=== PATIENT | female | born 1945 | race Caucasian/White ===

== ENCOUNTER 2023-11-16 21:14 | Observation (INO) | payer MEDICARE, SELFPAY ==
[2023-11-16] VITALS (16 sets, daily range): BP systolic 128–170; BP diastolic 60–87; PULSE 75; RESP 28; TEMP 37.1; O2SAT 90–96; BMI 26.5
--- NOTE | 2023-11-16 21:33 | CT_ITS ---
The [address] [address] Patient Name: DIEGO DEY MRN: [id number] date: 1945 Sex: F Assigned Patient Location: ER Current Patient Location: ER Accession/Order Number: [id number] Exam Date: 11/16/2023 22:20 Report Date: 11/16/2023 23:54 At the request of: KELY CORDON Procedure: CT abdomen pelvis w con CT ABDOMEN AND PELVIS WITH CONTRAST: INDICATION: trauma. COMPARISON: 01/08/2022. TECHNIQUE:Multiple thin section transaxial slices were acquired through the abdomen and pelvis with intravenous contrast. Coronal and sagittal reconstructed images were reviewed. Oral contrastWas not administered. FINDINGS: LOWER CHEST: There are severe emphysematous changes in the lung bases with chronic interstitial scarring. There is a small to moderate hiatal hernia. LIVER: The liver is unremarkable. GALLBLADDER AND BILIARY SYSTEM: There is mild intra and extrahepatic ductal dilation. This is most likely due to the postsurgical status of the patient. The gallbladder is not visualized and is likely absent. SPLEEN: The spleen is unremarkable. PANCREAS: The pancreas is unremarkable. ADRENAL GLANDS: The adrenal glands are unremarkable. KIDNEYS AND URETERS: There is no hydronephrosis of the kidneys.There is a heterogeneous nodule arising from the posterior inferior right kidney measuring 2.1 cm slightly increased in size. This may represent neoplasm. Additional simple cysts are present elsewhere in both kidneys. Ureters are within normal limits without obstructing urologic calcifications. VASCULATURE: Heavy atherosclerotic plaque is present in the abdominal aorta without aneurysm. PERITONEUM/RETROPERITONEUM: Peritoneum/retroperitoneum is unremarkable. LYMPH NODES: No suspicious lymphadenopathy. GASTROINTESTINAL TRACT: The bowel is normal in caliber.No acute inflammatory process is present in the bowel.The appendix is not visualized and may be absent or diminutive. BLADDER: The urinary bladder is unremarkable. REPRODUCTIVE SYSTEM: The uterus is absent. BODY WALL: Small bilateral fat-containing inguinal hernias are present. BONES: The patient is status post posterior spinal fusion and discectomy of L4-L5. The hardware is stable in alignment and remains intact. There is an incompletely imaged acute fracture of the right lateral seventh rib. No definitive acute osseous injuries are present elsewhere in the abdomen or pelvis. CT/CT abdomen pelvis w con IMPRESSION: 1. There is an incompletely imaged fracture of the right lateral seventh rib on this exam. No additional acute osseous injuries elsewhere in the abdomen or pelvis. 2. Heterogeneous nodule arising from the inferior right kidney slightly increased in size from the prior exam. This may represent a neoplastic lesion. This can be closely followed up with renal ultrasound in 6 months. 3. No acute traumatic visceral injuries in the abdomen or pelvis. No acute inflammatory process or obstructive uropathy. Electronically authenticated by: RONNIE MCKINNEY Date: 11/16/2023 23:54
--- NOTE | 2023-11-16 21:35 | CT_ITS ---
The [address] [address] Patient Name: DIEGO DEY MRN: [id number] date: 1945 Sex: F Assigned Patient Location: ER Current Patient Location: ER Accession/Order Number: [id number] Exam Date: 11/16/2023 22:20 Report Date: 11/16/2023 23:18 At the request of: KELY CORDON Procedure: CT head/brain wo con EXAM: CT head/brain wo con, CT cervical spine wo con HISTORY: injury COMPARISON: CT brain 02/07/2019. TECHNIQUE: Axial CT scans through the head and cervical spine were obtained without IV contrast administration. Dose reduction techniques were achieved by using: automated exposure control and/or adjustment of mA and /or kV according to patient size and/or use of iterative reconstruction technique. CT BRAIN FINDINGS: There is no evidence of acute intracranial hemorrhage or abnormal extra-axial fluid collection. No mass effect or midline shift is seen. There is no evidence of large acute territorial infarction. There is no hydrocephalus. There are chronic lacunar infarcts in bilateral thalami. Mild enlarged cortical sulci, consistent with age appropriate cerebral atrophy. Mild low-attenuation patchy areas are present in supratentorial white matter, likely represents chronic microvascular ischemia. There are atherosclerotic calcifications of anterior and posterior circulations. To the limit of CT, the posterior fossa appears unremarkable. Empty sella is noted. No definite acute fracture is identified. Soft tissues are unremarkable. The visualized orbits show no abnormality. The visualized paranasal sinuses show no air-fluid level. Chronic right-sided mild mastoid effusion. CT/CT head/brain wo con IMPRESSION: No CT evidence of acute intracranial abnormality. Nonacute findings, as described. CT CERVICAL SPINE FINDINGS: No acute fracture or posttraumatic malalignment is seen. The dens and lateral masses of C1 are symmetric. There is mild retrolisthesis of C5 on C6 and mild anterolisthesis of C7 on T1. There is reversal of normal cervical lordosis. There are multilevel marginal spurring and moderate to severe decreased disc height at C3-4, C4-5 and C5-6 and C6-7 levels. Multilevel mild to moderate facet arthrosis are identified. Mild central spinal stenosis is seen at C6-7 level. There are multilevel neural foraminal narrowing , moderate at bilateral C5-6 and mild at bilateral C3-4, right C4-5 and bilateral C6-7 levels. The prevertebral soft tissue space appears normal. There are a couple of small low-attenuation nodules in the right inferior thyroid lobe. There are moderate to severe atherosclerotic calcifications at the bilateral carotid bifurcations. IMPRESSION: No visualized acute cervical spine abnormality. Multilevel cervical spondylosis, as described. Low-attenuation nodules in the right thyroid lobe. Recommend nonemergent thyroid ultrasound for further evaluation. Electronically authenticated by: PAVEL QUIÑONES Date: 11/16/2023 23:18
--- NOTE | 2023-11-16 21:35 | ED_ITS ---
HPI - Fall General Chief Complaint: Fall Stated Complaint: fell Time Seen by Provider: 11/16/23 21:26 Source: patient Mode of arrival: ambulance Limitations: no limitations History of Present Illness HPI Narrative: patient states she fell yesterday at home. States she tripped . Fell to the floor. Believes she may have struck her head on the door. Not sure if she loss consciousness. Denies headache. Lives alone and was able to get up. comes in today because of right rib cage pain. no dyspnea or nausea/vomiting MD complaint: Reports fall Onset (ago): day(s) Related Data Home Medications Medication Instructions Recorded Confirmed albuterol sulfate 90 mcg/actuation 2 puff inhalation Q4H PRN 11/16/23 11/16/23 aerosol inhaler shortness of breath or wheezing alendronate 10 mg tablet PO .weekly 11/16/23 aspirin 81 mg capsule 81 mg PO DAILY 11/16/23 11/16/23 citalopram 20 mg tablet 20 mg PO DAILY 11/16/23 11/16/23 methotrexate sodium 2.5 mg tablet 5 mg PO .weekly 11/16/23 11/16/23 metoprolol tartrate 25 mg tablet 12.5 mg PO DAILY 11/16/23 11/16/23 omega 5-knn-aug-fish oil 1,000 mg 1 cap PO DAILY 11/16/23 11/16/23 (120 mg-180 mg) capsule (Fish Oil) oxycodone-acetaminophen 5 mg-325 1 tab PO .daily PRN pain 11/16/23 11/16/23 mg tablet rosuvastatin 5 mg tablet 5 mg PO BEDTIME 11/16/23 11/16/23 Allergies Allergy/AdvReac Type Severity Reaction Status Date / Time No Known Drug Allergies Allergy Verified 11/16/23 21:24 Review of Systems ROS Status of ROS 10 or more systems reviewed and unremark able except as noted in history and below [facility] Medical History (Updated 11/17/23 @ 01:13 by Champ Plaza MD) Cataracts, both eyes ?H26.9 - Unspecified cataract (ICD-10) Chronic obstructive pulmonary disease ?J44.9 - Chronic obstructive pulmonary disease, unspecified (ICD-10) Urinary tract infection ?N39.0 - Urinary tract infection, site not specified (ICD-10) Surgical History (Updated 11/16/23 @ 22:11 by Elie Rojas) History of hysterectomy ?Z90.710 - Acquired absence of both cervix and uterus (ICD-10) History of cholecystectomy ?Z90.49 - Acquired absence of other specified parts of digestive tract (ICD- 10) History of hernia surgery ?Z98.890 - Other specified postprocedural states (ICD-10) ?Z87.19 - Personal history of other diseases of the digestive system (ICD-10) Previous back surgery ?Z98.890 - Other specified postprocedural states (ICD-10) History of endarterectomy ?Z98.890 - Other specified postprocedural states (ICD-10) Social History Smoking status: Current every day smoker Exam Constitutional Vital Signs, click to edit/add: Last Vital Signs Temp 98.8 F 11/16/23 21:16 Pulse 75 11/16/23 21:16 Resp 28 H 11/16/23 21:16 BP 114/55 11/17/23 00:31 Pulse Ox 96 11/17/23 00:40 O2 Del Method Room Air 11/16/23 21:16 Common normals: no apparent distress, average body habitus, oriented x3, no limitations, healthy appearing, alert and well nourished [facility] Common normals: normocephalic and head/scalp atraumatic Eye Common normals: EOMs intact bilaterally and conjunctivae normal Chest Other: right anterior inferior chest wall tenderness Respiratory Common normals: normal respiratory effort, no retractions, no use of accessory muscles and clear to auscultation bilaterally GI Common normals: Normal to inspection, nondistended, normoactive bowel sounds present, soft to palpation and non-tender Extremity Common normals: normal to inspection and full ROM Neuro Common normals: oriented x3, CN's II-XII intact bilaterally, moves all extremities, no focal motor deficits and no sensory deficits noted Psych Appearance: grossly normal Course Vital Signs Vital signs: Vital Signs Temperature 98.8 F 11/16/23 21:16 Pulse Rate 75 11/16/23 21:16 Respiratory Rate 28 H 11/16/23 21:16 Blood Pressure 170/85 H 11/16/23 21:16 Pulse Oximetry 93 L 11/16/23 21:16 Oxygen Delivery Method Room Air 11/16/23 21:16 Temperature 98.8 F 11/16/23 21:16 Pulse Rate 75 11/16/23 21:16 Respiratory Rate 28 H 11/16/23 21:16 Blood Pressure 114/55 11/17/23 00:31 Pulse Oximetry 96 11/17/23 00:40 Oxygen Delivery Method Room Air 11/16/23 21:16 MDM - Fall MDM Narrative Medical decision making narrative: patient fell at home yesterday. believes she struck her head but not sure. fell onto the floor striking her right ribs. Presents now via Squad with right rib cage pain. no dyspnea. pain with change in position. Not short of breath. CT with ? fracture of 7th Rib fracture. incidental finding of thyroid nodule and right kidney lesion both which will require follow up patient given Percocet, toradol and norflex for pain. pain improved some. She has chronic back pain for which she takes Percocet. patient discharged home to follow up with her family doctor for recheck. She and her sisters were informed of the need for follow up regarding thyroid and kidney Lab Data Labs: Lab Results 11/16/23 Range/Units 21:30 WBC 13.5 H (4.0-11.0) 10^3/uL RBC 5.37 (4.20-5.40) 10^6/uL Hgb 16.6 H (12.0-16.0) g/dL Hct 51.4 H (36.0-48.0) % MCV 95.7 (81.0-99.0) fL MCH 30.9 (26.7-34.0) pg MCHC 32.3 (29.9-35.2) g/dL RDW 14.4 (11.0-15.0) % Plt Count 197 (150-450) 10^3/uL MPV 10.5 (9.5-13.5) fL Neut % (Auto) 84.8 H (43.0-75.0) % Lymph % (Auto) 9.5 L (20.5-60.0) % Phillips % (Auto) 4.5 (1.7-12.0) % Eos % (Auto) 0.4 L (0.9-7.0) % Baso % (Auto) 0.4 (0.2-2.0) % Neut # (Auto) 11.4 H (1.4-6.5) 10^3/uL Lymph # (Auto) 1.3 (1.2-3.8) 10^3/uL Phillips # (Auto) 0.6 (0.3-0.8) 10^3/uL Eos # (Auto) 0.1 (0.0-0.7) 10^3/uL Baso # (Auto) 0.1 (0.0-0.1) 10^3/uL Abs Immat Gran (auto) 0.05 H (0.00-0.03) 10^3/uL Imm/Tot Granulo (auto) 0.4 (0.0-0.5) % Sodium 139 (136-145) mmol/L Potassium 4.5 (3.5-5.1) mmol/L Chloride 105 (98-107) mmol/L Carbon Dioxide 27.1 (21.0-32.0) mmol/L Anion Gap 11.4 BUN 24.0 H (7.0-18.0) mg/dL Creatinine 0.90 (0.55-1.02) mg/dL Est GFR ( Amer) >60 (>=60) Est GFR (Non-Af Amer) >60 (>=60) BUN/Creatinine Ratio 26.7 Glucose 167 H (74-106) mg/dL Lactate 1.6 (0.4-2.0) mmol/L Calcium 9.4 (8.5-10.1) mg/dL Total Bilirubin 0.6 (0.2-1.0) mg/dL AST 24 (15-37) U/L ALT 25 (14-59) U/L Alkaline Phosphatase 89 (46-116) U/L Troponin I High Sens 13.3 (4.0-51.3) pg/mL Total Protein 7.1 (6.4-8.2) g/dL Albumin 3.4 (3.4-5.0) g/dL Globulin 3.7 g/dL Albumin/Globulin Ratio 0.9 Imaging Data Abdominal x-ray: Radiologist's impression: The [address] [address] Patient Name: DIEGO DEY MRN: [facility]:[id number] date: 1945 Sex: F Assigned Patient Location: ER Current Patient Location: ER Accession/Order Number: [id number] Exam Date: 11/16/2023 22:20 Report Date: 11/17/2023 00:49 At the request of: CHAMP PLAZA Procedure: CT chest w con EXAM: CT CHEST WITH IV CONTRAST DATE OF EXAM: 11/16/2023 10:20 PM EST HISTORY: Shortness of breath. Elevated D-dimer. Trauma in a 78-year-old female COMPARISON: None. TECHNIQUE: Multiple axial images are taken from the level of the thyroid down through the upper abdomen with the use of IV contrast. Images are then reconstructed in the sagittal and coronal planes. This exam was performed according to our departmental dose-optimization program which includes use of Automated Exposure Control, adjustment of the mA and/or kV according to patient size and/or use of iterative reconstruction technique. Postprocessing was performed as per hospital protocol: Maximum intensity projection (MIPs) Contrast Used: 100 ml of Isovue FINDINGS: Novelty Printing Machine Operator: Novelty Printing Machine Operator demonstrates postoperative changes of the lumbosacral spine with hyperexpanded lungs. Lines and Tubes: None. Lungs: Lungs are hyperexpanded Pleura: Normal Thyroid: Normal Aorta: Normal. Pulmonary artery: Pulmonary artery measures within normal. No pulmonary embolus allowing for bolus timing and mixing artifact Heart: Mildly enlarged with coronary artery calcification Trachea/Bronchi: Well aerated. No intraluminal masses. Esophagus: The esophagus is fluid-filled measuring within normal Lymph Nodes: Normal. Mediastinal: Normal. Hilar: Normal Axilla: Normal Chest wall: Normal. Osseous Structures: Normal for patient's age. Subdiaphragm: Subdiaphragmatic abdominal organs included in the [id number] demonstrate an enlarged fatty infiltrated liver.. CT/CT chest w con IMPRESSION: 1. Emphysema. 2. Mild cardiomegaly with coronary artery disease. 3. Fluid-filled esophagus with small hiatal hernia 4. No CT evidence for acute pulmonary embolus. CT scan - chest: Radiologist's impression: The [address] [address] [address] Scan Report Signed Patient: DIEGO DEY MR#: [id number] : 1945 Acct:[id number] Age/Sex: 78 / F ADM Date: 11/16/23 Loc: ER Attending Dr: Ordering Physician: Champ Plaza Date of Service: 11/16/23 Procedure(s): CT chest w con Accession Number(s): [id number] cc: WILFREDO MELGAR ~ The [address] [address] Patient Name: DIEGO DEY MRN: [id number] date: 1945 Sex: F Assigned Patient Location: ER Current Patient Location: ER Accession/Order Number: [id number] Exam Date: 11/16/2023 22:20 Report Date: 11/17/2023 00:49 At the request of: CHAMP PLAZA Procedure: CT chest w con EXAM: CT CHEST WITH IV CONTRAST DATE OF EXAM: 11/16/2023 10:20 PM EST HISTORY: Shortness of breath. Elevated D-dimer. Trauma in a 78-year-old female COMPARISON: None. TECHNIQUE: Multiple axial images are taken from the level of the thyroid down through the upper abdomen with the use of IV contrast. Images are then reconstructed in the sagittal and coronal planes. This exam was performed according to our departmental dose-optimization program which includes use of Automated Exposure Control, adjustment of the mA and/or kV according to patient size and/or use of iterative reconstruction technique. Postprocessing was performed as per hospital protocol: Maximum intensity projection (MIPs) Contrast Used: 100 ml of Isovue FINDINGS: Novelty Printing Machine Operator: Novelty Printing Machine Operator demonstrates postoperative changes of the lumbosacral spine with hyperexpanded lungs. Lines and Tubes: None. Lungs: Lungs are hyperexpanded Pleura: Normal Thyroid: Normal Aorta: Normal. Pulmonary artery: Pulmonary artery measures within normal. No pulmonary embolus allowing for bolus timing and mixing artifact Heart: Mildly enlarged with coronary artery calcification Trachea/Bronchi: Well aerated. No intraluminal masses. Esophagus: The esophagus is fluid-filled measuring within normal Lymph Nodes: Normal. Mediastinal: Normal. Hilar: Normal Axilla: Normal Chest wall: Normal. Osseous Structures: Normal for patient's age. Subdiaphragm: Subdiaphragmatic abdominal organs included in the [id number] demonstrate an enlarged fatty infiltrated liver.. CT/CT chest w con IMPRESSION: 1. Emphysema. 2. Mild cardiomegaly with coronary artery disease. 3. Fluid-filled esophagus with small hiatal hernia 4. No CT evidence for acute pulmonary embolus. Discharge Plan Discharge Chief Complaint: Fall Clinical Impression: Thyroid nodule, Bruised ribs Patient Disposition: Home, Self-Care Prescriptions / Home Meds: No Action albuterol sulfate 90 mcg/actuation HFA aerosol inhaler 2 puff INHALATION Q4H PRN (Reason: shortness of breath or wheezing) methotrexate sodium 2.5 mg tablet 5 mg PO .weekly metoprolol tartrate 25 mg tablet 12.5 mg PO DAILY rosuvastatin 5 mg tablet 5 mg PO BEDTIME citalopram 20 mg tablet 20 mg PO DAILY aspirin 81 mg capsule 81 mg PO DAILY alendronate 10 mg tablet PO .weekly omega 6-vfp-qec-fish oil [Fish Oil] 1,000 mg (120 mg-180 mg) capsule 1 cap PO DAILY Patient Comments: confirm dosage oxycodone-acetaminophen 5-325 mg tablet 1 tab PO .daily PRN (Reason: pain) Instructions: Contusion in Adults (ED), Rib Contusion (ED) Additional Instructions: follow up with your family doctor in a couple of days for recheck Stand Alone Forms: Portal Instructions Referrals: Physician,Non-Staff, MD [Physician] - 1 week
--- NOTE | 2023-11-16 21:35 | CT_ITS ---
The [address] [address] Patient Name: DIEGO DEY MRN: [id number] date: 1945 Sex: F Assigned Patient Location: ER Current Patient Location: ER Accession/Order Number: [id number] Exam Date: 11/16/2023 22:20 Report Date: 11/16/2023 23:18 At the request of: KELY CORDON Procedure: CT cervical spine wo con EXAM: CT head/brain wo con, CT cervical spine wo con HISTORY: injury COMPARISON: CT brain 02/07/2019. TECHNIQUE: Axial CT scans through the head and cervical spine were obtained without IV contrast administration. Dose reduction techniques were achieved by using: automated exposure control and/or adjustment of mA and /or kV according to patient size and/or use of iterative reconstruction technique. CT BRAIN FINDINGS: There is no evidence of acute intracranial hemorrhage or abnormal extra-axial fluid collection. No mass effect or midline shift is seen. There is no evidence of large acute territorial infarction. There is no hydrocephalus. There are chronic lacunar infarcts in bilateral thalami. Mild enlarged cortical sulci, consistent with age appropriate cerebral atrophy. Mild low-attenuation patchy areas are present in supratentorial white matter, likely represents chronic microvascular ischemia. There are atherosclerotic calcifications of anterior and posterior circulations. To the limit of CT, the posterior fossa appears unremarkable. Empty sella is noted. No definite acute fracture is identified. Soft tissues are unremarkable. The visualized orbits show no abnormality. The visualized paranasal sinuses show no air-fluid level. Chronic right-sided mild mastoid effusion. CT/CT cervical spine wo con IMPRESSION: No CT evidence of acute intracranial abnormality. Nonacute findings, as described. CT CERVICAL SPINE FINDINGS: No acute fracture or posttraumatic malalignment is seen. The dens and lateral masses of C1 are symmetric. There is mild retrolisthesis of C5 on C6 and mild anterolisthesis of C7 on T1. There is reversal of normal cervical lordosis. There are multilevel marginal spurring and moderate to severe decreased disc height at C3-4, C4-5 and C5-6 and C6-7 levels. Multilevel mild to moderate facet arthrosis are identified. Mild central spinal stenosis is seen at C6-7 level. There are multilevel neural foraminal narrowing , moderate at bilateral C5-6 and mild at bilateral C3-4, right C4-5 and bilateral C6-7 levels. The prevertebral soft tissue space appears normal. There are a couple of small low-attenuation nodules in the right inferior thyroid lobe. There are moderate to severe atherosclerotic calcifications at the bilateral carotid bifurcations. IMPRESSION: No visualized acute cervical spine abnormality. Multilevel cervical spondylosis, as described. Low-attenuation nodules in the right thyroid lobe. Recommend nonemergent thyroid ultrasound for further evaluation. Electronically authenticated by: PAVEL QUIÑONES Date: 11/16/2023 23:18
[2023-11-16 21:40] LABS: Basophils Absolute Auto 0.1 10^3/uL (0.0-0.1); Basophils Percent Auto 0.4 % (0.2-2.0); Eosinophils Absolute Auto 0.1 10^3/uL (0.0-0.7); Eosinophils Percent Auto 0.4 % (0.9-7.0); Hematocrit 51.4 % (36.0-48.0); Hemoglobin 16.6 g/dL (12.0-16.0); Immature Granulocytes Abs Auto 0.05 10^3/uL (0.00-0.03); Immature Granulocytes Pct Auto 0.4 % (0.0-0.5); Lymphocytes Absolute Auto 1.3 10^3/uL (1.2-3.8); Lymphocytes Percent Auto 9.5 % (20.5-60.0); Mean Corpuscular HGB Conc 32.3 g/dL (29.9-35.2); Mean Corpuscular Hemoglobin 30.9 pg (26.7-34.0); Mean Corpuscular Volume 95.7 fL (81.0-99.0); Mean Platelet Volume 10.5 fL (9.5-13.5); Monocytes Absolute Auto 0.6 10^3/uL (0.3-0.8); Monocytes Percent Auto 4.5 % (1.7-12.0); Neutrophils Absolute Auto 11.4 10^3/uL (1.4-6.5); Neutrophils Percent Auto 84.8 % (43.0-75.0); Platelet Count 197 10^3/uL (150-450); Red Blood Count 5.37 10^6/uL (4.20-5.40); Red Cell Distribution Width 14.4 % (11.0-15.0); White Blood Count 13.5 10^3/uL (4.0-11.0)
[2023-11-16] MEDS: 0.9 % SODIUM CHLORIDE 1,000 ML 999 ML IV (21:53)
[2023-11-16] MEDS: MORPHINE SULFATE 4 MG/ML VIAL IV (21:54)
[2023-11-16 21:59] LABS: Alanine Aminotransferase 25 U/L (14-59); Albumin Globulin Ratio 0.9; Albumin Level 3.4 g/dL (3.4-5.0); Alkaline Phosphatase 89 U/L (46-116); Anion Gap 11.4; Aspartate Amino Transferase 24 U/L (15-37); BUN Creatinine Ratio 26.7; Bilirubin Total 0.6 mg/dL (0.2-1.0); Calcium 9.4 mg/dL (8.5-10.1); Carbon Dioxide 27.1 mmol/L (21.0-32.0); Chloride 105 mmol/L (98-107); Estimated GFR (African America >60 (>=60); Estimated GFR (Non-African Ame >60 (>=60); Globulin 3.7 g/dL; Glucose 167 mg/dL (74-106); Potassium 4.5 mmol/L (3.5-5.1); Sodium 139 mmol/L (136-145); Total Protein 7.1 g/dL (6.4-8.2); Troponin I High Sensitivity 13.3 pg/mL (4.0-51.3)
[2023-11-16 22:01] LABS: Lactate/Lactic Acid 1.6 mmol/L (0.4-2.0)
[2023-11-16] MEDS: ONDANSETRON PF 4 MG/2 ML VIAL IV (23:05)
[2023-11-17] VITALS (28 sets, daily range): BP systolic 105–148; BP diastolic 49–78; PULSE 61–93; RESP 18–20; TEMP 36.6–36.7; O2SAT 67–98; BMI 25.9
[2023-11-17] MEDS: OXYCODONE HCL/ACETAMINOPHEN 5MG/325MG 2 TAB PO (00:35)
[2023-11-17] MEDS: KETOROLAC TROMETHAMINE 30 MG/ML VIAL IVP (01:24)
[2023-11-17] MEDS: ORPHENADRINE 60 MG/ 2 ML VIAL IV (01:24)
--- NOTE | 2023-11-17 05:26 | W.PM.TELEPN ---
Progress Note: Subjective Subjective Interval history: The patient is a very pleasant 78-year-old female who was in her usual state of health until yesterday when she tripped and fell. She hit the right side of her chest wall and started complaining of pain in that area. She has had intermittent episodes of nausea. She denies any chest pain, new medications or any recent sick contacts. She presented to the ED and was noted to have a right seventh rib fracture. She was requiring some oxygen and therefore she is being admitted for further evaluation. Exam Narrative Exam Narrative: General : Alert and oriented x3 HEENT : Extraocular movements intact, pupils equal round and reactive to light and accommodation Neck: Supple, no JVD Chest: Clear to auscultation bilaterally, no wheezes Heart: Regular rate and rhythm, S1 and S2 heard Abdomen: Soft nontender nondistended. Extremities: No clubbing cyanosis or edema Neurologically: Moving all 4 extremities Skin: No rashes Constitutional Vital Signs, click to edit/add: Last Vital Signs Temp 98.0 F 11/17/23 02:57 Pulse 73 11/17/23 02:57 Resp 18 11/17/23 02:57 BP 105/67 11/17/23 02:57 Pulse Ox 97 11/17/23 02:57 O2 Del Method Nasal Cannula 11/17/23 02:57 O2 Flow Rate 3 11/17/23 02:57 Progress Note: Objective Labs Labs: Short CBC 11/16/23 Range/Units 21:30 WBC 13.5 H (4.0-11.0) 10^3/uL Hgb 16.6 H (12.0-16.0) g/dL Hct 51.4 H (36.0-48.0) % Plt Count 197 (150-450) 10^3/uL BMP 11/16/23 21:30 Sodium 139 Potassium 4.5 Chloride 105 Carbon Dioxide 27.1 BUN 24.0 H Creatinine 0.90 Glucose 167 H Calcium 9.4 Liver Function 11/16/23 Range/Units 21:30 Total Bilirubin 0.6 (0.2-1.0) mg/dL AST 24 (15-37) U/L ALT 25 (14-59) U/L Alkaline Phosphatase 89 (46-116) U/L Albumin 3.4 (3.4-5.0) g/dL Progress Note: A&P Assessment and Plan (1) Bruised ribs: Plan The patient is a 78-year-old female with above medical problems, presenting with fall, sustaining a right seventh rib fracture. Right seventh rib fracture -Provide supportive care -Lidocaine patch, Toradol -Incentive spirometry -Continue home Percocet Nicotine dependence -Provide nicotine patch DVT Prophylaxis -Lovenox, SCDs Medication review -Medication reconciliation form completed Goals of care -Full code Communications -Discussed with the emergency room physician -Discussed with the bedside nurse -Patient updated of plan of care, all questions answered to their satisfaction Disposition -Home when medically stable Telemedicine clause -As the provider of this telehealth evaluation, requested by the patient's evaluating physician, I attest that I introduced myself to the patient, provided my credentials and determined that telemedicine via a real-time, two-way interactive audio and video platform is an appropriate and effective means of providing this service. -I reviewed the patient's chart and had a discussion with the member of the patient's treatment team. -The patient and I mutually agreed with continuation of this evaluation via telemedicine. The patient consented for the telemedicine evaluation. -This virtual encounter was taken place from [place], [place]. The encounter was approximately 35 minutes. The nurse was present during the entire time of the encounter and was able to remove the stethoscope and appropriate directions. The patient was evaluated at [facility] Telemedicine Attestation Telemedicine Attestation I conducted this encounter from [] via secure live, [id number] video conference with the patient, located at [facility] with []. Prior to the interview, the risks and benefits of telemedicine were discussed with the patient and verbal consent was obtained.
[2023-11-17] MEDS: NICOTINE 14 MG PATCH.TD24 TD (06:29)
[2023-11-17] MEDS: ENOXAPARIN SODIUM 40 MG/0.4 ML SYRINGE SUBQ ×2 (06:29→09:03)
[2023-11-17] MEDS: LIDOCAINE 5% PATCH 1 PATCH TOPICAL (06:30)
[2023-11-17] MEDS: CITALOPRAM HYDROBROMIDE 20 MG TABLET PO (09:02)
[2023-11-17] MEDS: ASPIRIN 81 MG TABLET.DR PO (09:02)
[2023-11-17] MEDS: METOPROLOL TARTRATE 25 MG TABLET 12.5 MG PO ×2 (09:03→20:14)
[2023-11-17] MEDS: FISH OIL 1,000 MG CAPSULE 1000 MG PO (09:03)
[2023-11-17] MEDS: OXYCODONE HCL/ACETAMINOPHEN 5MG/325MG 1 TAB PO ×2 (09:12→23:26)
--- NOTE | 2023-11-17 10:04 | CM.NOTE ---
Important Message From Medicare discussed with pt, pt verbalizes understanding and signs paper. Original given to pt and copy placed on pt's chart.
[2023-11-17] MEDS: IPRATROPIUM/ALBUTEROL SULFATE 3 ML AMPUL.NEB IH ×3 (10:53→22:56)
--- NOTE | 2023-11-17 11:01 | PM.HP ---
H&P: HPI History of Present Illness Chief complaint: fell HYPOXEMIA COPD [facility] Medical History (Updated 11/17/23 @ 11:08 by Shaikh Kashif MD) Osteoporosis ?M81.0 - Age-related osteoporosis without current pathological fracture (ICD-10) HLD (hyperlipidemia) ?E78.5 - Hyperlipidemia, unspecified (ICD-10) Renal lesion ?N28.9 - Disorder of kidney and ureter, unspecified (ICD-10) Thyroid nodule ?E04.1 - Nontoxic single thyroid nodule (ICD-10) Cataracts, both eyes ?H26.9 - Unspecified cataract (ICD-10) Chronic obstructive pulmonary disease ?J44.9 - Chronic obstructive pulmonary disease, unspecified (ICD-10) Urinary tract infection ?N39.0 - Urinary tract infection, site not specified (ICD-10) Surgical History History of hysterectomy ?Z90.710 - Acquired absence of both cervix and uterus (ICD-10) History of cholecystectomy ?Z90.49 - Acquired absence of other specified parts of digestive tract (ICD-10) History of hernia surgery ?Z98.890 - Other specified postprocedural states (ICD-10) ?Z87.19 - Personal history of other diseases of the digestive system (ICD-10) Previous back surgery ?Z98.890 - Other specified postprocedural states (ICD-10) History of endarterectomy ?Z98.890 - Other specified postprocedural states (ICD-10) Family History Father Family history of CHF (congestive heart failure) Family history of diabetes mellitus Family history of myocardial infarction Social History Within the past year, how often did you have a drink containing alcohol: monthly or less Within the past year, how many standard drinks containing alcohol did you have on a typical day: 1 or 2 Within the past year, how often did you have six or more drinks on one occasion: never Total score: 0 Score interpretation: A score less than 3 is consistent with normal alcohol consumption. Smoking status: Current every day smoker Non-prescribed substance use: denies use Previous occupational history: [employer] Known occupational exposures/hazards details: inhalants Highest level of school completed/degree received: high school graduate Are you now , , , , never or living with a partner: In a typical week, how many times do you talk on the telephone with family, friends, or neighbors: 3 or more times per week How often do you get together with friends or relatives: once per week How often do you attend nondenominational or moravian services: 4 or more times per year Do you belong to any clubs or organizations such as nondenominational groups unions, [employer] or [employer] groups, or school groups: yes Total score: 3 Score interpretation: A score of greater than or equal to 2 indicates the lowest level of social isolation. Little interest or pleasure in doing things: several days Feeling down, depressed, or hopeless: not at all Feel stressed/tense/nervous/anxious/difficulty sleeping: not at all Gender Identity: female Meds Home Medications and Allergies Home Medications Medication Instructions Recorded Confirmed Type albuterol sulfate 90 mcg/actuation 2 puff inhalation Q4H PRN 11/16/23 11/16/23 History aerosol inhaler shortness of breath or wheezing alendronate 10 mg tablet PO .weekly 11/16/23 History aspirin 81 mg capsule 81 mg PO DAILY 11/16/23 11/16/23 History citalopram 20 mg tablet 20 mg PO DAILY 11/16/23 11/16/23 History methotrexate sodium 2.5 mg tablet 5 mg PO .weekly 11/16/23 11/16/23 History metoprolol tartrate 25 mg tablet 12.5 mg PO DAILY 11/16/23 11/16/23 History omega 2-zub-vqs-fish oil 1,000 mg 1 cap PO DAILY 11/16/23 11/16/23 History (120 mg-180 mg) capsule (Fish Oil) oxycodone-acetaminophen 5 mg-325 1 tab PO .daily PRN pain 11/16/23 11/16/23 History mg tablet rosuvastatin 5 mg tablet 5 mg PO BEDTIME 11/16/23 11/16/23 History Allergies Allergy/AdvReac Type Severity Reaction Status Date / Time No Known Drug Allergies Allergy Verified 11/16/23 21:24 Exam Constitutional Vital Signs, click to edit/add: Last Vital Signs Temp 98.0 F 11/17/23 02:57 Pulse 73 11/17/23 02:57 Resp 18 11/17/23 02:57 BP 105/67 11/17/23 02:57 Pulse Ox 95 11/17/23 09:39 O2 Del Method Nasal Cannula 11/17/23 09:39 O2 Flow Rate 1 11/17/23 09:39 Documenting provider has reviewed patient's vital signs: yes Common normals: no apparent distress and oriented x3 General appearance: cooperative and frail appearing [facility] Common normals: normocephalic and head/scalp atraumatic Head and scalp: normocephalic and atraumatic Eye Common normals: conjunctivae normal and no scleral icterus Conjunctiva: conjunctiva(e) normal Chest Other: tenderness along right chest wall Respiratory Common normals: normal respiratory effort Auscultation: wheezes and diminished lung sounds Other: coarse breath sounds Cardio Common normals: regular rate, S1 normal heart sound and S2 normal heart sound Rate: regular rate Heart sounds: S1 normal and S2 normal GI Common normals: Normal to inspection, nondistended, normoactive bowel sounds present, soft to palpation, non-tender and no hepatosplenomegaly Palpation: soft and no hepatosplenomegaly Extremity Common normals: no clubbing, cyanosis or edema Neuro Common normals: oriented x3, moves all extremities and no focal motor deficits Psych Common normals: mental status grossly normal, denies hallucinations, denies homicidal ideation and denies suicidal ideation Results Labs Labs: Short CBC 11/16/23 Range/Units 21:30 WBC 13.5 H (4.0-11.0) 10^3/uL Hgb 16.6 H (12.0-16.0) g/dL Hct 51.4 H (36.0-48.0) % Plt Count 197 (150-450) 10^3/uL BMP 11/16/23 21:30 Sodium 139 Potassium 4.5 Chloride 105 Carbon Dioxide 27.1 BUN 24.0 H Creatinine 0.90 Glucose 167 H Calcium 9.4 Liver Function 11/16/23 Range/Units 21:30 Total Bilirubin 0.6 (0.2-1.0) mg/dL AST 24 (15-37) U/L ALT 25 (14-59) U/L Alkaline Phosphatase 89 (46-116) U/L Albumin 3.4 (3.4-5.0) g/dL Assessment and Plan Assessment and Plan (1) COPD exacerbation: Assessment and Plan: COPD exacerbation, cough, wheezing and hypoxia. Solumedrol 125 mg IV x once. Start on PO prednisone. C/w duonebs. (2) Acute respiratory failure with hypoxia: Assessment and Plan: Dropped down to 67% on RA on ambulation likely due to COPD exacerbation, inability to take deep breaths due to pain/rib fracture Wean off O2 as tolerated c/W opep. (3) Fall: Assessment and Plan: Mechanical fall. Lives by herself. PT/OT eval. Rib fractured as a result of fall. (4) Renal lesion: Assessment and Plan: suspicious lesion on CT abd. Outpatient f/u (5) Right rib fracture: Assessment and Plan: due to fall. Pain control, supportive care. PT/OT eval. OPEP (6) Thyroid nodule: Assessment and Plan: needs an US as outpatient. (7) HLD (hyperlipidemia): Assessment and Plan: cw/ jose. (8) Osteoporosis: Assessment and Plan: c/w alendronate Plan C/w pain control, OPEP, duonebs and steroids. Wean off O2 as tolerated.
--- NOTE | 2023-11-17 11:11 | CM.NOTE ---
Rounds made with Dr. Rowland. PT ordered and awaiting their recommendations. O2 sat dropped with ambulation. Hx of COPD but not currently on home O2. Lives alone. Dr. Rowland educated pt on need to take deep breaths & use PEP. Dr. Rowland explained depending on how does with PT, patient may need SNF. Pt is not opposed to that if recommended. No plan for discharge today.
[2023-11-17 11:23] LABS: Adenovirus NOT DETECTED (NOT DETECTE); Bordetella parapertussis NOT DETECTED (NOT DETECTE); Coronavirus 229E NOT DETECTED (NOT DETECTE); Coronavirus HKU1 NOT DETECTED (NOT DETECTE); Coronavirus NL63 NOT DETECTED (NOT DETECTE); Coronavirus OC43 NOT DETECTED (NOT DETECTE); Human Metapneumovirus NOT DETECTED (NOT DETECTE); Human Rhinovirus/Enterovirus NOT DETECTED (NOT DETECTE); Influenza A NOT DETECTED (NOT DETECTE); Influenza B NOT DETECTED (NOT DETECTE); Mycoplasma pneumoniae NOT DETECTED (NOT DETECTE); Parainfluenza Virus 1 NOT DETECTED (NOT DETECTE); Parainfluenza Virus 2 NOT DETECTED (NOT DETECTE); Parainfluenza Virus 3 NOT DETECTED (NOT DETECTE); Parainfluenza Virus 4 NOT DETECTED (NOT DETECTE); Respiratory Syncytial Virus NOT DETECTED (NOT DETECTE); SARS-CoV-2 NOT DETECTED (NOT DETECTE)
[2023-11-17] MEDS: METHYLPREDNISOLONE SOD SUCC PF 125 MG/2 ML VIAL IVP (12:03)
--- NOTE | 2023-11-17 15:53 | CM.NOTE ---
Medicare Outpatient Observation Notice discussed with pt, pt verbalizes understanding and signs paper. Original given to pt and copy placed in pt's chart.
[2023-11-17] MEDS: KETOROLAC TROMETHAMINE 30 MG/ML VIAL 15 MG IVP (17:20)
[2023-11-17] MEDS: ATORVASTATIN CALCIUM 20 MG TABLET PO (20:14)
[2023-11-18] MEDS: KETOROLAC TROMETHAMINE 30 MG/ML VIAL 15 MG IVP ×3 (00:22→14:56)
[2023-11-18 04:29] VITALS: PULSE 90; RESP 18; O2SAT 92
[2023-11-18] MEDS: IPRATROPIUM/ALBUTEROL SULFATE 3 ML AMPUL.NEB IH ×2 (04:29→11:47)
[2023-11-18 04:44] VITALS: PULSE 99; RESP 20; O2SAT 91
[2023-11-18] MEDS: NICOTINE 14 MG PATCH.TD24 TD (05:11)
[2023-11-18] MEDS: LIDOCAINE 5% PATCH 1 PATCH TOPICAL (05:11)
[2023-11-18 05:20] VITALS: BP 124/66; PULSE 107; RESP 18; TEMP 36.7; O2SAT 94
[2023-11-18 05:29] LABS: Bilirubin Urine NEGATIVE (NEGATIVE); Blood Urine NEGATIVE (NEGATIVE); Clarity Urine CLEAR (CLEAR); Color Urine YELLOW (YELLOW); Glucose Urine UA NEGATIVE (NEGATIVE); Ketones Urine NEGATIVE (NEGATIVE); Leukocyte Esterase Urine NEGATIVE (NEGATIVE); Nitrite Urine POSITIVE (NEGATIVE); Protein Urine NEGATIVE (NEG/TRACE); Specific Gravity Urine 1.025 (1.005-1.025); Urobilinogen Urine 0.2 EU/dL (0.2-1.0); pH Urine 5.5 (5.0-9.0)
[2023-11-18 05:31] LABS: Hematocrit 44.2 % (36.0-48.0); Hemoglobin 13.8 g/dL (12.0-16.0); Immature Granulocytes Abs Auto 0.03 10^3/uL (0.00-0.03); Immature Granulocytes Pct Auto 0.3 % (0.0-0.5); Lymphocytes Absolute Auto 0.6 10^3/uL (1.2-3.8); Lymphocytes Percent Auto 6.9 % (20.5-60.0); Mean Corpuscular HGB Conc 31.2 g/dL (29.9-35.2); Mean Corpuscular Hemoglobin 30.8 pg (26.7-34.0); Mean Corpuscular Volume 98.7 fL (81.0-99.0); Mean Platelet Volume 11.1 fL (9.5-13.5); Monocytes Absolute Auto 0.2 10^3/uL (0.3-0.8); Monocytes Percent Auto 1.9 % (1.7-12.0); Neutrophils Absolute Auto 8.1 10^3/uL (1.4-6.5); Neutrophils Percent Auto 90.9 % (43.0-75.0); Platelet Count 176 10^3/uL (150-450); Red Blood Count 4.48 10^6/uL (4.20-5.40); Red Cell Distribution Width 14.7 % (11.0-15.0); White Blood Count 8.9 10^3/uL (4.0-11.0)
[2023-11-18 05:37] LABS: Anion Gap 13.7; BUN Creatinine Ratio 37.3; Calcium 9.3 mg/dL (8.5-10.1); Carbon Dioxide 26.4 mmol/L (21.0-32.0); Chloride 104 mmol/L (98-107); Estimated GFR (African America 58 (>=60); Estimated GFR (Non-African Ame 48 (>=60); Glucose 180 mg/dL (74-106); Potassium 4.1 mmol/L (3.5-5.1); Sodium 140 mmol/L (136-145)
[2023-11-18 05:39] LABS: Bacteria Urine TRACE #/HPF (NONE SEEN); Cast Seen? NONE SEEN #/LPF (NONE SEEN); Crystals Seen? None Seen #/HPF (None Seen); Mucus Urine NONE SEEN (NONE SEEN); RBC Urine 0-2 #/HPF (0-2); Squamous Epithelial Cell Urine NONE SEEN #/LPF (NONE/RARE); WBC Urine 0-2 #/HPF (NONE SEEN)
[2023-11-18] MEDS: METOPROLOL TARTRATE 25 MG TABLET 12.5 MG PO (08:19)
[2023-11-18] MEDS: ENOXAPARIN SODIUM 40 MG/0.4 ML SYRINGE SUBQ (08:19)
[2023-11-18] MEDS: CITALOPRAM HYDROBROMIDE 20 MG TABLET PO (08:19)
[2023-11-18] MEDS: PREDNISONE 20 MG TABLET 40 MG PO (08:19)
[2023-11-18] MEDS: FISH OIL 1,000 MG CAPSULE 1000 MG PO (08:19)
[2023-11-18] MEDS: ASPIRIN 81 MG TABLET.DR PO (08:19)
[2023-11-18 09:24] VITALS: O2SAT 71; O2SAT 94
--- NOTE | 2023-11-18 10:26 | CM.NOTE ---
Rounds made with Dr. Rowland, okay to discharge pt to home today with home oxygen. Pt states I won't wear it. Dr. Rowland discussed risks from not wearing oxygen and benefits, after discussion pt make choice to set up for home oxygen.
--- NOTE | 2023-11-18 10:58 | CM.NOTE ---
Discussed with pt about home oxygen, pt would like [facility] for oxygen service. Discussed also HH services, pt refuses HH services at this time.
[2023-11-18 11:49] VITALS: O2SAT 90
[2023-11-18 11:53] VITALS: O2SAT 71; O2SAT 88; O2SAT 91
--- NOTE | 2023-11-18 11:56 | P.DS_ITS ---
<Statement entered by Shaikh Kashif MD - 11/18/23 14:15> This documentation has been reviewed and approved. Seen and examined. Case discussed with RADAR SIGNAL PROCESSING ENGINEER. Patient doing much better today. Pain is reasonably controlled. Exam Laying in bed, frail appearing Exp wheezing, coarse breath sounds, normal RR Tenderness to palpation of right chest wall AAOX 3, non focal. Assessment/plan Acute on chronic resp failure with hypoxia COPD exacerbation Rib fracture Fall -Patient is doing well. She is requiring 2 L O2 via NC on ambulation and it seems that she was told in the past that she needs it at home but she never used/was prescribed O2 -Pain is reasonably controlled. -PT/OT eval - did well. No skilled needs Stable for discharge. DS: Providers Provider Date of admission: 11/17/23 02:39 Primary care physician: WILFREDO MCLEOD Consults: 11/17/23 05:19 Physical Therapy Eval and Treat Routine Reason for consultation: weakness Discharging clinician: Luci Paige DS: Diagnosis Discharge Diagnosis (1) COPD exacerbation: (2) Acute and chronic respiratory failure with hypoxia: (3) Right rib fracture: (4) Fall: (5) Renal lesion: (6) Thyroid nodule: (7) HLD (hyperlipidemia): (8) Osteoporosis: (9) Tobacco abuse: DS: Summary Hospital Course Hospital Course: The pt was admitted to observation with a mild COPD exacerbation and acute respiratory failure complicated by right rib fractures after a fall at home. Her COPD was treated with a steroid burst and breathing treatments and has significantly improved. Her wheezing has resolved and she is able to be weaned off of O2 supplementation while at rest during the day. Unfortunately she continues to desaturate with activity. After further conversation with the pt by staff it is clear that she has been encouraged to use O2 supplementation at home in the past but has refused to date. Thus, there is a significant component of chronic respiratory failure at baseline. She is now agreeable to use home O2 at least for a short time while she recovers from her rib fractures/COPD exacerbation and O2 at 2L has been prescribed at discharge. She is also prescribed a short prednisone burst, [place] and lidoderm patches PRN for rib pain, colace PRN to prevent narcotic associated consitipation, and a nicoderm patch for smoking cessation. The pt is aware that she cannot smoke with Oxygen use. She is encouraged to use her OPEP frequently at home for pulmonary toileting and to employ manual splinting of her rib cage during coughing and deep breathing. She is being discharged home in stable condition and should follow up with her PCP in 5-7 days. Of Note: CT imaging of the abdomen and cervical spine reveal multiple R sided thyroid nodules and R renal nodule slightly increased from previous imaging. We defer follow up imaging to the pt's PCP as both of these findings may represent neoplastic lesions and should be monitored closely. Time Spent with Patient Time attestation: Total time spent providing and/or coordinating discharge services: Time spent: greater than 30 minutes Specific discharge activities: Physical exam, discussion of discharge plan, questions answered. Exam Constitutional Vital Signs, click to edit/add: Last Vital Signs Temp 98.0 F 11/18/23 05:20 Pulse 107 H 11/18/23 05:20 Resp 18 11/18/23 05:20 BP 124/66 11/18/23 05:20 Pulse Ox 90 L 11/18/23 11:49 O2 Del Method Nasal Cannula 11/18/23 11:49 O2 Flow Rate 1 11/18/23 11:49 Common normals: no apparent distress, oriented x3 and alert General appearance: cooperative Orientation/consciousness: Yes awake HENMT Common normals: normocephalic and head/scalp atraumatic Eye Common normals: PERRL, EOMs intact bilaterally, conjunctivae normal and no scleral icterus Neck & C-Spine Common normals: no JVD Respiratory Common normals: normal respiratory effort, no use of accessory muscles and clear to auscultation bilaterally Effort & inspection: able to speak in complete sentences and symmetric chest movement Auscultation: diminished lung sounds (BLL and RUL) Cardio Common normals: no JVD, regular rate, regular rhythm, S1 normal heart sound, S2 normal heart sound, no murmurs and peripheral pulses 2+ throughout GI Common normals: Normal to inspection, nondistended, normoactive bowel sounds present, soft to palpation and non-tender Bladder/kidney exam: bladder normal to palpation Extremity Common normals: normal to inspection, full ROM and normal capillary refill General: no clubbing and no cyanosis Neuro Common normals: moves all extremities, no focal motor deficits and no sensory deficits noted Psych Common normals: mental status grossly normal and activity/motor behavior normal DS: Data Data Completed and Pending Labs on day of discharge: Labs from last 24 hours 11/18/23 11/18/23 11/17/23 05:10 04:50 11:18 WBC 8.9 RBC 4.48 Hgb 13.8 Hct 44.2 MCV 98.7 MCH 30.8 MCHC 31.2 RDW 14.7 Plt Count 176 MPV 11.1 Neut % (Auto) 90.9 H Lymph % (Auto) 6.9 L [place] % (Auto) 1.9 Eos % (Auto) 0.0 L Baso % (Auto) 0.0 L Neut # (Auto) 8.1 H Lymph # (Auto) 0.6 L [place] # (Auto) 0.2 L Eos # (Auto) 0.0 Baso # (Auto) 0.0 Abs Immat Gran (auto) 0.03 Imm/Tot Granulo (auto) 0.3 Sodium 140 Potassium 4.1 Chloride 104 Carbon Dioxide 26.4 Anion Gap 13.7 BUN 41.0 H Creatinine 1.10 H Est GFR ( Amer) 58 L Est GFR (Non-Af Amer) 48 L BUN/Creatinine Ratio 37.3 Glucose 180 H Calcium 9.3 Urine Color Yellow Urine Clarity Clear Urine pH 5.5 Ur Specific [place] 1.025 Urine Protein Negative Urine Glucose (UA) Negative Urine Ketones Negative Urine Occult Blood Negative Urine Nitrite Positive A Urine Bilirubin Negative Urine Urobilinogen 0.2 Ur Leukocyte Esterase Negative Urine RBC 0-2 Urine WBC 0-2 A Ur Squamous Epith Cells None seen Urine Crystals None seen Urine Bacteria Trace A Urine Casts None seen Urine Mucus None seen Adenovirus (PCR) Not detected C. pneumoniae DNA (PCR) Not detected Coronavirus Type OC43 Not detected Coronavirus Type HKU1 Not detected Coronavirus Type 229E Not detected Coronavirus Type NL63 Not detected Human Metapneumovir PCR Not detected M. pneumoniae (PCR) Not detected Parainfluenza PCR Not detected Parainfluenza 2 (PCR) Not detected Parainfluenza 3 (PCR) Not detected Parainfluenza 4 (PCR) Not detected RSV (RT-PCR) Not detected Entero/Rhino (PCR) Not detected SARS-CoV-2 (PCR) Not detected Bordetella pertussis (PCR) Not detected B parapertussis DNA PCR Not detected Influenza Type A (PCR) Not detected Influenza Type B (PCR) Not detected Discharge Plan Discharge Disposition: Home, Self-Care Condition: Fair Discharge Medications: New prednisone 20 mg tablet 40 mg PO DAILY 3 Days Qty: 6 0RF nicotine [Nicoderm CQ] 14 mg/24 hr patch 24 hour 1 patch transdermal DAILY Qty: 28 0RF oxycodone-acetaminophen 5-325 mg tablet 1 tab PO Q12H PRN (Reason: pain) Qty: 10 0RF lidocaine [Lidoderm] 5 % adhesive patch,medicated 1 patch topical Q24H Qty: 15 0RF Rx Instructions: Leave on most painful area for up to 12 hrs. docusate sodium 100 mg capsule 100 mg PO BID PRN (Reason: constipation) Qty: 30 0RF Continued albuterol sulfate 90 mcg/actuation HFA aerosol inhaler 2 puff INHALATION Q4H PRN (Reason: shortness of breath or wheezing) methotrexate sodium 2.5 mg tablet 15 mg PO .weekly Rx Instructions: takes 6 tabs every thursday metoprolol tartrate 25 mg tablet 12.5 mg PO BID rosuvastatin 5 mg tablet 5 mg PO BEDTIME citalopram 20 mg tablet 20 mg PO DAILY aspirin 81 mg capsule 81 mg PO DAILY omega 3-snk-dtc-fish oil [Fish Oil] 1,000 mg (120 mg-180 mg) capsule 1 cap PO DAILY Patient Comments: confirm dosage oxycodone-acetaminophen 5-325 mg tablet 1 tab PO QDAY PRN (Reason: pain) alendronate 35 mg tablet 35 mg PO .weekly Rx Instructions: takes on mondays Activity Restrictions/Additional Instructions: - Use OPEP 10 times/day - Use 2L oxygen with activity and for SOB while at rest Forms: Portal Instructions Referrals: WILFREDO MCLEOD [Primary Care Provider] - Follow Up Appointments: Dr Mcleod ThursdayNovember 25 at 1:00pm
[2023-11-18] MEDS: OXYCODONE HCL/ACETAMINOPHEN 5MG/325MG 1 TAB PO (12:16)
--- NOTE | 2023-11-18 13:44 | CM.NOTE ---
[facility] will accept pt, tank taken to room for pt to discharge. RN and pt updated with [facility] services information, phone contact for Johnson placed on discharge.
== END 2023-11-18 15:15 | disposition home or self-care (01) ==
LOC: ER 11-17 02:13 → MS 11-17 02:42
PROVIDERS: Internal Medicine; Admitting Provider Internal Medicine; Emergency Provider Internal Medicine; PCP Family Medicine; Visit Provider Internal Medicine
DX: J43.9 Emphysema, unspecified (principal); J96.21 Acute and chronic respiratory failure with hypoxia; S22.31XA Fracture of one rib, right side, initial encounter for closed fracture; N28.9 Disorder of kidney and ureter, unspecified; E04.1 Nontoxic single thyroid nodule; E78.5 Hyperlipidemia, unspecified; M81.0 Age-related osteoporosis without current pathological fracture; F17.210 Nicotine dependence, cigarettes, uncomplicated; W01.10XA Fall on same level from slipping, tripping and stumbling with subsequent striking against unspecified object, initial encounter; Z20.822 Contact with and (suspected) exposure to COVID-19; Z99.81 Dependence on supplemental oxygen; Z79.82 Long term (current) use of aspirin; Z79.899 Other long term (current) drug therapy; Z87.440 Personal history of urinary (tract) infections; Z90.710 Acquired absence of both cervix and uterus; Z90.49 Acquired absence of other specified parts of digestive tract; Z98.890 Other specified postprocedural states
CPT/HCPCS: 0202U; 36415; 70450; 71260; 72125; 74177; 80048; 80053; 81001; 83605; 84484; 85025; 94640; 94667; 94668; 94761; 96372; 96374; 96375; 96376; 99285; 99406; G0378; J2930; Q3014; Q9967

== ENCOUNTER 2024-01-18 11:27 | Outpatient (OUT) | payer MEDICARE, SELFPAY ==
--- NOTE | 2024-01-18 11:29 | US_ITS ---
The [address] [address] Patient Name: DIEGO DEY MRN: [id number] date: 1945 Sex: F Assigned Patient Location: US Current Patient Location: US Accession/Order Number: [id number] Exam Date: 01/18/2024 11:30 Report Date: 01/18/2024 12:00 At the request of: WILFREDO MELGAR Procedure: US thyroid EXAMINATION: US thyroid HISTORY: nodule right thyroid lobe COMPARISON: No relevant comparison available. TECHNIQUE: Sonographic images of the thyroid gland were obtained. FINDINGS: The right thyroid lobe measures 4.6 x 1.6 x 1.5 cm. 2 focal nodules. The thyroid isthmus measures 2 mm. No focal nodule Left thyroid lobe measures 4.1 x 1.4 x 0.3 cm 3 focal nodules. Bilateral carotid atherosclerosis The most suspicious nodule: Right thyroid lobe. 1.4 x 0.7 x 0.6 cm. Mixed solid and cystic, hypoechoic, wide, smooth margins, no pleural effusions. TR 3 US/US thyroid IMPRESSION: 2 right thyroid nodules the largest is a 1.4 cm TR 3 nodule. No follow-up required TI-RADS: The [employer] TI-RADS committee's white paper recommendations for thyroid lesions classified as TR3 (mildly suspicious) are listed below: > 1.5 cm. Follow-up ultrasound in 1, 3, and 5 years. > 2.5 cm. FNA. J. Am Gabriel Radiol 2017;[id number]. Electronically authenticated by: ANTONIA NEVES Date: 01/18/2024 12:00
== END 2024-01-18 11:28 | disposition home or self-care (01) ==
LOC: US 11:28
PROVIDERS: PCP Family Medicine; Visit Provider Family Medicine
DX: E04.2 Nontoxic multinodular goiter (principal)
CPT/HCPCS: 76536

== ENCOUNTER 2024-08-09 13:29 | Outpatient (OUT) | payer MEDICARE, SELFPAY ==
--- NOTE | 2024-08-09 | US_ITS ---
The [address] [address] Patient Name: DIEGO DEY MRN: [id number] date: 1945 Sex: F Assigned Patient Location: US Current Patient Location: Accession/Order Number: [id number] Exam Date: 08/09/2024 13:35 Report Date: 08/10/2024 14:29 At the request of: SERGIO BELL Procedure: US thyroid EXAMINATION: US thyroid HISTORY: RIGHT THYROID NODULE COMPARISON: 01/18/2024 TECHNIQUE: Sonographic images of the thyroid gland were obtained. FINDINGS: The right thyroid lobe is normal in size, contour and echotexture measuring 4.9 x 1.6 x 1.3 cm. 2 focal nodules. The thyroid isthmus measures 2 mm, no focal nodules. The left thyroid lobe measures 3.6 x 1.3 x 1.5 cm. No focal nodules. The most suspicious nodule: Right thyroid lobe. 1.5x 0.7 x 0.5 cm. Solid, hypoechoic, wide, smooth margins, macrocalcifications. TR 4 US/US thyroid IMPRESSION: 1.5 cm right thyroid TR 4 nodule, stable from the prior exam TI-RADS: The [employer] TI-RADS committee's white paper recommendations for thyroid lesions classified as TR4 (moderately suspicious) are listed below: > 1.0 cm. Follow-up ultrasound in 1, 2, 3, and 5 years. > 1.5 cm. FNA. J. Am Gabriel Radiol 2017;[id number]. Electronically authenticated by: ANTONIA NEVES Date: 08/10/2024 14:29
== END 2024-08-09 13:30 | disposition home or self-care (01) ==
LOC: US 13:29
PROVIDERS: PCP Family Medicine; Visit Provider Otolaryngology
DX: E04.1 Nontoxic single thyroid nodule (principal)
CPT/HCPCS: 76536

== ENCOUNTER 2024-09-28 08:51 | Day surgery (SDC) | payer MEDICARE, SELFPAY ==
--- NOTE | 2024-09-28 09:00 | XR_ITS ---
The [address] [address] Patient Name: DIEGO DEY MRN: [id number] date: 1945 Sex: F Assigned Patient Location: Current Patient Location: Accession/Order Number: [id number] Exam Date: 09/28/2024 09:07 Report Date: 10/03/2024 07:35 At the request of: SERGIO BELL Procedure: XR sinus min 3V EXAMINATION: XR sinus min 3V HISTORY: Chronic Pansinusitis COMPARISON: No relevant comparison available. FINDINGS: MAXILLARY: No mucosal thickening or fluid level. ETHMOID: No mucosal thickening or fluid level. FRONTAL: No mucosal thickening or fluid level. SPHENOID: No mucosal thickening or fluid level. OTHER: Negative. XR/XR sinus min 3V IMPRESSION: Clear paranasal sinuses Electronically authenticated by: ANTONIA NEVES Date: 10/03/2024 07:35
--- NOTE | 2024-09-28 09:01 | US_ITS ---
[address] [address] Patient Name: DIEGO DEY MRN: [id number] date: 1945 Sex: F Assigned Patient Location: US Current Patient Location: US Accession/Order Number: [id number] Exam Date: 09/28/2024 09:40 Report Date: 09/28/2024 10:21 At the request of: SERGIO BELL Procedure: US biopsy thyroid EXAMINATION: US biopsy thyroid HISTORY: Thyroid Nodule COMPARISON: No relevant comparison available. TECHNIQUE: After obtaining informed consent, an ultrasound-guided biopsy was performed in the usual sterile manner. FINDINGS: IMAGING: Ultrasound BIOPSY NEEDLE: 25-gauge 2 inch SPECIMEN TYPE, #, LOCATION: 4 fine-needle aspirates, right thyroid 1.3 cm hypoechoic nodule MEDICATION: 4 cc 1% buffered lidocaine COMPLICATIONS: None. LABORATORY: Molecular studies and pathology OTHER: Negative. US/US biopsy thyroid IMPRESSION: Uneventful ultrasound guided biopsy. The patient was instructed to obtain follow up care and biopsy results from the referring physician. Electronically authenticated by: ANTONIA NEVES Date: 09/28/2024 10:21
[2024-09-28 09:10] VITALS: BP 127/83; PULSE 69; O2SAT 93
[2024-09-28] MEDS: LIDOCAINE HCL 10 ML, SODIUM BICARBONATE 1 MEQ INJ (09:40)
--- NOTE | 2024-09-28 10:26 | SUR.PREOP ---
09/22/24 Pt instructed on procedure, date, time, and prep. Pt instructed to hol dASA x 5 days prior to biopsy.
[2024-10-05 05:08] LABS: D001-IgE D pteronyssinus <0.10 kU/L (Class 0); D002-IgE D farinae <0.10 kU/L (Class 0); E001-IgE Cat Dander <0.10 kU/L (Class 0); E005-IgE Dog Dander <0.10 kU/L (Class 0); E072-IgE Mouse Urine <0.10 kU/L (Class 0); G002-IgE Bermuda Grass <0.10 kU/L (Class 0); G006-IgE Timothy Grass <0.10 kU/L (Class 0); I006-IgE Cockroach, German 0.12 kU/L (Class 0/I); Immunoglobulin E, Total 166 IU/mL (6-495); M001-IgE Penicillium chrysogen <0.10 kU/L (Class 0); M002-IgE Cladosporium herbarum <0.10 kU/L (Class 0); M003-IgE Aspergillus fumigatus <0.10 kU/L (Class 0); M006-IgE Alternaria alternata <0.10 kU/L (Class 0); T001-IgE Maple/Box Elder <0.10 kU/L (Class 0); T003-IgE Common Silver Birch <0.10 kU/L (Class 0); T006-IgE Cedar, Mountain 0.11 kU/L (Class 0/I); T007-IgE Oak, White <0.10 kU/L (Class 0); T008-IgE Elm, American <0.10 kU/L (Class 0); T010-IgE Walnut <0.10 kU/L (Class 0); T011-IgE Maple Leaf Sycamore <0.10 kU/L (Class 0); T014-IgE Cottonwood <0.10 kU/L (Class 0); T015-IgE Ash, White <0.10 kU/L (Class 0); T022-IgE Pecan, Hickory <0.10 kU/L (Class 0); T070-IgE White Mulberry <0.10 kU/L (Class 0); W001-IgE Ragweed, Short <0.10 kU/L (Class 0); W011-IgE Thistle, Russian <0.10 kU/L (Class 0); W014-IgE Pigweed, Common <0.10 kU/L (Class 0); W018-IgE Sheep Sorrel <0.10 kU/L (Class 0)
== END 2024-09-28 10:10 | disposition home or self-care (01) ==
LOC: US 08:53
PROVIDERS: Radiology Diagnostic Radiology; PCP Family Medicine; Visit Provider Otolaryngology
DX: E04.1 Nontoxic single thyroid nodule (principal); J32.4 Chronic pansinusitis
CPT/HCPCS: 10005; 36415; 70220; 82785; 86003; 88173

== ENCOUNTER 2024-11-11 10:06 | Outpatient (OUT) | payer MEDICARE, SELFPAY ==
--- OUTSIDE RECORDS SUMMARY | 2024-11-11 10:23 | XMS_ITS | CCD ---
Author Organization [facility] Care Team Providers Care Pipe Maker Name Role Phone VARELA, JIANLIN Unavailable Unavailable VARELA, JIANLIN Unavailable Unavailable HOLLIDAY, HI Unavailable Unavailable HOLLIDAY, HI Unavailable Unavailable [place] Unavailable Unavailable VARELA, JIANLIN Unavailable Unavailable VARELA, JIANLIN Unavailable Unavailable VARELA, JIANLIN Unavailable Unavailable HOLLIDAY, HI Unavailable Unavailable HOLLIDAY, HI Unavailable Unavailable Holliday, MD Hi Peralta Primary Care Provider MD William Antony Jr Attending Provider [phone] HOLLIDAY ., DR HI Peralta Admitting Unavailable HOLLIDAY ., DR HI Peralta Attending Unavailable HOLLIDAY ., DR HI Peralta Primary Care Unavailable HOLLIDAY ., DR HI Peralta Consulting Unavailable WEST, DR ANTONIA Olguin Consulting Unavailable HOLLIDAY ., DR HI Peralta Admitting Unavailable HOLLIDAY ., DR HI Peralta Attending Unavailable HOLLIDAY ., DR HI Peralta Primary Care Unavailable HOLLIDAY ., DR HI Peralta Consulting Unavailable HOLLIDAY ., DR HI Peralta Admitting Unavailable HOLLIDAY ., DR HI Peralta Attending Unavailable HOLLIDAY ., DR HI Peralta Primary Care Unavailable HOLLIDAY ., DR HI Peralta Consulting Unavailable Wilfredo Melgar. Primary Care Physician Wilfredo Melgar. Attending Unavailable Wilfredo Melgar. Attending Unavailable Wilfredo Melgar. Attending Unavailable Wilfredo Melgar. Attending Unavailable Wilfredo Melgar. Attending Unavailable Wilfredo Melgar. Admitting Unavailable Aurea, MINE EXPERT Betsey L Attending Unavailable Aurea, MINE EXPERT Betsey L Admitting Unavailable Wilfredo Melgar E. Attending Unavailable Wilfredo Melgar E. Admitting Unavailable Wilfredo Melgar E. Admitting Unavailable Wilfredo Melgar. Attending Unavailable Wilfredo Melgar E. Attending Unavailable Wilfredo Melgar E. Attending Unavailable Wilfredo Melgar E. Attending Unavailable Wilfredo Melgar E. Attending Unavailable Wilfredo Melgar E. Attending Unavailable Aurea, MINE EXPERT Betsey L Attending Unavailable Wilfredo Melgar Attending Unavailable Wilfredo Melgar. Attending Unavailable Wilfredo Melgar MD Primary Care Provider SERGIO BELL Attending Unavailable WILFREDO MELGAR Referring Unavailable SERGIO BELL Attending Unavailable MD Hi Holliday Primary Care Provider MD Sergio Bell Jr Attending Provider Sergio Thompson Jr Attending Unavailable Sergio Bell Jr Admitting Unavailable Hi Holliday Primary Care Unavailable Wilfredo Melgar MD Primary Care Provider Wilfredo Melgar. Attending Unavailable Wilfredo Melgar. Admitting Unavailable Wilfredo Melgar Attending Unavailable Wilfredo Melgar Attending Unavailable Wilfredo Melgar Attending Unavailable Wilfredo Melgar Admitting Unavailable Wilfredo Melgar. Attending Unavailable Allergies Allergy Classification Reported Allergen(s) Allergy Type Date of Onset Reaction(s) Facility (2 sources) No Known Medication Allergies; Translations: [No Known Medication Allergies] Propensity to adverse reactions (disorder) [facility] Medications Current Medications Medication Drug Class(es) Dates Sig (Normalized) Sig (Original) acetaminophen 325 mg / HYDROcodone bitartrate 5 mg oral tablet (11 sources) Opioid Agonist Start: 11-24-2023 take 1 tablet by mouth every twenty-four hours as needed HYDROcodone-aceta minophen ([place]) 5-325 MG tablet Take 1 tablet by mouth Daily as needed 11/24/2023 Active Start: 09-22-2023 take 1 tablet by marisol once daily as needed for pain [place] 325 mg-5 mg oral tablet 1 tab(s), Oral, Daily as needed for pain, 30 tab(s), Refill(s) 0, Do not fill until , [facility], 154.9, cm, 09/22/23 13:40:00 EDT, Height/Length Dosing, 60, kg, 09/22/23 13:40:00 EDT, Weight Dosing Start Date: 09/22/23 Status: Ordered acetaminophen 325 mg / oxyCODONE hydrochloride 5 mg oral tablet (5 sources) Opioid Agonist Start: 08-25-2024 take 1 tablet by mouth once daily as needed for pain acetaminophen-oxycodone 325 mg-5 mg Tab 1 tab(s), Oral, Daily as needed for pain, 30 tab(s), Refill(s) 0, 30 DAYS, M06.9, [facility], 154.9, cm, 08/25/24 10:39:00 EDT, Height/Length Dosing, 60.4, kg, 08/25/24 10:39:00 EDT, Weight Dosing Start Date: 10/25/24 Status: Ordered Start: 04-12-2024 take 1 tablet by marisol th once daily as needed for pain acetaminophen-oxycodone 325 mg-5 mg Tab 1 tab(s), Oral, Daily as needed for pain, 30 tab(s), Refill(s) 0, 30 DAYS, M06.9, [facility], 154.9, cm, 04/12/24 9:56:00 EDT, Height/Length Dosing, 59, kg, 04/12/24 9:56:00 EDT, Weight Dosing Start Date: 04/12/24 Status: Ordered Start: 12-29-2023 take 1 tablet by marisol th once daily as needed for pain acetaminophen-oxycodone 325 mg-5 mg Tab 1 tab(s), Oral, Daily as needed for pain, 30 tab(s), Refill(s) 0, 30 DAYS, M06.9, [facility], 154.9, cm, 12/29/23 13:30:00 EST, Height/Length Dosing, 60.7, kg, 12/29/23 13:30:00 EST, Weight Dosing Start Date: 12/29/23 Status: Ordered Start: 09-22-2023 take 1 tablet by marisol th once daily as needed for pain acetaminophen-oxycodone 325 mg-5 mg Tab 1 tab(s), Oral, Daily as needed for pain, 30 tab(s), Refill(s) 0, 30 DAYS, M06.9, [facility], 154.9, cm, 09/22/23 13:40:00 EDT, Height/Length Dosing, 60, kg, 09/22/23 13:40:00 EDT, Weight Dosing Start Date: 09/22/23 Status: Ordered [id number] 200 actuat albuterol 0.09 mg/actuat metered dose inhaler (10 sources) beta2-Adrenergic Agonist Start: 10-08-2023 take 2 puff(s) by inhalation every six hours albuterol HFA 90 mcg/act inhaler Inhale 2 puffs every 6 (six) hours if needed 10/08/2023 Active Albuterol (Eqv-Proventil HFA) 90 mcg/inh inhalation aerosol (4 sources) Start: 08-25-2024 take 2 puff(s) by inhalation every six hours Albuterol (Eqv-Proventil HFA) 90 mcg/inh inhalation aerosol = 2 puff(s), Inhalation, q6hr, Please give cheapest generic, # 3 EA, Refills(s) 4, Pharmacy: [facility], 154.9, cm, 08/25/24 10:39:00 EDT, Height/Length Dosing, 60.4, kg, 08/25/24 10:39:00 EDT, Weight Dosing Start Date: 08/25/24 Status: Ordered Start: 04-12-2024 take 2 puff(s) by in halation every six hours Albuterol (Eqv-Proventil HFA) 90 mcg/inh inhalation aerosol = 2 puff(s), Inhalation, q6hr, Please give cheapest generic, # 18 gm, Refills(s) 1, Pharmacy: [facility], 154.9, cm, 04/12/24 9:56:00 EDT, Height/Length Dosing, 59, kg, 04/12/24 9:56:00 EDT, Weight Dosing Start Date: 04/12/24 Status: Ordered Start: 10-08-2023 take 2 puff(s) by in halation every six hours Albuterol (Eqv-Proventil HFA) 90 mcg/inh inhalation aerosol = 2 puff(s), Inhalation, q6hr, Please give cheapest generic, # 18 gm, Refills(s) 1, Pharmacy: [facility], 154.9, cm, 09/22/23 13:40:00 EDT, Height/Length Dosing, 60, kg, 09/22/23 13:40:00 EDT, Weight Dosing Start Date: 10/08/23 Status: Ordered Start: 04-09-2023 take 2 puff(s) by in halation every six hours Albuterol (Eqv-Proventil HFA) 90 mcg/inh inhalation aerosol = 2 puff(s), Inhalation, q6hr, Please give cheapest generic, # 18 gm, Refills(s) 0, Pharmacy: [facility], 154.9, cm, 04/09/23 13:33:00 EDT, Height/Length Dosing, 59.7, kg, 04/09/23 13:33:00 EDT, Weight Dosing Start Date: 04/09/23 Status: Ordered alendronic acid 35 mg oral tablet (16 sources) Bisphosphonate Start: 11-30-2023 alendronate 35 mg Tab 35 mg = 1 tab(s), Oral, q7day, # 12 tab(s), Refills(s) 4, Pharmacy: [facility], 154.9, cm, 11/24/23 15:39:00 EST, Height/Length Dosing, 60, kg, 11/24/23 15:39:00 EST, Weight Dosing Start Date: 11/30/23 Status: Ordered Start: 02-14-2022 Alendronate Ac tive MG PO February 14, 2022 8:15am Start: 09-08-2019 take 1 tablet by marisol th once daily alendronate 35 mg oral tablet 35 mg = 1 tab(s), Oral, Daily, Refills(s) 0 Start Date: 09/08/19 Status: Ordered Aspirin (16 sources) Platelet Aggregation Inhibitor, Nonsteroidal Anti-inflammatory Drug Start: 02-14-2022 Aspirin Active MG February 14, 2022 8:15am Start: 02-14-2022 Aspirin Active MG February 13, 2022 11:00pm Start: 09-08-2019 take 1 tablet by mouth once da joel aspirin 81 mg oral tablet 81 mg = 1 tab(s), Oral, Daily, Refills(s) 0 Start Date: 09/08/19 Status: Ordered take 1 tablet by mouth once wendy y aspirin 81 MG EC tablet Take 1 tablet by mouth Daily Active cetirizine hydrochloride 10 mg oral tablet (3 sources) Histamine-1 Receptor Antagonist Start: 08-25-2024 take 1 tablet by mouth once daily cetirizine 10 mg Tab 10 mg = 1 tab(s), Oral, Daily, # 90 tab(s), Refills(s) 0, Pharmacy: [facility], 154.9, cm, 08/25/24 10:39:00 EDT, Height/Length Dosing, 60.4, kg, 08/25/24 10:39:00 EDT, Weight Dosing Start Date: 08/25/24 Status: Ordered Start: 01-04-2024 Zyrtec Dissolv e 10 mg oral tablet, dispersible 10 mg = 1 tab(s), Oral, Daily, PRN for allergy symptoms, # 90 tab(s), Refills(s) 0, Pharmacy: [facility], 154.9, cm, 12/29/23 13:30:00 EST, Height/Length Dosing, 60.7, kg, 12/29/23 13:30:00 EST, Weight Dosing Start Date: 01/04/24 Status: Ordered cholecalciferol 0.125 mg oral capsule (10 sources) Vitamin D take 1 capsule by mouth once daily cholecalciferol 125 MCG (5000 UT) capsule Take 1 capsule by mouth Daily Active citalopram 20 mg oral tablet (16 sources) Serotonin Reuptake Inhibitor Start: 07-13-20 citalopram 20 mg Tab See Instructions, TAKE 1 TABLET EVERY DAY, # 90 tab(s), Refills(s) 3, Pharmacy: [facility], 154.9, cm, 04/12/24 9:56:00 EDT, Height/Length Dosing, 59, kg, 04/12/24 9:56:00 EDT, Weight Dosing Start Date: 07/01/24 Status: Ordered Start: 02-14-2022 Citalopram Act keo MG TABLET February 14, 2022 8:15am docosahexaenoic acid 120 mg / eicosapentaenoic acid 180 mg oral capsule (10 sources) omega-3 (fish oi l) 1000 MG capsule Take 1 g by mouth Active Fish Oils (4 sources) Start: 09-08-2019 take 1000 mg by mouth once daily Fish Oil 1,000 mg, Oral, Daily, Refill(s) 0 Start Date: 09/08/19 Status: Ordered folic acid 1 mg oral tablet (5 sources) Start: 02-06-2023 take 1 tablet by mouth once daily folic acid 1 mg Tab 1 mg = 1 tab(s), Oral, Daily, # 90 tab(s), Refills(s) 3 Start Date: 02/06/23 Status: Ordered Start: 02-14-2022 Folic Acid Act keo TABLET February 14, 2022 8:15am Handicap Placard, 5 years. (3 sources) Start: 11-24-2023 Handicap Placard, 5 years. Handicap Placard, 5 years., See Instructions, 1 EA, 0, Handicap Placard, 5 years., Supply Start Date: 11/24/23 Status: Ordered ipratropium bromide 0.042 mg/actuat metered dose nasal spray (10 sources) Anticholinergic Start: 02-09-2024 End: 02-08-2025 take 2 spray(s) nasal route in the morning, then take 2 spray(s) nasal route in the evening, then take 2 spray(s) nasal route at bedtime ipratropium (Atrovent) 0.06 % nasal spray Indications: Vasomotor rhinitis Administer 2 sprays into each nostril in the morning and 2 sprays in the evening and 2 sprays before bedtime. 15 mL 02/09/2024 02/08/2025 Active methotrexate 2.5 mg oral tablet (16 sources) Folate Analog Metabolic Inhibitor Start: 12-28-2023 take 1 tablet by mouth every week methotrexate 2.5 MG tablet Take 2.5 mg by mouth 1 (one) time per week. 12/28/2023 Active Start: 12-02-2023 methotrexate 2 .5 mg Tab See Instructions, TAKE 6 TABLETS ONE TIME WEEKLY ON MONDAYS, # 72 tab(s), Refills(s) 3, Pharmacy: [facility], 154.9, cm, 11/24/23 15:39:00 EST, Height/Length Dosing, 60, kg, 11/24/23 15:39:00 EST, Weight Dosing Start Date: 12/02/23 Status: Ordered Start: 06-08-2023 take 6 tablets by mo uth every week methotrexate 2.5 mg Tab 15 mg = 6 tab(s), Oral, q, Take 6 tabs weekly on Mondays, # 72 tab(s), Refills(s) 1, Pharmacy: [facility], 154.9, cm, 05/11/23 15:58:00 EDT, Height/Length Dosing, 60.3, kg, 05/11/23 15:58:00 EDT, Weight Dosing Start Date: 06/08/23 Status: Ordered Start: 02-14-2022 Methotrexate A ctive MG SOLUTION February 14, 2022 8:15am methylPREDNISolone (1 source) Corticosteroid Start: 09-04-2023 methylPREDNISolone 4 mg Tab See Instructions, TAKE DIRECTED ON PACKAGE LABELING, # 21 tab(s), Refills(s) 10, Pharmacy: [facility], 154.9, cm, 08/24/23 16:06:00 EDT, Height/Length Dosing, 61, kg, 08/24/23 16:06:00 EDT, Weight Dosing Start Date: 09/04/23 Status: Ordered 24 hr metoprolol succinate 25 mg extended release oral tablet (16 sources) beta-Adrenergic Gretchen Start: 05-23-2024 take 1 tablet by mouth once daily metoprolol succinate 25 mg ER Tab 25 mg = 1 tab(s), Oral, Daily, # 90 tab(s), Refills(s) 1, Pharmacy: [facility], 154.9, cm, 04/12/24 9:56:00 EDT, Height/Length Dosing, 59, kg, 04/12/24 9:56:00 EDT, Weight Dosing Start Date: 05/23/24 Status: Ordered Start: 12-02-2023 metoprolol 25 mg ER Tab 12.5 mg = 0.5 tab(s), Oral, BID, # 90 tab(s), Refills(s) 1, Pharmacy: [facility], 154.9, cm, 11/24/23 15:39:00 EST, Height/Length Dosing, 60, kg, 11/24/23 15:39:00 EST, Weight Dosing Start Date: 12/02/23 Status: Ordered Start: 02-14-2022 take 25 mg by mouth once daily Metoprolol Tartrate Active 25 MG PO Daily February 14, 2022 8:15am Start: 09-01-2019 metoprolol 25 mg ER Tab 12.5 mg = 0.5 tab(s), Oral, BID, Refills(s) 0 Start Date: 09/01/19 Status: Ordered take 0.5 tablet by m outh in the morning metoprolol tartrate (Lopressor) 25 MG tablet Take 0.5 tablets by mouth in the morning and 0.5 tablets before bedtime. Active nitrofurantoin, macrocrystals 25 mg / nitrofurantoin, monohydrate 75 mg oral capsule (1 source) Nitrofuran Antibacterial Start: 01-27-2024 End: 02-06-2024 take 1 capsule by mouth twice daily Macrobid 100 mg Cap 100 mg = 1 cap(s), Oral, BID, X 10 day(s), # 20 cap(s), Refills(s) 0, Pharmacy: [facility], 154.9, cm, 01/27/24 13:56:00 EST, Height/Length Dosing, 60, kg, 01/27/24 13:56:00 EST, Weight Dosing Start Date: 01/27/24 Stop Date: 02/06/24 Status: Ordered [place]-3 Fatty Acids (Fish Oil) Capsule (2 sources) Start: 02-14-2022 [place]-3 Fatty Acids (Fish Oil) Capsule Active PO February 14, 2022 8:15am Start: 02-14-2022 [place]-3 Fatty Acids (Fish Oil) Capsule Active PO February 13, 2022 11:00pm pantoprazole 40 mg delayed release oral tablet (12 sources) Proton Pump Inhibitor Start: 02-06-2023 Pantoprazole 40 mg D R Tab Refills(s) 0 Start Date: 02/06/23 Status: Ordered polyethylene glycol 3350 74497 mg powder for oral solution (2 sources) Osmotic Laxative Start: 02-06-2023 polyethylene glycol 3350 Oral Pwdr for Recon Refills(s) 0 Start Date: 02/06/23 Status: Ordered Portable Oxygen Concentrator. Wear at 2L via N/C. (3 sources) Start: 12-29-2023 Portable Oxyge n Concentrator. Wear at 2L via N/C. Portable Oxygen Concentrator. Wear at 2L via N/C., See Instructions, 1 EA, 0, Ok to D/C, Supply Start Date: 12/29/23 Status: Ordered rosuvastatin calcium 5 mg oral tablet (16 sources) HMG-CoA Reductase Inhibitor Start: 02-14-2022 Rosuvastatin Active MG TABLET February 14, 2022 8:15am Start: 09-01-2019 rosuvastatin 5 mg Tab See Instructions, TAKE 1 TABLET EVERY DAY, # 90 tab(s), Refills(s) 4, Pharmacy: [facility], 154.9, cm, 08/25/24 10:39:00 EDT, Height/Length Dosing, 60.4, kg, 08/25/24 10:39:00 EDT, Weight Dosing Start Date: 09/26/24 Status: Ordered tretinoin 0.5 mg/ml topical cream (2 sources) Retinoid Start: 02-06-2023 apply 1 dose topically once daily Retin-A 0.05% topical cream See Instructions, 1 EA, Refill(s) 11, Apply topically daily. wash and dry affected area and wait 20 to 30 minutes before application Start Date: 02/06/23 Status: Ordered Vitamin D3 5000 intl units (125 mcg) oral tab (5 sources) Start: 02-06-2023 Vitamin D3 500 0 intl units (125 mcg) oral tab Refills(s) 0 Start Date: 02/06/23 Status: Ordered Start: 02-06-2023 take 1 tablet by marisol th once daily Vitamin D3 5000 intl units (125 mcg) oral tab 125 mcg = 1 tab(s), Oral, Daily, # 90 EA, Refills(s) 0 Start Date: 02/06/23 Status: Ordered Completed/Discontinued Medications Medication Drug Class(es) Dates Sig (Normalized) Sig (Original) ##### (1 source) Start: 08-24-2023 ##### 6 mL, 0 Refill(s), Instill 1 drop into affected eye twice a day Immediately following surgery for 1 week. Then instill one drop into affected eye ONCE daily for 3 weeks. 0726 Start Date: 08/24/23 Status: Ordered Problems Active Problems Problem Classification Problem Date Documented Date Episodic/Chronic Abdominal hernia (8 sources) Diaphragmatic hernia without obstruction or gangrene; Translations: [Hiatal hernia] Onset: 11-06-2017 02-06-2023 Episodic Abdominal pain (4 sources) Left upper quadrant pain 02-10-2023 Episodic Anxiety disorders (4 sources) Anxiety 09-08-2019 Chronic Biliary tract disease (3 sources) Calculus of gallbladder without cholecystitis without obstruction; Translations: [Cholelithiasis without obstruction] Onset: 11-09-2017 02-06-2023 Episodic Chronic obstructive pulmonary disease and bronchiectasis (14 sources) Chronic obstructive lung disease; Translations: [Chronic obstructive pulmonary disease, unspecified] Onset: 01-26-2024 02-25-2023 Chronic Coronary atherosclerosis and other heart disease (12 sources) Atherosclerotic heart disease of tribal coronary artery without angina pectoris; Translations: [Coronary atherosclerosis] Onset: 11-06-2017 01-26-2024 Chronic Diabetes mellitus without complication (12 sources) Type 2 diabetes mellitus without complications; Translations: [Type 2 diabetes mellitus without complication] Onset: 08-21-2014 01-26-2024 Chronic Diabetes mellitus without complication (4 sources) Hyperglycemia 09-22-2023 Episodic Disorders of lipid metabolism (16 sources) Hyperlipidemia, unspecified; Translations: [Pure hypercholesterolemia, unspecified] Onset: 08-21-2014 02-06-2023 Chronic Comment on above: unspecified, chronic Esophageal disorders (14 sources) Gastroesophageal reflux disease; Translations: [Gastro-esophageal reflux disease without esophagitis] Onset: 08-21-2014 09-08-2019 Chronic Essential hypertension (20 sources) Essential (primary) hypertension; Translations: [Hypertensive disorder] Onset: 08-21-2014 09-08-2019 Chronic Gastritis and duodenitis (1 source) Unspecified chronic gastritis without bleeding; Translations: [UNSPECIFIED CHRONIC GASTRITIS WITHOUT BLEEDING] Onset: 11-06-2017 Chronic Genitourinary symptoms and ill-defined conditions (4 sources) Genuine stress incontinence 01-15-2021 Chronic Genitourinary symptoms and ill-defined conditions (4 sources) Nocturia 02-10-2023 Episodic Headache; including migraine (2 sources) Headache; Translations: [Chronic intractable headache, unspecified headache type] 10-26-2024 Episodic Immunity disorders (13 sources) Drug-induced immunodeficiency ; Translations: [Immunodeficiency due to drugs] Onset: 01-26-2024 11-20-2023 Chronic Comment on above: Added per Dr. Harsha briones response, per outpatient [facility] policy. 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 Episodic Nutritional deficiencies (9 sources) Vitamin D deficiency, unspecified; Translations: [Vitamin D deficiency] Onset: 05-08-2022 Chronic Comment on above: chronic Occlusion or stenosis of precerebral arteries (16 sources) Occlusion and stenosis of unspecified carotid artery; Translations: [Occlusion and stenosis of other precerebral arteries] Onset: 04-27-2014 02-06-2023 Chronic Comment on above: and occlusion of uns pecified Osteoarthritis (4 sources) Arthritis 09-08-2019 Chronic Other aftercare (1 source) Post-discharge follow-up 11-24-2023 Episodic Other and ill-defined heart disease (4 sources) Heart disease 02-06-2023 Chronic Comment on above: Atherosclerotic, of tribal coronary artery without angina pectoris, chronic Other circulatory disease (10 sources) Stricture of artery; Translations: [Stricture of artery] Onset: 08-21-2014 01-26-2024 Chronic Other connective tissue disease (4 sources) Bursitis of hip 02-06-2023 Episodic Comment on above: chronic Other connective tissue disease (14 sources) Fibromyalgia; Translations: [Fibromyalgia] Onset: 01-26-2024 09-08-2019 Episodic Other connective tissue disease (4 sources) Impingement syndrome of shoulder region 02-10-2023 Episodic Comment on above: chronic Other connective tissue disease (3 sources) Recurrent falls 11-24-2023 Episodic Other diseases of kidney and ureters (4 sources) Cyst of kidney 01-15-2021 Episodic Other fractures (1 source) Fracture of rib 11-24-2023 Episodic Other hematologic conditions (14 sources) Erythrocytosis; Translations: [Secondary polycythemia] Onset: 01-26-2024 04-13-2023 Episodic Other nervous system disorders (4 sources) Post-surgery back pain 05-11-2023 Episodic Other upper respiratory disease (1 source) Rhinitis 12-29-2023 Chronic Other upper respiratory disease (10 sources) Vasomotor rhinitis; Translations: [Vasomotor rhinitis] Onset: 02-09-2024 02-09-2024 Chronic Other upper respiratory infections (2 sources) Chronic pansinusitis; Translations: [Chronic pansinusitis] 09-13-2024 Chronic Peripheral and visceral atherosclerosis (10 sources) Peripheral vascular disease; Translations: [Peripheral vascular disease, unspecified] Onset: 08-23-2014 01-26-2024 Chronic Respiratory failure; insufficiency; arrest (adult) (13 sources) Chronic hypoxemic respiratory failure; Translations: [Chronic respiratory failure with hypoxia] Onset: 01-26-2024 11-24-2023 Chronic Comment on above: Noted in 11/17/2023 H&P, added per outpatient [facility]I policy. Rheumatoid arthritis and related disease (20 sources) Rheumatoid arthritis with rheumatoid factor of multiple sites without organ or systems involvement; Translations: [Rheumatoid arthritis, unspecified] Onset: 05-12-2022 Chronic Comment on above: chronic Substance-related disorders (15 sources) Nicotine dependence, unspecified, uncomplicated; Translations: [Smoker] Onset: 11-09-2017 Resolved: 01-26-2024 04-09-2023 Chronic Thyroid disorders (20 sources) Thyroid nodule; Translations: [Nontoxic single thyroid nodule] Onset: 01-26-2024 11-24-2023 Chronic Unclassified (4 sources) Asymptomatic microscopic hematuria 10-03-2021 Unclassified (4 sources) Body mass index 20-24 - normal 04-09-2023 Unclassified (4 sources) Drug therapy finding 06-19-2020 Unclassified (4 sources) Patient encounter status 09-22-2023 Unclassified (3 sources) Long-term current use of drug therapy 11-24-2023 Urinary tract infections (13 sources) Acute urinary tract infection; Translations: [Postinfective urethral stricture of female] 02-10-2023 Episodic Viral infection (2 sources) Herpes zoster 08-24-2023 Episodic Past or Other Problems Problem Classification Problem Date Documented Date Episodic/Chronic Conditions associated with dizziness or vertigo (10 sources) Dizziness and giddiness; Translations: [Dizziness and giddiness] Onset: 08-21-2014 01-26-2024 Episodic Gastritis and duodenitis (1 source) Gastritis, unspecified, without bleeding; Translations: [GASTRITIS, UNSPECIFIED, WITHOUT BLEEDING] Onset: 11-06-2017 Episodic Other aftercare (2 sources) buttermaker continuous churn (current) use of opiate analgesic; Translations: [buttermaker continuous churn (current) use of aspirin] Onset: 11-09-2017 Episodic Other ear and sense organ disorders (10 sources) Impacted cerumen in left ear; Translations: [Impacted cerumen, left ear] Onset: 02-09-2024 02-09-2024 Episodic Other screening for suspected conditions (not mental disorders or infectious disease) (14 sources) Encounter for screening mammogram for malignant neoplasm of breast; Translations: [Abnormal results of cardiovascular function studies] Onset: 08-23-2014 Episodic Residual codes; unclassified (10 sources) Acute confusion; Translations: [Disorientation, unspecified] Onset: 02-07-2019 01-26-2024 Episodic Unclassified (2 sources) Unknown / UNK(Unknown) Onset: 11-09-2017 Results Test Name Value Interpretation Reference Range Facil ity Paulino 09-28-2024 L - -------- Specimen: [id number] Received: 09/29/24 Status: ROMEL Mirza Num: [id number] Spec Type: Cytology Subm Dr: SERGIO BELL MD Tissues: A FNA SLIDES NOPATH (RT THY) Procedures: Cyto Int and Re, PAPSTN/5 -------- Age/ Patient Sex Location Account Attending Physician -------- Chantelle Dey 79/F [facility] [id number] SERGIO BELL MD -------- SPEC NUM: [id number] RECD: 09/29/24 STATUS: ROMEL MIRZA NUM: [id number] DAYNA: 09/28/24 DR: SERGIO BELL MD ENTERED: 09/29/[address] [facility] [address]: [facility] Antonia Neves MD SPEC TYPE: Cytology DEPT: JYOTI [place] ENTERED BY: [id number] RECV BY: [id number] ORDERED: Cyto Int and Re, PAPSTN/5 ORDERED: Cyto Int and Re, PAPSTN/5 Pathological Diagnosis Right thyroid nodule, FNA: Atypical follicular cells noted. Background of Colloid with occasional macrophages. [place] Category III Clinical Information Right thyroid nodule Gross Description Received fixed in Cytolyt is <1 ml pink pale clear fixed fluid for cytology said to have been obtained as Right thyroid nodule mid lobe. ThinPrep preparations are prepared for microscopic examination. Also received are 4 spray fixed smeared slides for pap and a Veracyte vial stored at -20 for microscopic examination. (NV/ks) CPT Codes 10412 -------- -------- Specimen: [id number] Received: 09/29/24 Status: ROMEL Mirza Num: [id number] Spec Type: Cytology Subm Dr: SERGIO BELL MD Tissues: A FNA SLIDES NOPATH (RT THY) Procedures: Cyto Int and Re, PAPSTN/5 -------- Patient: Chantelle Dey [id number] (Continued) -------- Signed (signature on file) Tiara Solano MD 09/29/241815 [place] [facility] Ambulatory Visit Summaryon 1 Ambulatory Visit Summary Ambulatory Visit Summary CHANTELLE DEY :1945 Visit Date:08/25/2024 Ambulatory Visit Instructions Your Diagnosis Back pain with history of spinal surgery COPD without exacerbation Primary hypertension Other specified postprocedural states Your Care Team Attending Physician - Wilfredo Melgar MD Primary Care Physician - Wilfredo Melgar MD This Is Your Medications List acetaminophen-oxycodo ne (acetaminophen-oxycod one 325 mg-5 mg Tab) albuterol (Albuterol (Eqv-Proventil HFA) 90 mcg/inh inhalation aerosol) cetirizine (cetirizine 10 mg Tab) Contact prescribing physician if questions or concerns Misc Prescription ([place], 5 years.) Misc Prescription (Portable Oxygen Concentrator. Wear at 2L via N/C.) alendronate (alendronate 35 mg Tab) aspirin (aspirin 81 mg oral tablet) cholecalciferol (Vitamin D3 5000 intl units (125 mcg) oral tab) citalopram (citalopram 20 mg Tab) methotrexate (methotrexate 2.5 mg Tab) metoprolol (metoprolol succinate 25 mg ER Tab) omega-3 polyunsaturated fatty acids (Fish Oil) rosuvastatin (rosuvastatin 5 mg Tab) Procedures Performed Cystourethroscopy with dilation of urethral stricture (02/04/2021), Cystourethroscopy with dilation of urethral stricture (05/07/2020), Cataracts, Cholecystectomy, Hysterectomy, Laparoscopy, Placement of stent in cardiac conduit, Post-surgery back pain. Discharge Vitals Temperature (Temporal Artery) 37.1 ?C Heart Rate (Peripheral) 72 Respiratory Rate 16 Blood Pressure 120/74 Height 154.9 cm Height 61 in Weight 60.4 kg Weight 132.88 lb BMI 25.17 Medications What How Much When Why Instructions Changed cetirizine (cetirizine 10 mg Tab) 1 Tablets By Mouth Every day Pickup at [facility] Unchanged acetaminophen-oxycodo ne (acetaminophen-oxycod one 325 mg-5 mg Tab) 1 Tablets By Mouth Every day as needed for as needed for pain 30 DAYS, M06.9 Pickup at [facility] Unchanged albuterol (Albuterol (Eqv-Proventil HFA) 90 mcg/ inh inhalation aerosol) 2 Puffs Inhalation Every 6 hours Please give cheapest generic Pickup at [facility] Unchanged alendronate (alendronate 35 mg Tab) 1 Tablets By Mouth Every 7 days Contact prescribing physician if questions or concerns Unchanged aspirin (aspirin 81 mg oral tablet) 1 Tablets By Mouth Every day Contact prescribing physician if questions or concerns Unchanged cholecalciferol (Vitamin D3 5000 intl units (125 mcg) oral tab) Contact prescribing physician if questions or concerns Unchanged citalopram (citalopram 20 mg Tab) See instructions TAKE 1 TABLET EVERY DAY Contact prescribing physician if questions or concerns Unchanged methotrexate (methotrexate 2.5 mg Tab) See instructions TAKE 6 TABLETS ONE TIME WEEKLY ON MONDAYS Contact prescribing physician if questions or concerns Unchanged metoprolol (metoprolol succinate 25 mg ER Tab) 1 Tablets By Mouth Every day Contact prescribing physician if questions or concerns Unchanged Misc Prescription (Handicap Placard, 5 years.) See instructions 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 Contact prescribing physician if questions or concerns Unchanged Misc Prescription (Portable Oxygen Concentrator. 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 exacerbation Immunodeficiency due to drugs Chronic respiratory failure with hypoxia Major depressive disorder with single episode, in full remission Back pain with history of spinal surgery Multiple falls BMI 25.0-25.9,adult Over weight Smoker Ok to D/ C Contact prescribing physician if questions or concerns Unchanged omega-3 polyunsaturated fatty acids (Fish Oil) 1,000 Milligram By Mouth Every day Contact prescribing physician if questions or concerns Unchanged rosuvastatin (rosuvastatin 5 mg Tab) See instructions TAKE 1 TABLET EVERY DAY Contact prescribing physician if questions or concerns Pharmacy Information [facility]: [address] [place], [place] [id number] [phone] Allergies No Known Medication Allergies Problems Ongoing - Any problem that you are currently receiving treatment for. Anticoagulated Anxiety Arthritis Asymptomatic microscopic hematuria Back pain with history of spinal surgery BMI 24.0-24.9, adult Carotid artery stenosis Chronic respiratory failure with hypoxia COPD without exacerbation Elevated blood sugar level Fibromyalgia GERD (gastroesophageal reflux disease) Heart disease Hiatal hernia Hypercholesterolemia Hypertension Immunodeficiency due to drugs Immunotherapy Major depressive disorder with single episode, in full remission Multiple falls Neoplasm of uncertain behavior of right kidney Other chcf (curr (more content not included)... Normal [facility]/Clini c Noteon 08-25-2024 Family Medicine Office/Clinic Note Family Medicine Office/Clinic Note Chief Complaint The patient is here for a prescription refill for her back pain medication. HPI Staff Chantelle is a 79 year old female presenting for med review/eval Needs her percocet refilled Pain characteristics: Pain location: back, generalized arthritis Intensity:04/01 Onset: several years Medication used: percocet but uses very sparingly Opioids prescribed: acetaminophen/oxycodo ne 325mg-5mg Medication agreement UTD: yes 04/12/24 Urine drug screen performed: yes 04/13/24_ flu: will take today questions/concerns: needs the zyrtec and inhaler refilled History of Present Illness The patient is a 79-year-old female presenting with a request for a prescription refill for back pain management. She has a history of spinal surgery and continues to experience back pain, which varies in severity. She reports that the pain sometimes necessitates the use of prescribed pain medication, specifically Percocet. The patient mentions that the medication is not taken daily; instead, she uses it as needed based on pain intensity. Sometimes, she consumes only half a pill, and at other times she does not take any in a day if the pain is manageable. She is aware of the regulations surrounding pain medication prescriptions and has been advised that she must be seen every three months for renewal. Her average use pattern includes the prescription, which generally consists of 30 pills, lasting approximately two months, depending on her pain levels. She understands the constraints and is agreeable to compliance with visits for medication management every three months. The patient further clarifies she does not consume the pills consecutively, allowing the dosage to extend beyond the prescribed duration. The patient's medical history includes Chronic Obstructive Pulmonary Disease (COPD) without exacerbation, noted from prior diagnoses, as well as essential hypertension, both of which are being monitored and managed alongside her back pain concerns. Additionally, she has a condition classified under other specified postprocedural states, likely related to her past spinal surgery. Review of Systems PHQ Score Initial Depression Screen Score: 1 SCORE Physical Exam Vitals & Measurements T: 37.1 ?C(Temporal Artery) HR: 72(Peripheral) RR: 16 BP: 120/74 SpO2: 96% HT: 61 in HT: 154.9 cm WT: 60.4 kg WT: 132.88 lb BMI: 25.17 General: alert, no acute distress ENMT: oral mucosa moist Cardiovascular: Regular rate and rhythm, normal peripheral perfusion Respiratory: Lungs clear to auscultation, respirations non labored Extremities: no deformity, no trauma Neurological: oriented x 4, level of consciousness appropriate for age, CN II-XII intact, motor strength equal & normal bilaterally, speech normal Abdomen: Soft, Non-tender, Non-distended, + Bowel sounds Assessment/Plan 1. Back pain with history of spinal surgery (M54.9: Dorsalgia, unspecified) The patient's back pain requires monitoring and careful management due to her history of spinal surgery. She is to continue on Percocet with specific usage guidelines. The prescription is structured in compliance with government regulations, limiting the amount dispensed to 30 pills at a time, with necessary follow-up every three months to evaluate pain management and renewal needs. 2. COPD without exacerbation (J44.9: Chronic obstructive pulmonary disease, unspecified) The COPD remains stable without current exacerbation. The patient should continue with current management strategies, and any queries or changes in respiratory status should prompt immediate consultation. As this was not the primary focus of the current visit, detailed management remains secondary. 3. Primary hypertension (I10: Essential (primary) hypertension) The patient's hypertension is acknowledged and remains under regular assessment, though not a primary concern of the current appointment. Continued adherence to antihypertensive medications as previously prescribed is implied. Further evaluation and monitoring are presumed ongoing in subsequent routine check-ups. Other specified postprocedural states (Z98.890: Other specified postprocedural states) Orders: acetaminophen-oxycodo ne, 1 tab(s), Oral, Daily as needed for pain, 30 tab(s), Refill(s) 0, 30 DAYS, M06.9, [facility], 154.9, cm, 08/25/24 10:39:00 EDT, Height/Length Dosing, 60.4, kg, 08/25/24 10:39:00 EDT, Weight Dosing albuterol, = 2 puff(s), Inhalation, q6hr, Please give cheapest generic, # 3 EA, Refills(s) 4, Pharmacy: [facility], 154.9, cm, 08/25/24 10:39:00 EDT, Height/Length Dosing, 60.4, kg, 08/25/24 10:39:00 EDT, Weight Dosing cetirizine, 10 mg = 1 tab(s), Oral, Daily, # 90 tab(s), Refills(s) 0, Pharmacy: [facility], 154.9, cm, 08/25/24 10:39:00 EDT, Height/Length Dosing, 60.4, kg, 08/25/24 10:39:00 EDT, Weight Dosing Follow-up No qualifying data available Problem List/Past Medical History Ongoing Anticoagulated (more content not included)... Normal [facility] Comment on above: Result Comment: Elec tronically Signed By: Harsha PULIDO, Wilfredo Turner.br\Date and Time Signed: 08/25/24 11:00 EDT Auth for Release of Medical Recordson 04-14-2024 Auth for Release of Medical Records [id number] .[id number] Normal [facility] CBC w/ Auto Diffon 4 Basophils/100 WBC (Bld) 0.6 % Normal 0.0-2.0 [facility] Comment on above: Performed By: #### 2 [id number] #### [facility] [address] [place] [address] Basophils/Leukocyte s Auto (Bld) [Pure # fraction] 0.1 E9/L Normal 0.0-0.2 [facility] Comment on above: Performed By: #### 2 [id number] #### [facility] [address] [place] [address] Eosinophils (Bld) [#/Vol] 0.1 E9/L Normal 0.0-0.5 [facility] Comment on above: Performed By: #### 2 [id number] #### [facility] [address] [place] [address] Eosinophils/100 WBC (Bld) 1.1 % Normal 0.0-8.0 [facility] Comment on above: Performed By: #### 2 [id number] #### [facility] [address] [place] [address] Erythrocyte distribution width (RBC) [Ratio] 15.3 % High 10.9-14.2 [facility] Comment on above: Performed By: #### 2 [id number] #### [facility] [address] [place] [address] Hematocrit (Bld) [Volume fraction] 49.3 % High 34.0-46.0 [facility] Comment on above: Performed By: #### 2 [id number] #### [facility] [address] [place] [address] Hemoglobin (Bld) [Mass/Vol] 16.5 g/dL High 12.0-16.0 [facility] Comment on above: Performed By: #### 2 [id number] #### [facility] [address] [place] [address] Lymphocytes (Bld) [#/Vol] 1.3 E9/L Normal 1.0-4.0 [facility] Comment on above: Performed By: #### 2 [id number] #### [facility] [address] [place] [address] Lymphocytes/100 WBC (Bld) 16.1 % Normal 14.0-50.0 [facility] Comment on above: Performed By: #### 2 [id number] #### [facility] [address] [place] [address] MCH (RBC) [Entitic mass] 31.3 pg Normal 27.0-34.0 [facility] Comment on above: Performed By: #### 2 162106 #### [facility] [address] [place] [address] MCHC (RBC) [Mass/Vol] 33.4 g/dL Normal 31.4-36.0 [facility] Comment on above: Performed By: #### 2 [id number] #### [facility] [address] [place] [address] MCV (RBC) [Entitic vol] 93.5 fL Normal 80.0-100.0 [facility] Comment on above: Performed By: #### 2 [id number] #### [facility] [address] [place] [address] Monocytes (Bld) [#/Vol] 0.6 E9/L Normal 0.2-1.0 [facility] Comment on above: Performed By: #### 2 580305 #### [facility] [address] [place] [address] Neutrophils (Bld) [#/Vol] 6.2 E9/L Normal 2.0-7.5 [facility] Comment on above: Performed By: #### 2 235745 #### [facility] [address] [place] [address] Neutrophils/100 WBC (Bld) 74.8 % Normal 36.0-75.0 [facility] Comment on above: Performed By: #### 2 [id number] #### [facility] [address] [place] [address] Platelet 194.0 E9/L Normal 150.0-500.0 [facility] Comment on above: Performed By: #### 2 486702 #### [facility] [address] [place] [address] Platelet mean volume (Bld) [Entitic vol] 9.8 fL Normal 6.4-10.8 [facility] Comment on above: Performed By: #### 2 [id number] #### [facility] [address] [place] [address] RBC (Bld) [#/Vol] 5.3 E12/L Normal 4.3-5.9 [facility] Comment on above: Performed By: #### 2 [id number] #### [facility] [address] [place] [address] WBC corrected for nucl RBC Auto (Bld) [#/Vol] 8.3 E9/L Normal 4.0-11.0 [facility] Comment on above: Result Comment: Slid e review performed Performed By: #### 2 [id number] #### [facility] [address] [place] [address] CHEMISTRYOrdered By: SYSTEM SYSTEM on 04-12-2024 Albumin [Mass/Vol] 4.1 g/dL Normal 3.3 - 5.0 gm/dL R emisol Chem Albumin/Globulin [Mass ratio] 1.7 {ratio} Normal 1.1 - 2.2 [facility] ALP [Catalytic activity/Vol] 67 [iU]/d Normal 21 - 98 Int._Unit/L [facility] ALT No additional P-5'-P [Catalytic activity/Vol] 12 [iU]/d Normal 6 - 46 Int._Unit/L [facility] Anion gap [Moles/Vol] 14 mmol/L Normal 6 - 16 mEq/L [facility] AST [Catalytic activity/Vol] 23 [iU]/d Normal 5 - 43 Int._Unit/L [facility] Bilirubin [Mass/Vol] 0.7 mg/dL Normal 0.0 - 1.1 mg/dL [facility] Calcium [Mass/Vol] 9.0 mg/dL Normal 8.9 - 11.1 mg/dL [facility] Chloride [Moles/Vol] 108 mmol/L Normal 101 - 111 mmol/L [facility] Cholesterol [Mass/Vol] 120 mg/dL Normal 120 - 200 mg/dL [facility] Cholesterol in HDL [Mass/Vol] 48 mg/dL Invalid Interpretation Code [facility] Comment on above: Result Comment: '>= 60 LOW RISK' '<= 40 HIGH RISK' Cholesterol in LDL [Mass/Vol] 60 mg/dL Normal <=129mg/dL [facility] Cholesterol in VLDL [Mass/Vol] 21 mg/dL Normal 7 - 40 mg/dL [facility] CO2 [Moles/Vol] 22 mmol/L Normal 21 - 31 mmol/L Remis [facility] Creatinine [Mass/Vol] 0.6 mg/dL Normal 0.5 - 1.3 mg/dL [facility] eGFR 92 mL/min/1.73 m2 Normal >=59mL/min/1.73 m2 [facility] Globulin (S) [Mass/Vol] 2.4 g/dL Normal 1.4 - 4.0 gm/dL [facility] Glucose [Mass/Vol] 108 mg/dL Normal 55 - 199 mg/dL Re misol Chem Potassium [Moles/Vol] 4.7 mmol/L Normal 3.5 - 5.3 mmol/L [facility] Protein [Mass/Vol] 6.5 g/dL Normal 6.0 - 7.8 gm/dL R emisol Chem Sodium [Moles/Vol] 139 mmol/L Normal 135 - 145 mmol/L [facility] Triglyceride [Mass/Vol] 104 mg/dL Normal <=149mg/dL [facility] TSH Qn 0.81 m[IU]/L Normal 0.34 - 5.60 mcIU/mL Rem isol Chem Urea nitrogen [Mass/Vol] 21 mg/dL Normal 5 - 21 mg/dL [facility] Urea nitrogen/Creatinine [Mass ratio] 35 mg/mg High 10 - 20 [facility] CHEMISTRYOrdered By: Sita Crystal on 04-12-2024 HbA1c (Bld) [Mass fraction] 5.9 % Normal <=5.9% [facility] ChemAutoSS CMPon 04-12-2024 Albumin [Mass/Vol] 4.1 g/dL Normal 3.3-5.0 [facility] Comment on above: Performed By: #### 2 [id number] #### [facility] [address] [place] [address] Albumin/Globulin (S) [Mass conc ratio] 1.7 Normal 1.1-2.2 [facility] Comment on above: Performed By: #### 2 [id number] #### [facility] [address] [place] [address] ALP [Catalytic activity/Vol] 67 Int._Unit/L Normal 21-98 [facility] Comment on above: Performed By: #### 2 [id number] #### [facility] [address] [place] [address] ALT No additional P-5'-P [Catalytic activity/Vol] 12 Int._Unit/L Normal 6-46 [facility] Comment on above: Performed By: #### 2 [id number] #### [facility] [address] [place] [address] Anion gap [Moles/Vol] 14 mmol/L Normal 6-16 [facility] Comment on above: Performed By: #### 2 [id number] #### [facility] [address] [place] [address] AST [Catalytic activity/Vol] 23 Int._Unit/L Normal 5-43 [facility] Comment on above: Performed By: #### 2 037143 #### [facility] [address] [place] [address] Bilirubin [Mass/Vol] 0.7 mg/dL Normal 0.0-1.1 [facility] Comment on above: Performed By: #### 2 [id number] #### [facility] [address] [place] [address] Calcium [Mass/Vol] 9.0 mg/dL Normal 8.9-11.1 [facility] Comment on above: Performed By: #### 2 [id number] #### [facility] [address] [place] [address] Chloride [Moles/Vol] 108 mmol/L Normal 101-111 [facility] Comment on above: Performed By: #### 2 659349 #### [facility] [address] [place] [address] CO2 [Moles/Vol] 22 mmol/L Normal 21-31 [facility] Comment on above: Performed By: #### 2 118514 #### [facility] [address] [place] [address] Creatinine [Mass/Vol] 0.6 mg/dL Normal 0.5-1.3 [facility] Comment on above: Performed By: #### 2 [id number] #### [facility] [address] [place] [address] Globulin (S) [Mass/Vol] 2.4 g/dL Normal 1.4-4.0 [facility] Comment on above: Performed By: #### 2 930208 #### [facility] [address] [place] [address] Glucose [Mass/Vol] 108 mg/dL Normal 55-199 [facility] Comment on above: Performed By: #### 2 510527 #### [facility] [address] [place] [address] Potassium [Moles/Vol] 4.7 mmol/L Normal 3.5-5.3 [facility] Comment on above: Performed By: #### 2 900677 #### [facility] [address] [place] [address] Protein [Mass/Vol] 6.5 g/dL Normal 6.0-7.8 [facility] Comment on above: Performed By: #### 2 [id number] #### [facility] [address] [place] [address] Sodium [Moles/Vol] 139 mmol/L Normal 135-145 [facility] Comment on above: Performed By: #### 2 076813 #### [facility] [address] [place] [address] Urea nitrogen [Mass/Vol] 21 mg/dL Normal 5- [facility] Comment on above: Performed By: #### 2 206369 #### [facility] [address] [place] [address] Urea nitrogen/Creatinine [Mass ratio] 35 No Units High 10-20 [facility] Comment on above: Performed By: #### 2 [id number] #### [facility] [address] [place] [address] Family Medicine Office/Clini c Noteon 04-12-2024 Family Medicine Office/Clinic Note HPI Staff Chantelle is a 79 year old female presenting for medication check up Pain characteristics: Pain location: generalized Intensity:6/10 Onset: several years Medication used: acetaminophen 325/oxycodone 5mg Opioids prescribed: acetaminophen 325/oxycodone 5mg Medication agreement UTD: _due Urine drug screen performed:yes 12/28/23 questions/concerns: needs her inhaler refilled and says she needs scheduled for her lab work for the arthritis medication she takes and yearly labs History of Present Illness - See staff HPI Review of Systems PHQ Score Initial Depression Screen Score: 0 SCORE Physical Exam Vitals & Measurements T: 36.8 ?C(Oral) HR: 72(Peripheral) RR: 16 BP: 102/60 SpO2: 96% HT: 61 in HT: 154.9 cm WT: 59.0 kg WT: 129.8 lb BMI: 24.59 General: alert, no acute distress ENMT: oral mucosa moist, Cardiovascular: regular rate and rhythm, normal peripheral perfusion Respiratory: Lungs CTA, respirations non labored, Very diminished breath sounds Extremities: no deformity, no trauma Neurological: oriented x 4, LOC appropriate for age, CN II-XII intact, motor strength equal & normal bilaterally, speech normal Abdomen: Soft, Nontender, Non-distended, + BS Assessment/Plan 1. Hypertension (I10: Essential (primary) hypertension) - At goal. - Will refill meds - Follow up in 3 months Ordered: CBC w/ Auto Diff Comprehensive Metabolic Panel Drug Screen POC 25005 HgbA1c Lipid Panel TSH With T4fr Reflex 2. Hypercholesterolemia (E78.00: Pure hypercholesterolemia, unspecified) - Will check labs today. - No concerns at this time. Ordered: CBC w/ Auto Diff Comprehensive Metabolic Panel Drug Screen POC 33459 HgbA1c Lipid Panel TSH With T4fr Reflex 3. Fibromyalgia (M79.7: Fibromyalgia) - Will do a UDS again today as it was positive last time. - Unsure if it was a fals positive or real. - Will do CSC today Ordered: CBC w/ Auto Diff Comprehensive Metabolic Panel Drug Screen POC 54766 HgbA1c Lipid Panel TSH With T4fr Reflex 4. Chronic respiratory failure with hypoxia (J96.11: Chronic respiratory failure with hypoxia) - NO concerns. - Not on O2 at this time. - Has not seen Pulm - States she wont until she stops smoking Ordered: CBC w/ Auto Diff Comprehensive Metabolic Panel Drug Screen POC 25747 HgbA1c Lipid Panel TSH With T4fr Reflex 5. Arthritis (M19.90: Unspecified osteoarthritis, unspecified site) - Will do labs as the patient is on methotrexate. - Follow up PRN Ordered: CBC w/ Auto Diff Comprehensive Metabolic Panel Drug Screen POC 11493 HgbA1c Lipid Panel TSH With T4fr Reflex 6. Smoking (F17.200: Nicotine dependence, unspecified, uncomplicated) - Please stop smokine Ordered: CBC w/ Auto Diff Comprehensive Metabolic Panel HgbA1c Lipid Panel TSH With T4fr Reflex 7. Elevated blood sugar level (R73.9: Hyperglycemia, unspecified) - Will check and A1c today. Ordered: CBC w/ Auto Diff Comprehensive Metabolic Panel HgbA1c Lipid Panel TSH With T4fr Reflex 8. Immunotherapy (Z29.89: Encounter for other specified prophylactic measures) Ordered: CBC w/ Auto Diff Comprehensive Metabolic Panel HgbA1c Lipid Panel TSH With T4fr Reflex 9. Polycythemia (D75.1: Secondary polycythemia) Ordered: CBC w/ Auto Diff Comprehensive Metabolic Panel HgbA1c Lipid Panel TSH With T4fr Reflex Orders: acetaminophen-oxycodo ne, 1 tab(s), Oral, Daily as needed for pain, 30 tab(s), Refill(s) 0, 30 DAYS, M06.9, [facility], 154.9, cm, 04/12/24 9:56:00 EDT, Height/Length Dosing, 59, kg, 04/12/24 9:56:00 EDT, Weight Dosing albuterol, = 2 puff(s), Inhalation, q6hr, Please give cheapest generic, # 18 gm, Refills(s) 1, Pharmacy: [facility], 154.9, cm, 04/12/24 9:56:00 EDT, Height/Length Dosing, 59, kg, 04/12/24 9:56:00 EDT, Weight Dosing Follow-up No qualifying data available Problem List/Past Medical History Ongoing Anticoagulated Anxiety Arthritis Asymptomatic microscopic hematuria Back pain with history of spinal surgery BMI 24.0-24.9, adult Carotid artery stenosis Chronic respiratory failure with hypoxia COPD without exacerbation Elevated blood sugar level Fibromyalgia GERD (gastroesophageal reflux disease) Heart disease Hiatal hernia Hypercholesterolemia Hypertension Immunodeficiency due to drugs Immunotherapy Major depressive disorder with single episode, in full remission Multiple falls Neoplasm of uncertain behavior of right kidney Other chcf (current) drug therapy Polycythemia Postinfective urethral stricture in female Recurrent UTI Renal cyst Smoking Stress incontinence Thyroid nodule Trochanteric bursitis Vitamin D deficiency Historical Acute UTI Impingement syndrome of shoulder region LUQ pain Nocturia Rheumatoid arteritis Procedure/Surgical History Cystourethroscopy with dilation of urethral stricture (0 (more content not included)... Normal [facility] Comment on above: Result Comment: Elec tronically Signed By: Harsha PULIDO, Wilfredo Montgomery\.br\Date and Time Signed: 04/12/24 10:19 EDT HEMATOLOGYOrdered By: SYSTEM SYSTEM on 04-12-2024 Basophils/100 WBC (Bld) 0.6 % Normal 0.0 - 2.0 % Remisol Heme Basophils/Leukocyte s Auto (Bld) [Pure # fraction] 0.1 E9/L Normal 0.0 - 0.2 E9/L Remisol Heme Eosinophils (Bld) [#/Vol] 0.1 E9/L Normal 0.0 - 0.5 E9/L Remisol Heme Eosinophils/100 WBC (Bld) 1.1 % Normal 0.0 - 8.0 % Remisol Heme Erythrocyte distribution width (RBC) [Ratio] 15.3 % High 10.9 - 14.2 % Remisol Heme Hematocrit (Bld) [Volume fraction] 49.3 % High 34.0 - 46.0 % Remisol Heme Hemoglobin (Bld) [Mass/Vol] 16.5 g/dL High 12.0 - 16.0 gm/dL Remisol Heme Lymphocytes (Bld) [#/Vol] 1.3 E9/L Normal 1.0 - 4.0 E9/L Remisol Heme Lymphocytes/100 WBC (Bld) 16.1 % Normal 14.0 - 50.0 % Remisol Heme MCH (RBC) [Entitic mass] 31.3 pg Normal 27.0 - 34.0 pg Remisol Heme MCHC (RBC) [Mass/Vol] 33.4 g/dL Normal 31.4 - 36.0 gm/dL Remisol Heme MCV (RBC) [Entitic vol] 93.5 fL Normal 80.0 - 100.0 fL Remisol Heme Monocytes (Bld) [#/Vol] 0.6 E9/L Normal 0.2 - 1.0 E9/L Remisol Heme Monocytes/100 WBC (Bld) 7.4 % Normal 4.0 - 14.0 % Remisol Heme Neutrophils (Bld) [#/Vol] 6.2 E9/L Normal 2.0 - 7.5 E9/L Remisol Heme Neutrophils/100 WBC (Bld) 74.8 % Normal 36.0 - 75.0 % Remisol Heme Platelet 194.0 E9/L Normal 150.0 - 500.0 E9/L Remiso l Heme Platelet mean volume (Bld) [Entitic vol] 9.8 fL Normal 6.4 - 10.8 fL Remisol Heme RBC (Bld) [#/Vol] 5.3 E12/L Normal 4.3 - 5.9 E12/L Re misol Heme WBC corrected for nucl RBC Auto (Bld) [#/Vol] 8.3 E9/L Normal 4.0 - 11.0 E9/L Rem[facility] Comment on above: Result Comment: Slid e review performed [id number] 04-12-2024 HbA1c (Bld) [Mass fraction] 5.9 % Normal <=5.9 [facility] Comment on above: Performed By: #### [id number] #### [facility] [address] [place] [address] Lipid Panelon 04-12-2024 Cholesterol [Mass/Vol] 120 mg/dL Normal 120-200 [facility] Comment on above: Performed By: #### 2 [id number] #### [facility] [address] [place] [address] Cholesterol in HDL [Mass/Vol] 48 mg/dL Invalid Interpretation Code [facility] Comment on above: Result Comment: '>= 60 LOW RISK' '<= 40 HIGH RISK' Performed By: #### 2 [id number] #### [facility] [address] [place] [address] Cholesterol in LDL [Mass/Vol] 60 mg/dL Normal <=129 [facility] Comment on above: Performed By: #### 2 [id number] #### [facility] [address] [place] [address] Cholesterol in VLDL [Mass/Vol] 21 mg/dL Normal 7-40 [facility] Comment on above: Performed By: #### 2 [id number] #### [facility] [address] [place] [address] Triglyceride [Mass/Vol] 104 mg/dL Normal <=149 [facility] Comment on above: Performed By: #### 2 [id number] #### [facility] [address] [place] [address] Medication Consenton 024 Medication Consent [id number]# 1.00TIFF Normal [facility] TSH With T4fr Reflexon 04-12 TSH Qn 0.81 m[IU]/L Normal 0.34-5.60 [facility] Comment on above: Performed By: #### 1 [id number] #### [facility] [address] [place] [address] eGFRon 04-12-2024 eGFR 92 mL/min/1.73 m2 Normal >=59 [facility] Comment on above: Order Comment: Order added by Discern Expert. Performed By: #### 1 [id number] #### [facility] [address] [place] [address] Consultation Noteon 02-11-20 24 Consultation Note [id number] .00TIFF Normal [facility] Reminderson 02-01-2024 Reminders - From: Betsey Toledo To: [facility] - Clinical; Sent: 01/29/2024 12:10:05 EST Show up: 01/29/2024 12:10:00 EST Subject: Ambulatory Reminder Due Date/Time: 01/30/2024 12:09:00 EST Urine culture shows that she is on correct antibiotic for her UTI. How is she feeling? Hallucinations gone? Results: Date Result Type Ind Result Name 01/27/2024 14:05 EST MBO POS Urine Culture From: Mary Lowry ([facility] - Clinical) To: Betsey Toledo; Sent: 02/01/2024 11:41:20 EDT Show up: 02/01/2024 11:40:00 EDT Subject: RE: Ambulatory Reminder Patient informed of results and voices understanding. Patient reports feeling better and hallucinations are gone. Normal [facility] C Urineon 01-29-2024 Bacteria identified Cx Nom (U) Microbiology PROCEDURE: Urine Culture [R1] SOURCE: U CleanCatch BODY SITE: COLLECTED DATE/TIME: 01/27/2024 14:05 EST RECEIVED DATE/TIME: 01/27/2024 19:30 EST START DATE/TIME: 01/27/2024 19:30 EST FREE TEXT SOURCE: Betsey Toledo Jodi L FINAL REPORTS Final Report [] Verified Date/Time: 01/29/2024 11:43 EST >100,000 cfu/ml Escherichia coli SUSCEPTIBILITY RESULTS LEGEND: S=Susceptible, N/R=Not Reported, Blank=Data not available, or drug not advisable or tested, I=Intermediate, ESBL=Extended spectrum beta-lactamase, R=Resistant, TFG=Thymidine-depende nt strain, TWILA=Beta-lactamase positive, BRIGITTE=mcg/m;(mg/L), S*=Predicted susceptible interp, R*=Predicted resistant interp EC Antibiotic BRIGITTE Dilutn BRIGITTE Interp Amikacin <=16 S Ampicillin <=8 S Ampicillin/ <=8/4 S Sulbactam Aztreonam <=4 S Cefazolin <=2 S Cefepime <=2 S Cefoxitin <=8 S Ceftazidime <=1 S Ceftazidime/ <=8 S Avibactam Ceftriaxone <=1 S Ciprofloxacin <=1 S Ertapenem <=0.5 S Gentamicin <=4 S Levofloxacin <=2 S Meropenem <=1 S Nitrofurantoin <=32 S Piperacillin/ <=16 S Tazobactam Tetracycline <=4 S Tigecycline <=2 S Tobramycin <=4 S Trimethoprim/ <=2/38 S Sulfa Performing Locations R1: This test was performed at: [facility], [address] [place] [address], [address] , , [facility] Comment on above: Performed By: #### 2 [id number] ####[facility] [id number] [place] [address] Ambulatory Visit Summaryon 0 01-27-2024 Ambulatory Visit Summary CHANTELLE DEY :1945 Visit Date:01/27/2024 Ambulatory Visit Instructions Your Diagnosis Urinary tract infection BMI 24.0-24.9, adult Your Care Team Attending Physician - Betsey Toledo Primary Care Physician - Wilfredo Melgar MD This Is Your Medications List Misc Prescription ([place], 5 years.) Misc Prescription (Portable Oxygen Concentrator. Wear at 2L via N/C.) acetaminophen-oxycodo ne (acetaminophen-oxycod one 325 mg-5 mg Tab) albuterol (Albuterol (Eqv-Proventil HFA) 90 mcg/inh inhalation aerosol) alendronate (alendronate 35 mg Tab) aspirin (aspirin 81 mg oral tablet) cetirizine (Zyrtec Dissolve 10 mg oral tablet, dispersible) cholecalciferol (Vitamin D3 5000 intl units (125 mcg) oral tab) citalopram (citalopram 20 mg Tab) folic acid (folic acid 1 mg Tab) methotrexate (methotrexate 2.5 mg Tab) metoprolol (metoprolol 25 mg ER Tab) nitrofurantoin (Macrobid 100 mg Cap) omega-3 polyunsaturated fatty acids (Fish Oil) pantoprazole (Pantoprazole [address] Tab) polyethylene glycol 3350 (polyethylene glycol 3350 Oral Pwdr for Recon) rosuvastatin (rosuvastatin 5 mg Tab) tretinoin topical (Retin-A 0.05% topical cream) Procedures Performed Cystourethroscopy with dilation of urethral stricture (02/04/2021), Cystourethroscopy with dilation of urethral stricture (05/07/2020), Cataracts, Cholecystectomy, Hysterectomy, Laparoscopy, Placement of stent in cardiac conduit, Post-surgery back pain. Discharge Vitals Temperature (Tympanic) 36.7 ?C Heart Rate (Peripheral) 88 Respiratory Rate 18 Blood Pressure 122/78 Height 154.9 cm Height 61 in Weight 59.96 kg Weight 131.912 lb BMI 24.99 Medications What How Much When Why Instructions New nitrofurantoin (Macrobid 100 mg Cap) 1 Capsules By Mouth 2 times a day Urinary tract infection BMI 24.0-24.9, adult Duration: 10 Days Pickup at [facility] Unchanged acetaminophen-oxycodo ne (acetaminophen-oxycod one 325 mg-5 mg Tab) 1 Tablets By Mouth Every day as needed for as needed for pain 30 DAYS, M06.9 Unchanged albuterol (Albuterol (Eqv-Proventil HFA) 90 mcg/ inh inhalation aerosol) 2 Puffs Inhalation Every 6 hours Please give cheapest generic Unchanged alendronate (alendronate 35 mg Tab) 1 Tablets By Mouth Every 7 days Unchanged aspirin (aspirin 81 mg oral tablet) 1 Tablets By Mouth Every day Unchanged cetirizine (Zyrtec Dissolve 10 mg oral tablet, dispersible) 1 Tablets By Mouth Every day as needed for for allergy symptoms Unchanged cholecalciferol (Vitamin D3 5000 intl units (125 mcg) oral tab) Unchanged citalopram (citalopram 20 mg Tab) 1 Tablets By Mouth Every day Unchanged folic acid (folic acid 1 mg Tab) 1 Tablets By Mouth Every day Unchanged methotrexate (methotrexate 2.5 mg Tab) See instructions TAKE 6 TABLETS ONE TIME WEEKLY ON MONDAYS Unchanged metoprolol (metoprolol 25 mg ER Tab) 0.5 Tablets By Mouth 2 times a day Unchanged Misc Prescription (Handicap Alethea, 5 years.) See instructions COPD without exacerbation Immunodeficiency due to drugs Chronic respiratory failure with hypoxia Major depressive disorder with single episode, in full remission Back pain with history of spinal surgery Multiple falls BMI 25.0-25.9,adult Over weight Smoker Handicap Alethea, 5 years. Unchanged Misc Prescription (Portable Oxygen Concentrator. 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 exacerbation Immunodeficiency due to drugs Chronic respiratory failure with hypoxia Major depressive disorder with single episode, in full remission Back pain with history of spinal surgery Multiple falls BMI 25.0-25.9,adult Over weight Smoker Ok to D/ C Unchanged omega-3 polyunsaturated fatty acids (Fish Oil) 1,000 Milligram By Mouth Every day Unchanged pantoprazole (Pantoprazole [address] Tab) Unchanged polyethylene glycol 3350 (polyethylene glycol 3350 Oral Pwdr for Recon) Unchanged rosuvastatin (rosuvastatin 5 mg Tab) 1 Tablets By Mouth Every day Unchanged tretinoin topical (Retin-A 0.05% topical cream) See instructions Apply topically daily. wash and dry affected area and wait 20 to 30 minutes before application Pharmacy Information [facility]: [address] [place], [place] [id number] [phone] Allergies No Known Medication Allergies Problems Ongoing - Any problem that you are currently receiving treatment for. Anticoagulated Anxiety Arthritis Asymptomatic microscopic hematuria Back pain with history of spinal surgery BMI 24.0-24.9, adult Carotid artery stenosis Cholelithiasis without obstruction Chronic respiratory failure with hypoxia COPD without exacerbation Elevated blood sugar level Fibromyalgia GERD (gastroesophageal reflux disease) Heart disease Herpes zoster Hiatal hernia Hospital discharge follow-up Hypercholesterolemia Hypertension Immunodeficiency due to drugs Immunotherapy Major depressive disorder with single epi (more content not included)... Normal [facility] Medicine Office/Clini c Noteon 01-27-2024 Family Medicine Office/Clinic Note HPI Staff Chantelle is a 78 year old female presenting for acute visit Dysuria: Onset: 3 days ago Symptoms: confusion, hallucinations OTC used: none Last UTI: 1 year ago Hx of kidney stones: no UA in office documented in chart pt has been having hallucinations things moving on her [place], carpet was a different color. History of Present Illness pt presents today for uti symptoms Review of Systems PHQ Score Initial Depression Screen Score: 0 SCORE ROS - Provider Constitutional: no fever, no chills, no sweats, no fatigue Respiratory: no shortness of breath, no cough, no orthopnea, no wheezing. Cardiovascular: no chest pain, no palpitations, no edema. Neurologic: no headache, no dizziness, no numbness, no weakness. hallucinating Physical Exam Vitals & Measurements T: 36.7 ?C(Tympanic) HR: 88(Peripheral) RR: 18 BP: 122/78 SpO2: 96% HT: 61 in HT: 154.9 cm WT: 59.96 kg WT: 131.912 lb BMI: 24.99 General: alert, no acute distress ENMT: oral mucosa moist, no pharyngeal erythema or exudate Cardiovascular: regular rate and rhythm, normal peripheral perfusion Respiratory: Lungs CTA, respirations non labored Extremities: no deformity, no trauma Neurological: oriented x 4, LOC appropriate for age, CN II-XII intact, motor strength equal & normal bilaterally, speech normal Assessment/Plan 1. Urinary tract infection (N39.0: Urinary tract infection, site not specified) pt having hallucinations. this is her first sign of UTI. U/A positive in office today will send for culture. pt encouraged to call office if she completes antibiotic and still has symptoms. RTC as needed Ordered: nitrofurantoin, 100 mg = 1 cap(s), Oral, BID, X 10 day(s), # 20 cap(s), Refills(s) 0, Pharmacy: [facility], 154.9, cm, 01/27/24 13:56:00 EST, Height/Length Dosing, 60, kg, 01/27/24 13:56:00 EST, Weight Dosing Urine Culture Urnls Dip Stick Auto w/o Microscopy POC 83112 2. BMI 24.0-24.9, adult (Z68.24: Body mass index [BMI] 24.0-24.9, adult) BMI education complete Ordered: nitrofurantoin, 100 mg = 1 cap(s), Oral, BID, X 10 day(s), # 20 cap(s), Refills(s) 0, Pharmacy: [facility], 154.9, cm, 01/27/24 13:56:00 EST, Height/Length Dosing, 60, kg, 01/27/24 13:56:00 EST, Weight Dosing Urine Culture Urnls Dip Stick Auto w/o Microscopy POC 55125 Follow-up No qualifying data available Problem List/Past Medical History Ongoing Anticoagulated Anxiety Arthritis Asymptomatic microscopic hematuria Back pain with history of spinal surgery BMI 24.0-24.9, adult Carotid artery stenosis Cholelithiasis without obstruction Chronic respiratory failure with hypoxia COPD without exacerbation Elevated blood sugar level Fibromyalgia GERD (gastroesophageal reflux disease) Heart disease Herpes zoster Hiatal hernia Hospital discharge follow-up Hypercholesterolemia Hypertension Immunodeficiency due to drugs Immunotherapy Major depressive disorder with single episode, in full remission Multiple falls Neoplasm of uncertain behavior of right kidney Other termite technician (current) drug therapy Polycythemia Postinfective urethral stricture in female Recurrent UTI Renal cyst Rhinitis Rib fracture Smoker Stress incontinence Thyroid nodule Trochanteric bursitis Urinary tract infection Vitamin D deficiency Historical Acute UTI Impingement syndrome of shoulder region LUQ pain Nocturia Rheumatoid arteritis Procedure/Surgical History Cystourethroscopy with dilation of urethral stricture (02/04/2021), Cystourethroscopy with dilation of urethral stricture (05/07/2020), Cataracts, Cholecystectomy, Hysterectomy, Laparoscopy, Placement of stent in cardiac conduit, Post-surgery back pain. Medications acetaminophen-oxycodo ne 325 mg-5 mg Tab, 1 tab(s), Oral, Daily, PRN Albuterol (Eqv-Proventil HFA) 90 mcg/inh inhalation aerosol, 2 puff(s), Inhalation, q6hr, 1 refills alendronate 35 mg Tab, 35 mg= 1 tab(s), Oral, q7day, 4 refills aspirin 81 mg oral tablet, 81 mg= 1 tab(s), Oral, Daily citalopram 20 mg Tab, 20 mg= 1 tab(s), Oral, Daily, 3 refills Fish Oil, 1000 mg, Oral, Daily folic acid 1 mg Tab, 1 mg= 1 tab(s), Oral, Daily Handicap Placard, 5 years., See Instructions Macrobid 100 mg Cap, 100 mg= 1 cap(s), Oral, BID methotrexate 2.5 mg Tab, See Instructions, 3 refills metoprolol 25 mg ER Tab, 12.5 mg= 0.5 tab(s), Oral, BID, 1 refills Pantoprazole [address] Tab polyethylene glycol 3350 Oral Pwdr for Recon Portable Oxygen Concentrator. Wear at 2L via N/C., See Instructions Retin-A 0.05% topical cream, See Instructions rosuvastatin 5 mg Tab, 5 mg= 1 tab(s), Oral, Daily, 1 refills Vitamin D3 5000 intl units (125 mcg) oral tab Zyrtec Dissolve 10 mg oral tablet, dispersible, 10 mg= 1 tab(s), Oral, Daily, PRN Allergies No Known Medication Allergies Social History Alcohol - Denies Alcohol Use, 05/07/2020 Current, 1-2 times per month, 09/01/2019 Substance Abuse - Denies (more content not included)... [facility] Comment on above: Result Comment: Elec tronically Signed By: Betsey Toledo\.eris\Date and Time Signed: 01/27/24 14:07 EST Retail - Clinical Noteon Retail - Clinical Note [id number] .00TIFF [facility] - Clinical Noteon Retail - Clinical Note [id number]#1 .00TIFF [facility] Family Medicine Office/Clini c Noteon 01-04-2024 Family Medicine Office/Clinic Note HPI Staff Patient presents for 1 month follow up. Follow up for Mental Status: Medication adherence- Yes, takes medication as prescribed Medication refill needed: no Suicidal thoughts-Not at this time Most recent PHQ:2 Pain characteristics: Pain location: back pain at 11/26/2023 visit. Rib fracture from fall. Rib pain is better and not using any oxygen. Needs Dr Melgar to sign off on the O2 before they will take it away. she feels the inhaler is enough to help her when issues. Intensity:5/10 Onset: generalized for years, the rib pain more recent Medication used: [place] Opioids prescribed: percocet Medication agreement UTD: _ due Urine drug screen performed:12/29/23 due Flu Shot: UTD questions/concerns: runny nose drips all the time, she ? allergies or sinus Needs you to sign off on the oxygen so they can take it away History of Present Illness Chantelle Dey is a 78-year-old female who presents today for a follow-up evaluation. The patient reports doing good overall. She reports that she does not need oxygen therapy. She monitors her oxygen saturation for 2.5 weeks and it was in the mid-90s range. She expresses concern about the cost of the oxygen device. She is unaware of her insurance coverage. She mentions that she might go to the hospital if she catches a cold and experiences breathing difficulties. She has a scheduled appointment with Dr. Mahoney next week and wishes to consult with it beforehand. She mentions using her inhaler only once. She is aware that she damaged her lungs by smoking. She recalls that she had one episode of mild dyspnea, but her oxygen level was normal. She used her inhaler and felt better afterwards. She reports experiencing persistent rhinorrhea, which she attributes to either sinus issues or allergies. She has not been taking any medication for this condition. She notes that these symptoms have been present for months and began prior to her receiving oxygen therapy She likes to sleep and does not have any trouble sleeping. She is taking her pain medication as needed for back pain. Review of Systems PHQ Score Initial Depression Screen Score: 2 SCORE Physical Exam Vitals & Measurements T: 36.5 ?C(Oral) HR: 76(Peripheral) RR: 16 BP: 120/76 SpO2: 96% HT: 61 in HT: 154.9 cm WT: 60.7 kg WT: 133.54 lb BMI: 25.3 General: alert, no acute distress ENMT: oral mucosa moist, no pharyngeal erythema or exudate Cardiovascular: regular rate and rhythm, normal peripheral perfusion Respiratory: very diminished breath sounds, respirations are non-labored Extremities: no deformity, no trauma Neurological: oriented x 4, LOC appropriate for age, CN II-XII intact, motor strength equal & normal bilaterally, speech normal Assessment/Plan 1. Major depressive disorder with single episode, in full remission (F32.5: Major depressive disorder, single episode, in full remission) We will continue the patient on medication as before. We will follow up as needed. 2. Arthritis (M19.90: Unspecified osteoarthritis, unspecified site) Patient uses [place] as needed. The patient gets 30 pills per month. We do 2 months, and this should last her 3 months. If it does not, then the patient has to come in and discuss why she is using more than this. 3. BMI 25.0-25.9,adult (Z68.25: Body mass index [BMI] 25.0-25.9, adult) BMI education given. 4. Over weight (E66.3: Overweight) Diet and exercise advised. 5. Smoker (F17.200: Nicotine dependence, unspecified, uncomplicated) The patient claims that she has quit smoking now for over 30 days. Encouraged the patient to continue with this. We will monitor and we will remove out of her problem list. 6. Rhinitis (J31.0: Chronic rhinitis) We will have the patient try Zyrtec and see if this helps. 7. Chronic respiratory failure with hypoxia (J96.11: Chronic respiratory failure with hypoxia) Patient is no longer hypoxic. We will go ahead and remove the oxygen per the patient's request. Patient will be following up with pulmonary next week. Back pain with history of spinal surgery (M54.9: Dorsalgia, unspecified) COPD without exacerbation (J44.9: Chronic obstructive pulmonary disease, unspecified) Immunodeficiency due to drugs (D84.821: Immunodeficiency due to drugs) Multiple falls (R29.6: Repeated falls) Portions of this record may have been created with voice recognition artificial intelligence software, specifically [employer]Works, Receptor and or [email or web address]. Substitutions may have occurred due to the inherent limitations of voice recognition and artificial intelligence software. Documentation services were performed after patient or guardian consented to allow [employer] to record this visit. KEVIN cnc specialist and provider reviewed before signing. KEVIN: Teresita Leblanc/Kiya Singh Follow-up No qualifying data available Patient Education BMI for Adults Problem List/Past Medical History Ongoing Anticoagulated Anxi (more content not included)... [facility] Comment on above: Result Comment: Elec tronically Signed By: Wilfredo Melgar MD\.br\Date and Time Signed: 01/04/24 12:53 EST\.br\Electronically Co-Signed By: Kiya Singh\.br\Date and Time Co-Signed: 12/29/23 16:36 EST Physician Referralon 024 Physician Referral [id number]# 1.00TIFF [facility] Physician Referralon 024 Physician Referral [id number]# 1.00TIFF [facility] Medication Consenton 024 Medication Consent [id number] .00TIFF [facility] Ambulatory Visit Summaryon 0 12-29-2023 Ambulatory Visit Summary CHANTELLE DEY :1945 Visit Date:12/29/2023 Ambulatory Visit Instructions Your Diagnosis Major depressive disorder with single episode, in full remission Arthritis BMI 25.0-25.9,adult Over weight Smoker Your Care Team Attending Physician - Wilfredo Melgar MD Primary Care Physician - Wilfredo Melgar MD This Is Your Medications List Misc Prescription (#####) Misc Prescription (Handicap Alethea, 5 years.) Misc Prescription (Portable Oxygen Concentrator. Wear at 2L via N/C.) acetaminophen-hydroco done ([place] 325 mg-5 mg oral tablet) acetaminophen-oxycodo ne (acetaminophen-oxycod one 325 mg-5 mg Tab) albuterol (Albuterol (Eqv-Proventil HFA) 90 mcg/inh inhalation aerosol) alendronate (alendronate 35 mg Tab) aspirin (aspirin 81 mg oral tablet) cholecalciferol (Vitamin D3 5000 intl units (125 mcg) oral tab) cholecalciferol (Vitamin D3 5000 intl units (125 mcg) oral tab) citalopram (citalopram 20 mg Tab) folic acid (folic acid 1 mg Tab) methotrexate (methotrexate 2.5 mg Tab) methylPREDNISolone (methylPREDNISolone 4 mg Tab) metoprolol (metoprolol 25 mg ER Tab) omega-3 polyunsaturated fatty acids (Fish Oil) pantoprazole (Pantoprazole [address] Tab) polyethylene glycol 3350 (polyethylene glycol 3350 Oral Pwdr for Recon) rosuvastatin (rosuvastatin 5 mg Tab) tretinoin topical (Retin-A 0.05% topical cream) Procedures Performed Cystourethroscopy with dilation of urethral stricture (02/04/2021), Cystourethroscopy with dilation of urethral stricture (05/07/2020), Cataracts, Cholecystectomy, Hysterectomy, Laparoscopy, Placement of stent in cardiac conduit, Post-surgery back pain. Discharge Vitals Temperature (Oral) 36.5 ?C Heart Rate (Peripheral) 76 Respiratory Rate 16 Blood Pressure 120/76 Height 154.9 cm Height 61 in Weight 60.7 kg Weight 133.54 lb BMI 25.3 Medications What How Much When Why Instructions Unchanged acetaminophen-hydroco done ([place] 325 mg-5 mg oral tablet) 1 Tablets By Mouth Every day as needed for as needed for pain Unchanged acetaminophen-oxycodo ne (acetaminophen-oxycod one 325 mg-5 mg Tab) 1 Tablets By Mouth Every day as needed for as needed for pain 30 DAYS, M06.9 Unchanged albuterol (Albuterol (Eqv-Proventil HFA) 90 mcg/ inh inhalation aerosol) 2 Puffs Inhalation Every 6 hours Please give cheapest generic Unchanged alendronate (alendronate 35 mg Tab) 1 Tablets By Mouth Every 7 days Unchanged aspirin (aspirin 81 mg oral tablet) 1 Tablets By Mouth Every day Unchanged cholecalciferol (Vitamin D3 5000 intl units (125 mcg) oral tab) 1 Tablets By Mouth Every day Unchanged cholecalciferol (Vitamin D3 5000 intl units (125 mcg) oral tab) Unchanged citalopram (citalopram 20 mg Tab) 1 Tablets By Mouth Every day Unchanged folic acid (folic acid 1 mg Tab) 1 Tablets By Mouth Every day Unchanged methotrexate (methotrexate 2.5 mg Tab) See instructions TAKE 6 TABLETS ONE TIME WEEKLY ON MONDAYS Unchanged methylPREDNISolone (methylPREDNISolone 4 mg Tab) See instructions TAKE DIRECTED ON PACKAGE LABELING Unchanged metoprolol (metoprolol 25 mg ER Tab) 0.5 Tablets By Mouth 2 times a day Unchanged Misc Prescription (#####) 0 6 mL, 0 Refill(s), Instill 1 drop into affected eye twice a day Immediately following surgery for 1 week. Then instill one drop into affected eye ONCE daily for 3 weeks. 07 Unchanged Misc Prescription (Handicap Placard, 5 years.) See instructions 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 Unchanged Misc Prescription (Portable Oxygen Concentrator. 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 exacerbation Immunodeficiency due to drugs Chronic respiratory failure with hypoxia Major depressive disorder with single episode, in full remission Back pain with history of spinal surgery Multiple falls BMI 25.0-25.9,adult Over weight Smoker Portable Oxygen Concentrator. Wear at 2L via N/ C. Conservation POC Unchanged omega-3 polyunsaturated fatty acids (Fish Oil) 1,000 Milligram By Mouth Every day Unchanged pantoprazole (Pantoprazole [address] Tab) Unchanged polyethylene glycol 3350 (polyethylene glycol 3350 Oral Pwdr for Recon) Unchanged rosuvastatin (rosuvastatin 5 mg Tab) 1 Tablets By Mouth Every day Unchanged tretinoin topical (Retin-A 0.05% topical cream) See instructions Apply topically daily. wash and dry affected area and wait 20 to 30 minutes before application Allergies No Known Medication Allergies Problems Ongoing - Any problem that you are currently receiving treatment for. Anticoagulated Anxiety Arthritis Asymptomatic microscopic hematuria Back pain with history of spinal surgery BMI 24.0-24.9, adult Carotid artery stenosis Cholelithiasis wi (more content not included)... Normal [facility] Patient Educationon 12-29-19 Patient Education Nutrition BMI for Adults What is BMI? Body mass index (BMI) is a number that is calculated from a person's weight and height. BMI can help estimate how much of a person's weight is composed of fat. BMI does not measure body fat directly. Rather, it is an alternative to procedures that directly measure body fat, which can be difficult and expensive. BMI can help identify people who may be at higher risk for certain medical problems. What are BMI measurements used for? BMI is used as a screening tool to identify possible weight problems. It helps determine whether a person is obese, overweight, a healthy weight, or underweight. BMI is useful for: ? Identifying a weight problem that may be related to a medical condition or may increase the risk for medical problems. ? Promoting changes, such as changes in diet and exercise, to help reach a healthy weight. BMI screening can be repeated to see if these changes are working. How is BMI calculated? BMI involves measuring your weight in relation to your height. Both height and weight are measured, and the BMI is calculated from those numbers. This can be done either in [place] or metric measurements. Note that charts and online BMI calculators are available to help you find your BMI quickly and easily without having to do these calculations yourself. To calculate your BMI in [place] measurements: 1. Measure your weight in pounds (lb). 2. Multiply the number of pounds by 703. ? For example, for a person who weighs 180 lb, multiply that number by 703, which equals 126,540. 3. Measure your height in inches. Then multiply that number by itself to get a measurement called inches squared. ? For example, for a person who is 70 inches tall, the inches squared measurement is 70 inches x 70 inches, which equals 4,900 inches squared. 4. Divide the total from step 2 (number of lb x 703) by the total from step 3 (inches squared): 126,540 ? 4,900 = 25.8. This is your BMI. To calculate your BMI in metric measurements: 1. Measure your weight in kilograms (kg). 2. Measure your height in meters (m). Then multiply that number by itself to get a measurement called meters squared. ? For example, for a person who is 1.75 m tall, the meters squared measurement is 1.75 m x 1.75 m, which is equal to 3.1 meters squared. 3. Divide the number of kilograms (your weight) by the meters squared number. In this example: 70 ? 3.1 = 22.6. This is your BMI. What do the results mean? BMI charts are used to identify whether you are underweight, normal weight, overweight, or obese. The following guidelines will be used: ? Underweight: BMI less than 18.5. ? Normal weight: BMI between 18.5 and 24.9. ? Overweight: BMI between 25 and 29.9. ? Obese: BMI of 30 or above. Keep these notes in mind: ? Weight includes both fat and muscle, so someone with a muscular build, such as an athlete, may have a BMI that is higher than 24.9. In cases like these, BMI is not an accurate measure of body fat. ? To determine if excess body fat is the cause of a BMI of 25 or higher, further assessments may need to be done by a health care provider. ? BMI is usually interpreted in the same way for men and women. Where to find more information For more information about BMI, including tools to quickly calculate your BMI, go to these websites: ? Centers for Disease Control and Prevention: www.cdc.gov ? [place] Heart Association: www.heart.org ? National Heart, Lung, and Blood [place]: www.nhlbi.nih.gov Summary ? Body mass index (BMI) is a number that is calculated from a person's weight and height. ? BMI may help estimate how much of a person's weight is composed of fat. BMI can help identify those who may be at higher risk for certain medical problems. ? BMI can be measured using [place] measurements or metric measurements. ? BMI charts are used to identify whether you are underweight, normal weight, overweight, or obese. This information is not intended to replace advice given to you by your health care provider. Make sure you discuss any questions you have with your health care provider. Document Revised: 08/01/2020 Document Reviewed: 06/08/2020 [employer] Patient Education ? 2022 [employer]. [facility] Population Health 12-08-19 Population Health Case Information Case Priority: None Programs: -- Referral Source: Hygiene Coordinator Referral Reason: Care coordination Case Type: Transition Care Management Risk Score: -- Case Status: Enrolled (November 19, 2023) Date Assigned: November 19, 2023 Assigned By: Massiel Delaney RN Date Enrolled: November 19, 2023 Assigned Primary Personnel: Atilio Emerson Assigned Secondary Personnel: -- Case Physician: Wilfredo Melgar MD Problems Ongoing Anticoagulated Anxiety Arthritis Asymptomatic microscopic hematuria Back pain with history of spinal surgery BMI 24.0-24.9, adult Carotid artery stenosis Cholelithiasis without obstruction Chronic respiratory failure with hypoxia COPD without exacerbation Elevated blood sugar level Fibromyalgia GERD (gastroesophageal reflux disease) Heart disease Herpes zoster Hiatal hernia Hospital discharge follow-up Hypercholesterolemia Hypertension Immunodeficiency due to drugs Immunotherapy Major depressive disorder with single episode, in full remission Multiple falls Neoplasm of uncertain behavior of right kidney Other termite technician (current) drug therapy Polycythemia Postinfective urethral stricture in female Recurrent UTI Renal cyst Rib fracture Smoker Stress incontinence Thyroid nodule Trochanteric bursitis Vitamin D deficiency Historical Acute UTI Impingement syndrome of shoulder region LUQ pain Nocturia Rheumatoid arteritis Procedure/Surgical History Cystourethroscopy with dilation of urethral stricture (02/04/2021), Cystourethroscopy with dilation of urethral stricture (05/07/2020), Cataracts, Cholecystectomy, Hysterectomy, Laparoscopy, Placement of stent in cardiac conduit, Post-surgery back pain. Home Medications #####, 0 acetaminophen-oxycodo ne 325 mg-5 mg Tab, 1 tab(s), Oral, Daily, PRN Albuterol (Eqv-Proventil HFA) 90 mcg/inh inhalation aerosol, 2 puff(s), Inhalation, q6hr, 1 refills alendronate 35 mg Tab, 35 mg= 1 tab(s), Oral, q7day, 4 refills aspirin 81 mg oral tablet, 81 mg= 1 tab(s), Oral, Daily citalopram 20 mg Tab, 20 mg= 1 tab(s), Oral, Daily, 3 refills Fish Oil, 1000 mg, Oral, Daily folic acid 1 mg Tab, 1 mg= 1 tab(s), Oral, Daily Handicap Placard, 5 years., See Instructions methotrexate 2.5 mg Tab, See Instructions, 3 refills methylPREDNISolone 4 mg Tab, See Instructions metoprolol 25 mg ER Tab, 12.5 mg= 0.5 tab(s), Oral, BID, 1 refills metoprolol 25 mg ER Tab, 12.5 mg= 0.5 tab(s), Oral, BID [place] 325 mg-5 mg oral tablet, 1 tab(s), Oral, Daily, PRN Pantoprazole [address] Tab polyethylene glycol 3350 Oral Pwdr for Recon Portable Oxygen Concentrator. Wear at 2L via N/C., See Instructions Retin-A 0.05% topical cream, See Instructions rosuvastatin 5 mg Tab, 5 mg= 1 tab(s), Oral, Daily, 1 refills Vitamin D3 5000 intl units (125 mcg) oral tab, 125 mcg= 1 tab(s), Oral, Daily Vitamin D3 5000 intl units (125 mcg) oral tab Allergies No Known Medication Allergies Social History Alcohol - Denies Alcohol Use, 05/07/2020 Current, 1-2 times per month, 09/01/2019 Substance Abuse - Denies Substance Abuse, 01/17/2020 Tobacco - Medium Risk, 01/17/2020 5-9 cigarettes (between 1/4 to 1/2 pack)/day in last 30 days, no cigarettes for the last week. Tobacco Use:. Cigarettes, Ready to change: No. Household tobacco concerns: Yes. Yes, 11/24/2023 Family History Diabetes: Father. Heart disease: Father. Screenings and Assessments 11/19/23 10:14:00 Result Name Value Comment Phone Call Monitoring Consent Agreed to continue call Phone Verification Patient Information Full name, street address and date of verified CM Program Enrollment Provides verbal consent for enrollment Goals and Interventions Care Plan Progress Note TCM#3- Spoke with patient, states she is doing 'real real good.' Patient remains off of the O2, notes SPO2 remains 94-96%. Patient has f/u with pulmonary in December. Patient admits she hasn't been doing deep breathing exercises as often as she should, she will try to increase this. Patient does report some discomfort to her right side, unchanged. Notes she does not use the pain medicine unless it is very painful which is very seldom. Patient states bowels have been unchanged, she usually has a bm every few days, notes her baseline. Denies any urinary system issues. Patient denies any change in sleep pattern. Patient denies any further questions or concerns. Communication Events Date: December 08, 2023 Method: Phone call Type: Outbound Duration (min): 9 Outcome: Case discussion Contact Type: genetic coordinator Contact Name: Atilio Emerson Notes: FILIBERTO#3- Spoke with patient for tcm program call, see ft summary note. Created By: Atilio Emerson Date: November 30, 2023 Method: Phone call Type: Outbound Duration (min): 15 Outcome: Case discussion Contact Type: genetic coordinator Contact Name: Atilio Emerson Not (more content not included)... Normal [facility] 11-30-19 [facility] Case Information Case Priority: None Programs: -- Referral Source: Hygiene Coordinator Referral Reason: Care coordination Case Type: Transition Care Management Risk Score: -- Case Status: Enrolled (November 19, 2023) Date Assigned: November 19, 2023 Assigned By: Massiel Delaney RN Date Enrolled: November 19, 2023 Assigned Primary Personnel: Atilio Emerson Assigned Secondary Personnel: -- Case Physician: Wilfredo Melgar MD Problems Ongoing Anticoagulated Anxiety Arthritis Asymptomatic microscopic hematuria Back pain with history of spinal surgery BMI 24.0-24.9, adult Carotid artery stenosis Cholelithiasis without obstruction Chronic respiratory failure with hypoxia COPD without exacerbation Elevated blood sugar level Fibromyalgia GERD (gastroesophageal reflux disease) Heart disease Herpes zoster Hiatal hernia Hospital discharge follow-up Hypercholesterolemia Hypertension Immunodeficiency due to drugs Immunotherapy Major depressive disorder with single episode, in full remission Multiple falls Neoplasm of uncertain behavior of right kidney Other termite technician (current) drug therapy Polycythemia Postinfective urethral stricture in female Recurrent UTI Renal cyst Rib fracture Smoker Stress incontinence Thyroid nodule Trochanteric bursitis Vitamin D deficiency Historical Acute UTI Impingement syndrome of shoulder region LUQ pain Nocturia Rheumatoid arteritis Procedure/Surgical History Cystourethroscopy with dilation of urethral stricture (02/04/2021), Cystourethroscopy with dilation of urethral stricture (05/07/2020), Cataracts, Cholecystectomy, Hysterectomy, Laparoscopy, Placement of stent in cardiac conduit, Post-surgery back pain. Home Medications #####, 0 acetaminophen-oxycodo ne 325 mg-5 mg Tab, 1 tab(s), Oral, Daily, PRN Albuterol (Eqv-Proventil HFA) 90 mcg/inh inhalation aerosol, 2 puff(s), Inhalation, q6hr, 1 refills alendronate 35 mg oral tablet, 35 mg= 1 tab(s), Oral, Daily aspirin 81 mg oral tablet, 81 mg= 1 tab(s), Oral, Daily citalopram 20 mg Tab, 20 mg= 1 tab(s), Oral, Daily, 3 refills Fish Oil, 1000 mg, Oral, Daily folic acid 1 mg Tab, 1 mg= 1 tab(s), Oral, Daily Handicap Placard, 5 years., See Instructions methotrexate 2.5 mg Tab, See Instructions methylPREDNISolone 4 mg Tab, See Instructions [place] 325 mg-5 mg oral tablet, 1 tab(s), Oral, Daily, PRN Pantoprazole [address] Tab polyethylene glycol 3350 Oral Pwdr for Recon Portable Oxygen Concentrator. Wear at 2L via N/C., See Instructions Retin-A 0.05% topical cream, See Instructions rosuvastatin 5 mg Tab, 5 mg= 1 tab(s), Oral, Daily, 1 refills Vitamin D3 5000 intl units (125 mcg) oral tab, 125 mcg= 1 tab(s), Oral, Daily Vitamin D3 5000 intl units (125 mcg) oral tab Allergies No Known Medication Allergies Social History Alcohol - Denies Alcohol Use, 05/07/2020 Current, 1-2 times per month, 09/01/2019 Substance Abuse - Denies Substance Abuse, 01/17/2020 Tobacco - Medium Risk, 01/17/2020 5-9 cigarettes (between 1/4 to 1/2 pack)/day in last 30 days, no cigarettes for the last week. Tobacco Use:. Cigarettes, Ready to change: No. Household tobacco concerns: Yes. Yes, 11/24/2023 Family History Diabetes: Father. Heart disease: Father. Screenings and Assessments 11/19/23 10:14:00 Result Name Value Comment Phone Call Monitoring Consent Agreed to continue call Phone Verification Patient Information Full name, street address and date of verified CM Program Enrollment Provides verbal consent for enrollment Goals and Interventions Care Plan Progress Note TCM#2- Patient states she is doing 'well.' States she has not worn her O2 for 3 or 4 days and she is 'breathing really good' and states ' I really don't feel like I need it.' Notes SPO2 remains at 93-95%. Patient denies any SOB or chest tightness. Patient notes cough has resolved. She is still waiting to hear from pulmonary, Dr. Mahoney, for an appointment. Patient denies any rib pain, notes she has not taken any pain medication. Patient notes she has not been going to the bathroom regularly but notes this is not a change. Patient educated on increasing fiber in her diet and hydration, she verbalized understanding. Patient is eating and drinking well. No change in sleep pattern. Patient denies any further questions or concerns. Communication Events Date: November 30, 2023 Method: Phone call Type: Outbound Duration (min): 15 Outcome: Case discussion Contact Type: genetic coordinator Contact Name: Atilio Emerson Notes: TCM#2- Spoke with patient for tcm follow up call, see ft summary note. Created By: Atilio Emerson Date: November 19, 2023 Method: Phone call Type: Outbound Duration (min): 16 Outcome: Case discussion Contact Type: genetic coordinator Contact Name: Massiel Delaney RN Notes: TCM #1, see FT summary note Created By: Massiel Delaney RN (more content not included)... Normal [facility] Family Medicine Office/Clini c Noteon 11-26-2023 Family Medicine Office/Clinic Note HPI Staff Chantelle is a 78 year old female presenting for hospital follow up Hospital: [facility] Admission date: 11/17 Discharge date: 11/18 Symptoms the patient presented with: fell w/ hypoxia and copd, found a cracked rib Current concerns: needs her pain pills renewed and her BP meds need refiled Can she get a rx for a window disablity placard rx. O2 is at 2l/m per N.C. No cigarettes in a week stopped when went to hospital and none since phq-4 phq9-14 flu: UTD History of Present Illness Chantelle Dey is a 78-year-old female who presents today for a hospital discharge follow-up. She is accompanied by her sister. She experienced a fall due to tripping over exercise equipment, resulting in hitting her head against a door, but denies sustaining any fracture in her head. The patient had significant rib pain and a rib fracture. She has been taking [place] for her back pain and it is the same medication given to her when she was at the hospital. She does not currently have a label designer. The patient was scheduled for a 6-minute walk test at [facility] in [place], with the aim of qualifying for a pulse dose oxygen conserving device. A thyroid nodule was discovered on the patient during a hospital scan. Her sister tried to carry the tank and reports that it being heavy. Her sister reports that the patient might also have difficulty due to the patient being smaller. They are unable to recall the actual weight of her oxygen. She requested a handicap placard. Review of Systems PHQ Score Initial Depression Screen Score: 4 SCORE Detailed Depression Screen Score: 10 Total Depression Screen Score: 14 Physical Exam Vitals & Measurements T: 37.2 ?C(Temporal Artery) HR: 66(Peripheral) RR: 16 BP: 126/80 SpO2: 99% HT: 61 in HT: 154.9 cm WT: 60 kg WT: 132 lb BMI: 25.01 General: alert, no acute distress. Patient is on 2 L nasal cannula. Cardiovascular: regular rate and rhythm, normal peripheral perfusion Respiratory: very diminished breath sounds. Extremities: no deformity, no trauma Neurological: oriented x 4, LOC appropriate for age, CN II-XII intact, motor strength equal & normal bilaterally, speech normal Abdomen: soft, nontender, nondistended. Assessment/Plan 1. Hospital discharge follow-up (Z09: Encounter for follow-up examination after completed treatment for conditions other than malignant neoplasm) Discharge summary reviewed. All radiology reviewed. 2. COPD without exacerbation (J44.9: Chronic obstructive pulmonary disease, unspecified) Unsure if COPD is the cause of this chronic hypoxic respiratory failure or if having the fractured rib is the cause. We will continue with the oxygen and the patient will see pulmonology. 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 4. Chronic respiratory failure with hypoxia (J96.11: Chronic respiratory failure with hypoxia) The patient is on 2 L nasal cannula. We will send in a prescription for a portable oxygen concentrator. The patient is struggling because of the size of the concentrator that she has and it weighs too much. 5. Major depressive disorder with single episode, in full remission (F32.5: Major depressive disorder, single episode, in full remission) No issues. Continue with medications before. 6. Back pain with history of spinal surgery (M54.9: Dorsalgia, unspecified) We will give the patient [place] because of the rib fracture, but concerns that this may be causing the pain and the falls. Discussed this in detail with the patient. If the patient has another fall, we will remove the [place]. This was discussed with the patient in detail. 7. Multiple falls (R29.6: Repeated falls) We will do PT and OT for this. 8. BMI 25.0-25.9,adult (Z68.25: Body mass index [BMI] 25.0-25.9, adult) BMI education given. 9. Over weight (E66.3: Overweight) Diet and exercise advised. 10. Smoker (F17.200: Nicotine dependence, unspecified, uncomplicated) Patient has not had a cigarette for some time. Patient is cutting down on her own. 11. Thyroid nodule (E04.1: Nontoxic single thyroid nodule) We will have the patient follow with ENT. 12. Rib fracture (S22.39XA: Fracture of one rib, unspecified side, initial encounter for closed fracture) We will give pain medication at this time. We will follow up in 1 month. More than 40 minutes spent with the patient reviewing documentation, prescribing medication, going over history, and educating the patient. Portions of this record may have been created with voice recognition artificial intelligence software, specifically [employer], Receptor and or [email or web address]. Substitutions may have occurred voice recognition and artificial intelligence software. Documentation services were performed after patient or guardian consented to allow [employer] to record this visit. KEVIN cnc specialist and provider reviewed before signing. KEVIN: Faiza (more content not included)... Normal [facility] Comment on above: Result Comment: Elec tronically Signed By: Wilfredo eMlgar MD\.br\Date and Time Signed: 11/26/23 09:24 EST\.br\Electronically Co-Signed By: Obinna Hogan\.br\Date and Time Co-Signed: 11/25/23 14:33 EST\.br\Electronically Co-Signed By: Obinna Hogan\.br\Date and Time Co-Signed: 11/25/23 15:23 EST Interdisciplinary Note - Soc ial Workeron 11-26-2023 Interdisciplinary Note - Fire Control Technician B This SW made a tc to patient today to discuss her positive depression screen. Patient states that she does have depression, that is mostly due to things that have happened previously. She is not interested in resources at this time but is aware she can reach out to should needs arise. Patient did request a refill of Metoprolol be sent to [facility] - sent a message to Dr. Melgar with this request. She also inquired about the need to continue utilizing O2. She states she has been going without the O2 and keeping a log of her O2 levels, which have mostly been in the 90s. ISAIAS instructed her to contact the office and speak with Dr. Melgar' MA to let them know of what the readings have been and obtain Dr. Melgar' recommendations on the continued need of this. She voiced understanding. ISAIAS will remain available. Normal [facility] Family Medicine Office/Clini c Noteon 11-25-2023 Family Medicine Office/Clinic Note HPI Staff Chantelle is a 78 year old female presenting for hospital follow up Hospital: [facility] Admission date: 11/17 Discharge date: 11/18 Symptoms the patient presented with: fell w/ hypoxia and copd, found a cracked rib Current concerns: needs her pain pills renewed and her BP meds need refiled Can she get a rx for a window disablity placard rx. O2 is at 2l/m per [place] No cigarettes in a week stopped when went to hospital and none since phq-4 phq9-14 flu: UTD History of Present Illness Chantelle Dey is a 78-year-old female who presents today for a hospital discharge follow-up. She is accompanied by her sister. The patient's sister reports that the patient experienced a fall due to tripping over exercise equipment, resulting in a head impact against a door. The patient is also reported to be suffering from significant rib pain. She denies having a rib fracture. She has been taking [place] for her back pain. The patient's sister has indicated that the patient does not currently have a label designer. The patient was scheduled for a 6-minute walk test at [facility] in [place], with the aim of qualifying for a portable oxygen concentrator. A thyroid nodule was discovered on the patient during a hospital scan. The patient has not attempted to carry her oxygen concentrator due to health concerns related to her smaller stature. The patient's sister was informed that a 3-pound concentrator would be delivered today, but the delivery was confirmed only after a call was made in the morning. It is unclear whether the patient will be required to pay for the concentrator. The patient's sister plans to visit the [facility] on 11/30/2023, for a medical appointment. Review of Systems PHQ Score Initial Depression Screen Score: 4 SCORE Detailed Depression Screen Score: 10 Total Depression Screen Score: 14 Physical Exam Vitals & Measurements T: 37.2 ?C(Temporal Artery) HR: 66(Peripheral) RR: 16 BP: 126/80 SpO2: 99% HT: 61 in HT: 154.9 cm WT: 60 kg WT: 132 lb BMI: 25.01 General: alert, no acute distress Cardiovascular: regular rate and rhythm, normal peripheral perfusion Respiratory: very diminished breath sounds Extremities: no deformity, no trauma Neurological: oriented x 4, LOC appropriate for age, CN II-XII intact, motor strength equal & normal bilaterally, speech normal Abdomen: soft, nontender, nondistended. Patient is on 2 L nasal cannula. Assessment/Plan 1. Hospital discharge follow-up (Z09: Encounter for follow-up examination after completed treatment for conditions other than malignant neoplasm) Discharge summary reviewed. All radiology reviewed. 2. COPD without exacerbation (J44.9: Chronic obstructive pulmonary disease, unspecified) Unsure if COPD is the cause of this chronic hypoxic respiratory failure or if having the fractured rib is the cause. We will continue with the Oxygen and the patient will see pulmonology. 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 4. Chronic respiratory failure with hypoxia (J96.11: Chronic respiratory failure with hypoxia) The patient is on 2 L nasal cannula. We will send in a prescription for a portable oxygen concentrator. The patient is struggling because of the size of the concentrator that she has and too much. 5. Major depressive disorder with single episode, in full remission (F32.5: Major depressive disorder, single episode, in full remission) No issues. Continue medications before. 6. Back pain with history of spinal surgery (M54.9: Dorsalgia, unspecified) We will give the patient's [place] because of the rib fracture, but concerns that this may be causing the pain and the falls. Discussed this in detail with the patient and if the patient has another fall, we will remove the [place]. This was discussed with the patient in detail. 7. Multiple falls (R29.6: Repeated falls) We will do PT and OT for this. 8. BMI 25.0-25.9,adult (Z68.25: Body mass index [BMI] 25.0-25.9, adult) BMI education given. 9. Over weight (E66.3: Overweight) Diet and exercise advised. 10. Smoker (F17.200: Nicotine dependence, unspecified, uncomplicated) Patient has not had a cigarette for some time. Patient is cutting down on her own. 11. Thyroid nodule (E04.1: Nontoxic single thyroid nodule) We will have the patient follow with ENT. 12. Rib fracture (S22.39XA: Fracture of one rib, unspecified side, initial encounter for closed fracture) We will give pain medication at this time. We will follow up in 1 month. More than 40 minutes spent with the patient reviewing documentation, prescribing medication, going over history, and educating the patient. ATTESTATION: Portions of this record may have been created with voice recognition artificial intelligence software, specifically SecureWorks, Receptor and or [email or web address]. Substitutions may have occurred voice recognition and artificial intelligence software. Docum (more content not included)... Normal [facility] Comment on above: Result Comment: Elec tronically Signed By: Lacie Hopper B\.br\Date and Time Signed: 11/24/23 18:59 EST\.br\Electronically Co-Signed By: Wilfredo Melgar MD Physician Referralon 024 Physician Referral [id number]#1 .00TIFF [facility] Physician Referral [id number]#1 .00TIFF [facility] Ambulatory Visit Summaryon 0 11-24-2023 Ambulatory Visit Summary CHANTELLE DEY Tushar :1945 Visit Date:11/24/2023 Ambulatory Visit Instructions Your Diagnosis COPD without exacerbation Immunodeficiency due to drugs Chronic respiratory failure with hypoxia Major depressive disorder with single episode, in full remission Back pain with history of spinal surgery Multiple falls BMI 25.0-25.9,adult Over weight Smoker Other specified postprocedural states Your Care Team Attending Physician - Wilfredo Melgar MD. Primary Care Physician - Wilfredo Melgar MD This Is Your Medications List Misc Prescription (#####) Misc Prescription (Handicap Placard, 5 years.) acetaminophen-hydroco done (Salemburg 325 mg-5 mg oral tablet) acetaminophen-oxycodo ne (acetaminophen-oxycod one 325 mg-5 mg Tab) albuterol (Albuterol (Eqv-Proventil HFA) 90 mcg/inh inhalation aerosol) alendronate (alendronate 35 mg oral tablet) aspirin (aspirin 81 mg oral tablet) cholecalciferol (Vitamin D3 5000 intl units (125 mcg) oral tab) cholecalciferol (Vitamin D3 5000 intl units (125 mcg) oral tab) citalopram (citalopram 20 mg Tab) folic acid (folic acid 1 mg Tab) methotrexate (methotrexate 2.5 mg Tab) methylPREDNISolone (methylPREDNISolone 4 mg Tab) metoprolol (metoprolol 25 mg ER Tab) omega-3 polyunsaturated fatty acids (Fish Oil) pantoprazole (Pantoprazole [address] Tab) polyethylene glycol 3350 (polyethylene glycol 3350 Oral Pwdr for Recon) rosuvastatin (rosuvastatin 5 mg Tab) tretinoin topical (Retin-A 0.05% topical cream) Procedures Performed Cystourethroscopy with dilation of urethral stricture (02/04/2021), Cystourethroscopy with dilation of urethral stricture (05/07/2020), Cataracts, Cholecystectomy, Hysterectomy, Laparoscopy, Placement of stent in cardiac conduit, Post-surgery back pain. Discharge Vitals Temperature (Temporal Artery) 37.2 ?C Heart Rate (Peripheral) 66 Respiratory Rate 16 Blood Pressure 126/80 Height 154.9 cm Height 61 in Weight 60 kg Weight 132 lb BMI 25.01 What to do next Scheduled Follow-Up Appointments Thursday 1:15 PM EST With: Harsha PULIDO, Wilfredo Montgomery Where: [facility] [place] Normal [facility] ED Note-Physicianon 11-24-19 ED Note-Physician [id number]#1 .00TIFF [facility] Outside Hospital Correspo ndenceon 11-24-2023 Outside [facility] Correspondence [id number]#1 .00TIFF [facility] RAD - CT Reporton 11-24-2023 RAD - CT Report [id number]#1 .00TIFF Normal [facility] RAD - CT Report [id number]#1 .00TIFF Normal [facility] RAD - CT Report [id number]#1 .00TIFF Normal [facility] RAD - CT Report [id number]#1 .00TIFF Normal [facility] 11-19-20 [facility] Case Information Case Priority: None Programs: -- Referral Source: Hygiene Coordinator Referral Reason: Care coordination Case Type: Transition Care Management Risk Score: -- Case Status: Enrolled (November 19, 2023) Date Assigned: November 19, 2023 Assigned By: Massiel Delaney RN Date Enrolled: November 19, 2023 Assigned Primary Personnel: Massiel Delaney RN Assigned Secondary Personnel: -- Case Physician: Wilfredo Melgar MD Ongoing Anticoagulated Anxiety Arthritis Asymptomatic microscopic hematuria Back pain with history of spinal surgery BMI 24.0-24.9, adult Carotid artery stenosis Cholelithiasis without obstruction COPD without exacerbation Elevated blood sugar level Fibromyalgia GERD (gastroesophageal reflux disease) Heart disease Herpes zoster Hiatal hernia Hypercholesterolemia Hypertension Immunotherapy Major depressive disorder with single episode, 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 Home Medications #####, 0 acetaminophen-oxycodo ne 325 mg-5 mg Tab, 1 tab(s), Oral, Daily, PRN Albuterol (Eqv-Proventil HFA) 90 mcg/inh inhalation aerosol, 2 puff(s), Inhalation, q6hr, 1 refills alendronate 35 mg oral tablet, 35 mg= 1 tab(s), Oral, Daily aspirin 81 mg oral tablet, 81 mg= 1 tab(s), Oral, Daily citalopram 20 mg Tab, 20 mg= 1 tab(s), Oral, Daily, 3 refills Fish Oil, 1000 mg, Oral, Daily folic acid 1 mg Tab, 1 mg= 1 tab(s), Oral, Daily methotrexate 2.5 mg Tab, See Instructions methylPREDNISolone 4 mg Tab, See Instructions metoprolol 25 mg ER Tab, 12.5 mg= 0.5 tab(s), Oral, BID [place] 325 mg-5 mg oral tablet, 1 tab(s), Oral, Daily, PRN Pantoprazole [address] Tab polyethylene glycol 3350 Oral Pwdr for Recon Retin-A 0.05% topical cream, See Instructions rosuvastatin 5 mg Tab, 5 mg= 1 tab(s), Oral, Daily Vitamin D3 5000 intl units (125 mcg) oral tab, 125 mcg= 1 tab(s), Oral, Daily Vitamin D3 5000 intl units (125 mcg) oral tab Allergies No Known Medication Allergies Social History Alcohol - Denies Alcohol Use, 05/07/2020 Current, 1-2 times per month, 09/01/2019 Substance Abuse - Denies Substance Abuse, 01/17/2020 Tobacco - Medium Risk, 01/17/2020 5-9 cigarettes (between 1/4 to 1/2 pack)/day in last 30 days Tobacco Use:. Cigarettes, Ready to change: No. Household tobacco concerns: Yes. Yes, 09/22/2023 Family History Diabetes: Father. Heart disease: Father. Screenings and Assessments 11/19/23 10:14:00 Result Name Value Comment Phone Call Monitoring Consent Agreed to continue call Phone Verification Patient Information Full name, street address and date of verified CM Program Enrollment Provides verbal consent for enrollment Goals and Interventions Care Plan Progress Note Admit Date: 11/17/23 [facility] Date of Discharge: 11/18/23 Follow-up appointment scheduled? 11/26/[id number] Melgar with extra time Did you understand your discharge instructions? yes Are you able to follow them? yes Did you receive new medications? Prednisone 40 mg daily x 3 days, Colace 100 mg BID prn, [place] 1 [id number] prn, Lidoderm patch, Nicotine patch Have you filled the Rx's? yes Are you taking them as prescribed? picking up today Are you having difficulty eating or swallowing your pills? no Are you having any stomach upset, diarrhea or constipation? no How are you sleeping? okay Are you having any pain? yes, Right rib area Do you have everything you need at home to care for yourself? yes Do you have Home Health? no Called patient for Transitional Care Management following hospitalization at [facility] for AECOPD, acute on chronic respiratory failure. Right rib fracture and fall. Reviewed discharge instructions and attempted to reconcile medications when patient had long coughing spell and was unable to continue call, patient gave permission for [facility] to talk with sister and handed phone off. Sister states cough is non-productive however cough sounds moist on phone. Patient is wearing O2 at 2L per [place] and pulse is 96% with HR 69. Patient complains of right rib pain worse when coughing, explained how to splint side with pillow while coughing, sister verbalizes understanding. Patient insurance did not cover Lidoderm patches, advised can get Lidocaine 4% patches OTC that will work as well. Patient did n (more content not included)... Normal [facility] Nurse Consultation Noteon Nurse Consultation Note Reason for Visit Here for covid and influenza testing, symptoms of sinus drainage and wants to be sure not covid Both tests negative, patient plans to do a sinus rinse and try some mucinex if no better will make appt to be seen Assessment/Plan Sinus drainage (J34.89: Other specified disorders of nose and nasal sinuses) Medications #####, 0 acetaminophen-oxycodo ne 325 mg-5 mg Tab, 1 tab(s), Oral, Daily, PRN Albuterol (Eqv-Proventil HFA) 90 mcg/inh inhalation aerosol, 2 puff(s), Inhalation, q6hr alendronate 35 mg oral tablet, 35 mg= 1 tab(s), Oral, Daily aspirin 81 mg oral tablet, 81 mg= 1 tab(s), Oral, Daily citalopram 20 mg Tab, 20 mg= 1 tab(s), Oral, Daily, 3 refills Fish Oil, 1000 mg, Oral, Daily folic acid 1 mg Tab, 1 mg= 1 tab(s), Oral, Daily methotrexate 2.5 mg Tab, 15 mg= 6 tab(s), Oral, q7day, 1 refills methylPREDNISolone 4 mg Tab, See Instructions metoprolol 25 mg ER Tab, 12.5 mg= 0.5 tab(s), Oral, BID [place] 325 mg-5 mg oral tablet, 1 tab(s), Oral, Daily, PRN Pantoprazole [address] Tab polyethylene glycol 3350 Oral Pwdr for Recon Retin-A 0.05% topical cream, See Instructions rosuvastatin 5 mg Tab, 5 mg= 1 tab(s), Oral, Daily Vitamin D3 5000 intl units (125 mcg) oral tab, 125 mcg= 1 tab(s), Oral, Daily Vitamin D3 5000 intl units (125 mcg) oral tab Allergies No Known Medication Allergies Immunizations Vaccine Date Status Comments influenza virus vaccine, inactivated 09/22/2023 Given influenza virus vaccine, inactivated - Not Given Postpone due to refusal influenza virus vaccine, inactivated - Not Given Postpone due to refusal influenza virus vaccine, inactivated - Not Given Postpone due to refusal SARS-CoV-2 (COVID-19) mRNA BNT-162b2 vax 02/19/2021 Recorded SARS-CoV-2 (COVID-19) mRNA BNT-162b2 vax 01/28/2021 Recorded influenza virus vaccine, inactivated - Not Given Postpone due to refusal SARS-CoV-2 (COVID-19) mRNA-1273 vaccine 12/2020 Recorded SARS-CoV-2 (COVID-19) mRNA-1273 vaccine 12/2020 Recorded Lab Results Ambulatory Point of Care Results Influenza A POC: Negative (10/05/23 16:09:00) Influenza B POC: Negative (10/05/23 16:09:00) Rapid Covid POC: Negative (10/05/23 16:09:00) Normal [facility] Auto Diffon 09-22-2023 Basophils/100 WBC (Bld) 0.5 % Normal 0.0-2.0 [facility] Comment on above: Order Comment: Order Added by Discern Expert. Performed By: #### 1 [id number], 2089994, 2523619, [id number], 9936898 ####[facility] [address] [place] [address] Basophils/Leukocyte s Auto (Bld) [Pure # fraction] 0.0 E9/L Normal 0.0-0.2 [facility] Comment on above: Order Comment: Order Added by Discern Expert. Performed By: #### 1 [id number], 0686888, 5192964, [id number], 1394929 ####[address] [address] Eosinophils/100 WBC (Bld) 1.1 % Normal 0.0-8.0 [facility] Comment on above: Order Comment: Order Added by Discern Expert. Performed By: #### 1 5538337, 2107678, 4326520, [id number], 7440691 ####[address] [address] Eosinophils/Leukocy matt Auto (Bld) [Pure # fraction] 0.1 E9/L Normal 0.0-0.5 [facility] Comment on above: Order Comment: Order Added by Genevieve Expert. Performed By: #### 1 5748287, 2081986, 4245590, [id number], 0400740 ####[address] [address] Lymphocytes/100 WBC (Bld) 29.5 % Normal 14.0-50.0 [facility] Comment on above: Order Comment: Order Added by Genevieve Expert. Performed By: #### 1 7230811, 2865521, 4938608, [id number], 9980429 ####[address] [address] Lymphocytes/Leukocy matt Auto (Bld) [Pure # fraction] 2.2 E9/L Normal 1.0-4.0 [facility] Comment on above: Order Comment: Order Added by Discern Expert. Performed By: #### 1 3879436, 7022709, 0322281, [id number], 3187384 ####[address] [address] Monocytes/100 WBC (Bld) 8.3 % Normal 4.0-14.0 [facility] Comment on above: Order Comment: Order Added by Discern Expert. Performed By: #### 1 9436480, 5746551, 4786430, [id number], 0435013 ####[address] [place] [address] Monocytes/Leukocyte s Auto (Bld) [Pure # fraction] 0.6 E9/L Normal 0.2-1.0 [facility] Comment on above: Order Comment: Order Added by Discern Expert. Performed By: #### 1 8213545, 0790775, 7063836, [id number], 0462984 ####[address] [address] Neutrophils/100 WBC (Bld) 60.6 % Normal 36.0-75.0 [facility] Comment on above: Order Comment: Order Added by Discern Expert. Performed By: #### 1 3755138, 5112496, 1886252, [id number], 3798807 ####[address] [address] Neutrophils/Leukocy matt Auto (Bld) [Pure # fraction] 4.6 E9/L Normal 2.0-7.5 [facility] Comment on above: Order Comment: Order Added by Discern Expert. Performed By: #### 1 2870424, 3810333, 0108555, [id number], 6555580 ####[address] [address] CBC w/ Auto Diffon 3 Erythrocyte distribution width (RBC) [Ratio] 17.0 % High 10.9-14.2 [facility] Comment on above: Performed By: #### 1 0754888, 4045410, 7709620, 560907361, 7833085 ####[address] [address] Hematocrit (Bld) [Volume fraction] 49.5 % High 34.0-46.0 [facility] Comment on above: Performed By: #### 1 7900676, 8721359, 3606739, 355882632, 7207593 ####[address] [address] Hemoglobin (Bld) [Mass/Vol] 16.5 g/dL High 12.0-16.0 [facility] Comment on above: Performed By: #### 1 3386278, 0698670, 2862700, 223865069, 2729307 ####[address] [address] MCH (RBC) [Entitic mass] 31.1 pg Normal 27.0-34.0 [facility] Comment on above: Performed By: #### 1 6843328, 5667565, 2546615, 099875973, 1794687 ####[address] [address] MCHC (RBC) [Mass/Vol] 33.2 g/dL Normal 31.4-36.0 [facility] Comment on above: Performed By: #### 1 5705419, 3067126, 8282782, 727282958, 8124958 ####[address] MCV (RBC) [Entitic vol] 93.6 fL Normal 80.0-100.0 [facility] Comment on above: Performed By: #### 1 2018083, 9822195, 9167646, 616870344, 7080042 ####[address] [address] Platelet mean volume (Bld) [Entitic vol] 10.0 fL Normal 6.4-10.8 [facility] Comment on above: Performed By: #### 1 3297883, 5850722, 4787897, 193946189, 7364510 ####[address] [address] Platelets (Bld) [#/Vol] 217.0 E9/L Normal 150.0-500.0 [facility] Comment on above: Performed By: #### 1 6468958, 7294808, 1066285, 910727242, 1752933 ####[address] [address] RBC (Bld) [#/Vol] 5.3 E12/L Normal 4.3-5.9 [facility] Comment on above: Performed By: #### 1 0943588, 2424286, 3661161, 083057210, 7802109 ####[facility] [address] [place] [address] WBC corrected for nucl RBC Auto (Bld) [#/Vol] 7.6 E9/L Normal 4.0-11.0 [facility] Comment on above: Performed By: #### 1 4732132, 5536962, 5626004, 314120855, 0054429 ####[facility] [address] [place] [address] CHEMISTRYOrdered By: SYSTEM SYSTEM on 09-22-2023 Albumin [Mass/Vol] 3.9 g/dL Normal 3.3 - 5.0 gm/dL [facility] Remisol Albumin/Globulin [Mass ratio] 1.3 {ratio} Normal 1.1 - 2.2 [facility] Remisol ALP [Catalytic activity/Vol] 73 [iU]/d Normal 21 - 98 Int._Unit/L [facility] Remisol ALT No additional P-5'-P [Catalytic activity/Vol] 27 [iU]/d Normal 6 - 46 Int._Unit/L [facility] Remisol Anion gap [Moles/Vol] 9 mmol/L Normal 6 - 16 mEq/L [facility] Remisol AST [Catalytic activity/Vol] 30 [iU]/d Normal 5 - 43 Int._Unit/L [facility] Remisol Bilirubin [Mass/Vol] 0.5 mg/dL Normal 0.0 - 1.1 mg/dL [facility] Remisol Calcium [Mass/Vol] 9.1 mg/dL Normal 8.9 - 11.1 mg/dL [facility] Remisol Chloride [Moles/Vol] 106 mmol/L Normal 101 - 111 mmol/L [facility] Remisol CO2 [Moles/Vol] 28 mmol/L Normal 21 - 31 mmol/L [facility] Remisol Creatinine [Mass/Vol] 0.8 mg/dL Normal 0.5 - 1.3 mg/dL [facility] Remisol GFR/1.73 sq M.predicted among non-blacks MDRD (S/P/Bld) [Vol rate/Area] 76 mL/min/1.73 m2 Normal >=59mL/min/1.73 m2 [facility] Chem S Comment on above: Interpretive Data: C hronic kidney disease could be indicated at eGFR's of less than 60 mL/min/1.73m2. Kidney failure is indicated at less than 15 mL/min/1.73m2. Globulin (S) [Mass/Vol] 3.0 g/dL Normal 1.4 - 4.0 gm/dL [facility] Remisol Glucose [Mass/Vol] 98 mg/dL Normal 55 - 199 mg/dL [facility] Remisol Comment on above: Interpretive Data: I f this glucose result represents a fasting glucose, interpretation should refer to the following reference range: 55-99 mg/dL Potassium [Moles/Vol] 4.5 mmol/L Normal 3.5 - 5.3 mmol/L [facility] Remisol Protein [Mass/Vol] 6.9 g/dL Normal 6.0 - 7.8 gm/dL [facility] Remisol Sodium [Moles/Vol] 138 mmol/L Normal 135 - 145 mmol/L [facility] Remisol Urea nitrogen [Mass/Vol] 25 mg/dL High 5 - 21 mg/dL [facility] Urea nitrogen/Creatinine [Mass ratio] 31 mg/mg High 10 - 20 [facility] CHEMISTRYOrdered By: Daniela Morales on 09-22-2023 HbA1c (Bld) [Mass fraction] 6.4 % High <=5.9% [facility] ChemAutoSS CMPon 09-22-2023 Albumin [Mass/Vol] 3.9 g/dL Normal 3.3-5.0 [facility] Comment on above: Performed By: #### 1 9514149, 3332688, 6906313, 897288232, 7072561 ####[facility] [address] [place] [address] Albumin/Globulin (S) [Mass conc ratio] 1.3 Normal 1.1-2.2 [facility] Comment on above: Performed By: #### 1 9798043, 4767514, 4024084, 418885531, 0817171 ####[facility] [address] [place] [address] ALP [Catalytic activity/Vol] 73 Int._Unit/L Normal 21-98 [facility] Comment on above: Performed By: #### 1 8045008, 1868436, 6171288, [id number], 7165626 ####[facility] [address] [place] [address] ALT No additional P-5'-P [Catalytic activity/Vol] 27 Int._Unit/L Normal 6-46 [facility] Comment on above: Performed By: #### 1 1070113, 3809512, 4169903, 490890726, 9672858 ####[facility] [address] [place] [address] Anion gap [Moles/Vol] 9 mmol/L Normal 6-16 [facility] Comment on above: Performed By: #### 1 0614705, 7265635, 7912618, 568011754, 8129449 ####[facility] [address] [place] [address] AST [Catalytic activity/Vol] 30 Int._Unit/L Normal 5-43 [facility] Comment on above: Performed By: #### 1 6037090, 3606315, 7367189, 409442281, 5904553 ####[facility] [address] [place] [address] Bilirubin [Mass/Vol] 0.5 mg/dL Normal 0.0-1.1 [facility] Comment on above: Performed By: #### 1 6464256, 5143784, 7985389, 884271879, 2471699 ####[facility] [address] [place] [address] Calcium [Mass/Vol] 9.1 mg/dL Normal 8.9-11.1 [facility] Comment on above: Performed By: #### 1 4737017, 4630602, 6936418, 384601704, 9087721 ####[facility] [address] [place] [address] Chloride [Moles/Vol] 106 mmol/L Normal 101-111 [facility] Comment on above: Performed By: #### 1 4990903, 0725088, 8022181, 150098886, 2820212 ####[facility] [address] [place] [address] CO2 [Moles/Vol] 28 mmol/L Normal 21-31 [facility] Comment on above: Performed By: #### 1 1607183, 3573591, 1870478, 904262757, 6732569 ####[facility] [address] [place] [address] Creatinine [Mass/Vol] 0.8 mg/dL Normal 0.5-1.3 [facility] Comment on above: Performed By: #### 1 5802605, 5323653, 3253620, 117204650, 8885713 ####[facility] [address] [place] [address] Globulin (S) [Mass/Vol] 3.0 g/dL Normal 1.4-4.0 [facility] Comment on above: Performed By: #### 1 [id number], [id number], [id number] ####[facility] [address] [place] [address] Glucose [Mass/Vol] 98 mg/dL Normal 55-199 [facility] Comment on above: Result Comment: If t his glucose result represents a fasting glucose, interpretation should refer to the following reference range: 55-99 mg/dL Performed By: #### 1 [id number], [id number], [id number], [id number], [id number] ####[facility] [address] [place] [address] Potassium [Moles/Vol] 4.5 mmol/L Normal 3.5-5.3 [facility] Comment on above: Performed By: #### 1 [id number], [id number], [id number], [id number], [id number] ####[facility] [address] [place] [address] Protein [Mass/Vol] 6.9 g/dL Normal 6.0-7.8 [facility] Comment on above: Performed By: #### 1 [id number], [id number], [id number], [id number] ####[facility] [address] [place] [address] Sodium [Moles/Vol] 138 mmol/L Normal 135-145 [facility] Comment on above: Performed By: #### 1 [id number], [id number], [id number], [id number], [id number] ####[facility] [address] [place] [address] Urea nitrogen [Mass/Vol] 25 mg/dL High 5-21 [facility] Comment on above: Performed By: #### 1 [id number], [id number], [id number], [id number], [id number] ####[facility] [address] [place] [address] Urea nitrogen/Creatinine [Mass ratio] 31 No Units High 10-20 [facility] Comment on above: Performed By: #### 1 [id number], [id number], [id number], [id number], [id number] ####[facility] [address] [place] [address] Consent for Flu Vaccineon Consent for Flu Vaccine [id number] Normal [facility] Family Medicine Office/Clini c Noteon 09-22-2023 Family Medicine Office/Clinic Note HPI Staff Chantelle is a 78 year old female presenting for med check for her Percocet Pain characteristics: Pain location: generalized Intensity:_ Onset: many years ago Medication used: oxycodone/acetaminoph en 5-325mg Opioids prescribed: percocet Medication agreement UTD: yes 05/11/23 Urine drug screen performed:due today Pt would like labs done checking A1c and liver function and would like her flu shot pt has been without medication for about 4 days last dose she took she believes was 5 days ago, would also like to talk about her arthritis. History of Present Illness - Pt here for pain meds follow up - oarrs reviewed - Pt is not in pain today. 01/02 - Pt can be at a 09/01. Review of Systems PHQ Score Initial Depression Screen Score: 2 Physical Exam Vitals & Measurements HR: 78(Peripheral) RR: 18 BP: 110/66 SpO2: 97% HT: 61 in HT: 154.9 cm WT: 60.0 kg WT: 132 lb BMI: 25.01 General: alert, no acute distress ENMT: oral mucosa moist, Cardiovascular: normal peripheral perfusion Respiratory: respirations non labored Extremities: no deformity, no trauma Neurological: oriented x 4, LOC appropriate for age, CN II-XII intact, motor strength equal & normal bilaterally, speech normal Abdomen: Soft, Nontender, Non-distended, + BS Assessment/Plan 1. GERD (gastroesophageal reflux disease) (K21.9: Gastro-esophageal reflux disease without esophagitis) - NO issues at this time - Continue as before Ordered: CBC w/ Auto Diff Comprehensive Metabolic Panel HgbA1c 2. Back pain with history of spinal surgery (M54.9: Dorsalgia, unspecified) - Pain is well controlled - No issues. Ordered: CBC w/ Auto Diff Comprehensive Metabolic Panel HgbA1c 3. Fibromyalgia (M79.7: Fibromyalgia) - Will refill meds today. Ordered: CBC w/ Auto Diff Comprehensive Metabolic Panel HgbA1c 4. Arthritis (M19.90: Unspecified osteoarthritis, unspecified site) - Will refill [place] today Ordered: CBC w/ Auto Diff Comprehensive Metabolic Panel HgbA1c 5. Immunotherapy (Z29.89: Encounter for other specified prophylactic measures) - Will do labs 2/2 Methotrexate Ordered: CBC w/ Auto Diff Comprehensive Metabolic Panel HgbA1c 6. Elevated blood sugar level (R73.9: Hyperglycemia, unspecified) - Will check A1c Ordered: CBC w/ Auto Diff Comprehensive Metabolic Panel HgbA1c 7. BMI 25.0-25.9,adult (Z68.25: Body mass index [BMI] 25.0-25.9, adult) - BMI education given Ordered: CBC w/ Auto Diff Comprehensive Metabolic Panel HgbA1c 8. Smoker (F17.200: Nicotine dependence, unspecified, uncomplicated) - Please stop smoking. Ordered: CBC w/ Auto Diff Comprehensive Metabolic Panel HgbA1c Orders: acetaminophen-hydroco done, 1 tab(s), Oral, Daily as needed for pain, 30 tab(s), Refill(s) 0, Do not fill until , [facility], 154.9, cm, 09/22/23 13:40:00 EDT, Height/Length Dosing, 60, kg, 09/22/23 13:40:00 EDT, Weight Dosing acetaminophen-oxycodo ne, 1 tab(s), Oral, Daily as needed for pain, 30 tab(s), Refill(s) 0, 30 DAYS, M06.9, [facility], 154.9, cm, 09/22/23 13:40:00 EDT, Height/Length Dosing, 60, kg, 09/22/23 13:40:00 EDT, Weight Dosing Follow-up No qualifying data available Problem List/Past Medical History Ongoing Anticoagulated Anxiety Arthritis Asymptomatic microscopic hematuria Back pain with history of spinal surgery BMI 24.0-24.9, adult Carotid artery stenosis Cholelithiasis without obstruction COPD without exacerbation Elevated blood sugar level Fibromyalgia GERD (gastroesophageal reflux disease) Heart disease Herpes zoster Hiatal hernia Hypercholesterolemia Hypertension Immunotherapy Major depressive disorder with single episode, 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 Medications #####, 0 acetaminophen-oxycodo ne 325 mg-5 mg Tab, 1 tab(s), Oral, Daily, PRN Albuterol (Eqv-Proventil HFA) 90 mcg/inh inhalation aerosol, 2 puff(s), Inhalation, q6hr alendronate 35 mg oral tablet, 35 mg= 1 tab(s), Oral, Daily aspirin 81 mg oral tablet, 81 mg= 1 tab(s), Oral, Daily citalopram 20 mg Tab, 20 mg= 1 tab(s), Oral, Daily, 3 refills Fish Oil, 1000 mg, Oral, Daily folic acid 1 mg Tab, 1 mg= 1 tab(s), Oral, Daily methotrexate 2.5 mg Tab, 15 mg= 6 tab(s), Oral, q7day, 1 refills methylPREDNISolone 4 mg Tab, See Instructions metoprolol 25 mg E (more content not included)... Normal [facility] Comment on above: Result Comment: Elec tronically Signed By: Harsha PULIDO, Wilfredo Montgomery\.br\Date and Time Signed: 09/22/23 14:07 EDT HEMATOLOGYOrdered By: SYSTEM SYSTEM on 09-22-2023 Basophils/100 WBC (Bld) 0.5 % Normal 0.0 - 2.0 % [facility] Basophils/Leukocyte s Auto (Bld) [Pure # fraction] 0.0 E9/L Normal 0.0 - 0.2 E9/L [facility] Eosinophils/100 WBC (Bld) 1.1 % Normal 0.0 - 8.0 % [facility] Eosinophils/Leukocy matt Auto (Bld) [Pure # fraction] 0.1 E9/L Normal 0.0 - 0.5 E9/L [facility] Lymphocytes/100 WBC (Bld) 29.5 % Normal 14.0 - 50.0 % [facility] Lymphocytes/Leukocy matt Auto (Bld) [Pure # fraction] 2.2 E9/L Normal 1.0 - 4.0 E9/L [facility] Monocytes/100 WBC (Bld) 8.3 % Normal 4.0 - 14.0 % [facility] Monocytes/Leukocyte s Auto (Bld) [Pure # fraction] 0.6 E9/L Normal 0.2 - 1.0 E9/L [facility] Neutrophils/100 WBC (Bld) 60.6 % Normal 36.0 - 75.0 % [facility] Neutrophils/Leukocy matt Auto (Bld) [Pure # fraction] 4.6 E9/L Normal 2.0 - 7.5 E9/L [facility] HEMATOLOGYOrdered By: Louise Mix on 09-22-2023 Erythrocyte distribution width (RBC) [Ratio] 17.0 % High 10.9 - 14.2 % [facility] Hematocrit (Bld) [Volume fraction] 49.5 % High 34.0 - 46.0 % [facility] Hemoglobin (Bld) [Mass/Vol] 16.5 g/dL High 12.0 - 16.0 gm/dL [facility] MCH (RBC) [Entitic mass] 31.1 pg Normal 27.0 - 34.0 pg [facility] MCHC (RBC) [Mass/Vol] 33.2 g/dL Normal 31.4 - 36.0 gm/dL [facility] MCV (RBC) [Entitic vol] 93.6 fL Normal 80.0 - 100.0 fL [facility] Platelet mean volume (Bld) [Entitic vol] 10.0 fL Normal 6.4 - 10.8 fL [facility] Platelets (Bld) [#/Vol] 217.0 E9/L Normal 150.0 - 500.0 E9/L [facility] RBC (Bld) [#/Vol] 5.3 E12/L Normal 4.3 - 5.9 E12/L [facility] WBC corrected for nucl RBC Auto (Bld) [#/Vol] 7.6 E9/L Normal 4.0 - 11.0 E9/L [facility] [id number] 09-22-2023 HbA1c (Bld) [Mass fraction] 6.4 % High <=5.9 [facility] Comment on above: Performed By: #### 1 [id number], [id number], [id number], [id number], [id number] ####[facility] [address] [place] [address] eGFRon 09-22-2023 GFR/1.73 sq M.predicted among non-blacks MDRD (S/P/Bld) [Vol rate/Area] 76 mL/min/1.73 m2 Normal >=59 [facility] Comment on above: Order Comment: Order added by Discern Expert. Result Comment: Metal Inspector jerman kidney disease could be indicated at eGFR's of less than 60 mL/min/1.73m2. Kidney failure is indicated at less than 15 mL/min/1.73m2. Performed By: #### 1 [id number], [id number], [id number], [id number], [id number] ####[facility] [address] [place] [address] Pre-Visit Planningon 023 Pre-Visit Planning - From: Edwige Key RN To: Wilfredo Melgar MD; Sent: 08/28/2023 14:11:35 EDT Subject: Pre-Visit Planning Due Date/Time: 08/28/2023 14:11:00 EDT Caller Name: CHANTELLE DEY; Caller Number: H , M Vt Dr. Melgar, *Based on your response below, can you please update the chronic problem list and address during this visit if appropriate?* During a pre-visit planning chart review, I noted the following documentation in the medical record: Previous problem list: Rheumatoid arthritis with rheumatoid factor of multiple sites without organ or systems involvement 01/28/2023 outside records- Rheumatoid arthritis Home medications- Methotrexate Based on your medical judgment, can you further clarify if they patient currently has these diagnoses and update the problem list. - Immunodeficiency due to drugs - Other I can update the problem list with your specified response if you would like. In responding to this request, please exercise your independent professional judgment. The fact that a question is asked does not imply that any particular answer is desired or expected. If you have any questions, please feel free to contact me at extension [phone]. Thank you! 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 Normal [address] [facility] Ambulatory Visit Summaryon 1 Ambulatory Visit Summary CHANTELLE DEY :1945 Visit Date:08/24/2023 Ambulatory Visit Instructions Your Diagnosis Herpes zoster BMI 25.0-25.9,adult Overweight Your Care Team Attending Physician - Wilfredo Melgar MD Primary Care Physician - Wilfredo Melgar MD This Is Your Medications List methylPREDNISolone (Medrol Dosepack 4 mg Tab) Contact prescribing physician if questions or concerns Misc Prescription (#####) acetaminophen-oxycodo ne (acetaminophen-oxycod one 325 mg-5 mg Tab) albuterol (Albuterol (Eqv-Proventil HFA) 90 mcg/inh inhalation aerosol) alendronate (alendronate 35 mg oral tablet) aspirin (aspirin 81 mg oral tablet) cholecalciferol (Vitamin D3 5000 intl units (125 mcg) oral tab) cholecalciferol (Vitamin D3 5000 intl units (125 mcg) oral tab) citalopram (citalopram 20 mg Tab) folic acid (folic acid 1 mg Tab) methotrexate (methotrexate 2.5 mg Tab) metoprolol (metoprolol 25 mg ER Tab) omega-3 polyunsaturated fatty acids (Fish Oil) pantoprazole (Pantoprazole [address] Tab) polyethylene glycol 3350 (polyethylene glycol 3350 Oral Pwdr for Recon) rosuvastatin (rosuvastatin 5 mg Tab) tretinoin topical (Retin-A 0.05% topical cream) Procedures Performed Cystourethroscopy with dilation of urethral stricture (02/04/2021), Cystourethroscopy with dilation of urethral stricture (05/07/2020), Cataracts, Cholecystectomy, Hysterectomy, Laparoscopy, Placement of stent in cardiac conduit, Post-surgery back pain. Discharge Vitals Temperature (Temporal Artery) 37.4 ?C Heart Rate (Peripheral) 70 Respiratory Rate 18 Blood Pressure 116/72 Height 154.9 cm Height 61 in Weight 61.0 kg Weight 134.2 lb BMI 25.42 What to do next Scheduled Follow-Up Appointments Thursday 1:00 PM EDT With: Wilfredo Melgar MD Where: [facility] Normal [address] [place], [place] [address]- \.br\ Medications\.br\ What How Much When Why Instructions\.br\ New methylPREDNISolone (Medrol Dosepack 4 mg Tab) 1 Packets By Mouth As Directed Herpes zoster BMI 25.0-25.9,adult Overweight Duration: 6 Days as directed on package labeling Pickup at [facility]\.br\ Unchanged acetaminophen-oxyco done (acetaminophen-oxyc odone 325 mg-5 mg Tab) 1 Tablets By Mouth Every day as needed for as needed for pain 30 DAYS, M06.9 Contact prescribing physician if questions or concerns \.br\ Unchanged albuterol (Albuterol (Eqv-Proventil HFA) 90 mcg/ inh inhalation aerosol) 2 Puffs Inhalation Every 6 hours Please give cheapest generic Contact prescribing physician if questions or concerns \.br\ Unchanged alendronate (alendronate 35 mg oral tablet) 1 Tablets By Mouth Every day Contact prescribing physician if questions or concerns \.br\ Unchanged aspirin (aspirin 81 mg oral tablet) 1 Tablets By Mouth Every day Contact prescribing physician if questions or concerns \.br\ Unchanged cholecalciferol (Vitamin D3 5000 intl units (125 mcg) oral tab) 1 Tablets By Mouth Every day Contact prescribing physician if questions or concerns \.br\ Unchanged cholecalciferol (Vitamin D3 5000 intl units (125 mcg) oral tab) Contact prescribing physician if questions or concerns \.br\ Unchanged citalopram (citalopram 20 mg Tab) 1 Tablets By Mouth Every day Contact prescribing physician if questions or concerns \.br\ Unchanged folic acid (folic acid 1 mg Tab) 1 Tablets By Mouth Every day Contact prescribing physician if questions or concerns \.br\ Unchanged methotrexate (methotrexate 2.5 mg Tab) 6 Tablets By Mouth Every 7 days Take 6 tabs weekly on Mondays Contact prescribing physician if questions or concerns \.br\ Unchanged metoprolol (metoprolol 25 mg ER Tab) 0.5 Tablets By Mouth 2 times a day Contact prescribing physician if questions or concerns \.br\ Unchanged Misc Prescription (#####) 0 6 mL, 0 Refill(s), Instill 1 drop into affected eye twice a day Immediately following surgery for 1 week. Then instill one drop into affected eye ONCE daily for 3 weeks. 0726 Contact prescribing physician if questions or concerns \.br\ Unchanged omega-3 polyunsaturated fatty acids (Fish Oil) 1,000 Milligram By Mouth Every day Contact prescribing physician if questions or concerns \.br\ Unchanged pantoprazole (Pantoprazole [address] Tab) Contact prescribing physician if questions or concerns \.br\ Unchanged polyethylene glycol 3350 (polyethylene glycol 3350 Oral Pwdr for Recon) Contact prescribing physician if questions or concerns \.br\ Unchanged rosuvastatin (rosuvastatin 5 mg Tab) 1 Tablets By Mouth Every day Contact prescribing physician if questions or concerns \.br\ Unchanged tretinoin topical (Retin-A 0.05% topical cream) See instructions Apply topically daily. wash and dry affected area and wait 20 to 30 minutes before application Contact prescribing physician if questions or concerns \.br\ Pharmacy Information\.br\ [facility]: [address] [place], [place] [id number] [phone]\.br\ Medications and Immunizations Administered\.br\ Not Given\.br\ influenza virus vaccine, inactivated, Postpone due to refusal\.br\ Allergies\.br\ No Known Medication Allergies\.br\ Problems\.br\ Ongoing - Any problem that you are currently receiving treatment for.\.br\ Anticoagulated\.br\ Anxiety\.br\ Arthritis\.br\ Asymptomatic microscopic hematuria\.br\ Back pain with history of spinal surgery\.br\ BMI 24.0-24.9, adult\.br\ Carotid artery stenosis\.br\ Cholelithiasis without obstruction\.br\ Cigarette smoker\.br\ COPD without exacerbation\.br\ Fall\.br\ Fatigue\.br\ Fibromyalgia\.br\ GERD (gastroesophageal reflux disease)\.br\ Heart disease\.br\ Herpes zoster\.br\ Hiatal hernia\.br\ Hypercholesterolemi a\.br\ Hypertension\.br\ Major depressive disorder with single episode, in full remission\.br\ Neoplasm of uncertain behavior of right kidney\.br\ Polycythemia\.br\ Postinfective urethral stricture in female\.br\ Recurrent UTI\.br\ Renal cyst\.br\ Renal mass, right\.br\ Sinusitis, acute maxillary\.br\ Smoker\.br\ Stress incontinence\.br\ Trochanteric bursitis\.br\ Vitamin D deficiency\.br\ Historical - Any problem that you are no longer receiving treatment for.\.br\ Acute UTI\.br\ Impingement syndrome of shoulder region\.br\ LUQ pain\.br\ Nocturia\.br\ Rheumatoid arteritis\.br\ \.br\ [facility] Family Medicine Office/Clini c Noteon 08-24-2023 Family Medicine Office/Clinic Note HPI Staff Lockhart is a 78 year old female presenting for acute visit Acute: swollen around eye, red and itchy Onset last thursday, was all puffy and goop if pushed on it. saw eye dr, thought maybe she was bit by something or allergic, gave her a suave to put on it, but now she's got red bumps/blotches on her face so not sure what's going on but it does look better than it did flu: delay to next week History of Present Illness Pt had one week hx of itching around the eye. Saw the eye doctor who gave her steroid cream. Minimal improvement. In today as still very itchy. No contact with anything. Never had shingles. Less puffy today. No change in vision. Review of Systems PHQ Score Initial Depression Screen Score: 2 Physical Exam Vitals & Measurements T: 37.4 ?C(Temporal Artery) HR: 70(Peripheral) RR: 18 BP: 116/72 SpO2: 95% HT: 61 in HT: 154.9 cm WT: 61.0 kg WT: 134.2 lb BMI: 25.42 General: alert, no acute distress ENMT: oral mucosa moist, Erythema around the eye. Cardiovascular: normal peripheral perfusion Respiratory: respirations non labored Extremities: no deformity, no trauma Neurological: oriented x 4, LOC appropriate for age, CN II-XII intact, motor strength equal & normal bilaterally, speech normal Abdomen: Soft, Nontender, Non-distended, + BS Assessment/Plan 1. Herpes zoster (B02.9: Zoster without complications) On my differential for this rash is herpes zoster versus contact dermatitis. But given the patient has no history of contact concern for herpes zoster. Patient will be following up with her eye doctor on a regular basis to make sure it does not get into the eye. We will start a Medrol Dosepak today. I will see the patient back in a week. Precautions discussed in detail. Ordered: methylPREDNISolone, = 1 packet(s), Oral, As Directed, as directed on package labeling, X 6 day(s), # 21 tab(s), Refills(s) 0, Pharmacy: [facility], 154.9, cm, 08/24/23 16:06:00 EDT, Height/Length Dosing, 61, kg, 08/24/23 16:06:00 EDT, Weight Dosing Body Mass Index (BMI) documented 3008F Current tobacco smoker 1034F Depression Screening Negative 3352F Influenza immunization status assessed 1030F Most recent diastolic blood pressure <80 mm Hg 3078F Patient screen for fall risk: no falls in last year or 1 fall with no injury in last year 1101F Systolic BP <130 mm Hg (Most Recent) 3074F 2. BMI 25.0-25.9,adult (Z68.25: Body mass index [BMI] 25.0-25.9, adult) BMI education given Ordered: methylPREDNISolone, = 1 packet(s), Oral, As Directed, as directed on package labeling, X 6 day(s), # 21 tab(s), Refills(s) 0, Pharmacy: [facility], 154.9, cm, 08/24/23 16:06:00 EDT, Height/Length Dosing, 61, kg, 08/24/23 16:06:00 EDT, Weight Dosing Body Mass Index (BMI) documented 3008F Current tobacco smoker 1034F Depression Screening Negative 3352F Influenza immunization status assessed 1030F Most recent diastolic blood pressure <80 mm Hg 3078F Patient screen for fall risk: no falls in last year or 1 fall with no injury in last year 1101F Systolic BP <130 mm Hg (Most Recent) 3074F 3. Overweight (E66.3: Overweight) Diet and exercise advised Ordered: methylPREDNISolone, = 1 packet(s), Oral, As Directed, as directed on package labeling, X 6 day(s), # 21 tab(s), Refills(s) 0, Pharmacy: [facility], 154.9, cm, 08/24/23 16:06:00 EDT, Height/Length Dosing, 61, kg, 08/24/23 16:06:00 EDT, Weight Dosing Body Mass Index (BMI) documented 3008F Current tobacco smoker 1034F Depression Screening Negative 3352F Influenza immunization status assessed 1030F Most recent diastolic blood pressure <80 mm Hg 3078F Patient screen for fall risk: no falls in last year or 1 fall with no injury in last year 1101F Systolic BP <130 mm Hg (Most Recent) 3074F Follow-up No qualifying data available Problem List/Past Medical History Ongoing Anticoagulated Anxiety Arthritis Asymptomatic microscopic hematuria Back pain with history of spinal surgery BMI 24.0-24.9, adult Carotid artery stenosis Cholelithiasis without obstruction Cigarette smoker COPD without exacerbation Fall Fatigue Fibromyalgia GERD (gastroesophageal reflux disease) Heart disease Herpes zoster Hiatal hernia Hypercholesterolemia Hypertension Major depressive disorder with single episode, 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 Normal [facility] Comment on above: Result Comment: Elec tronically Signed By: Harsha PULIDO, Wilfredo Montgomery\.br\Date and Time Signed: 08/24/23 16:36 EDT Family Medicine Office/Clini c Noteon 05-12-2023 Family Medicine Office/Clinic Note Chief Complaint meds check for percocet and needs a refill HPI Staff here to discuss her pain medication. Needs her percocet refilled and needs it under a new dr since Dr Holliday retired Pain characteristics: Pain location: back Intensity:8/10 Onset: many many years Medication used: oxycodone/acet 5-325mg Opioids prescribed: percocet Medication agreement UTD: to sign today _ Urine drug screen performed:cannot obtain sample at this time questions/concerns: needs her percocet refilled History of Present Illness Chantelle Dey is a 78-year-old female who presents today for a follow-up evaluation of back pain. She states she takes the Percocet as needed when her back pain flares-up. She denies taking it daily. She notes she gets 30 pills of Percocet refilled per month. She was seen by her chiropractor today. She rates her pain an 8 out of 10 today and the mildest her pain gets is a 4 or 5 out of 10. She had spinal surgery done 8 to 9 years ago in [place]. Review of Systems PHQ Score Initial Depression Screen Score: 2 General: alert, no acute distress Cardiovascular: regular rate and rhythm, normal peripheral perfusion Respiratory: Lungs CTA, respirations non labored Extremities: no deformity, no trauma Neurological: oriented x 4, LOC appropriate for age, CN II-XII intact, motor strength equal & normal bilaterally, speech normal Physical Exam Vitals & Measurements HR: 68(Peripheral) RR: 16 BP: 100/62 SpO2: 93% HT: 61 in HT: 154.9 cm WT: 60.3 kg WT: 132.66 lb BMI: 25.13 Assessment/Plan 1. Back pain with history of spinal surgery (M54.9: Dorsalgia, unspecified) We will continue on the Percocet p.r.n. We will give 30 pills at a time. Patient will call and get refills as needed. Patient will only get a refill if it has been within 3 months of her visit today. If she does not have it within 3 months of this visit, patient will have to come in for a follow-up. Patient was made aware of this and the controlled substance agreement. Orders were reviewed. Urine drug screen was not able to be obtained today, but will be obtained by the next time patient comes in. Patient understands this and is agreeable. 2. BMI 25.0-25.9,adult (Z68.25: Body mass index [BMI] 25.0-25.9, adult) BMI education given. 3. Over weight (E66.3: Overweight) As above. 4. Smoker (F17.200: Nicotine dependence, unspecified, uncomplicated) Encouraged the patient to stop smoking. Other specified postprocedural states (Z98.890: Other specified postprocedural states) Portions of this record may have been created with voice recognition artificial intelligence software, specifically [employer], Receptor and or [email or web address]. Substitutions may have occurred due to the inherent limitations of voice recognition and artificial intelligence software. ATTESTATION: Documentation services were performed after patient or guardian consented to allow [employer] to record this visit. KEVIN cnc specialist and provider reviewed before signing. 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 Medications acetaminophen-oxycodo ne 325 mg-5 mg Tab, 1 tab(s), Oral, Daily, PRN Albuterol (Eqv-Proventil HFA) 90 mcg/inh inhalation aerosol, 2 puff(s), Inhalation, q6hr alendronate 35 mg oral tablet, 35 mg= 1 tab(s), Oral, Daily aspirin 81 mg oral tablet, 81 mg= 1 tab(s), Oral, Daily citalopram 20 mg Tab, 20 mg= 1 tab(s), Oral, Daily Fish Oil, 1000 mg, Oral, Daily folic acid 1 mg Tab, 1 mg= 1 tab(s), Oral, Daily metoprolol 25 mg ER Tab, 12.5 mg= 0.5 tab(s), Oral, BID Pantoprazole [address] Tab polyethylene glycol 3350 Oral Pwdr for Recon Retin-A 0.05% topical cream, See Instructions rosuvastatin 5 mg Tab, 5 mg= 1 tab(s), Oral, Daily Trexall 2.5 mg Tab Vitamin D3 5000 intl units (more content not included)... Normal [facility] Comment on above: Result Comment: Elec tronically Signed By: Wilfredo Melgar MD\.br\Date and Time Signed: 05/12/23 11:50 EDT\.br\Electronically Co-Signed By: Jessenia Torres\.br\Date and Time Co-Signed: 05/11/23 17:29 EDT Medication Consenton 023 Medication Consent [id number]. [id number]:[id number] Normal [facility] LIPID PROFILEon 02-20-2023 CHOL-HDL RATIO NORM SEE BELOW Normal [facility] Comment on above: Result Comment: 3.3 - 4.4 LOW RISK 4.4 - 7.1 AVERAGE RISK 7.1 - 11.0 MODERATE RISK >11.0 HIGH RISK Performed By: #### L IPID #### [facility] [address] [address] [address] Mercy Viera Cholesterol [Mass/Vol] 110 mg/dL Normal <=200 [facility] Comment on above: Performed By: #### L IPID #### [facility] [address] [address] [address] Mercy Viera Cholesterol in HDL [Mass/Vol] 48 mg/dL Normal 40-60 [facility] Comment on above: Performed By: #### L IPID #### [facility] [address] [place] [address] Dr. Mercy Viera Cholesterol in LDL [Mass/Vol] 47.0 mg/dL Normal [facility] Comment on above: Performed By: #### L IPID #### [facility] [address] [address] [address] Mercy Viera Cholesterol.total/C holesterol in HDL [Mass ratio] 2.3 {ratio} Normal [facility] Comment on above: Performed By: #### L IPID #### [facility] [address] [place] [address] Dr. Mercy Viera HDL NORMAL > or = 60 mg/dl - LO W CARDIOVASCULAR RISK <40 mg/dl - HIGH CARDIOVASCULAR RISK Normal [facility] Comment on above: Performed By: #### L IPID #### [facility] [address] [place] [address] Dr. Mercy Viera LDL CALC NORMAL SEE BELOW Normal [facility] Comment on above: Result Comment: <100 mg/dl OPTIMAL 100 - 129 mg/dl NEAR OR ABOVE OPTIMAL 130 - 159 mg/dl BORDERLINE HIGH 160 - 189 mg/dl HIGH >190 mg/dl VERY HIGH Performed By: #### L IPID #### [facility] [address] [place] [address] Dr. Mercy Viera Triglyceride [Mass/Vol] 75 mg/dL Normal <=150 [facility] Comment on above: Performed By: #### L IPID #### [facility] [address] [place], [place] [address] Dr. Mercy Viera VLDL CALC 15.0 mg/dL Normal [facility] Comment on above: Performed By: #### L IPID #### [facility] [address] [place], [place] [address] Dr. Mercy Viera MG MAMM SCREEN 3D DULCE CADon 02-20-2023 MG MAMM SCREEN 3D DULCE CAD Patient: CHANTELLE DEY Exam Date: 02/20/2023 : 1945 Gender:F Ordering : DR HI HOLLIDAY . Admission #: [id number] Family : Order #: [id number] CLICK HERE TO VIEW EXAM RADIOLOGY REPORT PROCEDURE: MAMMOGRAM SCREENING 3D BILATERAL CAD COMPARISON: MG MAMM SCREEN DULCE W CAD, 11/05/2020. MG MAMM SCREEN 3D DULCE CAD, 11/08/2021. INDICATIONS: Screening mammography Calculator Name NCI Breast Cancer Risk Assessment Tool 5 Year Breast Cancer Risk 1.60% Lifetime Breast Cancer Risk 3.20% Personal Breast Cancer No Personal Ovarian Cancer No Treatments None Family Cancers None LOCATION: [facility] BREAST COMPOSITION: Scattered areas fibroglandular density. FINDINGS: DIAGNOSTIC CATEGORY 2--BENIGN FINDING. NO CHANGE FROM COMPARISON. Scattered benign-appearing calcifications are present. Scattered benign-appearing lymph nodes are present. RIGHT BREAST: No significant suspicious finding. LEFT BREAST: No significant suspicious finding. RECOMMENDATIONS: ROUTINE MAMMOGRAM AND CLINICAL EVALUATION IN 12 MONTHS. PLEASE NOTE: A NORMAL MAMMOGRAM DOES NOT EXCLUDE THE POSSIBILITY OF BREAST CANCER. A CLINICALLY SUSPICIOUS PALPABLE LUMP SHOULD BE BIOPSIED. Dictated by: Antonia Neves MD on 02/20/2023 at 09:51 Approved by: Antonia Neves MD on 02/20/2023 at 09:53 Normal [facility] US CAROTID ART BILon 023 US CAROTID ART DULCE EXAMINATION: US CAROTID ART DULCE HISTORY: Carotid artery stenosis COMPARISON: No relevant comparison available. TECHNIQUE: Duplex Doppler ultrasound analysis of carotid and vertebral arteries. . Bilateral carotid arterial duplex examination was performed using B-mode, color flow and spectral analysis. Carotid stenosis is reported according to validated velocity parameters, similar to NASCET criteria. FINDINGS: RIGHT CAROTID ARTERY Moderate atherosclerosis, maximum area of reduction 62% in the bulb Subclavian: PSV: 73.7 cm/s cm/s EDV: 4.2 cm/s cm/s CCA: Prox: PSV: 68.8 cm/s cm/s EDV: 13.9 cm/s cm/s Mid: PSV: 71.0 cm/s cm/s EDV: 8.9 cm/s cm/s Distal: PSV: 67.2 cm/s cm/s EDV: 10.2 cm/s cm/s BULB: PSV: 63.3 cm/s cm/s EDV: 11.5 cm/s cm/s ICA: Prox: PSV: 47.0 cm/s cm/s EDV: 10.4 cm/s cm/s Mid: PSV: 120.1 cm/s cm/s EDV: 39.2 cm/s cm/s Distal: PSV: 114.1 cm/s cm/s EDV: 19.5 cm/s cm/s ECA: PSV: 63.3 cm/s cm/s EDV: 20.6 cm/s cm/s VERTEBRAL: PSV: 64.6 cm/s cm/s EDV: 12.8 cm/s cm/s ICA/CCA ratio: PSV: 1.8 EDV: 3.8 LEFT CAROTID ARTERY Mild atherosclerotic plaque Subclavian: PSV: 93.8 cm/s cm/s EDV: 0.0 cm/s CCA: Prox: PSV: 70.7 cm/s cm/s EDV: 13.7 cm/s Mid: PSV: 92.7 cm/s cm/s EDV: 24.1 cm/s Distal: PSV: 75.8 cm/s cm/s EDV: 16.3 cm/s BULB: PSV: 55.1 cm/s cm/s EDV: 9.8 cm/s ICA: Prox: PSV: 114.0 cm/s cm/s EDV: 25.2 cm/s Mid: PSV: 89.8 cm/s cm/s EDV: 28.4 cm/s Distal: PSV: 70.4 cm/s cm/s EDV: 20.3 cm/s ECA: PSV: 65.1 cm/s cm/s EDV: 8.4 cm/s VERTEBRAL: PSV: 60.0 cm/s cm/s EDV: 12.8 cm/s ICA/CCA ratio: PSV: 1.5 EDV: 1.5 1.6 cm mixed solid and cystic right thyroid nodule IMPRESSION: 0-49% flow stenosis bilateral internal carotid arteries Moderate atherosclerotic plaque right carotid bulb 62% area narrowing 1.6 cm right thyroid nodule Spectral Doppler US Thresholds (Reference: Jeromy EG, et al. Radiology 2000; 214:247-252) Stenosis (%) PSV (cm/sec) VICA/VCCA 0-49 <150 <2.5 50-69 150-225 2.5-4.0 >70 >225 >4.0 Electronically authenticated by: ANTONIA NEVES Date: 2023-02-20 15:19 Normal [facility] VITAMIN D 25 OHon 02-20-2023 VIT D 25-OH 36.1 ng/mL Normal [facility] Comment on above: Performed By: #### V ITAD ####[facility] [id number] [address]Dr. Mercy Viera VIT D RANGES SEE BELOW Normal [facility] Comment on above: Result Comment: <20 ng/mL Vit D deficient 20 - <30 ng/mL Vit D insufficient 30 - 100 ng/mL Vit D sufficient >100 ng/mL Potential Toxicity Performed By: #### V ITAD ####[facility] [id number] [place], [place] [address]Dr. Mercy Viera CBC AUTO DIFFon 12-25-2022 BASO # 0.1 103/ul Normal 0.0-0.1 [facility] Comment on above: Performed By: #### C BC #### [facility] [address] [place] [address] Dr. Mercy Viera Basophils/100 WBC (Bld) 0.7 % Normal 0.2-2.0 [facility] Comment on above: Performed By: #### C BC #### [facility] [address] [place] [address] Dr. Mercy Viera EO # 0.2 103/ul Normal 0.0-0.7 [facility] Comment on above: Performed By: #### C BC #### [facility] [address] [place] [address] Dr. Mercy Viera Eosinophils/100 WBC (Bld) 2.2 % Normal 0.9-7.0 [facility] Comment on above: Performed By: #### C BC #### [facility] [address] [place] [address] Dr. Mercy Viera Erythrocyte distribution width (RBC) [Ratio] 13.6 % Normal 11.0-15.0 [facility] Comment on above: Performed By: #### C BC #### [facility] [address] [place] [address] Dr. Mercy Viera Hematocrit (Bld) [Volume fraction] 43.9 % Normal 36.0-48.0 [facility] Comment on above: Performed By: #### C BC #### [facility] [address] [place] [address] Dr. Mercy Viera Hemoglobin (Bld) [Mass/Vol] 16.4 g/dL Critically high 12.0-16.0 [facility] Comment on above: Performed By: #### C BC #### [facility] [address] [place] [address] Dr. Mercy Viera IG # 0.02 10e3/ul Normal 0.00-0.03 [facility] Comment on above: Performed By: #### C BC #### [facility] [address] [place] [address] Dr. Mercy Viera IG % 0.3 % Normal 0.0-0.5 [facility] Comment on above: Performed By: #### C BC #### [facility] [address] [place] [address] Dr. Mercy Viera LYMPH # 2.4 103/ul Normal 1.2-3.8 [facility] Comment on above: Performed By: #### C BC #### [facility] [address] [place] [address] Dr. Mercy Viera Lymphocytes/100 WBC (Bld) 33.6 % Normal 20.5-60.0 [facility] Comment on above: Performed By: #### C BC #### [facility] [address] [place] [address] Dr. Mercy Viera MANUAL DIFF REQ NO Normal [facility] Comment on above: Performed By: #### C BC #### [facility] [address] [place] [address] Dr. Mercy Viera MCH (RBC) [Entitic mass] 30.9 pg Normal 26.7-34.0 [facility] Comment on above: Performed By: #### C BC #### [facility] [address] [place] [address] Dr. Mercy Viera MCHC (RBC) [Mass/Vol] 37.4 g/dL Critically high 29.9-35.2 [facility] Comment on above: Performed By: #### C BC #### [facility] [address] [place] [address] Dr. Mercy Viera MCV (RBC) [Entitic vol] 82.7 fL Normal 81.0-99.0 [facility] Comment on above: Performed By: #### C BC #### [facility] [address] [place] [address] Dr. Mercy Viera MONO # 0.7 103/ul Normal 0.3-0.8 [facility] Comment on above: Performed By: #### C BC #### [facility] [address] [place] [address] Dr. Mercy Viera Monocytes/100 WBC (Bld) 9.3 % Normal 1.7-12.0 [facility] Comment on above: Performed By: #### C BC #### [facility] [address] [place] [address] Dr. Mercy Viera NEUT # 3.9 103/ul Normal 1.4-6.5 [facility] Comment on above: Performed By: #### C BC #### [facility] [address] [place] [address] Dr. Mercy Viera Neutrophils/100 WBC (Bld) 53.9 % Normal 43.0-75.0 [facility] Comment on above: Performed By: #### C BC #### [facility] [address] [place] [address] Dr. Mercy Viera Platelet mean volume (Bld) [Entitic vol] 9.7 fL Normal 9.5-13.5 [facility] Comment on above: Performed By: #### C BC #### [facility] [address] [place] [address] Dr. Mercy Viera PLT 203 103/ul Normal 150-450 [facility] Comment on above: Performed By: #### C BC #### [facility] [address] [place] [address] Dr. Mercy Viera RBC 5.31 106/ul Normal 4.20-5.40 [facility] Comment on above: Performed By: #### C BC #### [facility] [address] [place] [address] Dr. Mercy Viera WBC 7.2 103/ul Normal 4.0-11.0 [facility] Comment on above: Performed By: #### C BC #### [facility] [address] [place] [address] Dr. Mercy Viera LIVER PROFILEon 12-25-2022 Albumin [Mass/Vol] 3.4 g/dL Normal 3.4-5.0 [facility] Comment on above: Performed By: #### L IVER #### [facility] [address] [place] [address] Dr. Mercy Viera Albumin/Globulin [Mass ratio] 1.1 {ratio} Normal [facility] Comment on above: Performed By: #### L IVER #### [facility] [address] [place] [address] Dr. Mercy Viera ALP [Catalytic activity/Vol] 91 U/L Normal 46-116 [facility] Comment on above: Performed By: #### L IVER #### [facility] [address] [place] [address] Dr. Mercy Viera ALT [Catalytic activity/Vol] 28 U/L Normal 14-59 [facility] Comment on above: Performed By: #### L IVER #### [facility] [address] [place] [address] Dr. Mercy Viera AST [Catalytic activity/Vol] 27 U/L Normal 15-37 [facility] Comment on above: Performed By: #### L IVER #### [facility] [address] [place] [address] Dr. Mercy Viera BILI, CONJUGATED 0.1 mg/dL Normal 0.0-0.2 [facility] Comment on above: Performed By: #### L IVER #### [facility] [address] [place] [address] Dr. Mercy Viera Bilirubin [Mass/Vol] 0.3 mg/dL Normal 0.2-1.0 [facility] Comment on above: Performed By: #### L IVER #### [facility] [address] [place] [address] Dr. Mercy Viera Globulin (S) [Mass/Vol] 3.1 g/dL Normal [facility] Comment on above: Performed By: #### L IVER #### [facility] [address] [place] [address] Dr. Mercy Viera Protein [Mass/Vol] 6.5 g/dL Normal 6.4-8.2 [facility] Comment on above: Performed By: #### L IVER #### [facility] [address] [place] [address] Dr. Mercy Viera CBC AUTO DIFFon 05-08-2022 BASO # 0.1 103/ul Normal 0.0-0.1 [facility] Comment on above: Performed By: #### C BC #### [facility] [address] [place] [address] Dr. Mercy Viera Basophils/100 WBC (Bld) 0.5 % Normal 0.2-2.0 [facility] Comment on above: Performed By: #### C BC #### [facility] [address] [place] [address] Dr. Mercy Viera EO # 0.2 103/ul Normal 0.0-0.7 [facility] Comment on above: Performed By: #### C BC #### [facility] [address] [place] [address] Dr. Mercy Viera Eosinophils/100 WBC (Bld) 1.6 % Normal 0.9-7.0 [facility] Comment on above: Performed By: #### C BC #### [facility] [address] [place] [address] Dr. Mercy Viera Erythrocyte distribution width (RBC) [Ratio] 14.2 % Normal 11.0-15.0 [facility] Comment on above: Performed By: #### C BC #### [facility] [address] [place] [address] Dr. Mercy Viera Hematocrit (Bld) [Volume fraction] 52.7 % Critically high 36.0-48.0 [facility] Comment on above: Performed By: #### C BC #### [facility] [address] [place] [address] Dr. Mercy Viera Hemoglobin (Bld) [Mass/Vol] 16.9 g/dL Critically high 12.0-16.0 [facility] Comment on above: Performed By: #### C BC #### [facility] [address] [place] [address] Dr. Mercy Viera IG # 0.03 10e3/ul Normal 0.00-0.03 [facility] Comment on above: Performed By: #### C BC #### [facility] [address] [place] [address] Dr. Mercy Viera IG % 0.3 % Normal 0.0-0.5 [facility] Comment on above: Performed By: #### C BC #### [facility] [address] [place] [address] Dr. Mercy Viera LYMPH # 3.8 103/ul Normal 1.2-3.8 [facility] Comment on above: Performed By: #### C BC #### [facility] [address] [place] [address] Dr. Mercy Viera Lymphocytes/100 WBC (Bld) 34.3 % Normal 20.5-60.0 [facility] Comment on above: Performed By: #### C BC #### [facility] [address] [place] [address] Dr. Mercy Viera MANUAL DIFF REQ NO Normal [facility] Comment on above: Performed By: #### C BC #### [facility] [address] [address] [address] Mercy Viera MCH (RBC) [Entitic mass] 30.0 pg Normal 26.7-34.0 [facility] Comment on above: Performed By: #### C BC #### [facility] [address] [place] [address] Dr. Mercy Viera MCHC (RBC) [Mass/Vol] 32.1 g/dL Normal 29.9-35.2 [facility] Comment on above: Performed By: #### C BC #### [facility] [address] [place] [address] Dr. Mercy Viera MCV (RBC) [Entitic vol] 93.4 fL Normal 81.0-99.0 [facility] Comment on above: Performed By: #### C BC #### [facility] [address] [place] [address] Dr. Mercy Viera MONO # 0.9 103/ul Critically high 0.3-0.8 [facility] Comment on above: Performed By: #### C BC #### [facility] [address] [place] [address] Dr. Mercy Viera Monocytes/100 WBC (Bld) 8.5 % Normal 1.7-12.0 [facility] Comment on above: Performed By: #### C BC #### [facility] [address] [place] [address] Dr. Mercy Viera NEUT # 6.0 103/ul Normal 1.4-6.5 [facility] Comment on above: Performed By: #### C BC #### [facility] [address] [place] [address] Dr. Mercy Viera Neutrophils/100 WBC (Bld) 54.8 % Normal 43.0-75.0 [facility] Comment on above: Performed By: #### C BC #### [facility] [address] [place] [address] Dr. Mercy Viera Platelet mean volume (Bld) [Entitic vol] 10.7 fL Normal 9.5-13.5 [facility] Comment on above: Performed By: #### C BC #### [facility] [address] [place] [address] Dr. Mercy Viera PLT 193 103/ul Normal 150-450 [facility] Comment on above: Performed By: #### C BC #### [facility] [address] [place] [address] Dr. Mercy Viera RBC 5.64 106/ul Critically high 4.20-5.40 [facility] Comment on above: Performed By: #### C BC #### [facility] [address] [place] [address] Dr. Mercy Viera WBC 11.0 103/ul Normal 4.0-11.0 [facility] Comment on above: Performed By: #### C BC #### [facility] [address] [place] [address] Dr. Mercy Viera GLYCOHEMOGLOBIN A1Con 2021 ADA RECOMMENDATION SEE BELOW Normal [facility] Comment on above: Result Comment: ADA RECOMMENDED LIMIT 4.0 - 6.0 ADA THERAPEUTIC TARGET < 7.0 ACTION SUGGESTED > 7.0 Performed By: #### A 1C #### [facility] [address] [place] [address] Dr. Mercy Viera Glucose [Mass/Vol] 120 mg/dL Normal [facility] Comment on above: Performed By: #### A 1C #### [facility] [address] [place] [address] Dr. Mercy Viera HbA1c (Bld) [Mass fraction] 5.8 % Normal 4.5-6.2 [facility] Comment on above: Performed By: #### A 1C #### [facility] [address] [place] [address] Dr. Mercy Viera LIPID PROFILEon 05-08-2022 CHOL-HDL RATIO NORM SEE BELOW Normal [facility] Comment on above: Result Comment: 3.3 - 4.4 LOW RISK 4.4 - 7.1 AVERAGE RISK 7.1 - 11.0 MODERATE RISK >11.0 HIGH RISK Performed By: #### L IPID, CMP #### [facility] [address] [address] [address] Mercy Viera Cholesterol [Mass/Vol] 125 mg/dL Normal <=200 [facility] Comment on above: Performed By: #### L IPID, CMP #### [facility] [address] [address] [address] Mercy Viera Cholesterol in HDL [Mass/Vol] 49 mg/dL Normal 40-60 [facility] Comment on above: Performed By: #### L IPID, CMP #### [facility] [address] [address] [address] Mercy Viera Cholesterol in LDL [Mass/Vol] 53.0 mg/dL Normal [facility] Comment on above: Performed By: #### L IPID, CMP #### [facility] Laboratory [address] [address] [address] Mercy Viera Cholesterol.total/C holesterol in HDL [Mass ratio] 2.6 {ratio} Normal [facility] Comment on above: Performed By: #### L IPID, CMP #### [facility] Laboratory [address] [address] [address] Mercy Viera HDL NORMAL > or = 60 mg/dl - LO W CARDIOVASCULAR RISK <40 mg/dl - HIGH CARDIOVASCULAR RISK Normal [facility] Comment on above: Performed By: #### L IPID, CMP #### [facility] Laboratory [address] [address] [address] Mercy Viera LDL CALC NORMAL SEE BELOW Normal [facility] Comment on above: Result Comment: <100 mg/dl OPTIMAL 100 - 129 mg/dl NEAR OR ABOVE OPTIMAL 130 - 159 mg/dl BORDERLINE HIGH 160 - 189 mg/dl HIGH >190 mg/dl VERY HIGH Performed By: #### L IPID, CMP #### [facility] Laboratory [address] [address] [address] Mercy Viera Triglyceride [Mass/Vol] 115 mg/dL Normal <=150 [facility] Comment on above: Performed By: #### L IPID, CMP #### [facility] Laboratory [address] [address] [address] Mercy Viera VLDL CALC 23.0 mg/dL Normal [facility] Comment on above: Performed By: #### L IPID, CMP #### [facility] Laboratory [address] [address] [address] Mercy Viera PROF 14(COMP METB)on 022 Albumin [Mass/Vol] 3.8 g/dL Normal 3.4-5.0 [facility] Comment on above: Performed By: #### L IPID, CMP #### [facility] Laboratory [address] [place] [address] Dr. Mercy Viera Albumin/Globulin [Mass ratio] 1.1 {ratio} Normal [facility] Comment on above: Performed By: #### L IPID, CMP #### [facility] Laboratory [address] [place] [address] Dr. Mercy Viera ALP [Catalytic activity/Vol] 76 U/L Normal 46-116 [facility] Comment on above: Performed By: #### L IPID, CMP #### [facility] Laboratory [address] [place] [address] Dr. Mercy Viera ALT [Catalytic activity/Vol] 27 U/L Normal 14-59 [facility] Comment on above: Performed By: #### L IPID, CMP #### [facility] Laboratory [address] [place] [address] Dr. Mercy Viera Anion gap [Moles/Vol] 11.5 mmol/L Normal [facility] Comment on above: Performed By: #### L IPID, CMP #### [facility] Laboratory [address] [place] [address] Dr. Mercy Viera AST [Catalytic activity/Vol] 18 U/L Normal 15-37 [facility] Comment on above: Performed By: #### L IPID, CMP #### [facility] Laboratory [address] [place] [address] Dr. Mercy Viera Bilirubin [Mass/Vol] 0.8 mg/dL Normal 0.2-1.0 [facility] Comment on above: Performed By: #### L IPID, CMP #### [facility] Laboratory [address] [place] [address] Dr. Mercy Viera Calcium [Mass/Vol] 9.0 mg/dL Normal 8.5-10.1 [facility] Comment on above: Performed By: #### L IPID, CMP #### [facility] Laboratory [address] [place] [address] Dr. Mercy Viera Chloride [Moles/Vol] 105 mmol/L Normal 98-107 [facility] Comment on above: Performed By: #### L IPID, CMP #### [facility] Laboratory [address] [place] [address] Dr. Mercy Viera CO2 [Moles/Vol] 29.2 mmol/L Normal 21.0-32.0 [facility] Comment on above: Performed By: #### L IPID, CMP #### [facility] [address] [place] [address] Dr. Mercy Viera Creatinine [Mass/Vol] 0.79 mg/dL Normal 0.55-1.02 [facility] Comment on above: Performed By: #### L IPID, CMP #### [facility] [address] [place] [address] Dr. Mercy Viera EGFR-AF HUNGARIAN >60 Normal >=60 [facility] Comment on above: Performed By: #### L IPID, CMP #### [facility] Laboratory [address] [place] [address] Dr. Mercy Viera EGFR-NON AF HUNGARIAN >60 Normal >=60 [facility] Comment on above: Performed By: #### L IPID, CMP #### [facility] [address] [place] [address] Dr. Mercy Viera Globulin (S) [Mass/Vol] 3.4 g/dL Normal [facility] Comment on above: Performed By: #### L IPID, CMP #### [facility] [address] [place] [address] Dr. Mercy Viera Glucose [Mass/Vol] 110 mg/dL Critically high 74-106 [facility] Comment on above: Performed By: #### L IPID, CMP #### [facility] [address] [place] [address] Dr. Mercy Viera Potassium [Moles/Vol] 4.7 mmol/L Normal 3.5-5.1 [facility] Comment on above: Performed By: #### L IPID, CMP #### [facility] [address] [place] [address] Dr. Mercy Viera Protein [Mass/Vol] 7.2 g/dL Normal 6.4-8.2 [facility] Comment on above: Performed By: #### L IPID, CMP #### [facility] [address] [place] [address] Dr. Mercy Viera Sodium [Moles/Vol] 141 mmol/L Normal 136-145 [facility] Comment on above: Performed By: #### L IPID, CMP #### [facility] [address] [place] [address] Dr. Mercy Viera Urea nitrogen [Mass/Vol] 19.0 mg/dL Critically high 7.0-18.0 [facility] Comment on above: Performed By: #### L IPID, CMP #### [facility] [address] [place] [address] Dr. Mercy Viera Urea nitrogen/Creatinine [Mass ratio] 24.1 mg/mg Normal [facility] Comment on above: Performed By: #### L IPID, CMP #### [facility] Laboratory [address] [place] [address] Dr. Mercy Viera VITAMIN D 25 OHon 05-08-2022 VIT D 25-OH 51.1 ng/mL Normal [facility] Comment on above: Performed By: #### V ITAD #### [facility] Laboratory [address] [place] [address] Dr. Mercy Viera VIT D RANGES SEE BELOW Normal [facility] Comment on above: Result Comment: <20 ng/mL Vit D deficient 20 - <30 ng/mL Vit D insufficient 30 - 100 ng/mL Vit D sufficient >100 ng/mL Potential Toxicity Performed By: #### V ITAD #### [facility] Laboratory [address] [place] [address] Dr. Mercy Viera Activated partial thrombopla stin time (aPTT) in platelet poor plasma by coagulation aOrdered By: William Antony on 02-14-2022 aPTT Coag (PPP) [Time] 32.3 s 25.1-36.5 [facility] Laboratory - CoagulationOrde red By: William Antony on 02-14-2022 PT Coag (PPP) [Time] 11.1 s 9.0-12.9 [facility] Platelet poor plasma interna tional normalized ratio (INR) by coagulation assay (relatOrdered By: William Antony on 02-14-2022 INR Coag (PPP) [Relative time] 1.0 {INR} [facility] Comment on above: INR Therapeutic Rang e A) Pre- and Peroperative OAT started two weeks before surgery. NOT HIP SURGERY: 1.5 - 2.5 HIP SURGERY: 2 - 3B) Primary and secondary prevention of venous THROMBOSIS: 2 - 3C) Active venous thrombosis, pulmonary embolismand prevention of recurrent venous thrombosis: 2 - 3D) Prevention of arterial thromboembolismincluding patients with mechanical heart valves: 3 - 4.5 Discharge Summaryon 11-16-20 Discharge Summary MR[id number] Dey Admitted: 11/09/2017 Discharged: 11/12/2017 Date of : 1945 Physician: Crystal Varela M.D. DISCHARGE SUMMARYDISCHARGE ATTENDING: Crystal Varela M.D.PRIMARY DIAGNOSIS: Symptomatic cholelithiasis and paraesophageal hernia.SECONDARY DIAGNOSES:1. Hypertension.2. Hyperlipidemia.3. Paraesophageal hernia.4. Carotid stenosis.5. Left subclavian artery stenosis.HOSPITAL COURSE: This is a 72-year-old female patient with symptomaticgallbladde r stones and she has symptomatic paraesophageal hernia. On thesame day of admission, patient was taken back to the operation room, whereshe underwent laparoscopy with paraesophageal hernia repair with Dorfundoplication and laparoscopy cholecystectomy. The patient tolerated thesurgery well without any complication. After that, we started the patienton clear liquid diet and she was tolerating that well, so the next day, westarted her on full liquid diet. Eventually, the patient was toleratingfull liquid diet without nausea or vomiting. The pain was well controlledwith oral pain medication. The patient was having normal bowel movementand passing gas. The patient was able to ambulate without any difficulty.DISCHARGE DISPOSITION AND CONDITION: Patient was discharged to home ingood and stable condition.DISCHARGE INSTRUCTION:1. Continue on full liquid diet for 2 weeks.2. Follow up with Dr. Varela in his clinic in 1 to 2 weeks.3. Percocet as needed for pain.DISCHARGE MEDICATIONS: Alendronate, aspirin, atorvastatin, lisinopril,methotrexa te, metoprolol.Electronic ally Signed by:Crystal Varela M.D. 11/17/2017 05:57 P Zaynab Varela M.D. I personally saw this patient on the day of the encounter, performed thekey portion(s) of the service and participated in the management andconfirm the resident's documentation. Please note there may be anadditional personal documentation from me. Date Dict: 11/15/2017/09:46 P/WILNER Guamanate Trans: 11/16/2017 05:21 [id number]: Hi Holliday M.D. [address] [place] [id number] Normal [facility] BASIC METABOLIC PANELon 12-2 Calcium 9.0 mg/dL Normal 8.6-10.3 [facility] Comment on above: Order Comment: No: D o not add to previous draw Performed By: #### 4 6447 ####[facility] [place] [address], [facility] Chloride 105 mmol/L Normal 98-107 [facility] Comment on above: Order Comment: No: D o not add to previous draw Performed By: #### 4 6447 ####[facility] [place] [address], [facility] CO2 26 mmol/L Normal 21-31 [facility] Comment on above: Order Comment: No: D o not add to previous draw Performed By: #### 4 6447 ####[facility] [place] [address], [facility] Creatinine 0.58 mg/dL Low 0.60-1.20 [facility] Comment on above: Order Comment: No: D o not add to previous draw Performed By: #### 4 6447 ####[facility] [place] [address], [facility] eGFR (black) mL/min/{1.73_m2} Normal >60 [facility] Comment on above: Order Comment: No: D o not add to previous draw Result Comment: Calc ulation may not be valid for patients over 70 years Performed By: #### 4 6447 ####[facility] [facility] [place] [address], [facility] eGFR (non-black) mL/min/{1.73_m2} Normal >60 [facility] Comment on above: Order Comment: No: D o not add to previous draw Result Comment: Calc ulation may not be valid for patients over 70 years Performed By: #### 4 6447 ####[facility] [facility] [place] [address], [facility] Glucose mass conc 101 mg/dL High 70-100 [facility] Comment on above: Order Comment: No: D o not add to previous draw Performed By: #### 4 6465 ####[facility] [facility] [place] [address], [facility] Potassium molar conc 4.3 mmol/L Normal 3.5-5.1 [facility] Comment on above: Order Comment: No: D o not add to previous draw Performed By: #### 4 6403 ####[facility] [place] [address], [facility] Sodium 137 mmol/L Normal 136-145 [facility] Comment on above: Order Comment: No: D o not add to previous draw Performed By: #### 4 6420 ####[facility] [place] [address], [facility] Urea nitrogen 5 mg/dL Low 7-25 [facility] Comment on above: Order Comment: No: D o not add to previous draw Performed By: #### 4 6447 ####[facility] [place] [address], [facility] CBC W/DIFFon 11-12-2017 ANISO MODERATE Normal [facility] Comment on above: Order Comment: No: D o not add to previous draw Performed By: #### 4 6447 ####[facility] [place] [address], [facility] Basophils Auto #/vol (Bld) 0.5 % Normal 0.0-2.0 [facility] Comment on above: Order Comment: No: D o not add to previous draw Performed By: #### 4 6463 ####[facility] [place] [address], [facility] Eosinophils/100 leukocytes 2.8 % Normal 0.0-5.0 [facility] Comment on above: Order Comment: No: D o not add to previous draw Performed By: #### 4 6462 ####[facility] Erythrocyte distribution width Auto Ratio (RBC) 18.8 % High 11.5-16.9 [facility] Comment on above: Order Comment: No: D o not add to previous draw Performed By: #### 4 6458 ####[facility] [place] [address], [facility] Erythrocytes (RBC) 4.54 mill/mm3 Normal 3.50-5.50 [facility] Comment on above: Order Comment: No: D o not add to previous draw Performed By: #### 4 6449 ####[facility] [place] [address], [facility] Hematocrit (HCT) 31.9 % Low 36.0-48.0 [facility] Comment on above: Order Comment: No: D o not add to previous draw Performed By: #### 4 6467 ####[facility] [facility].[address] Hemoglobin mass conc (Bld) 9.5 g/dL Low 12.0-15.0 [facility] Comment on above: Order Comment: No: D o not add to previous draw Performed By: #### 4 6472 ####[facility] Lymphocytes/100 leukocytes 22.7 % Normal 20.0-40.0 [facility] Comment on above: Order Comment: No: D o not add to previous draw Performed By: #### 4 6408 ####[facility] MCH 21.0 pg Low 24.0-32.0 [facility] Comment on above: Order Comment: No: D o not add to previous draw Performed By: #### 4 7852 ####[facility] MCHC mass conc (RBC) 29.9 g/dL Low 32.0-36.0 [facility] Comment on above: Order Comment: No: D o not add to previous draw Performed By: #### 4 6280 ####[facility] MCV 70.2 fL Low 80.0-100.0 [facility] Comment on above: Order Comment: No: D o not add to previous draw Performed By: #### 4 4954 ####[facility] METHOD Manual blood smear examination performed Normal [facility] Comment on above: Order Comment: No: D o not add to previous draw Performed By: #### 4 9711 ####[facility] [place] [address], [facility] MICRO SLIGHT Normal [facility] Comment on above: Order Comment: No: D o not add to previous draw Performed By: #### 4 6447 ####[facility] [place] [address], [facility] MONOS 9.4 % High 2-8 [facility] Comment on above: Order Comment: No: D o not add to previous draw Performed By: #### 4 6447 ####[facility] [place] [address], [facility] Neutrophils/100 leukocytes 64.6 % Normal 50-70 [facility] Comment on above: Order Comment: No: D o not add to previous draw Performed By: #### 4 6447 ####[facility] [place] [address], [facility] PLAT CNT 285 Thou/mm3 Normal 100-400 [facility] Comment on above: Order Comment: No: D o not add to previous draw Performed By: #### 4 6460 ####[facility] [place] [address], [facility] POIK SLIGHT-MODERATE Normal [facility] Comment on above: Order Comment: No: D o not add to previous draw Performed By: #### 4 6493 ####[facility] [place] [address], [facility] POLY SLIGHT Normal [facility] Comment on above: Order Comment: No: D o not add to previous draw Performed By: #### 4 6403 ####[facility] [place] [address], [facility] WBC (Leukocytes) 13.1 Thou/mm3 High 4.0-10.0 [facility] Comment on above: Order Comment: No: D o not add to previous draw Performed By: #### 4 1847 ####[facility] [place] [address], [facility] POC GLUCOSE LABon 11-12-2017 Glucose mass conc 145 mg/dL High 70-100 [facility] Comment on above: Performed By: #### 4 6447 ####[facility] [place] [address], [facility] Glucose mass conc 207 mg/dL High 70-100 [facility] Comment on above: Performed By: #### 4 6447 ####[facility] [place] [address], [place] Glucose mass conc 105 mg/dL High 70-100 [facility] Comment on above: Performed By: #### 4 6447 ####[facility] [place] [address], [facility] Glucose mass conc 105 mg/dL High 70-100 [facility] Comment on above: Performed By: #### 6 2594 ####[facility] [place] [address], [facility] BASIC METABOLIC PANELon 12-2 Calcium 8.6 mg/dL Normal 8.6-10.3 [facility] Comment on above: Order Comment: No: D o not add to previous draw Performed By: #### 6 2594 ####[facility] [place] [address], [facility] Chloride 106 mmol/L Normal 98-107 [facility] Comment on above: Order Comment: No: D o not add to previous draw Performed By: #### 6 2594 ####[facility] [place] [address], [facility] CO2 23 mmol/L Normal 21-31 [facility] Comment on above: Order Comment: No: D o not add to previous draw Performed By: #### 6 2594 ####[facility] [address], [facility] Creatinine 0.56 mg/dL Low 0.60-1.20 [facility] Comment on above: Order Comment: No: D o not add to previous draw Performed By: #### 6 2594 ####[facility] [place] [address], [facility] eGFR (black) mL/min/{1.73_m2} Normal >60 [facility] Comment on above: Order Comment: No: D o not add to previous draw Result Comment: Calc ulation may not be valid for patients over 70 years Performed By: #### 6 2594 ####[facility] [place] [address], [facility] eGFR (non-black) mL/min/{1.73_m2} Normal >60 Th e [facility] Comment on above: Order Comment: No: D o not add to previous draw Result Comment: Calc ulation may not be valid for patients over 70 years Performed By: #### 6 2594 ####[facility] [place] [address], [facility] Glucose mass conc 131 mg/dL High 70-100 [facility] Comment on above: Order Comment: No: D o not add to previous draw Performed By: #### 6 2594 ####[facility] [place] [address], [facility] Potassium molar conc 4.1 mmol/L Normal 3.5-5.1 [facility] Comment on above: Order Comment: No: D o not add to previous draw Performed By: #### 6 2594 ####[facility] [id number], [facility] Sodium 135 mmol/L Low 136-145 [facility] Comment on above: Order Comment: No: D o not add to previous draw Performed By: #### 6 2594 ####[facility] Urea nitrogen 6 mg/dL Low 7-25 [facility] Comment on above: Order Comment: No: D o not add to previous draw Performed By: #### 6 2594 ####[facility] [place] [address], [facility] CBC W/DIFFon 11-11-2017 ANISO MODERATE Normal [facility] Comment on above: Order Comment: No: D o not add to previous draw Performed By: #### 6 2594 ####[facility] [place] [address], [facility] Basophils Auto #/vol (Bld) 0.0 % Normal 0.0-2.0 [facility] Comment on above: Order Comment: No: D o not add to previous draw Performed By: #### 6 2594 ####[facility] [place] [address], [facility] Eosinophils/100 leukocytes 0.0 % Normal 0.0-5.0 [facility] Comment on above: Order Comment: No: D o not add to previous draw Performed By: #### 6 2594 ####[facility] Erythrocyte distribution width Auto Ratio (RBC) 18.7 % High 11.5-16.9 [facility] Comment on above: Order Comment: No: D o not add to previous draw Performed By: #### 6 2594 ####[facility] [place] [address], [facility] Erythrocytes (RBC) 4.24 mill/mm3 Normal 3.50-5.50 [facility] Comment on above: Order Comment: No: D o not add to previous draw Performed By: #### 6 2594 ####[facility] [place] [address], [facility] Hematocrit (HCT) 29.8 % Low 36.0-48.0 [facility] Comment on above: Order Comment: No: D o not add to previous draw Performed By: #### 6 2594 ####[facility] Hemoglobin mass conc (Bld) 9.0 g/dL Low 12.0-15.0 [facility] Comment on above: Order Comment: No: D o not add to previous draw Performed By: #### 6 2594 ####[facility] Lymphocytes/100 leukocytes 12.0 % Low 20.0-40.0 [facility] Comment on above: Order Comment: No: D o not add to previous draw Performed By: #### 6 2594 ####[facility] [place] [address] MCH 21.1 pg Low 24.0-32.0 [facility] Comment on above: Order Comment: No: D o not add to previous draw Performed By: #### 6 2594 ####[facility] MCHC mass conc (RBC) 30.1 g/dL Low 32.0-36.0 [facility] Comment on above: Order Comment: No: D o not add to previous draw Performed By: #### 6 2594 ####[facility] MCV 70.2 fL Low 80.0-100.0 [facility] Comment on above: Order Comment: No: D o not add to previous draw Performed By: #### 6 2594 ####[facility] [place] [address] METHOD Manual blood smear examination performed Normal [facility] Comment on above: Order Comment: No: D o not add to previous draw Performed By: #### 6 2594 ####[facility] [place] [address], [facility] MICRO SLIGHT Normal [facility] Comment on above: Order Comment: No: D o not add to previous draw Performed By: #### 6 2594 ####[facility] [place] [address], [facility] MONOS 13.0 % High 2-8 [facility] Comment on above: Order Comment: No: D o not add to previous draw Performed By: #### 6 2594 ####[facility] [place] [address], [facility] PLAT CNT 241 Thou/mm3 Normal 100-400 [facility] Comment on above: Order Comment: No: D o not add to previous draw Performed By: #### 6 2594 ####[facility] [place] [address], [facility] POIK SLIGHT Normal [facility] Comment on above: Order Comment: No: D o not add to previous draw Performed By: #### 6 2594 ####[facility] [place] [address], [facility] POLY SLIGHT Normal [facility] Comment on above: Order Comment: No: D o not add to previous draw Performed By: #### 6 2594 ####[facility] [place] [address], [facility] SEGS 75.0 % High 50-70 [facility] Comment on above: Order Comment: No: D o not add to previous draw Performed By: #### 6 2594 ####[facility] [place] [address], [facility] WBC (Leukocytes) 14.0 Thou/mm3 High 4.0-10.0 [facility] Comment on above: Order Comment: No: D o not add to previous draw Performed By: #### 6 2594 ####[facility] [place] [address], [facility] MAGNESIUM BLOODon 11-11-2017 Magnesium 1.6 mg/dL Low 1.9-2.7 [facility] Comment on above: Order Comment: No: D o not add to previous draw Performed By: #### 6 2594 ####[facility] [place] [address], [facility] PHOSPHORUS BLOODon 7 Phosphate 3.0 mg/dL Normal 2.5-5.0 [facility] Comment on above: Order Comment: No: D o not add to previous draw Performed By: #### 6 2594 ####[facility] [facility] [place] [address], [facility] POC GLUCOSE LABon 11-11-2017 Glucose mass conc 114 mg/dL High 70-100 [facility] Comment on above: Performed By: #### 6 2594 ####[facility] [facility] [place] [address], [facility] Glucose mass conc 130 mg/dL High 70-100 [facility] Comment on above: Performed By: #### 6 2594 ####[facility] [place] [address], [facility] Glucose mass conc 166 mg/dL High 70-100 [facility] Comment on above: Performed By: #### 6 2594 ####[facility] [facility] [place] [address], [place] Glucose mass conc 180 mg/dL High 70-100 [facility] Comment on above: Performed By: #### 6 2594 ####[facility] [place] [address], [place] Glucose mass conc 142 mg/dL High 70-100 [facility] Comment on above: Performed By: #### 6 2594 ####[facility] [facility] [place] [address], [place] Glucose mass conc 121 mg/dL High 70-100 [facility] Comment on above: Performed By: #### 0 0121 ####[facility] [place] [address], [facility] BASIC METABOLIC PANELon 12- Calcium 8.2 mg/dL Low 8.6-10.3 [facility] Comment on above: Order Comment: No: D o not add to previous draw Performed By: #### 0 0121 ####[facility] [facility] [place] [address], [facility] Chloride 108 mmol/L High 98-107 [facility] Comment on above: Order Comment: No: D o not add to previous draw Performed By: #### 0 0121 ####[facility] [place] [address], [facility] CO2 22 mmol/L Normal 21-31 [facility] Comment on above: Order Comment: No: D o not add to previous draw Performed By: #### 0 0121 ####[place] [address] [place] [address], [facility] Creatinine 0.58 mg/dL Low 0.60-1.20 [facility] Comment on above: Order Comment: No: D o not add to previous draw Performed By: #### 0 0121 ####[place] [address] [facility].[address] eGFR (black) mL/min/{1.73_m2} Normal >60 [facility] Comment on above: Order Comment: No: D o not add to previous draw Result Comment: Calc ulation may not be valid for patients over 70 years Performed By: #### 0 0121 ####[place] [address] [place] [address], [facility] eGFR (non-black) mL/min/{1.73_m2} Normal >60 [facility] Comment on above: Order Comment: No: D o not add to previous draw Result Comment: Calc ulation may not be valid for patients over 70 years Performed By: #### 0 0121 ####[facility] [place] [address], [facility] Glucose mass conc 133 mg/dL High 70-100 [facility] Comment on above: Order Comment: No: D o not add to previous draw Performed By: #### 0 0121 ####[facility] [place] [address], [facility] Potassium molar conc 4.1 mmol/L Normal 3.5-5.1 [facility] Comment on above: Order Comment: No: D o not add to previous draw Performed By: #### 0 0121 ####[facility] [place] [address], [facility] Sodium 138 mmol/L Normal 136-145 [facility] Comment on above: Order Comment: No: D o not add to previous draw Performed By: #### 0 0121 ####[facility] [place] [address], [facility] Urea nitrogen 9 mg/dL Normal 7-25 [facility] Comment on above: Order Comment: No: D o not add to previous draw Performed By: #### 0 0121 ####[facility] [facility], [place] [id number] [place] [address] CBC COMPLETE BLOOD COUNTon 1 01-11-2017 Erythrocyte distribution width Auto Ratio (RBC) 17.9 % High 11.5-16.9 [facility] Comment on above: Order Comment: No: D o not add to previous draw Performed By: #### 0 0121 ####[facility] [place] [address], [facility] Erythrocytes (RBC) 4.29 mill/mm3 Normal 3.50-5.50 [facility] Comment on above: Order Comment: No: D o not add to previous draw Performed By: #### 0 0121 ####[facility] [place] [address], [facility] Hematocrit (HCT) 29.9 % Low 36.0-48.0 [facility] Comment on above: Order Comment: No: D o not add to previous draw Performed By: #### 0 0121 ####[facility] [place] [address], [facility] Hemoglobin mass conc (Bld) 9.0 g/dL Low 12.0-15.0 [facility] Comment on above: Order Comment: No: D o not add to previous draw Performed By: #### 0 0121 ####[facility] [place] [address], [facility] MCH 20.9 pg Low 24.0-32.0 [facility] Comment on above: Order Comment: No: D o not add to previous draw Performed By: #### 0 0121 ####[facility] [facility] MCHC mass conc (RBC) 30.0 g/dL Low 32.0-36.0 [facility] Comment on above: Order Comment: No: D o not add to previous draw Performed By: #### 0 0121 ####[place] [address] [facility].[address] MCV 69.7 fL Low 80.0-100.0 [facility] Comment on above: Order Comment: No: D o not add to previous draw Performed By: #### 0 0121 ####[facility] [place] [address], [facility] PLAT CNT 222 Thou/mm3 Normal 100-400 [facility] Comment on above: Order Comment: No: D o not add to previous draw Performed By: #### 0 0121 ####[facility] [facility] [place] [address], [facility] WBC (Leukocytes) 14.3 Thou/mm3 High 4.0-10.0 [facility] Comment on above: Order Comment: No: D o not add to previous draw Performed By: #### 0 0121 ####[facility] Operative Reporton 7 Operative Report MR#: [id number] 2[facility] [place] Pt. Name: Chantelle Dey Room #: 5AB [id number] Discharge Date: Birthdate: 1945 OPERATIVE REPORTDATE OF SURGERY: 11/09/2017SURGEON: Crystal Varela M.D.ATTENDING SURGEON: Crystal Varela M.D.STORE COORDINATOR: Tiara Anderson M.D.ANESTHESIA: General with endotracheal intubation.ESTIMATED BLOOD LOSS: Minimal.COMPLICATIONS : No immediate complications.PREOPER ATIVE DIAGNOSIS: Symptomatic cholelithiasis and paraesophagealherniaP ROCEDURE: Laparoscopic paraesophageal hernia repair with Dorfundoplication and laparoscopic cholecystectomy.POSTO PERATIVE DIAGNOSIS: Symptomatic cholelithiasis and paraesophagealherniaI NDICATION: The patient is a 72-year-old female patient with symptomaticgallbladde r stones and she also has symptomatic paraesophageal hernia.Benefits, risks, and alternatives of the procedure were explained to thepatient and questions were answered, and informed consent was obtained.PROCEDURE IN DETAIL: The patient was taken to the operating room, and shewas placed initially supine on the operating table. EPC cuffs were on andfunctioning appropriately prior to anesthesia induction. Anesthesia wasinduced. The patient was intubated. Gaming catheter was inserted, and thepatient was put in lithotomy position with stirrups. The anteriorabdominal wall was prepped and draped in a standard sterile surgicalfashion and time-out was performed according to the hospital policy, andpreoperative antibiotics were administered according to the hospital policyas well. We started our procedure by creating 12 mm incision at the leftupper quadrant below the costal margin using 11 blade scalpel, and weaccessed the peritoneal cavity with Visiport and 0 degree 5 mm laparoscopiccamera. Once in the peritoneal cavity, insufflation was started. Theopening pressure was 5. Once the appropriate level of insufflation wasachieved, supraumbilical 5 mm trocar was inserted in the midline andanother 5 mm trocar was inserted at the anterior axillary line on the rightside and another one 5 mm trocar was inserted at the subxiphoid process,and initially placed trocar in the left upper quadrant below the costalmargin was upgraded to 12 mm. All trocars were inserted under directvision. Liver retractor was inserted to help retracting the liver andoptimize the surgical exposure. We started our procedure by taking downthe gastrohepatic ligament along the lesser curvature of the stomach usingthe Harmonic device. Dissection continued cephalad until we identified theright crura of the diaphragm. On the left side, the short gastrics weretaken down using Harmonic device along the greater curvature of the stomachall the way up to the angle of His. The left crura of the diaphragm wasidentified. The phrenoesophageal ligament was taken down with the Harmonicdevice. Methuen drain was inserted and the esophagus was surrounded withPenrose and retracted to optimize the surgical exposure. Dissectioncontinued in the mediastinum with the Harmonic device. The paraesophagealhernia was completely reduced into the peritoneal cavity. Both vagus wereidentified and protected. We had at least 4 cm of the distal esophagus inthe peritoneal cavity. At that point, the crura was approximated using 3interrupted simple suturing using 1-0 Surgidac Endostitch. We made surethat the crura is not tight around the esophagus and we used Endo Stitchwith extracorporeal tying of the knots. Once the crura was reapproximated,we decided to proceed with Dominic fundoplication. Three bites were taken oneach side of the crura. The bite would go through the seromuscular layerof the stomach fundus through the left crura and through the esophagus.This was repeated 3 times on the left side, and on the right side, the samewas done, a 180 degree anterior Dominic fundoplication was fashoined. Once thisportion of the procedure was done, the gallbladder fundus was retractedcephalad and infundibulum was retracted lateral, and using Marylanddissector, the triangle of Calot was freed from the adipose tissue and thelower one-third of the gallbladder was taken off the liver bed usinghook-tip Bovie electrocautery. Critical view of safety was obtained, andonly 2 structures were found to enter the gallbladder, the cystic arteryand cystic duct. Both of them were clipped twice on the distal end andonce on the proximal end and transected in between using Metzenbaumscissor. The gallbladder itself was peeled off the liver bed using Bovieelectrocautery and was retrieved in protected fashion in endoscopic bag.The 12 mm trocar site fascia was closed using 0 Vicryl suture ininterrupted fashion. All the other trocar site skin was approximated usinginterrupted 4-0 Vicryl in subcuticular fashion and Dermabond was applied.The patient tolerated the procedure well with no immediate complication.Electron ically Signed by:Crystal Varela M.D. 11/10/2017 06:22 P Zaynab Varela M.D. I was present for the entire procedure. Date Dict: 11/09/2017/04:17 Gabriel/Tiara Anderson M.D.Date Trans: 11/10/2017 01:10 A/SamuelN_JN:[id number]: Hi Holliday M.D. [address] [place] [id number] Normal [facility] POC GLUCOSE LABon 11-10-2017 Glucose mass conc 130 mg/dL High 70-100 [facility] Comment on above: Performed By: #### 0 0121 ####[facility] [place] [address], [facility] Glucose mass conc 124 mg/dL High 70-100 [facility] Comment on above: Performed By: #### 0 0121 ####[facility] [place] [address], [facility] Glucose mass conc 134 mg/dL High 70-100 [facility] Comment on above: Performed By: #### 0 0121 ####[facility] [place] [address], [facility] Glucose mass conc 224 mg/dL High 70-100 [facility] Comment on above: Performed By: #### 0 0121 ####[facility] [place] [address], [facility] Glucose mass conc 156 mg/dL High 70-100 [facility] Comment on above: Performed By: #### 0 0121 ####[facility] [place] [address], [facility] Glucose mass conc 142 mg/dL High 70-100 [facility] Comment on above: Performed By: #### 0 0121 ####[facility] [place] [address], [facility] POC GLUCOSE LABon 11-09-2017 Glucose mass conc 170 mg/dL High 70-100 [facility] Comment on above: Performed By: #### 8 5499 ####[facility] [place] [address], [facility] Glucose mass conc 170 mg/dL High 70-100 [facility] Comment on above: Performed By: #### 8 5499 ####[facility] [place] [address], [facility] Glucose mass conc 158 mg/dL High 70-100 [facility] Comment on above: Performed By: #### 8 5499 ####[facility] [place] [address], [facility] Glucose mass conc 118 mg/dL High 70-100 [facility] Comment on above: Performed By: #### 8 5499 ####[facility] [place] [address], [facility] Operative Reporton 7 Operative Report MR#: [id number] [facility] Pt. Name: Chantelle Dey Room #: Z0 Discharge Date: Birthdate: 1945 OPERATIVE REPORTDATE OF SURGERY: 11/06/2017SURGEON: Crystal Varela M.D.SURGEON: Dr. Crystal Varela.PREOPERATIVE DIAGNOSIS: Large paraesophageal hernia.POSTOPERATIVE DIAGNOSIS: Large paraesophageal hernia and gastritis.OPERATION PERFORMED: Esophagogastroduodeno scopy and cold biopsy of theprepyloric mucosa.ANESTHESIA: Conscious sedation with 3 mg Versed and a 75 mcg of fentanyl.INDICATION: The patient is 72 years old white female with largeparaesophageal hernia. An upper endoscopy was offered to the patient.Informed consent was obtained.DESCRIPTION OF PROCEDURE: The patient was brought to the endoscopy suit,laid on bed in the left decubitus position. After conscious sedation, theflexible endoscopy was introduced through the mouth under direct vision,advanced through the esophagus, reached the GE junction, which is 33 cm.Then the scope further advanced into the stomach, reached to the diaphragmhiatus, which is 40 cm from the incisor. Further advanced into thepylorus, passed the pylorus into the duodenum without duodenal ulcer orinflammation. The scope back to stomach, gastric mucosa with erythema onthe prepyloric and body of the stomach mucosa, sign of gastritis, have jamie small area of coffee-ground mucus, sign of small GI bleeding.Multiple prepyloric biopsy was obtained to rule out H pylori. Then, thescope was removed. The procedure was completed without complication. Iwas present during the procedure.CONCLUSION: 1. Large 7 cm paraesophageal hernia.2. Gastritis.I was present and performed procedure.Electronica lly Signed by:Crystal Varela M.D. 11/07/2017 02:47 P Zaynab Varela M.D.Date Dict: 11/06/2017/11:07 Kevin/Crystal Varela M.D.Date Trans: 11/06/2017 10:28 P/[id number]: Hi Holliday M.D. [address] [place] [id number] [facility] CBC COMPLETE BLOOD COUNTon 1 01-07-2017 Erythrocyte distribution width Auto Ratio (RBC) 17.9 % High 11.5-16.9 [facility] Comment on above: Performed By: #### 5 0608 ####[facility] [facility].[address] Erythrocytes (RBC) 4.98 mill/mm3 Normal 3.50-5.50 [facility] Comment on above: Performed By: #### 5 0608 ####[facility] Hematocrit (HCT) 35.1 % Low 36.0-48.0 [facility] Comment on above: Performed By: #### 5 0608 ####[facility] Hemoglobin mass conc (Bld) 10.7 g/dL Low 12.0-15.0 [facility] Comment on above: Performed By: #### 5 0608 ####[facility] MCH 21.6 pg Low 24.0-32.0 [facility] Comment on above: Performed By: #### 5 0608 ####[facility] MCHC mass conc (RBC) 30.6 g/dL Low 32.0-36.0 [facility] Comment on above: Performed By: #### 5 0608 ####[facility] MCV 70.5 fL Low 80.0-100.0 [facility] Comment on above: Performed By: #### 5 0608 ####[facility] [place] [address], [facility] PLAT CNT 334 Thou/mm3 Normal 100-400 [facility] Comment on above: Performed By: #### 5 0608 ####[facility] [facility].[address] WBC (Leukocytes) 13.3 Thou/mm3 High 4.0-10.0 [facility] Comment on above: Performed By: #### 5 0608 ####[facility] [facility] COMP METABOLIC PANELon 11-06 Alanine aminotransferase (ALT) 14 U/L Normal 7-52 [facility] Comment on above: Performed By: #### 0 0121 ####[facility] [facility].[address] Albumin 4.0 g/dL Normal 3.5-5.7 [facility] Comment on above: Performed By: #### 0 0121 ####[facility] [facility].[address] ALKALINE PHOSPH 73 IU/L Normal 34-104 [facility] Comment on above: Performed By: #### 0 0121 ####[facility] [facility].[address] Aspartate aminotransferase (AST) 17 U/L Normal 13-39 [facility] Comment on above: Performed By: #### 0 0121 ####[facility] [facility].[address] Bilirubin (total) 0.4 mg/dL Normal 0.3-1.0 [facility] Comment on above: Performed By: #### 0 0121 ####[facility] [facility].[address] Calcium 9.0 mg/dL Normal 8.6-10.3 [facility] Comment on above: Performed By: #### 0 0121 ####[facility] [facility].[address] Chloride 108 mmol/L High 98-107 [facility] Comment on above: Performed By: #### 0 0121 ####[facility] [facility] [place] [address], [facility] CO2 25 mmol/L Normal 21-31 [facility] Comment on above: Performed By: #### 0 0121 ####[facility] [facility] [place] [address], [facility] Creatinine 0.81 mg/dL Normal 0.60-1.20 [facility] Comment on above: Performed By: #### 0 0121 ####[facility] [facility] [place] [address], [facility] eGFR (black) mL/min/{1.73_m2} Normal >60 [facility] Comment on above: Result Comment: Calc ulation may not be valid for patients over 70 years Performed By: #### 0 0121 ####[facility] [facility] [place] [address], [facility] eGFR (non-black) mL/min/{1.73_m2} Normal >60 [facility] Comment on above: Result Comment: Calc ulation may not be valid for patients over 70 years Performed By: #### 0 0121 ####[facility] [facility] [place] [address], [facility] Glucose mass conc 103 mg/dL High 70-100 [facility] Comment on above: Performed By: #### 0 0121 ####[facility] [facility] [place] [address], [facility] Potassium molar conc 4.7 mmol/L Normal 3.5-5.1 [facility] Comment on above: Performed By: #### 0 0121 ####[facility] [place] [address], [facility] Protein 6.7 g/dL Normal 6.0-8.3 [facility] Comment on above: Performed By: #### 0 0121 ####[facility] [facility].[address] Sodium 139 mmol/L Normal 136-145 [facility] Comment on above: Performed By: #### 0 0121 ####[facility] [facility].[address] Urea nitrogen 26 mg/dL High 7-25 [facility] Comment on above: Performed By: #### 0 0121 ####[facility] [facility].[address] HEMOGLOBIN A1Con 11-06-2017 Glucose mass conc 148 mg/dL High 70-126 [facility] Comment on above: Performed By: #### 4 6447 ####[facility] Hemoglobin A1c/Hemoglobin.tota l mass fraction (Bld) 6.8 % High 4.0-6.0 [facility] Comment on above: Performed By: #### 4 6447 ####[facility] PROTHROMBIN TIMEon 7 INR Coag RelTime (PPP) 1.04 {INR} Normal 0.91-1.16 [facility] Comment on above: Result Comment: ACCC P RECOMMENDED INR FOR WARFARIN THERAPY CONDITION INRPROPHYLAXIS OF VENOUS THROMBOSIS 2-3(HIGH-RISK SURGERY)TREATMENT OF VENOUS THROMBOSIS 2-3TREATMENT OF PULMONARY EMBOLISM 2-3PREVENTION OF SYSTEMIC EMBOLISM: 2-3 ACUTE MYOCARDIAL INFARCTION TISSUE HEART VALVES VALVULAR HEART DISEASE ATRIAL FIBRILLATION RECURRENT SYSTEMIC EMBOLISMMECHANICAL HEART VALVE 2.5-3.5 FROM: ORAL ANTICOAGULANTS. MECHANISM OF ACTION, CLINICALEFFECTIVENESS, AND OPTIMAL THERAPEUTIC RANGE. [id number]. Performed By: #### 5 6101 ####[facility] [place] [address], [facility] Prothrombin time (PT) Coag time (PPP) 13.6 s Normal 12.3-14.8 [facility] Comment on above: Result Comment: ALL RESULTS MUST BE INTERPRETED WITH RESPECT TO BLOOD DRAWING ARTIFACTOR DILUTION ERROR OF ANTICOAGULANT AT THE TIME OF SAMPLING. Performed By: #### 5 6101 ####[facility] [id number], [facility] TYPE AND CROSSMATCHon 2016 ABO INTERPRETATION O Normal [facility] Comment on above: Performed By: #### 6 2594 ####[facility] [facility] [place] [address], [facility] ANTIBODY SCREEN Negative Normal [facility] Comment on above: Performed By: #### 6 2594 ####[facility] [facility] [place] [address], [place] RH INTERPRETATION Positive Normal [facility] Comment on above: Performed By: #### 6 2594 ####[facility] [facility] [place] [address], [facility] Vital Signs Date Time Vital Sign Value Performing Clinician Facility 10-26-2024 13:32-0500 Body height 154.9 cm Sergio Bell MD Work Phone: [facility] 10-26-2024 13:32-0500 Body mass index (BMI) [Ratio] 25.51 kg/m2 Sergio Bell MD Work Phone: [facility] 10-26-2024 13:32-0500 Body weight 61.24 kg Sergio Bell MD Work Phone: [facility] 10-26-2024 13:32-0500 Diastolic blood pressure 154 mm[Hg] Sergio Bell MD Work Phone: [facility] 10-26-2024 13:32-0500 Systolic blood pressure 189 mm[Hg] Sergio Bell MD Work Phone: [facility] 09-13-2024 10:17-0400 Body height 154.9 cm Sergio Bell MD Work Phone: [facility] 09-13-2024 10:17-0400 Body mass index (BMI) [Ratio] 24.56 kg/m2 Sergio Bell MD Work Phone: [facility] 09-13-2024 10:17-0400 Body weight 58.97 kg Sergio Bell MD Work Phone: [facility] 09-13-2024 10:17-0400 Diastolic blood pressure 69 mm[Hg] Sergio Bell MD Work Phone: [facility] 09-13-2024 10:17-0400 Systolic blood pressure 122 mm[Hg] Sergio Bell MD Work Phone: [facility] 02-14-2022 11:26-0400 Diastolic blood pressure 53 mm[Hg] MD Hi Holliday Work Phone: [facility] 02-14-2022 11:26-0400 Heart rate 61 /min MD Hi Holliday Work Phone: [facility] 02-14-2022 11:26-0400 Respiratory rate 16 /min MD Hi Holliday Work Phone: [facility] 02-14-2022 11:26-0400 SaO2% (BldA) [Mass fraction] 94 % MD Hi Holliday Work Phone: [facility] 02-14-2022 11:26-0400 Systolic blood pressure 129 mm[Hg] MD Hi Holliday Work Phone: [facility] 02-14-2022 08:18-0400 Body height 154.94 cm MD Hi Holliday Work Phone: [facility] 02-14-2022 08:18-0400 Body mass index (BMI) [Ratio] 24.5 kg/m2 MD Hi Holliday Work Phone: [facility] 02-14-2022 [id number] Body weight 58.96 kg MD Hi Holliday Work Phone: [facility] Encounters Encounter Date Encounter Type Care Provider Facility Start: 10-31-2024 End: 10-31-2024 Lab Drop off Wilfredo Melgar [facility] Start: 10-31-2024 End: 10-31-2024 ambulatory Wilfredo Melgar Facility:[facility] Start: 10-26-2024 End: 10-26-2024 Bamboo flowsheet Sergio Bell MD Work Phone: [facility] Start: 10-26-2024 End: 10-26-2024 Bamboo flowsheet Sergio Bell MD Work Phone: [facility] Start: 10-26-2024 End: 10-27-2024 Telephone encounter Sergio Bell MD Work Phone: [facility] Start: 10-26-2024 End: 10-26-2024 Office outpatient visit 15 minutes Sergio Bell MD Work Phone: [facility] Comment on above: Right thyroid nodule (CMS/HCC) (Primary Dx); Chronic intractable headache, unspecified headache type Start: 10-03-2024 End: 10-17-2024 Telephone encounter Sergio Bell MD Work Phone: [facility] Start: 09-30-2024 End: 10-03-2024 Telephone encounter Sergio Bell MD Work Phone: [facility] Start: 09-28-2024 End: 09-28-2024 ambulatory MD Hi Holliday Work Phone: [facility] Work Phone: Start: 09-28-2024 End: 09-28-2024 Departed Referred MD Hi Holliday Work Phone: [facility] Start: 09-13-2024 End: 09-13-2024 Bamboo flowsheet Sergio Bell MD Work Phone: [facility] Start: 09-13-2024 End: 09-13-2024 Bamboo flowsheet Sergio Bell MD Work Phone: [facility] Start: 09-13-2024 End: 09-13-2024 ambulatory SERGIO H TIMMIS Not Available Start: 09-13-2024 End: 09-13-2024 Office outpatient visit 25 minutes Sergio Bell MD Work Phone: [facility] Comment on above: Right thyroid nodule (CMS/HCC) (Primary Dx); Chronic pansinusitis Start: 08-25-2024 End: 08-25-2024 ambulatory Wilfredo Melgar Facility:[facility] Start: 07-22-2024 End: 08-05-2024 Telephone encounter Sergio Bell MD Work Phone: [facility] Start: 04-12-2024 End: 04-13-2024 ambulatory Wilfredo Melgar Facility:[facility] [place] Start: 04-12-2024 End: 04-12-2024 ambulatory Wilfredo Melgar Facility:[facility] Start: 04-12-2024 End: 04-12-2024 Lab Drop off Wilfredo Melgar [facility] Start: 03-21-2024 ambulatory Wilfredo Melgar Facility : [facility] Start: 02-09-2024 End: 02-09-2024 ambulatory SERGIO BELL Not Available Start: 01-27-2024 End: 01-28-2024 ambulatory MINE EXPERT Betsey L Aurea Facility:[facility] Start: 01-27-2024 End: 01-27-2024 Lab Drop off Betsey L Aurea [facility] Start: 12-29-2023 End: 12-30-2023 ambulatory Wilfredo Melgar Facility:[facility] Start: 11-25-2023 End: 11-26-2023 ambulatory Wilfredo Melgar Facility:[facility] [place] Start: 11-24-2023 End: 11-25-2023 ambulatory Wilfredo Melgar Facility:[facility] Start: 11-19-2023 End: 12-22-2023 ambulatory Wilfredo Melgar Facility:[id number] Start: 10-05-2023 End: 10-06-2023 ambulatory [facility] Melgar [facility] Start: 09-22-2023 End: 09-23-2023 ambulatory Wilfredo Melgar Facility:[facility] Start: 09-22-2023 End: 09-22-2023 Lab Drop off Wilfredo Melgar [facility] Start: 08-31-2023 End: 09-01-2023 ambulatory Wilfredo Melgar Facility:[facility] [place] Start: 08-24-2023 End: 08-25-2023 ambulatory Wilfredo Melgar Facility:[facility] [place] Start: 08-10-2023 End: 08-11-2023 ambulatory Wilfredo Melgar Facility: [facility] Start: 05-11-2023 End: 05-12-2023 ambulatory Wilfredo Melgar Facility:[facility] Start: 02-20-2023 End: 02-21-[address] HI HOLLIDAY . Facility:[facility] Start: 12-25-2022 End: 12-26-[address] HI HOLLIDAY . Facility:[facility] Start: 05-08-2022 End: 05-09-[address] HI HOLLIDAY . Facility:[facility] Start: 02-14-2022 End: 02-14-2022 Admission to same day surgery center MD Hi Holliday Work Phone: [facility]Ultrasound [facility] [place] Start: 11-09-2017 End: 11-12-2017 Evaluation and management of inpatient CRYSTAL VARELA Facility:[facility] Start: 11-06-2017 End: 11-07-2017 Ambulatory CRYSTAL VARELA Facility:[facility] Procedures Date Procedure Procedure Detail Performing Clinician Start: 02-14-2022 Needle biopsy MD Hi vazquez Work Phone: Start: 02-04-2021 Cystourethroscopy wi th dilation of urethral stricture Wilfredo Melgar Start: 05-07-2020 Cystourethroscopy wi th dilation of urethral stricture Wilfredo Melgar Start: 11-09-2017 REPAIR DIAPHRAGM, PERCUTANEOUS ENDOSCOPIC APPROACH ZAYNABIN VAERY Start: 11-09-2017 Resection of Gallbla dder, Percutaneous Endoscopic Approach ZAYNABIN AVERY Start: 11-09-2017 RESTRICTION OF ESOPHAGOGASTRIC JUNCTION, PERC ENDO APPROACH CRYSTAL VARELA Bilateral cataracts (disorder) Wilfredorafita Melgar Comment on above: bilateral one week a part Cholecystectomy Wilfredo Melgar Hysterectomy Wilfredorafita Melgar Laparoscopy Wilfredo Melgar Placement of stent i n cardiac conduit Wilfredo Melgar Post-surgery back pa in (finding) Wilfredo Harsha Plan of Treatment Date Care Activity Detail Author Start: 12-21-2024 End: 12-21-2024 Patient encounter procedure 12/21/2024 1:30 PM EST Office Visit [facility] [address] [place] [id number] Sergio Bell MD [address] [place], [place] [id number] [facility] Start: 11-29-2024 End: 11-29-2024 Patient encounter procedure 11/29/2024 3:30 PM EST Office Visit [facility] [address] [place] [address] Sergio Bell MD [address] [place] [address] [facility] Start: 11-28-2024 ambulatory Ambulatory Facility:[facility] Start: 10-26-2024 End: 10-26-2024 Patient encounter procedure [facility] Comment on above: Arrived Start: 08-16-2024 End: 08-16-2024 Patient encounter procedure 08/16/2024 1:30 PM EDT Office Visit [facility] [address] [place] [address] Sergio Bell MD [address] [place] [address] [facility] Start: 07-24-2024 Influenza vaccination Influenza Vacc ine (#1) [facility] Start: 2011 Pneumococcal Vaccine : 65+ Years (1 of 1 - PCV) Pneumococcal Vaccine: 65+ Years (1 of 1 - PCV) [facility] Patient Education Kidney Biopsy [facility] Work Phone: Immunizations Immunization Date Immunization Notes Care Provider [facility] 08-25-2024 influenza, high dose seasonal, preservative-free; Translations: [Fluzone High Dose Vaccine] Wilfredo Melgar [facility] 09-22-2023 influenza, high dose seasonal, preservative-free Wilfredo Melgar [facility] 09-22-2023 influenza virus vaccine, unspecified formulation Sergio Bell MD Work Phone: [facility] 02-19-2021 SARS-CoV-2 (COVID-19 ) mRNA BNT-162g8 vax Wilfredo Melgar [facility] 01-28-2021 SARS-CoV-2 (COVID-19 ) mRNA BNT-162b2 vax Wilfredo Melgar [facility] 12-24-2020 SARS-CoV-2 (COVID-19 ) mRNA-1273 vaccine Wilfredo Melgar [facility] NEGATED: Highlighted row has not occurred!08-24-2023 influenza virus vaccine, unspecified formulation Wilfredo Melgar [facility] NEGATED: Highlighted row has not occurred!02-10-2023 influenza virus vaccine, unspecified formulation Wilfredo Melgar [facility] NEGATED: Highlighted row has not occurred!04-09-2021 influenza virus vaccine, unspecified formulation Wilfredo Melgar [facility] NEGATED: Highlighted row has not occurred!01-15-2021 influenza virus vaccine, unspecified formulation Wilfredo Melgar [facility] Payers Date Payer Category Payer Self-pay [id number] 2023 Medicare HU[employer]NA MEDICARE ADVANTAGE HU[employer]NA MEDICARE [id number] 2023-Present [address] [place] [id number] 2023 Medicare (Managed Care) HUMANA M EDICARE ADVANTAGE [id number] 1959 Unknown [id number] 1945 Unknown [id number] 2.16.840.1.508589.3.579. 2.593 1946 Unknown [id number] 2.16.840.1.081849.3.579. 2.593 1946 Unknown [id number] 2.16.840.1.771407.3.579. 2.59 1946 Unknown [id number] 2.16.840.1.059856.3.579. 2.72 1946 Unknown [id number] 2.16.840.1.893912.3.579. 272 1946 Unknown [id number] 2.16.840.1.799021.3.579. 272 1946 Unknown [id number] 2.16.840.1.142442.3.579. 272 1946 Unknown [id number] 2.16.840.1.220911.3.579. 2.72 1946 Unknown [id number] 2.16.840.1.444113.3.579. 272 1946 Unknown [id number] 2.16.840.1.025533.3.579. 2.72 1946 Unknown [id number] 2.16.840.1.037245.3.579. 2.72 1946 Unknown [id number] 2.16.840.1.602622.3.579. 2.72 1946 Unknown [id number] 2.16.840.1.062052.3.579. 272 1946 Unknown [id number] 2.16.840.1.438772.3.579. 2.72 1946 Unknown [id number] 2.16.840.1.120879.3.579. 2727 1946 Unknown [id number] 2.16.840.1.837537.3.579. 2.727 1946 Unknown [id number] 2.16.840.1.244857.3.579. 2.727 1946 Unknown [id number] 2.16.840.1.605481.3.579. 2.72 1946 Unknown [id number] 2.16.840.1.766800.3.579. 2.727 1946 Unknown [id number] 2.16.840.1.998290.3.579. 2.1259 1946 Unknown [id number] 2.16.840.1.828660.3.579. 2.1259 1946 Unknown [id number] 2.16.840.1.685120.3.579. 2.72 1946 Unknown [id number] 2.16.840.1.352830.3.579. 2.727 1946 Unknown [id number] 2.16.840.1.994156.3.579. 2.727 1946 Unknown [id number] 2.16.840.1.571042.3.579. 2.727 Unknown [id number] 2.16.840.1.325248.3.579. 2.531 Social History Date Type Detail [facility] Work Phone: Start: 1945 Sex Assigned At Female [facility] Start: 09-22-2023 Tobacco smoking status Light t obacco smoker (finding) [facility] Start: 02-09-2024 End: 10-26-2024 Sex Assigned At Female [facility] Start: 01-27-2024 End: 08-25-2024 Tobacco smoking status Ex-smoker (finding) [facility] History of tobacco use Current smoker [facility] History of tobacco use Cigarette Smoker [facility] Start: 01-26-2024 End: 09-13-2024 Tobacco use and exposure Smokeless tobacco non-user [facility] Start: 02-09-2024 End: 10-26-2024 Alcoholic beverage intake Current drinker of alcohol (finding) [facility] Start: 02-09-2024 End: 10-26-2024 History of Social function [facility] Start: 1945 Sex assigned at Not on file N [facility] Start: 09-13-2024 Tobacco smoking stat [facility] Smokes tobacco daily [facility] Clinical Notes 11-24-2023 to 10-27-2024 Telephone Encounter - Lolly Barrios - 10/27/2024 8:04 AM ESTTelephone Encounter - Lolly Barrios - 10/27/2024 8:04 AM ESTTelephone Encounter - Sergio Bell MD - 10/26/2024 4:04 PM ESTLaboratory Note Date & Type Note Facility 10-27-2024 Telephone encounter Note Cld and spoke to pt letting her know that allergy testing shows allergies to cedar and cockroach [facility] 10-27-2024 Miscellaneous Notes Cld and spoke to pt letting her know that allergy testing shows allergies to cedar and cockroach Tell pt her allergy testing shows allergies to cedar and cockroach documented in this encounter [facility] 10-26-2024 Telephone encounter Note Tell pt her allergy testing shows allergies to cedar and cockroach [facility] 10-26-2024 History of Presen t illness Narrative Subjective Patient ID: Chantelle Dey is a 79 y.o. female who presents for Thyroid Nodule (Follow up FNA ) FNA path showed a Cromwell 3 nodule. Genetic testing could not be completed due to insufficient RNA. Sinus plain films were negative. Pt states she has had severe head pressure for over a year. Did not respond to abx tx. Atrovent tried in the past, but did not help. Family History Problem Relation Name Age of Onset Heart failure Father Diabetes Father Active Ambulatory Problems Diagnosis Date Noted Abnormal results of cardiovascular function studies 08/23/2014 Acute confusion 02/07/2019 Benign essential hypertension ([facility]/HCC) 08/21/2014 Carotid artery occlusion 04/27/2014 Coronary atherosclerosis ([facility]) 01/26/2024 Dizziness and giddiness 08/21/2014 Gastroesophageal reflux disease 08/21/2014 Hyperlipidemia ([facility]) 08/21/2014 Hypertensive disorder ([facility]) 08/23/2014 Peripheral vascular disease ([facility]) 08/23/2014 Stricture of artery ([facility]) 08/21/2014 Type 2 diabetes mellitus without complication ([facility]) 08/21/2014 COPD (chronic obstructive pulmonary disease) ([facility]) 01/26/2024 Thyroid nodule ([facility]) 01/26/2024 Polycythemia 01/26/2024 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/2024 Chronic respiratory failure with hypoxia ([facility]) 01/26/2024 Fibromyalgia 01/26/2024 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 Left ear impacted cerumen 02/09/2024 Right thyroid nodule ([facility]) 02/09/2024 Vasomotor rhinitis 02/09/2024 Resolved Ambulatory Problems Diagnosis Date Noted Tobacco dependence syndrome 01/26/2024 Past Medical History: Diagnosis Date Depression ([facility]) Herpes zoster Hiatal hernia Impingement syndrome of shoulder Rib fracture Past Surgical History: Procedure Laterality Date CATARACT EXTRACTION CHOLECYSTECTOMY CORONARY ANGIOPLASTY WITH STENT PLACEMENT CYSTOURETHROSCOPY 02/04/2021 with dilation of urethral sticture CYSTOURETHROSCOPY 05/07/2020 with dilation of urethral stricture HYSTERECTOMY MR ANGIOGRAM HEAD WO IV CONTRAST 02/07/2019 MR ANGIOGRAM HEAD WO IV CONTRAST 02/07/2019 MR ANGIOGRAM NECK W AND WO IV CONTRAST 02/07/2019 MR ANGIOGRAM NECK W AND WO IV CONTRAST 02/07/2019 No Known Allergies Current Outpatient Medications on File Prior to Visit Medication Sig Dispense Refill albuterol HFA 90 mcg/act inhaler Inhale 2 puffs every 6 (six) hours if needed alendronate (Fosamax) 35 MG tablet Take 35 mg by mouth every 7 (seven) days aspirin 81 MG EC tablet Take 1 tablet by mouth Daily cholecalciferol 125 MCG (5000 UT) capsule Take 1 capsule by mouth Daily citalopram (CeleXA) 20 MG tablet Take 20 mg by mouth Daily HYDROcodone-acetaminophen ([place]) 5-325 MG tablet Take 1 tablet by mouth Daily as needed ipratropium (Atrovent) 0.06 % nasal spray Administer 2 sprays into each nostril in the morning and 2 sprays in the evening and 2 sprays before bedtime. 15 mL 0 methotrexate 2.5 MG tablet Take 2.5 mg by mouth 1 (one) time per week. metoprolol tartrate (Lopressor) 25 MG tablet Take 0.5 tablets by mouth in the morning and 0.5 tablets before bedtime. omega-3 (fish oil) 1000 MG capsule Take 1 g by mouth pantoprazole (ProtoNix) 40 MG EC tablet Take 40 mg by mouth in the morning. Take before meals. Do not crush, chew, or split.. rosuvastatin (Crestor) 5 MG tablet Take 5 mg by mouth Daily No current facility-administered medications on file prior to visit. Objective Last Recorded Vitals Vitals: 10/26/24 1332 BP: (!) 189/154 ENT Physical Exam Constitutional Appearance: patient appears well-developed, well-nourished and well-groomed, Communication/Voice: communication appropriate for developmental age; vocal quality normal; Assessment/Plan Diagnoses and all orders for this visit: Right thyroid nodule (CMS/HCC) Chronic intractable headache, unspecified headache type I will plan to repeat US in November. If there is any growth I will repeat the FNA for genetic testing. Check CT head to evaluate head and sinuses for chronic headache and pressure documented in this encounter [facility] 10-03-2024 Telephone encounter Note Verified with Herminia Lorenzo [facility] 10-03-2024 Miscellaneous Notes Verified with Herminia Lorenzo Make sure pt getting affirma documented in this encounter [facility] 10-03-2024 Telephone encounter Note Make sure pt getting affirma [facility] 10-03-2024 Telephone encounter Note TC from Herminia Lorenzo verifying it was sent to [facility]. [facility] 10-03-2024 Miscellaneous Notes TC from Herminia Lorenzo verifying it was sent to [facility]. TC from pt. Follow up appt for 10/26. LM asking Herminia if path sent for [facility]. LM asking pt to call us to schedule follow up. Make sure affirma testing being hanna and schedule F/U for 3 weeks documented in this encounter [facility] 10-03-2024 Telephone encounter Note TC from pt. Follow up appt for 10/26. [facility] 10-03-2024 Telephone encounter Note LM asking Herminia if path sent for [facility]. LM asking pt to call us to schedule follow up. [facility] 09-30-2024 Telephone encounter Note Make sure affirma testing being hanna and schedule F/U for 3 weeks [facility] 09-13-2024 History of Presen t illness Narrative Subjective Patient ID: Chantelle Dey is a 79 y.o. female who presents for Thyroid Nodule (Follow up Ultrasound [facility] 08/09/24.) Thyroid US shows a [id number] RT TR4 nodule, compared to 14mm TR3 in Dec. Pt also c/o chronic sinus issues Family History Problem Relation Name Age of Onset Heart failure Father Diabetes Father Active Ambulatory Problems Diagnosis Date Noted Abnormal results of cardiovascular function studies 08/23/2014 Acute confusion 02/07/2019 Benign essential hypertension (CMS/HCC) 08/21/2014 Carotid artery occlusion 04/27/2014 Coronary atherosclerosis ([facility]) 01/26/2024 Dizziness and giddiness 08/21/2014 Gastroesophageal reflux disease 08/21/2014 Hyperlipidemia (CMS/[facility]) 08/21/2014 Hypertensive disorder ([facility]) 08/23/2014 Peripheral vascular disease ([facility]) 08/23/2014 Stricture of artery (CMS/HCC) 08/21/2014 Type 2 diabetes mellitus without complication (CMS/HCC) 08/21/2014 COPD (chronic obstructive pulmonary disease) ([facility]) 01/26/2024 Thyroid nodule (CMS/HCC) 01/26/2024 Polycythemia 01/26/2024 Immunodeficiency due to drugs (CMS/[facility]) 01/26/2024 Chronic respiratory failure with hypoxia (CMS/HCC) 01/26/2024 Fibromyalgia 01/26/2024 Rheumatoid arteritis (CMS/HCC) 01/26/2024 Left ear impacted cerumen 02/09/2024 Right thyroid nodule ([facility]/HCC) 02/09/2024 Vasomotor rhinitis 02/09/2024 Resolved Ambulatory Problems Diagnosis Date Noted Tobacco dependence syndrome 01/26/2024 Past Medical History: Diagnosis Date Depression (CMS/HCC) Herpes zoster Hiatal hernia Impingement syndrome of shoulder Rib fracture Past Surgical History: Procedure Laterality Date CATARACT EXTRACTION CHOLECYSTECTOMY CORONARY ANGIOPLASTY WITH STENT PLACEMENT CYSTOURETHROSCOPY 02/04/2021 with dilation of urethral sticture CYSTOURETHROSCOPY 05/07/2020 with dilation of urethral stricture HYSTERECTOMY MR ANGIOGRAM HEAD WO IV CONTRAST 02/07/2019 MR ANGIOGRAM HEAD WO IV CONTRAST 02/07/2019 MR ANGIOGRAM NECK W AND WO IV CONTRAST 02/07/2019 MR ANGIOGRAM NECK W AND WO IV CONTRAST 02/07/2019 No Known Allergies Current Outpatient Medications on File Prior to Visit Medication Sig Dispense Refill albuterol HFA 90 mcg/act inhaler Inhale 2 puffs every 6 (six) hours if needed alendronate (Fosamax) 35 MG tablet Take 35 mg by mouth every 7 (seven) days aspirin 81 MG EC tablet Take 1 tablet by mouth Daily cholecalciferol 125 MCG (5000 UT) capsule Take 1 capsule by mouth Daily citalopram (CeleXA) 20 MG tablet Take 20 mg by mouth Daily HYDROcodone-acetaminophen ([place]) 5-325 MG tablet Take 1 tablet by mouth Daily as needed ipratropium (Atrovent) 0.06 % nasal spray Administer 2 sprays into each nostril in the morning and 2 sprays in the evening and 2 sprays before bedtime. 15 mL 0 methotrexate 2.5 MG tablet Take 2.5 mg by mouth 1 (one) time per week. metoprolol tartrate (Lopressor) 25 MG tablet Take 0.5 tablets by mouth in the morning and 0.5 tablets before bedtime. omega-3 (fish oil) 1000 MG capsule Take 1 g by mouth pantoprazole (ProtoNix) 40 MG EC tablet Take 40 mg by mouth in the morning. Take before meals. Do not crush, chew, or split.. rosuvastatin (Crestor) 5 MG tablet Take 5 mg by mouth Daily No current facility-administered medications on file prior to visit. Objective Last Recorded Vitals Vitals: 09/13/24 1017 BP: 122/69 ENT Physical Exam Constitutional Appearance: patient appears well-developed, well-nourished and well-groomed, Communication/Voice: communication appropriate for developmental age; vocal quality normal; Assessment/Plan Diagnoses and all orders for this visit: Right thyroid nodule (CMS/HCC) Nodule is now a 15mm TR4. I will arrange an US-guided FNA. Chronic pansinusitis I will check RAST and sinus plain films documented in this encounter [facility] 08-05-2024 Telephone encounter Note Pt is scheduled for US 08/09/24 at [facility] and with Dr Bell 08/16/24. [facility] 08-05-2024 Miscellaneous Notes Pt is scheduled for US 08/09/24 at [facility] and with Dr Bell 08/16/24. Left a message for pt to call Dr Bell's office to schedule appt. Tried to call pt back to relay the information from Dr Bell/ unable to leave a message, pt does not have voice mail. Chantelle must have misunderstood our conversation. There is definitely a potential issue with possible thyroid cancer, though the risk is low. She should definitely get a F/U US Pt called in, she is cancelling her 6 mo US appt because she does not feel she needs to have another US done. Pt said the last US she had wasn't an issue with the nodule . She said she will contact the office if she has any problems. documented in this encounter [facility] 08-05-2024 Telephone encounter Note Left a message for pt to call Dr Bell's office to schedule appt. [facility] 07-22-2024 Telephone encounter Note Tried to call pt back to relay the information from Dr Bell/ unable to leave a message, pt does not have voice mail. [facility] 07-22-2024 Telephone encounter Note Chantelle must have misunderstood our conversation. There is definitely a potential issue with possible thyroid cancer, though the risk is low. She should definitely get a F/U US [facility] 07-22-2024 Telephone encounter Note Pt called in, she is cancelling her 6 mo US appt because she does not feel she needs to have another US done. Pt said the last US she had wasn't an issue with the nodule . She said she will contact the office if she has any problems. [facility] 01-27-2024 Evaluation + Plan note Diagnostic Tests PendingUrine Culture 01/27/24 Future Scheduled TestsCBC w/ Auto Diff 04/09/23Comprehensive Metabolic Panel 04/09/23US Thyroid 12/30/23 [facility] 12-30-2023 Evaluation + Plan note Future Scheduled TestsUS Thyroid 12/30/23 [facility] 11-25-2023 Note [id number] [facility] 11-24-2023 Note [id number]#[id number] [facility] Evaluation + Plan note Future Appointments Appointment Date:11/20/2023 09:30:00 AM Scheduled Provider: Location:[facility] Appointment Type: Medicare Wellness Subsequent Future Scheduled TestsCBC w/ Auto Diff 04/09/23Comprehensive Metabolic Panel 04/09/23 [facility] Evaluation + Plan note Future Appointments Appointment Date:11/28/2024 10:45:00 AM Scheduled Provider:Wilfredo Melgar MD Location:[facility] Appointment Type: Open Future Scheduled TestsUS Thyroid 12/30/23 [facility] Evaluation note No assessment inform ation available [facility] Work Phone: Evaluation note Diagnosis Right thyroid nodule (CMS/HCC)- Primary Chronic pansinusitis Other chronic sinusitis [facility] Diagnosis Right thyroid nodule (CMS/HCC)- Primary Chronic intractable headache, unspecified headache type [facility] Narrative No data available for this section [facility] No data available for this section [facility] No data available for this section [facility] Summary Purpose Family History No Family History Records FoundNo Family History Records Found No data available for this section No data available for this section No data available for this section No Family History Records FoundNo Family History Records FoundNo Family History Records FoundNo Family History Records FoundNo Family History Records FoundNo Family History Records FoundNo Family History Records FoundNo Family History Records Found No data available for this section No Family History Records Found Advance Directives No Advanced Directives Records Found Advance Directive Response Recorded Date/ Time Advance Directives No February 06 3:01pm Advance Directive Response Recorded Date/ Time Advance Directives No February 06 2:01pm Chief Complaint and Reason for Visit Chief Complaint Rt Kidney Mass Chief Complaint Unknown Additional Source Comments INFORMATION SOURCE (unrecogn ized section and content) DATE CREATED AUTHOR 05/18/2018 [facility] DATE CREATED AUTHOR AUTHOR'S ORGANIZ ATION 03/18/2023 [facility] DATE CREATED AUTHOR AUTHOR'S ORGANIZ ATION 04/15/2024 [facility] DATE CREATED AUTHOR AUTHOR'S ORGANIZ ATION 04/16/2024 [facility] DATE CREATED AUTHOR AUTHOR'S ORGANIZ ATION 09/15/2024 [facility] DATE CREATED AUTHOR AUTHOR'S ORGANIZ ATION 09/30/2024 [facility] DATE CREATED AUTHOR AUTHOR'S ORGANIZ ATION 11/06/2024 [facility] Care Teams (unrecognized sec tion and content) Team Status: Active Member Role Status Dates Hi Holliday MD Primary Care Provider Active Team Status: Inactive Member Role Status Dates Hi Holliday MD Primary Care Provider Active S tart: September 28, 2024 End: September 28, 2024 Sergio Bell Jr, MD Attending Provider Active Start: September 28, 2024 End: September 28, 2024 Team Status: Inactive Member Role Status Dates Hi Holliday MD Primary Care Provider Active William Antony Jr, MD Attending Provider Active Pipe Maker Relationship Specialty Start Date End Date Wilfredo Melgar MD [address] [place] [address] PCP - General Family Medicine 09/13/24 Pipe Maker Relationship Specialty Start Date End Date Wilfredo Melgar MD [address] [place] [address] PCP - General Family Medicine 09/13/24 Pipe Maker Relationship Specialty Start Date End Date Wilfredo Melgar MD [address] [place] [id number] PCP - General Family Medicine 09/13/24 Pipe Maker Relationship Specialty Start Date End Date Wilfredo Melgar MD [address] [place], [place] [id number] PCP - General Family Medicine 09/13/24 Pipe Maker Relationship Specialty Start Date End Date Wilfredo Melgar MD [facility] [place] [address] PCP - General Family Medicine 09/13/24 Pipe Maker Relationship Specialty Start Date End Date Wilfredo Melgar MD PCP - General Family Medicine 01/06/24 08/04/24 Goals (unrecognized section and content) Goals may be documented in a n alternate section No data available for this section No data available for this section No data available for this sectionGoals may be documented in an alternate section No data available for this section Reason for Visit (unrecogniz ed section and content) Reason Comments Thyroid Nodule Follow up Ultrasound [facility] 08/09/24. Reason Comments Thyroid Nodule Follow up [facility] FOR RECORDS PERTAINING TO PATIENTS WHO ARE OR HAVE BEEN ENROLLED IN A CHEMICAL DEPENDENCY/SUBSTANCEABUSE PROGRAM, SOME INFORMATION MAY BE OMITTED. This clinical summary was aggregated from multiple sources. Caution should be exercised in using it in the provision of clinical care. This summary normalizes information from multiple sources, and as a consequence, information in this document may materially change the coding, format and clinical context of patient data. In addition, data may be omitted in some cases. CLINICAL DECISIONS SHOULD BE BASED ON THE PRIMARY CLINICAL RECORDS. [employer] provides no warranty or guarantee of the accuracy or completeness of information in this document.
[2024-11-11 12:04] LABS: Alanine Aminotransferase 17 U/L (14-59); Albumin Level 3.3 g/dL (3.4-5.0); Alkaline Phosphatase 90 U/L (46-116); Aspartate Amino Transferase 20 U/L (15-37); Bilirubin Direct 0.1 mg/dL (0.0-0.2); Bilirubin Total 0.5 mg/dL (0.2-1.0); Globulin 3.3 g/dL; Total Protein 6.6 g/dL (6.4-8.2)
== END 2024-11-11 10:07 | disposition home or self-care (01) ==
LOC: LAB 10:07
PROVIDERS: PCP Family Medicine; Visit Provider Family Medicine
DX: D84.821 Immunodeficiency due to drugs (principal); E04.1 Nontoxic single thyroid nodule; Z29.89 Encounter for other specified prophylactic measures
CPT/HCPCS: 36415; 80076

== ENCOUNTER 2024-11-11 10:15 | Outpatient (OUT) | payer MEDICARE, SELFPAY ==
--- NOTE | 2024-11-11 10:22 | CT_ITS ---
The [address] [address] Patient Name: DIEGO DEY MRN: [facility]:[id number] date: 1945 Sex: F Assigned Patient Location: CT Current Patient Location: CT Accession/Order Number: [id number] Exam Date: 11/11/2024 10:28 Report Date: 11/11/2024 11:37 At the request of: SERGIO BELL Procedure: CT head/brain wo con EXAM: CT head/brain wo con HISTORY: Chronic Intractable Headache COMPARISON: CT head 11/16/2023. TECHNIQUE: Axial soft tissue and bone windows through the calvarium with coronal and sagittal reformats. CT dose reduction technique was used including Automated Exposure Control. Findings: The paranasal sinuses and mastoid air cells are well aerated. No air-fluid levels. No extra-axial fluid collection. No intra-axial or extra-axial bleed. No mass effect or midline shift. The miramontes-white matter differentiation is preserved. There are white matter low attenuation lesions which are nonspecific but commonly attributed to chronic small vessel ischemic disease. The brain parenchymal volume is reduced yet likely age-appropriate. The ventricles are nondilated. The basal cisterns are patent. The craniovertebral junction is unremarkable. CT/CT head/brain wo con IMPRESSION: 1. No acute intracranial abnormality. 2. Senescent changes. Electronically authenticated by: EMELIA HA Date: 11/11/2024 11:37
== END 2024-11-11 10:16 | disposition home or self-care (01) ==
LOC: CT 10:15
PROVIDERS: PCP Family Medicine; Visit Provider Otolaryngology
DX: R51.9 Headache, unspecified (principal); G89.29 Other chronic pain
CPT/HCPCS: 70450

== ENCOUNTER 2024-12-07 10:48 | Outpatient (OUT) | payer MEDICARE, SELFPAY ==
--- NOTE | 2024-12-07 10:50 | US_ITS ---
[address] [address] Patient Name: DIEGO DEY MRN: [id number] date: 1945 Sex: F Assigned Patient Location: US Current Patient Location: US Accession/Order Number: [id number] Exam Date: 12/07/2024 10:51 Report Date: 12/07/2024 12:23 At the request of: SERGIO BELL Procedure: US thyroid EXAMINATION: US thyroid HISTORY: Right Thyroid Nodule COMPARISON: 08/09/2024 TECHNIQUE: Sonographic images of the thyroid gland were obtained. FINDINGS: The right thyroid lobe measures 4.7 x 1.5 x 1.9 cm. 2 focal nodules. Nodule 1.1.2 x 0.8 x 1.1 cm. Mixed solid and cystic, hypoechoic, wide, smooth margins, desiccation is. TR 3. Nodule 2. 1.3 x 0.6 x 0.6 cm. Solid, hypoechoic, wide, smooth margins, no calcifications. TR 4 The thyroid isthmus measures 1 mm. The left thyroid lobe measures 3.9 x 1.1 x 1.5 cm. Normal in size, contour and echotexture The most suspicious nodule. Right thyroid lobe. US/US thyroid IMPRESSION: 2 stable right thyroid nodules TI-RADS: The [employer] TI-RADS committee's white paper recommendations for thyroid lesions classified as TR4 (moderately suspicious) are listed below: > 1.0 cm. Follow-up ultrasound in 1, 2, 3, and 5 years. > 1.5 cm. FNA. J. Am Gabriel Radiol 2017;14:[id number]. Electronically authenticated by: ANTONIA NEVES Date: 12/07/2024 12:23
--- OUTSIDE RECORDS SUMMARY | 2024-12-07 11:11 | XMS_ITS | CCD ---
Author Organization [facility] Care Team Providers Care Senior Cobol Developer Name Role Phone VARELA, JIANLIN Unavailable Unavailable VARELA, JIANLIN Unavailable Unavailable HOLLIDAY, HI Unavailable Unavailable HOLLIDAY, HI Unavailable Unavailable MO Unavailable Unavailable VARELA, JIANLIN Unavailable Unavailable VARELA, JIANLIN Unavailable Unavailable VARELA, JIANLIN Unavailable Unavailable HOLLIDAY, HI Unavailable Unavailable HOLLIDAY, HI Unavailable Unavailable Holliday, MD Hi Peralta Primary Care Provider MD William Antony Jr Attending Provider HOLLIDAY ., DR HI Peralta Admitting Unavailable [...] Consulting Unavailable Wilfredo Melgar. Primary Care Physician [phone] Wilfredo Melgar. Attending Unavailable Wilfredo Melgar. Attending Unavailable Wilfredo Melgar. Attending Unavailable Wilfredo Melgar. Attending Unavailable Wilfredo Melgar. Attending Unavailable Wilfredo Melgar. Admitting Unavailable Aurea, FOREIGN AGENT Betsey L Attending Unavailable Aurea, FOREIGN AGENT Betsey L Admitting Unavailable Wilfredo Melgar E. Attending Unavailable Wilfredo Melgar E. Admitting Unavailable Wilfredo Melgar E. Admitting Unavailable Wilfredo Melgar. Attending Unavailable Wilfredo Melgar E. Attending Unavailable Wilfredo Melgar E. Attending Unavailable Wilfredo Melgar E. Attending Unavailable Wilfredo Melgar E. Attending Unavailable Wilfredo Melgar E. Attending Unavailable Aurea, FOREIGN AGENT Betsey L Attending Unavailable Wilfredo Melgar Attending Unavailable Wilfredo Melgar. Attending Unavailable Wilfredo Melgar MD Primary Care Provider SERGIO BELL Attending Unavailable WILFREDO MELGAR Referring Unavailable SERGIO BELL Attending Unavailable MD Hi Holliday Primary Care Provider [phone] MD Sergio Bell Jr Attending Provider Sergio Thompson Jr Attending Unavailable Sergio Bell Jr Admitting Unavailable Hi Holliday Primary Care Unavailable Wilfredo Melgar MD Primary Care Provider Wilfredo Melgar. Admitting Unavailable Wilfredo Melgar. Attending Unavailable Wilfredo Melgar Attending Unavailable Wilfredo Melgar Attending Unavailable Wilfredo Melgar Attending Unavailable Wilfredo Melgar Admitting Unavailable Wilfredo Melgar. Attending Unavailable Allergies Allergy Classification Reported Allergen(s) Allergy Type Date of Onset Reaction(s) Facility (2 sources) No Known Medication Allergies; Translations: [No Known Medication Allergies] Propensity to adverse reactions (disorder) [facility] Repository Medications Current Medications Medication Drug Class(es) Dates Sig (Normalized) Sig (Original) acetaminophen 325 mg / HYDROcodone bitartrate 5 mg oral tablet (11 sources) Opioid Agonist Start: 11-24-2023 take 1 tablet by mouth every twenty-four hours as needed HYDROcodone-aceta minophen (Ariel) 5-325 MG tablet Take 1 tablet by mouth Daily as needed 11/24/2023 Active Start: 09-22-2023 take 1 tablet by marisol once daily as needed for pain Ariel 325 mg-5 mg oral tablet 1 tab(s), [...] Weight Dosing Start Date: 09/22/23 Status: Ordered [id number] 200 actuat albuterol 0.09 mg/actuat metered dose [...] generic, # 3 EA, Refills(s) 4, Pharmacy: [facility], 154.9, cm, 08/25/24 10:39:00 EDT, Height/Length Dosing, 60.4, kg, 08/25/24 10:39:00 EDT, Weight Dosing Start Date: 08/25/24 Status: Ordered Start: 04-12-2024 take 2 puff(s) by in halation every six hours Albuterol (Eqv-Proventil HFA) 90 mcg/inh inhalation aerosol = 2 puff(s), Inhalation, q6hr, Please give cheapest generic, # 18 gm, Refills(s) 1, Pharmacy: [facility], 154.9, cm, 04/12/24 9:56:00 EDT, Height/Length Dosing, 59, kg, 04/12/24 9:56:00 EDT, Weight Dosing Start Date: 04/12/24 Status: Ordered Start: 10-08-2023 take 2 puff(s) by in halation every six hours Albuterol (Eqv-Proventil HFA) 90 mcg/inh inhalation aerosol = 2 puff(s), Inhalation, q6hr, Please give cheapest generic, # 18 gm, Refills(s) 1, Pharmacy: [facility], 154.9, cm, 09/22/23 13:40:00 EDT, Height/Length [...] q7day, # 12 tab(s), Refills(s) 4, Pharmacy: [facility], 154.9, cm, 11/24/23 15:39:00 [...] Daily, # 90 tab(s), Refills(s) 0, Pharmacy: [facility], 154.9, cm, 08/25/24 10:39:00 EDT, Height/Length Dosing, 60.4, kg, 08/25/24 10:39:00 EDT, Weight Dosing Start Date: 08/25/24 Status: Ordered Start: 01-04-2024 Zyrtec Dissolv e 10 mg oral tablet, dispersible 10 mg = 1 tab(s), Oral, Daily, PRN for allergy symptoms, # 90 tab(s), Refills(s) 0, Pharmacy: [facility], 154.9, cm, 12/29/23 13:30:00 EST, Height/Length [...] DAY, # 90 tab(s), Refills(s) 3, Pharmacy: [facility], 154.9, cm, 04/12/24 9:56:00 [...] MONDAYS, # 72 tab(s), Refills(s) 3, Pharmacy: [facility], 154.9, cm, 11/24/23 15:39:00 EST, Height/Length Dosing, 60, kg, 11/24/23 15:39:00 EST, Weight Dosing Start Date: 12/02/23 Status: Ordered Start: 06-08-2023 take 6 tablets by mo uth every week methotrexate 2.5 mg Tab 15 mg = 6 tab(s), Oral, q, Take 6 tabs weekly on Mondays, # 72 tab(s), Refills(s) 1, Pharmacy: [facility], 154.9, cm, 05/11/23 15:58:00 EDT, Height/Length Dosing, 60.3, kg, 05/11/23 15:58:00 EDT, Weight Dosing Start Date: 06/08/23 Status: Ordered Start: 02-14-2022 Methotrexate A ctive MG SOLUTION February 14, 2022 8:15am methylPREDNISolone (1 source) Corticosteroid Start: 09-04-2023 methylPREDNISolone 4 mg Tab See Instructions, TAKE DIRECTED ON PACKAGE LABELING, # 21 tab(s), Refills(s) 10, Pharmacy: [facility], 154.9, cm, 08/24/23 16:06:00 [...] Daily, # 90 tab(s), Refills(s) 1, Pharmacy: [facility], 154.9, cm, 04/12/24 9:56:00 EDT, Height/Length Dosing, 59, kg, 04/12/24 9:56:00 EDT, Weight Dosing Start Date: 05/23/24 Status: Ordered Start: 12-02-2023 metoprolol 25 mg ER Tab 12.5 mg = 0.5 tab(s), Oral, BID, # 90 tab(s), Refills(s) 1, Pharmacy: [facility], 154.9, cm, 11/24/23 15:39:00 [...] day(s), # 20 cap(s), Refills(s) 0, Pharmacy: [facility], 154.9, cm, 01/27/24 13:56:00 EST, Height/Length Dosing, 60, kg, 01/27/24 13:56:00 EST, Weight Dosing Start Date: 01/27/24 Stop Date: 02/06/24 Status: Ordered [place]-3 Fatty Acids (Fish Oil) Capsule (2 sources) Start: 02-14-2022 [place]-3 Fatty Acids (Fish Oil) Capsule Active PO February 14, 2022 8:15am Start: 02-14-2022 [place]-3 Fatty Acids (Fish Oil) Capsule Active PO February 13, 2022 11:00pm pantoprazole 40 mg delayed release oral tablet (12 sources) Proton Pump Inhibitor Start: 02-06-2023 Pantoprazole 40 mg D R Tab Refills(s) 0 Start Date: 02/06/23 Status: Ordered polyethylene glycol 3350 78075 mg powder for oral solution (2 sources) [...] DAY, # 90 tab(s), Refills(s) 4, Pharmacy: [facility], 154.9, cm, 08/25/24 10:39:00 [...] disease (12 sources) Atherosclerotic heart disease of [place] coronary artery without angina pectoris; Translations: [Coronary [...] 02-06-2023 Chronic Comment on above: Atherosclerotic, of [place] coronary artery without angina pectoris, chronic Other [...] Onset: 11-06-2017 Episodic Other aftercare (2 sources) terminal system operator (current) use of opiate analgesic; Translations: [terminal system operator (current) use of aspirin] Onset: 11-09-2017 Episodic [...] ity Paulino 09-28-2024 L - -------- Specimen: [id number] Received: 09/29/24 Status: ROMEL Mirza Num: [id number] Spec Type: Cytology Subm Dr: SERGIO BELL MD Tissues: A FNA SLIDES NOPATH (RT THY) Procedures: Cyto Int and Re, PAPSTN/5 -------- Age/ Patient Sex Location Account Attending Physician -------- Chantelle Dey 79/F [facility] [id number] SERGIO BELL MD -------- SPEC NUM: [id number] RECD: 09/29/24 STATUS: ROMEL MIRZA NUM: [id number] DAYNA: 09/28/24 DR: SERGIO BELL MD ENTERED: 09/29/24 [facility] DR: [employer],Lab Antonia Neves MD SPEC TYPE: Cytology DEPT: JYOTI NC ENTERED BY: [id number] RECV BY: [id number] ORDERED: Cyto Int and Re, PAPSTN/5 ORDERED: Cyto Int and Re, PAPSTN/5 Pathological Diagnosis Right thyroid nodule, FNA: Atypical follicular cells noted. Background of Colloid with occasional macrophages. Emerson Category III Clinical Information Right thyroid nodule Gross Description Received fixed in Cytolyt is <1 ml pink pale clear fixed fluid for cytology said to have been obtained as Right thyroid nodule mid lobe. ThinPrep preparations are prepared for microscopic examination. Also received are 4 spray fixed smeared slides for pap and a Veracyte vial stored at -20 for microscopic examination. ([place]) CPT Codes 67348 -------- -------- Specimen: [id number] Received: 09/29/24 Status: ROMEL Mirza Num: [id number] Spec Type: Cytology Subm Dr: SERGIO BELL MD Tissues: A FNA SLIDES NOPATH (RT THY) Procedures: Cyto Int and Re, PAPSTN/5 -------- Patient: Chantelle Dey [id number] (Continued) -------- Signed (signature on file) Tiara Solano MD 09/29/241815 [place] [facility] Ambulatory Visit Summaryon 1 Ambulatory [...] Tablets By Mouth Every day Pickup at [facility] Unchanged acetaminophen-oxycodo ne (acetaminophen-oxycod one 325 mg-5 mg Tab) 1 Tablets By Mouth Every day as needed for as needed for pain 30 DAYS, M06.9 Pickup at [facility] Unchanged albuterol (Albuterol (Eqv-Proventil HFA) 90 mcg/ inh inhalation aerosol) 2 Puffs Inhalation Every 6 hours Please give cheapest generic Pickup at [facility] Unchanged alendronate (alendronate 35 mg Tab) [...] Pharmacy Information [facility]: [address], [place] [id number] [phone] Allergies No Known Medication Allergies Problems Ongoing [...] of uncertain behavior of right kidney 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 Normal [facility] Family Medicine Office/Clini c Noteon 08-25-2024 Family [...] Ongoing Anticoagulated (more content not included)... Normal [facility] Comment on above: Result Comment: Elec tronically Signed By: Harsha PULIDO, Wilfredo Turner.br\Date and Time Signed: 08/25/24 11:00 EDT Auth for Release of Medical Recordson 04-14-2024 Auth for Release of Medical Records [id number] .00TIFF Normal [facility] CBC w/ Auto Diffon 4 Basophils/100 WBC (Bld) 0.6 % Normal 0.0-2.0 [facility] Comment on above: Performed By: #### 2 [id number] #### [facility] [address] [place] [address] Basophils/Leukocyte s Auto (Bld) [Pure # fraction] 0.1 E9/L Normal 0.0-0.2 [facility] Comment on above: Performed By: #### 2 [id number] #### [facility] [address] [place] [address] Eosinophils (Bld) [#/Vol] 0.1 E9/L Normal 0.0-0.5 [facility] Comment on above: Performed By: #### 2 [id number] #### [facility] [address] [place] [address] Eosinophils/100 WBC (Bld) 1.1 % Normal 0.0-8.0 [facility] Comment on above: Performed By: #### 2 [id number] #### [facility] [address] [place] [address] Erythrocyte distribution width (RBC) [Ratio] 15.3 % High 10.9-14.2 [facility] Comment on above: Performed By: #### 2 [id number] #### [facility] [address] [place] [address] Hematocrit (Bld) [Volume fraction] 49.3 % High 34.0-46.0 [facility] Comment on above: Performed By: #### 2 [id number] #### [facility] [address] [place] [address] Hemoglobin (Bld) [Mass/Vol] 16.5 g/dL High 12.0-16.0 [facility] Comment on above: Performed By: #### 2 [id number] #### [facility] [address] [place] [address] Lymphocytes (Bld) [#/Vol] 1.3 E9/L Normal 1.0-4.0 [facility] Comment on above: Performed By: #### 2 [id number] #### [facility] [address] [place] [address] Lymphocytes/100 WBC (Bld) 16.1 % Normal 14.0-50.0 [facility] Comment on above: Performed By: #### 2 359727 #### [facility] [address] [place] [address] MCH (RBC) [Entitic mass] 31.3 pg Normal 27.0-34.0 [facility] Comment on above: Performed By: #### 2 337056 #### [facility] [address] [place] [address] MCHC (RBC) [Mass/Vol] 33.4 g/dL Normal 31.4-36.0 [facility] Comment on above: Performed By: #### 2 [id number] #### [facility] [address] [place] [address] MCV (RBC) [Entitic vol] 93.5 fL Normal 80.0-100.0 [facility] Comment on above: Performed By: #### 2 033015 #### [facility] [address] [place] [address] Monocytes (Bld) [#/Vol] 0.6 E9/L Normal 0.2-1.0 [facility] Comment on above: Performed By: #### 2 [id number] #### [facility] [address] [place] [address] Neutrophils (Bld) [#/Vol] 6.2 E9/L Normal 2.0-7.5 [facility] Comment on above: Performed By: #### 2 [id number] #### [facility] [address] [place] [address] Neutrophils/100 WBC (Bld) 74.8 % Normal 36.0-75.0 [facility] Comment on above: Performed By: #### 2 545955 #### [facility] [address] [place] [address] Platelet 194.0 E9/L Normal 150.0-500.0 [facility] Comment on above: Performed By: #### 2 043512 #### [facility] [address] [place] [address] Platelet mean volume (Bld) [Entitic vol] 9.8 fL Normal 6.4-10.8 [facility] Comment on above: Performed By: #### 2 479032 #### [facility] [address] [place] [address] RBC (Bld) [#/Vol] 5.3 E12/L Normal 4.3-5.9 [facility] Comment on above: Performed By: #### 2 246655 #### [facility] [address] [place] [address] WBC corrected for nucl RBC Auto (Bld) [#/Vol] 8.3 E9/L Normal 4.0-11.0 [facility] Comment on above: Result Comment: Slid e review performed Performed By: #### 2 [id number] #### [facility] [address] [place] [address] CHEMISTRYOrdered By: SYSTEM SYSTEM on 04-12-2024 Albumin [...] (Bld) [Mass fraction] 5.9 % Normal <=5.9% [facility] ChemAutoSS CMPon 04-12-2024 Albumin [Mass/Vol] 4.1 g/dL Normal 3.3-5.0 [facility] Comment on above: Performed By: #### 2 [id number] #### [facility] [address] [place] [address] Albumin/Globulin (S) [Mass conc ratio] 1.7 Normal 1.1-2.2 [facility] Comment on above: Performed By: #### 2 079444 #### [facility] [address] [place] [address] ALP [Catalytic activity/Vol] 67 Int._Unit/L Normal 21-98 [facility] Comment on above: Performed By: #### 2 057424 #### [facility] [address] [place] [address] ALT No additional P-5'-P [Catalytic activity/Vol] 12 Int._Unit/L Normal 6-46 [facility] Comment on above: Performed By: #### 2 802635 #### [facility] [address] [place] [address] Anion gap [Moles/Vol] 14 mmol/L Normal 6-16 [facility] Comment on above: Performed By: #### 2 643399 #### [facility] [address] [place] [address] AST [Catalytic activity/Vol] 23 Int._Unit/L Normal 5-43 [facility] Comment on above: Performed By: #### 2 [id number] #### [facility] [address] [place] [address] Bilirubin [Mass/Vol] 0.7 mg/dL Normal 0.0-1.1 [facility] Comment on above: Performed By: #### 2 730236 #### [facility] [address] [place] [address] Calcium [Mass/Vol] 9.0 mg/dL Normal 8.9-11.1 [facility] Comment on above: Performed By: #### 2 092254 #### [facility] [address] [place] [address] Chloride [Moles/Vol] 108 mmol/L Normal 101-111 [facility] Comment on above: Performed By: #### 2 469904 #### [facility] [address] [place] [address] CO2 [Moles/Vol] 22 mmol/L Normal 21-31 [facility] Comment on above: Performed By: #### 2 353027 #### [facility] [address] [place] [address] Creatinine [Mass/Vol] 0.6 mg/dL Normal 0.5-1.3 [facility] Comment on above: Performed By: #### 2 023956 #### [facility] [address] [place] [address] Globulin (S) [Mass/Vol] 2.4 g/dL Normal 1.4-4.0 [facility] Comment on above: Performed By: #### 2 543644 #### [facility] [address] [place] [address] Glucose [Mass/Vol] 108 mg/dL Normal 55-199 [facility] Comment on above: Performed By: #### 2 [id number] #### [facility] [address] [place] [address] Potassium [Moles/Vol] 4.7 mmol/L Normal 3.5-5.3 [facility] Comment on above: Performed By: #### 2 [id number] #### [facility] [address] [place] [address] Protein [Mass/Vol] 6.5 g/dL Normal 6.0-7.8 [facility] Comment on above: Performed By: #### 2 820421 #### [facility] [address] [place] [address] Sodium [Moles/Vol] 139 mmol/L Normal 135-145 [facility] Comment on above: Performed By: #### 2 573898 #### [facility] [address] [place] [address] Urea nitrogen [Mass/Vol] 21 mg/dL Normal 5- [facility] Comment on above: Performed By: #### 2 162215 #### [facility] [address] [place] [address] Urea nitrogen/Creatinine [Mass ratio] 35 No Units High 10-20 [facility] Comment on above: Performed By: #### 2 895312 #### [facility] [address] [place] [address] Family Medicine Office/Clini c Noteon 04-12-2024 Family [...] Diff Comprehensive Metabolic Panel Drug Screen POC 13942 HgbA1c Lipid Panel TSH With T4fr Reflex 2. Hypercholesterolemia (E78.00: Pure hypercholesterolemia, unspecified) - Will check labs today. - No concerns at this time. Ordered: CBC w/ Auto Diff Comprehensive Metabolic Panel Drug Screen POC 31383 HgbA1c Lipid Panel TSH With T4fr Reflex 3. Fibromyalgia (M79.7: Fibromyalgia) - Will do a UDS again today as it was positive last time. - Unsure if it was a fals positive or real. - Will do CSC today Ordered: CBC w/ Auto Diff Comprehensive Metabolic Panel Drug Screen POC 60133 HgbA1c Lipid Panel TSH With T4fr Reflex 4. Chronic respiratory failure with hypoxia (J96.11: Chronic respiratory failure with hypoxia) - NO concerns. - Not on O2 at this time. - Has not seen Pulm - States she wont until she stops smoking Ordered: CBC w/ Auto Diff Comprehensive Metabolic Panel Drug Screen POC 84631 HgbA1c Lipid Panel TSH With T4fr Reflex 5. Arthritis (M19.90: Unspecified osteoarthritis, unspecified site) - Will do labs as the patient is on methotrexate. - Follow up PRN Ordered: CBC w/ Auto Diff Comprehensive Metabolic Panel Drug Screen POC 99463 HgbA1c Lipid Panel TSH With T4fr Reflex [...] of uncertain behavior of right kidney Other care home (current) drug therapy Polycythemia Postinfective urethral stricture in female Recurrent UTI Renal cyst Smoking Stress incontinence Thyroid nodule Trochanteric bursitis Vitamin D deficiency Historical Acute UTI Impingement syndrome of shoulder region LUQ pain Nocturia Rheumatoid arteritis Procedure/Surgical History Cystourethroscopy with dilation of urethral stricture (0 (more content not included)... Normal [facility] Comment on above: Result Comment: Elec tronically [...] above: Result Comment: Slid e review performed [id number] 04-12-2024 HbA1c (Bld) [Mass fraction] 5.9 % Normal <=5.9 [facility] Comment on above: Performed By: #### 7 [id number] #### [facility] [address] [place] [address] Lipid Panelon 04-12-2024 Cholesterol [Mass/Vol] 120 mg/dL Normal 120-200 [facility] Comment on above: Performed By: #### 2 [id number] #### [facility] [address] [place] [address] Cholesterol in HDL [Mass/Vol] 48 mg/dL Invalid Interpretation Code [facility] Comment on above: Result Comment: '>= 60 LOW RISK' '<= 40 HIGH RISK' Performed By: #### 2 [id number] #### [facility] [address] [place] [address] Cholesterol in LDL [Mass/Vol] 60 mg/dL Normal <=129 [facility] Comment on above: Performed By: #### 2 [id number] #### [facility] [address] [place] [address] Cholesterol in VLDL [Mass/Vol] 21 mg/dL Normal 7-40 [facility] Comment on above: Performed By: #### 2 849639 #### [facility] [address] [place] [address] Triglyceride [Mass/Vol] 104 mg/dL Normal <=149 [facility] Comment on above: Performed By: #### 2 423658 #### [facility] [address] [place] [address] Medication Consenton 024 Medication Consent [id number]# 1.00TIFF Normal [facility] TSH With T4fr Reflexon 04-12 TSH Qn 0.81 m[IU]/L Normal 0.34-5.60 [facility] Comment on above: Performed By: #### 1 [id number] #### [facility] [address] [place] [address] eGFRon 04-12-2024 eGFR 92 mL/min/1.73 m2 Normal >=59 [facility] Comment on above: Order Comment: Order added by Discern Expert. Performed By: #### 1 [id number] #### [facility] [address] [place] [address] Consultation Noteon 02-11-20 24 Consultation Note [id number]#1 .00TIFF Normal [facility] Reminderson 02-01-2024 Reminders - From: Betsey Toledo To: [facility] - Clinical; Sent: 01/29/2024 12:10:05 EST Show up: 01/29/2024 12:10:00 EST Subject: Ambulatory Reminder Due Date/Time: 01/30/2024 12:09:00 EST Urine culture shows that she is on correct antibiotic for her UTI. How is she feeling? Hallucinations gone? Results: Date Result Type Ind Result Name 01/27/2024 14:05 EST MBO POS Urine Culture From: Mary Lowry ([facility] - Clinical) To: Betsey Toledo; Sent: 02/01/2024 11:41:20 EDT Show up: 02/01/2024 11:40:00 EDT Subject: RE: Ambulatory Reminder Patient informed of results and voices understanding. Patient reports feeling better and hallucinations are gone. Normal [facility] C Urineon 01-29-2024 Bacteria identified Cx Nom [...] Locations R1: This test was performed at: [facility], [address] [place] [address], [id number]- , , [facility] Comment on above: Performed By: #### 2 [id number] ####[facility] [id number] [place] [address] Ambulatory Visit Summaryon 0 01-27-2024 Ambulatory Visit [...] 24.0-24.9, adult Duration: 10 Days Pickup at [facility] Unchanged acetaminophen-oxycodo ne (acetaminophen-oxycod one 325 [...] Pharmacy Information [facility]: [address], [place] [id number] [phone] Allergies No Known Medication Allergies Problems Ongoing [...] epi (more content not included)... Normal [facility] Medicine Office/Clini c Noteon 01-27-2024 Family Medicine [...] Urnls Dip Stick Auto w/o Microscopy POC 61094 2. BMI 24.0-24.9, adult (Z68.24: Body mass index [BMI] 24.0-24.9, adult) BMI education complete Ordered: nitrofurantoin, 100 mg = 1 cap(s), Oral, BID, X 10 day(s), # 20 cap(s), Refills(s) 0, Pharmacy: [facility], 154.9, cm, 01/27/24 13:56:00 EST, Height/Length Dosing, 60, kg, 01/27/24 13:56:00 EST, Weight Dosing Urine Culture Urnls Dip Stick Auto w/o Microscopy POC 55584 Follow-up No qualifying data available Problem List/Past [...] of uncertain behavior of right kidney Other care home (current) drug therapy Polycythemia Postinfective urethral stricture [...] Abuse - Denies (more content not included)... [facility] Comment on above: Result Comment: Elec tronically Signed By: Betsey Toledo\.eris\Date and Time Signed: 01/27/24 14:07 EST Retail - Clinical Noteon Retail - Clinical Note [id number] .00TIFF [facility] Retail - Clinical Noteon Retail - Clinical Note [id number]#1 .00TIFF [facility] Family Medicine Office/Clini c Noteon 01-04-2024 Family [...] the rib pain more recent Medication used: Ariel Opioids prescribed: percocet Medication agreement UTD: _ [...] (M19.90: Unspecified osteoarthritis, unspecified site) Patient uses Ariel as needed. The patient gets 30 pills [...] with voice recognition artificial intelligence software, specifically Pangalore, ForeSee and or TraceLink. Substitutions may have occurred due to the inherent limitations of voice recognition and artificial intelligence software. Documentation services were performed after patient or guardian consented to allow A.C. Moore to record this visit. KEVIN senior benefits specialist and provider reviewed before signing. KEVIN: Teresita Leblanc/Kiya Singh Follow-up No qualifying data available Patient Education BMI for Adults Problem List/Past Medical History Ongoing Anticoagulated Anxi (more content not included)... [facility] Comment on above: Result Comment: Elec tronically Signed By: Wilfredo Melgar MD\.br\Date and Time Signed: 01/04/24 12:53 EST\.br\Electronically Co-Signed By: Kiya Singh\.br\Date and Time Co-Signed: 12/29/23 16:36 EST Physician Referralon 024 Physician Referral [id number]# 1.00TIFF [facility] Physician Referralon 024 Physician Referral [id number]# 1.00TIFF [facility] Medication Consenton 024 Medication Consent [id number]#1 .00TIFF [facility] Ambulatory Visit Summaryon 0 12-29-2023 Ambulatory Visit [...] Wear at 2L via N/C.) acetaminophen-hydroco done (Ariel 325 mg-5 mg oral tablet) acetaminophen-oxycodo ne [...] Much When Why Instructions Unchanged acetaminophen-hydroco done (Ariel 325 mg-5 mg oral tablet) 1 Tablets [...] Cholelithiasis wi (more content not included)... Normal [facility] Patient Educationon 12-29-19 Patient Education Nutrition BMI [...] numbers. This can be done either in Faroese ([place] or metric measurements. Note that charts and online BMI calculators are available to help you find your BMI quickly and easily without having to do these calculations yourself. To calculate your BMI in Faroese ([place] measurements: 1. Measure your weight in [...] for Disease Control and Prevention: www.cdc.gov ? [place] Heart Association: www.heart.org ? National Heart, Lung, and Blood [place]: www.nhlbi.nih.gov Summary ? Body mass index (BMI) is a number that is calculated from a person's weight and height. ? BMI may help estimate how much of a person's weight is composed of fat. BMI can help identify those who may be at higher risk for certain medical problems. ? BMI can be measured using Faroese measurements or metric measurements. ? BMI charts are used to identify whether you are underweight, normal weight, overweight, or obese. This information is not intended to replace advice given to you by your health care provider. Make sure you discuss any questions you have with your health care provider. Document Revised: 08/01/2020 Document Reviewed: 06/08/2020 [employer] Patient Education ? 2022 [employer]. [facility] Population Health 12-08-19 Population Health Case Information Case Priority: None Programs: -- Referral Source: Steel Handler Referral Reason: Care coordination Case Type: Transition [...] of uncertain behavior of right kidney Other truck terminal manager (current) drug therapy Polycythemia Postinfective urethral stricture [...] Tab, 12.5 mg= 0.5 tab(s), Oral, BID Ariel 325 mg-5 mg oral tablet, 1 tab(s), [...] (min): 9 Outcome: Case discussion Contact Type: credit coordinator Contact Name: Atilio Emerson Notes: FILIBERTO#3- Spoke with patient for tcm program call, see ft summary note. Created By: Atilio Emerson Date: November 30, 2023 Method: Phone call Type: Outbound Duration (min): 15 Outcome: Case discussion Contact Type: credit coordinator Contact Name: Atilio Emerson Not (more content not included)... Normal [facility] 11-30-19 [facility] Case Information Case Priority: None Programs: -- Referral Source: Steel Handler Referral Reason: Care coordination Case Type: Transition [...] of uncertain behavior of right kidney Other care home (current) drug therapy Polycythemia Postinfective urethral stricture [...] Instructions methylPREDNISolone 4 mg Tab, See Instructions Ariel 325 mg-5 mg oral tablet, 1 tab(s), [...] (min): 15 Outcome: Case discussion Contact Type: credit coordinator Contact Name: Atilio Emerson Notes: TCM#2- Spoke with patient for tcm follow up call, see ft summary note. Created By: Atilio Emerson Date: November 19, 2023 Method: Phone call Type: Outbound Duration (min): 16 Outcome: Case discussion Contact Type: credit coordinator Contact Name: Massiel Delaney RN Notes: TCM #1, see FT summary note Created By: Massiel Delaney RN (more content not included)... Normal [facility] Family Medicine Office/Clini c Noteon 11-26-2023 Family Medicine Office/Clinic Note HPI Staff Chantelle is a 78 year old female presenting for hospital follow up Hospital: [place] Admission date: 11/17 Discharge date: 11/18 Symptoms [...] a rib fracture. She has been taking Ariel for her back pain and it is the same medication given to her when she was at the hospital. She does not currently have a space control agent. The patient was scheduled for a 6-minute walk test at [facility] in [place], with the aim of qualifying for a [...] Dorsalgia, unspecified) We will give the patient Ariel because of the rib fracture, but concerns that this may be causing the pain and the falls. Discussed this in detail with the patient. If the patient has another fall, we will remove the Ariel. This was discussed with the patient in [...] with voice recognition artificial intelligence software, specifically Pangalore, ForeSee and or TraceLink. Substitutions may have occurred voice recognition and artificial intelligence software. Documentation services were performed after patient or guardian consented to allow A.C. Moore to record this visit. KEVIN senior benefits specialist and provider reviewed before signing. KEVIN: Faiza (more content not included)... Normal [facility] Comment on above: Result Comment: Elec tronically Signed By: Wilfredo Melgar MD\.br\Date and Time Signed: 11/26/23 09:24 EST\.br\Electronically Co-Signed By: Obinna Hogan\.br\Date and Time Co-Signed: 11/25/23 14:33 EST\.br\Electronically Co-Signed By: Obinna Hogan\.br\Date and Time Co-Signed: 11/25/23 15:23 EST Interdisciplinary Note - Soc ial Workeron 11-26-2023 Interdisciplinary Note - Electric Deicer Assembler This SW made a tc to patient today to discuss her positive depression screen. Patient states that she does have depression, that is mostly due to things that have happened previously. She is not interested in resources at this time but is aware she can reach out to should needs arise. Patient did request a refill of Metoprolol be sent to [facility] - sent a message to Dr. [...] voiced understanding. ISAIAS will remain available. Normal [facility] Family Medicine Office/Clini c Noteon 11-25-2023 Family Medicine Office/Clinic Note HPI Staff Chantelle is a 78 year old female presenting for hospital follow up Hospital: [place] Admission date: 11/17 Discharge date: 11/18 Symptoms [...] a rib fracture. She has been taking Ariel for her back pain. The patient's sister has indicated that the patient does not currently have a space control agent. The patient was scheduled for a 6-minute walk test at [facility] in [place], with the aim of qualifying for a [...] The patient's sister plans to visit the [facility] on 11/30/2023, for a medical appointment. Review [...] Dorsalgia, unspecified) We will give the patient's Ariel because of the rib fracture, but concerns that this may be causing the pain and the falls. Discussed this in detail with the patient and if the patient has another fall, we will remove the Ariel. This was discussed with the patient in [...] with voice recognition artificial intelligence software, specifically Pangalore, ForeSee and or TraceLink. Substitutions may have occurred voice recognition and artificial intelligence software. Docum (more content not included)... Normal [facility] Comment on above: Result Comment: Elec tronically Signed By: Lacie Hopper B\.br\Date and Time Signed: 11/24/23 18:59 EST\.br\Electronically Co-Signed By: Wilfredo Melgar MD Physician Referralon 024 Physician Referral [id number]#1 .00TIFF [facility] Physician Referral [id number]#1 .00TIFF [facility] Ambulatory Visit Summaryon 0 11-24-2023 Ambulatory Visit [...] Prescription (Handicap Placard, 5 years.) acetaminophen-hydroco done (Ariel 325 mg-5 mg oral tablet) acetaminophen-oxycodo ne [...] EST With: Harsha PULIDO, Wilfredo Montgomery Where: [facility] [place] Normal [facility] ED Note-Physicianon 11-24-19 ED Note-Physician [id number]#1 .00TIFF [facility] Outside Hospital Correspo ndenceon 11-24-2023 Outside [facility] Correspondence [id number]#1 .00TIFF [facility] RAD - CT Reporton 11-24-[address] RAD - CT Report [id number]#1 .00TIFF Normal [facility] RAD - CT Report [id number]#1 .00TIFF Normal [facility] RAD - CT Report [id number]#1 .00TIFF Normal [facility] RAD - CT Report [id number]#1 .00TIFF Normal [facility] 11-19-20 [facility] Case Information Case Priority: None Programs: -- Referral Source: Steel Handler Referral Reason: Care coordination Case Type: Transition [...] Tab, 12.5 mg= 0.5 tab(s), Oral, BID Ariel 325 mg-5 mg oral tablet, 1 tab(s), [...] Care Plan Progress Note Admit Date: 11/17/23 [facility] Date of Discharge: 11/18/23 Follow-up appointment scheduled? 11/26/[address] Melgar with extra time Did you understand your discharge instructions? yes Are you able to follow them? yes Did you receive new medications? Prednisone 40 mg daily x 3 days, Colace 100 mg BID prn, Ariel 1 m99maxf prn, Lidoderm patch, Nicotine patch Have you [...] for Transitional Care Management following hospitalization at [facility] for AECOPD, acute on chronic respiratory failure. Right rib fracture and fall. Reviewed discharge instructions and attempted to reconcile medications when patient had long coughing spell and was unable to continue call, patient gave permission for [facility] to talk with sister and handed phone [...] did n (more content not included)... Normal [facility] Nurse Consultation Noteon Nurse Consultation Note Reason [...] Tab, 12.5 mg= 0.5 tab(s), Oral, BID Ariel 325 mg-5 mg oral tablet, 1 tab(s), [...] Rapid Covid POC: Negative (10/05/23 16:09:00) Normal [facility] Auto Diffon 09-22-2023 Basophils/100 WBC (Bld) 0.5 % Normal 0.0-2.0 [facility] Comment on above: Order Comment: Order Added by Discern Expert. Performed By: #### 1 [id number], 3229561, 1822547, 259441306, 5134705 ####[facility] [address] [place] [address] Basophils/Leukocyte s Auto (Bld) [Pure # fraction] 0.0 E9/L Normal 0.0-0.2 [facility] Comment on above: Order Comment: Order Added by Discern Expert. Performed By: #### 1 9504056, 8653813, 4333020, 012380685, 2234535 ####[address] [address] Eosinophils/100 WBC (Bld) 1.1 % Normal 0.0-8.0 [facility] Comment on above: Order Comment: Order Added by Discern Expert. Performed By: #### 1 6964909, 0286673, 6826033, 901570487, 1902693 ####[address] [address] Eosinophils/Leukocy matt Auto (Bld) [Pure # fraction] 0.1 E9/L Normal 0.0-0.5 [facility] Comment on above: Order Comment: Order Added by Genevieve Expert. Performed By: #### 1 1228969, 4302422, 0189524, 732553310, 0024719 ####[address] [address] Lymphocytes/100 WBC (Bld) 29.5 % Normal 14.0-50.0 [facility] Comment on above: Order Comment: Order Added by Genevieve Expert. Performed By: #### 1 6124320, 6557332, 1762776, 994559788, 3489550 ####[address] [address] Lymphocytes/Leukocy matt Auto (Bld) [Pure # fraction] 2.2 E9/L Normal 1.0-4.0 [facility] Comment on above: Order Comment: Order Added by Discern Expert. Performed By: #### 1 8758423, 2953517, 3614670, 218416247, 0345863 ####[address] [address] Monocytes/100 WBC (Bld) 8.3 % Normal 4.0-14.0 [facility] Comment on above: Order Comment: Order Added by Discern Expert. Performed By: #### 1 2914817, 9697540, 7104800, 323847271, 2341996 ####[address] [place] [address] Monocytes/Leukocyte s Auto (Bld) [Pure # fraction] 0.6 E9/L Normal 0.2-1.0 [facility] Comment on above: Order Comment: Order Added by Discern Expert. Performed By: #### 1 9907294, 4619052, 9762903, 246329325, 7485793 ####[address] [address] Neutrophils/100 WBC (Bld) 60.6 % Normal 36.0-75.0 [facility] Comment on above: Order Comment: Order Added by Discern Expert. Performed By: #### 1 9348930, 7293808, 5671400, 372374432, 4093613 ####[address] [address] Neutrophils/Leukocy matt Auto (Bld) [Pure # fraction] 4.6 E9/L Normal 2.0-7.5 [facility] Comment on above: Order Comment: Order Added by Discern Expert. Performed By: #### 1 7532605, 0771480, 2222600, 503619920, 9778578 ####[address] [address] CBC w/ Auto Diffon 3 Erythrocyte distribution width (RBC) [Ratio] 17.0 % High 10.9-14.2 [facility] Comment on above: Performed By: #### 1 9016866, 1036496, 1519281, 328671409, 5055304 ####[address] [address] Hematocrit (Bld) [Volume fraction] 49.5 % High 34.0-46.0 [facility] Comment on above: Performed By: #### 1 4967957, 3712537, 8198569, 315132883, 8530428 ####[address] [address] Hemoglobin (Bld) [Mass/Vol] 16.5 g/dL High 12.0-16.0 [facility] Comment on above: Performed By: #### 1 7969013, 6903064, 3104074, 739944773, 4435420 ####[address] [address] MCH (RBC) [Entitic mass] 31.1 pg Normal 27.0-34.0 [facility] Comment on above: Performed By: #### 1 5176041, 5567683, 7321243, 097188741, 5886365 ####[address] [address] MCHC (RBC) [Mass/Vol] 33.2 g/dL Normal 31.4-36.0 [facility] Comment on above: Performed By: #### 1 1973221, 6390498, 6554197, 233376346, 6938798 ####[address] MCV (RBC) [Entitic vol] 93.6 fL Normal 80.0-100.0 [facility] Comment on above: Performed By: #### 1 6851667, 1895266, 7148080, 559193385, 7034767 ####[address] [address] Platelet mean volume (Bld) [Entitic vol] 10.0 fL Normal 6.4-10.8 [facility] Comment on above: Performed By: #### 1 3139462, 1674354, 1883370, 767915140, 9586742 ####[address] [address] Platelets (Bld) [#/Vol] 217.0 E9/L Normal 150.0-500.0 [facility] Comment on above: Performed By: #### 1 3128449, 0027906, 8610125, 431151299, 3713049 ####[address] [address] RBC (Bld) [#/Vol] 5.3 E12/L Normal 4.3-5.9 [facility] Comment on above: Performed By: #### 1 8208087, 3139632, 9500154, 631722455, 8692242 ####[facility] [address] [place] [address] WBC corrected for nucl RBC Auto (Bld) [#/Vol] 7.6 E9/L Normal 4.0-11.0 [facility] Comment on above: Performed By: #### 1 6170127, 2737943, 3087417, 319263755, 2485507 ####[facility] [address] [place] [address] CHEMISTRYOrdered By: SYSTEM SYSTEM on 09-22-2023 Albumin [...] rate/Area] 76 mL/min/1.73 m2 Normal >=59mL/min/1.73 m2 [facility] Chem S Comment on above: Interpretive Data: C hronic kidney disease could be indicated at eGFR's of less than 60 mL/min/1.73m2. Kidney failure is indicated at less than 15 mL/min/1.73m2. Globulin (S) [Mass/Vol] 3.0 g/dL Normal 1.4 - 4.0 gm/dL [facility] Remisol Glucose [Mass/Vol] 98 mg/dL Normal 55 - 199 mg/dL [facility] Remisol Comment on above: Interpretive Data: I f this glucose result represents a fasting glucose, interpretation should refer to the following reference range: 55-99 mg/dL Potassium [Moles/Vol] 4.5 mmol/L Normal 3.5 - 5.3 mmol/L [facility] Remisol Protein [Mass/Vol] 6.9 g/dL Normal 6.0 - 7.8 gm/dL [facility] Remisol Sodium [Moles/Vol] 138 mmol/L Normal 135 - 145 mmol/L [facility] Remisol Urea nitrogen [Mass/Vol] 25 mg/dL High 5 - 21 mg/dL [facility] Urea nitrogen/Creatinine [Mass ratio] 31 mg/mg High 10 - 20 [facility] CHEMISTRYOrdered By: Daniela Morales on 09-22-2023 HbA1c (Bld) [Mass fraction] 6.4 % High <=5.9% [facility] ChemAutoSS CMPon 09-22-2023 Albumin [Mass/Vol] 3.9 g/dL Normal 3.3-5.0 [facility] Comment on above: Performed By: #### 1 8398702, 5722966, 5905543, 186361013, 6306744 ####[facility] [address] [place] [address] Albumin/Globulin (S) [Mass conc ratio] 1.3 Normal 1.1-2.2 [facility] Comment on above: Performed By: #### 1 0535643, 7948550, 1488248, 453939868, 0254502 ####[facility] [address] [place] [address] ALP [Catalytic activity/Vol] 73 Int._Unit/L Normal 21-98 [facility] Comment on above: Performed By: #### 1 2954394, 5299826, 6915487, 076347521, 9862903 ####[facility] [address] [place] [address] ALT No additional P-5'-P [Catalytic activity/Vol] 27 Int._Unit/L Normal 6-46 [facility] Comment on above: Performed By: #### 1 4786956, 9151895, 7899306, 750995349, 1814936 ####[facility] [address] [place] [address] Anion gap [Moles/Vol] 9 mmol/L Normal 6-16 [facility] Comment on above: Performed By: #### 1 4102688, 4355874, 4404936, 620615854, 6981642 ####[facility] [address] [place] [address] AST [Catalytic activity/Vol] 30 Int._Unit/L Normal 5-43 [facility] Comment on above: Performed By: #### 1 1286932, 4979618, 6702145, 870521582, 1221093 ####[facility] [address] [place] [address] Bilirubin [Mass/Vol] 0.5 mg/dL Normal 0.0-1.1 [facility] Comment on above: Performed By: #### 1 3760694, 5855052, 7165822, 203599601, 7212285 ####[facility] [address] [place] [address] Calcium [Mass/Vol] 9.1 mg/dL Normal 8.9-11.1 [facility] Comment on above: Performed By: #### 1 9609879, 6407027, 1470667, 792083915, 2989520 ####[facility] [address] [place] [address] Chloride [Moles/Vol] 106 mmol/L Normal 101-111 [facility] Comment on above: Performed By: #### 1 2821902, 5805556, 1025556, 638551811, 0281895 ####[facility] [address] [place] [address] CO2 [Moles/Vol] 28 mmol/L Normal 21-31 [facility] Comment on above: Performed By: #### 1 9108305, 3614852, 5498371, 038806202, 7596938 ####[facility] [address] [place] [address] Creatinine [Mass/Vol] 0.8 mg/dL Normal 0.5-1.3 [facility] Comment on above: Performed By: #### 1 4877440, 3331592, 6656367, 280688347, 4095295 ####[facility] [address] [place] [address] Globulin (S) [Mass/Vol] 3.0 g/dL Normal 1.4-4.0 [facility] Comment on above: Performed By: #### 1 8003240, 5651145, 4188618, 017536107, 8389819 ####[facility] [address] [place] [address] Glucose [Mass/Vol] 98 mg/dL Normal 55-199 [facility] Comment on above: Result Comment: If t his glucose result represents a fasting glucose, interpretation should refer to the following reference range: 55-99 mg/dL Performed By: #### 1 5252349, 1969962, 0127971, 429702483, 0630280 ####[facility] [address] [place] [address] Potassium [Moles/Vol] 4.5 mmol/L Normal 3.5-5.3 [facility] Comment on above: Performed By: #### 1 2395748, 3369875, 4109269, 970257978, 6730765 ####[facility] [address] [place] [address] Protein [Mass/Vol] 6.9 g/dL Normal 6.0-7.8 [facility] Comment on above: Performed By: #### 1 0230683, 9856941, 6153842, 864947144, 4939308 ####[facility] [address] [place] [address] Sodium [Moles/Vol] 138 mmol/L Normal 135-145 [facility] Comment on above: Performed By: #### 1 2670957, 0920766, 9075181, 033003950, 0444005 ####[facility] [address] [place] [address] Urea nitrogen [Mass/Vol] 25 mg/dL High 5-21 [facility] Comment on above: Performed By: #### 1 1275328, 8478771, 9014351, 643947702, 8362027 ####[facility] [address] [place] [address] Urea nitrogen/Creatinine [Mass ratio] 31 No Units High 10-20 [facility] Comment on above: Performed By: #### 1 5983449, 7765761, 2971315, 100766836, 8313188 ####[facility] [address] [place] [address] Consent for Flu Vaccineon Consent for Flu Vaccine [id number] .00TIFF Normal [facility] Family Medicine Office/Clini c Noteon 09-22-2023 Family [...] Unspecified osteoarthritis, unspecified site) - Will refill Ariel today Ordered: CBC w/ Auto Diff Comprehensive [...] mg E (more content not included)... Normal [facility] Comment on above: Result Comment: Elec tronically Signed By: Harsha PULIDO, Wilfredo Montgomeyr\.br\Date and Time Signed: 09/22/23 14:07 EDT HEMATOLOGYOrdered [...] Normal 4.0 - 11.0 E9/L FT HemeAutoSS [id number] 09-22-2023 HbA1c (Bld) [Mass fraction] 6.4 % High <=5.9 [facility] Comment on above: Performed By: #### 1 6912108, 2475792, 4240226, 981164211, 3225740 ####[facility] [address] [place] [address] eGFRon 09-22-2023 GFR/1.73 sq M.predicted among non-blacks MDRD (S/P/Bld) [Vol rate/Area] 76 mL/min/1.73 m2 Normal >=59 [facility] Comment on above: Order Comment: Order added by Discern Expert. Result Comment: Pediatric Orthodontist jerman kidney disease could be indicated at eGFR's of less than 60 mL/min/1.73m2. Kidney failure is indicated at less than 15 mL/min/1.73m2. Performed By: #### 1 [id number], [id number], [id number], [id number], [id number] ####[facility] [address] [place] [address] Pre-Visit Planningon 023 Pre-Visit Planning - From: Edwige Key RN To: Wilfredo Melgar MD; Sent: 08/28/2023 14:11:35 EDT Subject: Pre-Visit Planning Due Date/Time: 08/28/2023 14:11:00 EDT Caller Name: CHANTELLE DEY; Caller Number: H , M Nc Dr. Melgar, *Based on your response below, [...] feel free to contact me at extension [phone]. Thank you! 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 Normal [address] [facility] Ambulatory Visit Summaryon 1 Ambulatory Visit Summary [...] PM EDT With: Wilfredo Melgar MD Where: [facility] [place] [facility] Normal [address] [place], [place] [id number]- \.br\ Medications\.br\ What How Much When Why Instructions\.br\ New methylPREDNISolone (Medrol Dosepack 4 mg Tab) 1 Packets By Mouth As Directed Herpes zoster BMI 25.0-25.9,adult Overweight Duration: 6 Days as directed on package labeling Pickup at [facility]\.br\ Unchanged acetaminophen-oxyco done (acetaminophen-oxyc [...] if questions or concerns \.br\ Pharmacy Information\.br\ [facility]: [address] [place], [place] [phone]\.br\ Medications and Immunizations Administered\.br\ Not Given\.br\ influenza [...] region\.br\ LUQ pain\.br\ Nocturia\.br\ Rheumatoid arteritis\.br\ \.br\ [facility] Family Medicine Office/Clini c Noteon 08-24-2023 Family [...] day(s), # 21 tab(s), Refills(s) 0, Pharmacy: [facility], 154.9, cm, 08/24/23 16:06:00 [...] day(s), # 21 tab(s), Refills(s) 0, Pharmacy: [facility], 154.9, cm, 08/24/23 16:06:00 [...] day(s), # 21 tab(s), Refills(s) 0, Pharmacy: [facility], 154.9, cm, 08/24/23 16:06:00 [...] Hysterectomy, [place] (more content not included)... Normal [facility] Comment on above: Result Comment: Elec tronically [...] done 8 to 9 years ago in [place]. Review of Systems PHQ Score Initial Depression [...] with voice recognition artificial intelligence software, specifically [place], ForeSee and or TraceLink. Substitutions may have occurred due to the inherent limitations of voice recognition and artificial intelligence software. ATTESTATION: Documentation services were performed after patient or guardian consented to allow A.C. Moore to record this visit. KEVIN senior benefits specialist and provider reviewed before signing. KEVIN: [...] intl units (more content not included)... Normal [facility] Comment on above: Result Comment: Elec tronically Signed By: Wilfredo Melgar MD\.br\Date and Time Signed: 05/12/23 11:50 EDT\.br\Electronically Co-Signed By: Jessenia Torres\.br\Date and Time Co-Signed: 05/11/23 17:29 EDT Medication Consenton 023 Medication Consent [id number]. [id number] Normal [facility] LIPID PROFILEon 02-20-2023 CHOL-HDL RATIO NORM SEE BELOW Normal [facility] Comment on above: Result Comment: 3.3 - 4.4 LOW RISK 4.4 - 7.1 AVERAGE RISK 7.1 - 11.0 MODERATE RISK >11.0 HIGH RISK Performed By: #### L IPID #### [facility] [address] [address] [address] Mercy Viera Cholesterol [Mass/Vol] 110 mg/dL Normal <=200 [facility] Comment on above: Performed By: #### L IPID #### [facility] [address] [address] [address] Mercy Viera Cholesterol in HDL [Mass/Vol] 48 mg/dL Normal 40-60 [facility] Comment on above: Performed By: #### L IPID #### [facility] [address] [place] [address] Dr. Mercy Viera Cholesterol in LDL [Mass/Vol] 47.0 mg/dL Normal [facility] Comment on above: Performed By: #### L IPID #### [facility] [address] [address] [address] Mercy Viera Cholesterol.total/C holesterol in HDL [Mass ratio] 2.3 {ratio} Normal [facility] Comment on above: Performed By: #### L IPID #### [facility] [address] [place] [address] Dr. Mercy Viera HDL NORMAL > or = 60 mg/dl - LO W CARDIOVASCULAR RISK <40 mg/dl - HIGH CARDIOVASCULAR RISK Normal [facility] Comment on above: Performed By: #### L IPID #### [facility] [address] [place] [address] Dr. Mercy Viera LDL CALC NORMAL SEE BELOW Normal [facility] Comment on above: Result Comment: <100 mg/dl OPTIMAL 100 - 129 mg/dl NEAR OR ABOVE OPTIMAL 130 - 159 mg/dl BORDERLINE HIGH 160 - 189 mg/dl HIGH >190 mg/dl VERY HIGH Performed By: #### L IPID #### [facility] [address] [place] [address] Dr. Mercy Viera Triglyceride [Mass/Vol] 75 mg/dL Normal <=150 [facility] Comment on above: Performed By: #### L IPID #### [facility] [address] [place], [place] [address] Dr. Mercy Viera VLDL CALC 15.0 mg/dL Normal [facility] Comment on above: Performed By: #### L IPID #### [facility] [address] [place], [place] [address] Dr. Mercy Viera MG MAMM SCREEN 3D DULCE CADon 02-20-2023 MG MAMM SCREEN 3D DULCE CAD Patient: CHANTELLE DEY Exam Date: 02/20/2023 : 1945 Gender:F Ordering : DR HI HOLLIDAY . Admission #: [id number] Family : Order #: [id number] CLICK HERE TO VIEW EXAM RADIOLOGY REPORT [...] No Treatments None Family Cancers None LOCATION: [facility] BREAST COMPOSITION: Scattered areas fibroglandular density. FINDINGS: [...] MD on 02/20/2023 at 09:53 Normal [facility] US CAROTID ART BILon 023 US CAROTID [...] ANTONIA NEVES Date: 2023-02-20 15:19 Normal [facility] VITAMIN D 25 OHon 02-20-2023 VIT D 25-OH 36.1 ng/mL Normal [facility] Comment on above: Performed By: #### V ITAD ####[facility] [address] [address]Dr. Mercy Viera VIT D RANGES SEE BELOW Normal [facility] Comment on above: Result Comment: <20 ng/mL Vit D deficient 20 - <30 ng/mL Vit D insufficient 30 - 100 ng/mL Vit D sufficient >100 ng/mL Potential Toxicity Performed By: #### V ITAD ####[facility] [address] [place], [place] [address]Dr. Mercy Viera CBC AUTO DIFFon 12-25-2022 BASO # 0.1 103/ul Normal 0.0-0.1 [facility] Comment on above: Performed By: #### C BC #### [facility] [address] [place] [address] Dr. Mercy Viera Basophils/100 WBC (Bld) 0.7 % Normal 0.2-2.0 [facility] Comment on above: Performed By: #### C BC #### [facility] [address] [place] [address] Dr. Mercy Viera EO # 0.2 103/ul Normal 0.0-0.7 [facility] Comment on above: Performed By: #### C BC #### [facility] [address] [place] [address] Dr. Mercy Viera Eosinophils/100 WBC (Bld) 2.2 % Normal 0.9-7.0 [facility] Comment on above: Performed By: #### C BC #### [facility] [address] [place] [address] Dr. Mercy Viera Erythrocyte distribution width (RBC) [Ratio] 13.6 % Normal 11.0-15.0 [facility] Comment on above: Performed By: #### C BC #### [facility] [address] [place] [address] Dr. Mercy Viera Hematocrit (Bld) [Volume fraction] 43.9 % Normal 36.0-48.0 [facility] Comment on above: Performed By: #### C BC #### [facility] [address] [place] [address] Dr. Mercy Viera Hemoglobin (Bld) [Mass/Vol] 16.4 g/dL Critically high 12.0-16.0 [facility] Comment on above: Performed By: #### C BC #### [facility] [address] [place] [address] Dr. Mercy Viera IG # 0.02 10e3/ul Normal 0.00-0.03 [facility] Comment on above: Performed By: #### C BC #### [facility] [address] [place] [address] Dr. Mercy Viera IG % 0.3 % Normal 0.0-0.5 [facility] Comment on above: Performed By: #### C BC #### [facility] [address] [place] [address] Dr. Mercy Viera LYMPH # 2.4 103/ul Normal 1.2-3.8 [facility] Comment on above: Performed By: #### C BC #### [facility] [address] [place] [address] Dr. Mercy Viera Lymphocytes/100 WBC (Bld) 33.6 % Normal 20.5-60.0 [facility] Comment on above: Performed By: #### C BC #### [facility] [address] [place] [address] Dr. Mercy Viera MANUAL DIFF REQ NO Normal [facility] Comment on above: Performed By: #### C BC #### [facility] [address] [place] [address] Dr. Mercy Viera MCH (RBC) [Entitic mass] 30.9 pg Normal 26.7-34.0 [facility] Comment on above: Performed By: #### C BC #### [facility] [address] [place] [address] Dr. Mercy Viera MCHC (RBC) [Mass/Vol] 37.4 g/dL Critically high 29.9-35.2 [facility] Comment on above: Performed By: #### C BC #### [facility] [address] [place] [address] Dr. Mercy Viera MCV (RBC) [Entitic vol] 82.7 fL Normal 81.0-99.0 [facility] Comment on above: Performed By: #### C BC #### [facility] [address] [place] [address] Dr. Mercy Viera MONO # 0.7 103/ul Normal 0.3-0.8 [facility] Comment on above: Performed By: #### C BC #### [facility] [address] [place] [address] Dr. Mercy Viera Monocytes/100 WBC (Bld) 9.3 % Normal 1.7-12.0 [facility] Comment on above: Performed By: #### C BC #### [facility] [address] [place] [address] Dr. Mercy Viera NEUT # 3.9 103/ul Normal 1.4-6.5 [facility] Comment on above: Performed By: #### C BC #### [facility] [address] [place] [address] Dr. Mercy Viera Neutrophils/100 WBC (Bld) 53.9 % Normal 43.0-75.0 [facility] Comment on above: Performed By: #### C BC #### [facility] [address] [place] [address] Dr. Mercy Viera Platelet mean volume (Bld) [Entitic vol] 9.7 fL Normal 9.5-13.5 [facility] Comment on above: Performed By: #### C BC #### [facility] [address] [place] [address] Dr. Mercy Viera PLT 203 103/ul Normal 150-450 [facility] Comment on above: Performed By: #### C BC #### [facility] [address] [place] [address] Dr. Mercy Viera RBC 5.31 106/ul Normal 4.20-5.40 [facility] Comment on above: Performed By: #### C BC #### [facility] [address] [place] [address] Dr. Mercy Viera WBC 7.2 103/ul Normal 4.0-11.0 [facility] Comment on above: Performed By: #### C BC #### [facility] [address] [place] [address] Dr. Mercy Viera LIVER PROFILEon 12-25-2022 Albumin [Mass/Vol] 3.4 g/dL Normal 3.4-5.0 [facility] Comment on above: Performed By: #### L IVER #### [facility] [address] [place] [address] Dr. Mercy Viera Albumin/Globulin [Mass ratio] 1.1 {ratio} Normal [facility] Comment on above: Performed By: #### L IVER #### [facility] [address] [place] [address] Dr. Mercy Viera ALP [Catalytic activity/Vol] 91 U/L Normal 46-116 [facility] Comment on above: Performed By: #### L IVER #### [facility] [address] [place] [address] Dr. Mercy Viera ALT [Catalytic activity/Vol] 28 U/L Normal 14-59 [facility] Comment on above: Performed By: #### L IVER #### [facility] [address] [place] [address] Dr. Mercy Viera AST [Catalytic activity/Vol] 27 U/L Normal 15-37 [facility] Comment on above: Performed By: #### L IVER #### [facility] [address] [place] [address] Dr. Mercy Viera BILI, CONJUGATED 0.1 mg/dL Normal 0.0-0.2 [facility] Comment on above: Performed By: #### L IVER #### [facility] [address] [place] [address] Dr. Mercy Viera Bilirubin [Mass/Vol] 0.3 mg/dL Normal 0.2-1.0 [facility] Comment on above: Performed By: #### L IVER #### [facility] [address] [place] [address] Dr. Mercy Viera Globulin (S) [Mass/Vol] 3.1 g/dL Normal [facility] Comment on above: Performed By: #### L IVER #### [facility] [address] [place] [address] Dr. Mercy Viera Protein [Mass/Vol] 6.5 g/dL Normal 6.4-8.2 [facility] Comment on above: Performed By: #### L IVER #### [facility] [address] [place] [address] Dr. Mercy Viera CBC AUTO DIFFon 05-08-2022 BASO # 0.1 103/ul Normal 0.0-0.1 [facility] Comment on above: Performed By: #### C BC #### [facility] [address] [place] [address] Dr. Mercy Viera Basophils/100 WBC (Bld) 0.5 % Normal 0.2-2.0 [facility] Comment on above: Performed By: #### C BC #### [facility] [address] [place] [address] Dr. Mercy Viera EO # 0.2 103/ul Normal 0.0-0.7 [facility] Comment on above: Performed By: #### C BC #### [facility] [address] [place] [address] Dr. Mercy Viera Eosinophils/100 WBC (Bld) 1.6 % Normal 0.9-7.0 [facility] Comment on above: Performed By: #### C BC #### [facility] [address] [place] [address] Dr. Mercy Viera Erythrocyte distribution width (RBC) [Ratio] 14.2 % Normal 11.0-15.0 [facility] Comment on above: Performed By: #### C BC #### [facility] [address] [place] [address] Dr. Mercy Viera Hematocrit (Bld) [Volume fraction] 52.7 % Critically high 36.0-48.0 [facility] Comment on above: Performed By: #### C BC #### [facility] [address] [place] [address] Dr. Mercy Viera Hemoglobin (Bld) [Mass/Vol] 16.9 g/dL Critically high 12.0-16.0 [facility] Comment on above: Performed By: #### C BC #### [facility] [address] [place] [address] Dr. Mercy Viera IG # 0.03 10e3/ul Normal 0.00-0.03 [facility] Comment on above: Performed By: #### C BC #### [facility] [address] [place] [address] Dr. Mercy Viera IG % 0.3 % Normal 0.0-0.5 [facility] Comment on above: Performed By: #### C BC #### [facility] [address] [place] [address] Dr. Mercy Viera LYMPH # 3.8 103/ul Normal 1.2-3.8 [facility] Comment on above: Performed By: #### C BC #### [facility] [address] [place] [address] Dr. Mercy Viera Lymphocytes/100 WBC (Bld) 34.3 % Normal 20.5-60.0 [facility] Comment on above: Performed By: #### C BC #### [facility] [address] [place] [address] Dr. Mercy Viera MANUAL DIFF REQ NO Normal [facility] Comment on above: Performed By: #### C BC #### [facility] [address] [address] [address] Mercy Viera MCH (RBC) [Entitic mass] 30.0 pg Normal 26.7-34.0 [facility] Comment on above: Performed By: #### C BC #### [facility] [address] [place] [address] Dr. Mercy Viera MCHC (RBC) [Mass/Vol] 32.1 g/dL Normal 29.9-35.2 [facility] Comment on above: Performed By: #### C BC #### [facility] [address] [place] [address] Dr. Mercy Viera MCV (RBC) [Entitic vol] 93.4 fL Normal 81.0-99.0 [facility] Comment on above: Performed By: #### C BC #### [facility] [address] [place] [address] Dr. Mercy Viera MONO # 0.9 103/ul Critically high 0.3-0.8 [facility] Comment on above: Performed By: #### C BC #### [facility] [address] [place] [address] Dr. Mercy Viera Monocytes/100 WBC (Bld) 8.5 % Normal 1.7-12.0 [facility] Comment on above: Performed By: #### C BC #### [facility] [address] [place] [address] Dr. Mercy Viera NEUT # 6.0 103/ul Normal 1.4-6.5 [facility] Comment on above: Performed By: #### C BC #### [facility] [address] [place] [address] Dr. Mercy Viera Neutrophils/100 WBC (Bld) 54.8 % Normal 43.0-75.0 [facility] Comment on above: Performed By: #### C BC #### [facility] [address] [place] [address] Dr. Mercy Viera Platelet mean volume (Bld) [Entitic vol] 10.7 fL Normal 9.5-13.5 [facility] Comment on above: Performed By: #### C BC #### [facility] [address] [place] [address] Dr. Mercy Viera PLT 193 103/ul Normal 150-450 [facility] Comment on above: Performed By: #### C BC #### [facility] [address] [place] [address] Dr. Mercy Viera RBC 5.64 106/ul Critically high 4.20-5.40 [facility] Comment on above: Performed By: #### C BC #### [facility] [address] [place] [address] Dr. Mercy Viera WBC 11.0 103/ul Normal 4.0-11.0 [facility] Comment on above: Performed By: #### C BC #### [facility] [address] [place] [address] Dr. Mercy Viera GLYCOHEMOGLOBIN A1Con 2021 ADA RECOMMENDATION SEE BELOW Normal [facility] Comment on above: Result Comment: ADA RECOMMENDED LIMIT 4.0 - 6.0 ADA THERAPEUTIC TARGET < 7.0 ACTION SUGGESTED > 7.0 Performed By: #### A 1C #### [facility] [address] [place] [address] Dr. Mercy Viera Glucose [Mass/Vol] 120 mg/dL Normal [facility] Comment on above: Performed By: #### A 1C #### [facility] [address] [place] [address] Dr. Mercy Viera HbA1c (Bld) [Mass fraction] 5.8 % Normal 4.5-6.2 [facility] Comment on above: Performed By: #### A 1C #### [facility] [address] [place] [address] Dr. Mercy Viera LIPID PROFILEon 05-08-2022 CHOL-HDL RATIO NORM SEE BELOW Normal [facility] Comment on above: Result Comment: 3.3 - 4.4 LOW RISK 4.4 - 7.1 AVERAGE RISK 7.1 - 11.0 MODERATE RISK >11.0 HIGH RISK Performed By: #### L IPID, CMP #### [facility] [address] [address] [address] Mercy Viera Cholesterol [Mass/Vol] 125 mg/dL Normal <=200 [facility] Comment on above: Performed By: #### L IPID, CMP #### [facility] [address] [address] [address] Mercy Viera Cholesterol in HDL [Mass/Vol] 49 mg/dL Normal 40-60 [facility] Comment on above: Performed By: #### L IPID, CMP #### [facility] [address] [address] [address] Mercy Viera Cholesterol in LDL [Mass/Vol] 53.0 mg/dL Normal [facility] Comment on above: Performed By: #### L IPID, CMP #### [facility] [address] [address] [address] Mercy Viera Cholesterol.total/C holesterol in HDL [Mass ratio] 2.6 {ratio} Normal [facility] Comment on above: Performed By: #### L IPID, CMP #### [facility] [address] [address] [address] Mercy Viera HDL NORMAL > or = 60 mg/dl - LO W CARDIOVASCULAR RISK <40 mg/dl - HIGH CARDIOVASCULAR RISK Normal [facility] Comment on above: Performed By: #### L IPID, CMP #### [facility] [address] [address] [address] Mercy Viera LDL CALC NORMAL SEE BELOW Normal [facility] Comment on above: Result Comment: <100 mg/dl OPTIMAL 100 - 129 mg/dl NEAR OR ABOVE OPTIMAL 130 - 159 mg/dl BORDERLINE HIGH 160 - 189 mg/dl HIGH >190 mg/dl VERY HIGH Performed By: #### L IPID, CMP #### [facility] [address] [address] [address] Mercy Viera Triglyceride [Mass/Vol] 115 mg/dL Normal <=150 [facility] Comment on above: Performed By: #### L IPID, CMP #### [facility] [address] [address] [address] Mercy Viera VLDL CALC 23.0 mg/dL Normal [facility] Comment on above: Performed By: #### L IPID, CMP #### [facility] [address] [address] [address] Mercy Viera PROF 14(COMP METB)on 022 Albumin [Mass/Vol] 3.8 g/dL Normal 3.4-5.0 [facility] Comment on above: Performed By: #### L IPID, CMP #### [facility] [address] [place] [address] Dr. Mercy Viera Albumin/Globulin [Mass ratio] 1.1 {ratio} Normal [facility] Comment on above: Performed By: #### L IPID, CMP #### [facility] [address] [place] [address] Dr. Mercy Viera ALP [Catalytic activity/Vol] 76 U/L Normal 46-116 [facility] Comment on above: Performed By: #### L IPID, CMP #### [facility] [address] [place] [address] Dr. Mercy Viera ALT [Catalytic activity/Vol] 27 U/L Normal 14-59 [facility] Comment on above: Performed By: #### L IPID, CMP #### [facility] [address] [place] [address] Dr. Mercy Viera Anion gap [Moles/Vol] 11.5 mmol/L Normal [facility] Comment on above: Performed By: #### L IPID, CMP #### [facility] [address] [place] [address] Dr. Mercy Viera AST [Catalytic activity/Vol] 18 U/L Normal 15-37 [facility] Comment on above: Performed By: #### L IPID, CMP #### [facility] [address] [place] [address] Dr. Mercy Viera Bilirubin [Mass/Vol] 0.8 mg/dL Normal 0.2-1.0 [facility] Comment on above: Performed By: #### L IPID, CMP #### [facility] [address] [place] [address] Dr. Mercy Viera Calcium [Mass/Vol] 9.0 mg/dL Normal 8.5-10.1 [facility] Comment on above: Performed By: #### L IPID, CMP #### [facility] [address] [place] [address] Dr. Mercy Viera Chloride [Moles/Vol] 105 mmol/L Normal 98-107 [facility] Comment on above: Performed By: #### L IPID, CMP #### [facility] [address] [place] [address] Dr. Mercy Viera CO2 [Moles/Vol] 29.2 mmol/L Normal 21.0-32.0 [facility] Comment on above: Performed By: #### L IPID, CMP #### [facility] [address] [place] [address] Dr. Mercy Viera Creatinine [Mass/Vol] 0.79 mg/dL Normal 0.55-1.02 [facility] Comment on above: Performed By: #### L IPID, CMP #### [facility] [address] [place] [address] Dr. Mercy Viera EGFR-AF BANGLADESHI >60 Normal >=60 [facility] Comment on above: Performed By: #### L IPID, CMP #### [facility] [address] [place] [address] Dr. Mercy Viera EGFR-NON AF BANGLADESHI >60 Normal >=60 [facility] Comment on above: Performed By: #### L IPID, CMP #### [facility] [address] [place] [address] Dr. Mercy Viera Globulin (S) [Mass/Vol] 3.4 g/dL Normal [facility] Comment on above: Performed By: #### L IPID, CMP #### [facility] [address] [place] [address] Dr. Mercy Viera Glucose [Mass/Vol] 110 mg/dL Critically high 74-106 [facility] Comment on above: Performed By: #### L IPID, CMP #### [facility] [address] [place] [address] Dr. Mercy Viera Potassium [Moles/Vol] 4.7 mmol/L Normal 3.5-5.1 [facility] Comment on above: Performed By: #### L IPID, CMP #### [facility] [address] [place] [address] Dr. Mercy Viera Protein [Mass/Vol] 7.2 g/dL Normal 6.4-8.2 [facility] Comment on above: Performed By: #### L IPID, CMP #### [facility] [address] [place] [address] Dr. Mercy Viera Sodium [Moles/Vol] 141 mmol/L Normal 136-145 [facility] Comment on above: Performed By: #### L IPID, CMP #### [facility] [address] [place] [address] Dr. Mrecy Viera Urea nitrogen [Mass/Vol] 19.0 mg/dL Critically high 7.0-18.0 [facility] Comment on above: Performed By: #### L IPID, CMP #### [facility] [address] [place] [address] Dr. Mercy Viera Urea nitrogen/Creatinine [Mass ratio] 24.1 mg/mg Normal [facility] Comment on above: Performed By: #### L IPID, CMP #### [facility] [address] [place] [address] Dr. Mercy Viera VITAMIN D 25 OHon 05-08-2022 VIT D 25-OH 51.1 ng/mL Normal [facility] Comment on above: Performed By: #### V ITAD #### [facility] [address] [place] [address] Dr. Mercy Viera VIT D RANGES SEE BELOW Normal [facility] Comment on above: Result Comment: <20 ng/mL Vit D deficient 20 - <30 ng/mL Vit D insufficient 30 - 100 ng/mL Vit D sufficient >100 ng/mL Potential Toxicity Performed By: #### V ITAD #### [facility] [address] [place] [address] Dr. Mercy Viera Activated partial thrombopla stin time (aPTT) in platelet poor plasma by coagulation aOrdered By: William Antony on 02-14-2022 aPTT Coag (PPP) [Time] 32.3 s 25.1-36.5 [facility] - CoagulationOrde red By: William Antony on 02-14-2022 PT Coag (PPP) [Time] 11.1 s 9.0-12.9 [facility] Platelet poor plasma interna tional normalized ratio (INR) by coagulation assay (relatOrdered By: William Antony on 02-14-2022 INR Coag (PPP) [Relative time] 1.0 {INR} [facility] Comment on above: INR Therapeutic Rang [...] 11-16-20 Discharge Summary MR#: [id number] Dey Admitted: [...] Dict: 11/15/2017/09:46 P/WILNER Guamanate Trans: 11/16/2017 05:21 A/[id number]: Hi Holliday M.D. [address] [place] [id number] Normal [facility] BASIC METABOLIC PANELon 12-2 Calcium 9.0 mg/dL Normal 8.6-10.3 [facility] Comment on above: Order Comment: No: D o not add to previous draw Performed By: #### 4 6447 ####[facility] [place] [address], [facility] Chloride 105 mmol/L Normal 98-107 [facility] Comment on above: Order Comment: No: D o not add to previous draw Performed By: #### 4 6447 ####[facility] [place] [address], [facility] CO2 26 mmol/L Normal 21-31 [facility] Comment on above: Order Comment: No: D o not add to previous draw Performed By: #### 4 6447 ####[facility] [place] [address], [facility] Creatinine 0.58 mg/dL Low 0.60-1.20 [facility] Comment on above: Order Comment: No: D o not add to previous draw Performed By: #### 4 6447 ####[facility] [place] [address], [facility] eGFR (black) mL/min/{1.73_m2} Normal >60 [facility] Comment on above: Order Comment: No: D o not add to previous draw Result Comment: Calc ulation may not be valid for patients over 70 years Performed By: #### 4 6447 ####[facility] [facility] [place] [address], [facility] eGFR (non-black) mL/min/{1.73_m2} Normal >60 [facility] Comment on above: Order Comment: No: D o not add to previous draw Result Comment: Calc ulation may not be valid for patients over 70 years Performed By: #### 4 6447 ####[facility] [facility] [place] [address], [facility] Glucose mass conc 101 mg/dL High 70-100 [facility] Comment on above: Order Comment: No: D o not add to previous draw Performed By: #### 4 6432 ####[facility] [facility] [place] [address], [facility] Potassium molar conc 4.3 mmol/L Normal 3.5-5.1 [facility] Comment on above: Order Comment: No: D o not add to previous draw Performed By: #### 4 6473 ####[facility] [facility] [address], [facility] Sodium 137 mmol/L Normal 136-145 [facility] Comment on above: Order Comment: No: D o not add to previous draw Performed By: #### 4 6471 ####[facility] [place] [address], [facility] Urea nitrogen 5 mg/dL Low 7-25 [facility] Comment on above: Order Comment: No: D o not add to previous draw Performed By: #### 4 6447 ####[facility] [place] [address], [facility] CBC W/DIFFon 11-12-2017 ANISO MODERATE Normal [facility] Comment on above: Order Comment: No: D o not add to previous draw Performed By: #### 4 6447 ####[facility] [place] [address], [facility] Basophils Auto #/vol (Bld) 0.5 % Normal 0.0-2.0 [facility] Comment on above: Order Comment: No: D o not add to previous draw Performed By: #### 4 6475 ####[facility] [place] [address], [facility] Eosinophils/100 leukocytes 2.8 % Normal 0.0-5.0 [facility] Comment on above: Order Comment: No: D o not add to previous draw Performed By: #### 4 6456 ####[facility] Erythrocyte distribution width Auto Ratio (RBC) 18.8 % High 11.5-16.9 [facility] Comment on above: Order Comment: No: D o not add to previous draw Performed By: #### 4 6457 ####[facility] [place] [address], [facility] Erythrocytes (RBC) 4.54 mill/mm3 Normal 3.50-5.50 [facility] Comment on above: Order Comment: No: D o not add to previous draw Performed By: #### 4 6416 ####[facility] [place] [address], [facility] Hematocrit (HCT) 31.9 % Low 36.0-48.0 [facility] Comment on above: Order Comment: No: D o not add to previous draw Performed By: #### 4 6488 ####[facility] [facility].[address] Hemoglobin mass conc (Bld) 9.5 g/dL Low 12.0-15.0 [facility] Comment on above: Order Comment: No: D o not add to previous draw Performed By: #### 4 6430 ####[facility] Lymphocytes/100 leukocytes 22.7 % Normal 20.0-40.0 [facility] Comment on above: Order Comment: No: D o not add to previous draw Performed By: #### 4 6451 ####[facility] MCH 21.0 pg Low 24.0-32.0 [facility] Comment on above: Order Comment: No: D o not add to previous draw Performed By: #### 4 2043 ####[facility] MCHC mass conc (RBC) 29.9 g/dL Low 32.0-36.0 [facility] Comment on above: Order Comment: No: D o not add to previous draw Performed By: #### 4 4616 ####[facility] MCV 70.2 fL Low 80.0-100.0 [facility] Comment on above: Order Comment: No: D o not add to previous draw Performed By: #### 4 1118 ####[facility] METHOD Manual blood smear examination performed Normal [facility] Comment on above: Order Comment: No: D o not add to previous draw Performed By: #### 4 3365 ####[facility] [place] [address], [facility] MICRO SLIGHT Normal [facility] Comment on above: Order Comment: No: D o not add to previous draw Performed By: #### 4 6447 ####[facility] [place] [address], [facility] MONOS 9.4 % High 2-8 [facility] Comment on above: Order Comment: No: D o not add to previous draw Performed By: #### 4 6447 ####[facility] [place] [address], [facility] Neutrophils/100 leukocytes 64.6 % Normal 50-70 [facility] Comment on above: Order Comment: No: D o not add to previous draw Performed By: #### 4 6447 ####[facility] [place] [address], [facility] PLAT CNT 285 Thou/mm3 Normal 100-400 [facility] Comment on above: Order Comment: No: D o not add to previous draw Performed By: #### 4 6419 ####[facility] [place] [address], [facility] POIK SLIGHT-MODERATE Normal [facility] Comment on above: Order Comment: No: D o not add to previous draw Performed By: #### 4 6439 ####[facility] [place] [address], [facility] POLY SLIGHT Normal [facility] Comment on above: Order Comment: No: D o not add to previous draw Performed By: #### 4 6471 ####[facility] [place] [address], [facility] WBC (Leukocytes) 13.1 Thou/mm3 High 4.0-10.0 [facility] Comment on above: Order Comment: No: D o not add to previous draw Performed By: #### 4 5948 ####[facility] [place] [address], [facility] POC GLUCOSE LABon 11-12-2017 Glucose mass conc 145 mg/dL High 70-100 [facility] Comment on above: Performed By: #### 4 6447 ####[facility] [place] [address], [facility] Glucose mass conc 207 mg/dL High 70-100 [facility] Comment on above: Performed By: #### 4 6447 ####[facility] [place] [address], [place] Glucose mass conc 105 mg/dL High 70-100 [facility] Comment on above: Performed By: #### 4 6447 ####[facility] [place] [address], [facility] Glucose mass conc 105 mg/dL High 70-100 [facility] Comment on above: Performed By: #### 6 2594 ####[facility] [place] [address], [facility] BASIC METABOLIC PANELon 12-2 Calcium 8.6 mg/dL Normal 8.6-10.3 [facility] Comment on above: Order Comment: No: D o not add to previous draw Performed By: #### 6 2594 ####[facility] [place] [address], [facility] Chloride 106 mmol/L Normal 98-107 [facility] Comment on above: Order Comment: No: D o not add to previous draw Performed By: #### 6 2594 ####[facility] [place] [address], [facility] CO2 23 mmol/L Normal 21-31 [facility] Comment on above: Order Comment: No: D o not add to previous draw Performed By: #### 6 2594 ####[facility] [address], [facility] Creatinine 0.56 mg/dL Low 0.60-1.20 [facility] Comment on above: Order Comment: No: D o not add to previous draw Performed By: #### 6 2594 ####[facility] [place] [address], [facility] eGFR (black) mL/min/{1.73_m2} Normal >60 [facility] Comment on above: Order Comment: No: D o not add to previous draw Result Comment: Calc ulation may not be valid for patients over 70 years Performed By: #### 6 2594 ####[facility] [place] [address], [facility] eGFR (non-black) mL/min/{1.73_m2} Normal >60 [facility] Comment on above: Order Comment: No: D o not add to previous draw Result Comment: Calc ulation may not be valid for patients over 70 years Performed By: #### 6 2594 ####[facility] [place] [address], [facility] Glucose mass conc 131 mg/dL High 70-100 [facility] Comment on above: Order Comment: No: D o not add to previous draw Performed By: #### 6 2594 ####[facility] [place] [address], [facility] Potassium molar conc 4.1 mmol/L Normal 3.5-5.1 [facility] Comment on above: Order Comment: No: D o not add to previous draw Performed By: #### 6 2594 ####[facility] [address], [facility] Sodium 135 mmol/L Low 136-145 [facility] Comment on above: Order Comment: No: D o not add to previous draw Performed By: #### 6 2594 ####[facility] Urea nitrogen 6 mg/dL Low 7-25 [facility] Comment on above: Order Comment: No: D o not add to previous draw Performed By: #### 6 2594 ####[facility] [place] [address], [facility] CBC W/DIFFon 11-11-2017 ANISO MODERATE Normal [facility] Comment on above: Order Comment: No: D o not add to previous draw Performed By: #### 6 2594 ####[facility] [place] [address], [facility] Basophils Auto #/vol (Bld) 0.0 % Normal 0.0-2.0 [facility] Comment on above: Order Comment: No: D o not add to previous draw Performed By: #### 6 2594 ####[facility] [place] [address], [facility] Eosinophils/100 leukocytes 0.0 % Normal 0.0-5.0 [facility] Comment on above: Order Comment: No: D o not add to previous draw Performed By: #### 6 2594 ####[facility] Erythrocyte distribution width Auto Ratio (RBC) 18.7 % High 11.5-16.9 [facility] Comment on above: Order Comment: No: D o not add to previous draw Performed By: #### 6 2594 ####[facility] [place] [address], [facility] Erythrocytes (RBC) 4.24 mill/mm3 Normal 3.50-5.50 [facility] Comment on above: Order Comment: No: D o not add to previous draw Performed By: #### 6 2594 ####[facility] [place] [address], [facility] Hematocrit (HCT) 29.8 % Low 36.0-48.0 [facility] Comment on above: Order Comment: No: D o not add to previous draw Performed By: #### 6 2594 ####[facility] Hemoglobin mass conc (Bld) 9.0 g/dL Low 12.0-15.0 [facility] Comment on above: Order Comment: No: D o not add to previous draw Performed By: #### 6 2594 ####[facility] Lymphocytes/100 leukocytes 12.0 % Low 20.0-40.0 [facility] Comment on above: Order Comment: No: D o not add to previous draw Performed By: #### 6 2594 ####[facility] [place] [address] MCH 21.1 pg Low 24.0-32.0 [facility] Comment on above: Order Comment: No: D o not add to previous draw Performed By: #### 6 2594 ####[facility] MCHC mass conc (RBC) 30.1 g/dL Low 32.0-36.0 [facility] Comment on above: Order Comment: No: D o not add to previous draw Performed By: #### 6 2594 ####[facility] MCV 70.2 fL Low 80.0-100.0 [facility] Comment on above: Order Comment: No: D o not add to previous draw Performed By: #### 6 2594 ####[facility] [place] [address] METHOD Manual blood smear examination performed Normal [facility] Comment on above: Order Comment: No: D o not add to previous draw Performed By: #### 6 2594 ####[facility] [place] [address], [facility] MICRO SLIGHT Normal [facility] Comment on above: Order Comment: No: D o not add to previous draw Performed By: #### 6 2594 ####[facility] [place] [address], [facility] MONOS 13.0 % High 2-8 [facility] Comment on above: Order Comment: No: D o not add to previous draw Performed By: #### 6 2594 ####[facility] [place] [address], [facility] PLAT CNT 241 Thou/mm3 Normal 100-400 [facility] Comment on above: Order Comment: No: D o not add to previous draw Performed By: #### 6 2594 ####[facility] [place] [address], [facility] POIK SLIGHT Normal [facility] Comment on above: Order Comment: No: D o not add to previous draw Performed By: #### 6 2594 ####[facility] [place] [address], [facility] POLY SLIGHT Normal [facility] Comment on above: Order Comment: No: D o not add to previous draw Performed By: #### 6 2594 ####[facility] [place] [address], [facility] SEGS 75.0 % High 50-70 [facility] Comment on above: Order Comment: No: D o not add to previous draw Performed By: #### 6 2594 ####[facility] [place] [address], [facility] WBC (Leukocytes) 14.0 Thou/mm3 High 4.0-10.0 [facility] Comment on above: Order Comment: No: D o not add to previous draw Performed By: #### 6 2594 ####[facility] [place] [address], [facility] MAGNESIUM BLOODon 11-11-2017 Magnesium 1.6 mg/dL Low 1.9-2.7 [facility] Comment on above: Order Comment: No: D o not add to previous draw Performed By: #### 6 2594 ####[facility] [place] [address], [facility] PHOSPHORUS BLOODon 7 Phosphate 3.0 mg/dL Normal 2.5-5.0 [facility] Comment on above: Order Comment: No: D o not add to previous draw Performed By: #### 6 2594 ####[facility] [facility] [place] [address], [facility] POC GLUCOSE LABon 11-11-2017 Glucose mass conc 114 mg/dL High 70-100 [facility] Comment on above: Performed By: #### 6 2594 ####[facility] [facility] [place] [address], [facility] Glucose mass conc 130 mg/dL High 70-100 [facility] Comment on above: Performed By: #### 6 2594 ####[facility] [place] [address], [facility] Glucose mass conc 166 mg/dL High 70-100 [facility] Comment on above: Performed By: #### 6 2594 ####[facility] [facility] [place] [address], [place] Glucose mass conc 180 mg/dL High 70-100 [facility] Comment on above: Performed By: #### 6 2594 ####[facility] [place] [address], [place] Glucose mass conc 142 mg/dL High 70-100 [facility] Comment on above: Performed By: #### 6 2594 ####[facility] [facility] [place] [address], [place] Glucose mass conc 121 mg/dL High 70-100 [facility] Comment on above: Performed By: #### 0 0121 ####[facility] [facility] [address], [facility] BASIC METABOLIC PANELon 12- Calcium 8.2 mg/dL Low 8.6-10.3 [facility] Comment on above: Order Comment: No: D o not add to previous draw Performed By: #### 0 0121 ####[facility] [facility] [place] [address], [facility] Chloride 108 mmol/L High 98-107 [facility] Comment on above: Order Comment: No: D o not add to previous draw Performed By: #### 0 0121 ####[facility] [facility] [address], [facility] CO2 22 mmol/L Normal 21-31 [facility] Comment on above: Order Comment: No: D o not add to previous draw Performed By: #### 0 0121 ####[place] [address] [facility] [address], [facility] Creatinine 0.58 mg/dL Low 0.60-1.20 [facility] Comment on above: Order Comment: No: D o not add to previous draw Performed By: #### 0 0121 ####[place] [address] [facility].[address] eGFR (black) mL/min/{1.73_m2} Normal >60 [facility] Comment on above: Order Comment: No: D o not add to previous draw Result Comment: Calc ulation may not be valid for patients over 70 years Performed By: #### 0 0121 ####[place] [address] [place] [address], [facility] eGFR (non-black) mL/min/{1.73_m2} Normal >60 [facility] Comment on above: Order Comment: No: D o not add to previous draw Result Comment: Calc ulation may not be valid for patients over 70 years Performed By: #### 0 0121 ####[facility] [place] [address], [facility] Glucose mass conc 133 mg/dL High 70-100 [facility] Comment on above: Order Comment: No: D o not add to previous draw Performed By: #### 0 0121 ####[facility] [place] [address], [facility] Potassium molar conc 4.1 mmol/L Normal 3.5-5.1 [facility] Comment on above: Order Comment: No: D o not add to previous draw Performed By: #### 0 0121 ####[facility] [place] [address], [facility] Sodium 138 mmol/L Normal 136-145 [facility] Comment on above: Order Comment: No: D o not add to previous draw Performed By: #### 0 0121 ####[facility] [place] [address], [facility] Urea nitrogen 9 mg/dL Normal 7-25 [facility] Comment on above: Order Comment: No: D o not add to previous draw Performed By: #### 0 0121 ####[facility] [facility] [place] [id number] [address] CBC COMPLETE BLOOD COUNTon 1 01-11-2017 Erythrocyte distribution width Auto Ratio (RBC) 17.9 % High 11.5-16.9 [facility] Comment on above: Order Comment: No: D o not add to previous draw Performed By: #### 0 0121 ####[facility] [place] [address], [facility] Erythrocytes (RBC) 4.29 mill/mm3 Normal 3.50-5.50 [facility] Comment on above: Order Comment: No: D o not add to previous draw Performed By: #### 0 0121 ####[facility] [place] [address], [facility] Hematocrit (HCT) 29.9 % Low 36.0-48.0 [facility] Comment on above: Order Comment: No: D o not add to previous draw Performed By: #### 0 0121 ####[facility] [place] [address], [facility] Hemoglobin mass conc (Bld) 9.0 g/dL Low 12.0-15.0 [facility] Comment on above: Order Comment: No: D o not add to previous draw Performed By: #### 0 0121 ####[facility] [place] [address], [facility] MCH 20.9 pg Low 24.0-32.0 [facility] Comment on above: Order Comment: No: D o not add to previous draw Performed By: #### 0 0121 ####[facility] [facility].[address] MCHC mass conc (RBC) 30.0 g/dL Low 32.0-36.0 [facility] Comment on above: Order Comment: No: D o not add to previous draw Performed By: #### 0 0121 ####[place] [address] [facility].[address] MCV 69.7 fL Low 80.0-100.0 [facility] Comment on above: Order Comment: No: D o not add to previous draw Performed By: #### 0 0121 ####[facility] [place] [address], [facility] PLAT CNT 222 Thou/mm3 Normal 100-400 [facility] Comment on above: Order Comment: No: D o not add to previous draw Performed By: #### 0 0121 ####[facility] [facility] [place] [address], [facility] WBC (Leukocytes) 14.3 Thou/mm3 High 4.0-10.0 [facility] Comment on above: Order Comment: No: D o not add to previous draw Performed By: #### 0 0121 ####[facility] Operative Reporton 7 Operative Report MR#: [id number] 2[facility] Pt. Name: Chantelle Dey Room #: 5AB [id number] Discharge Date: Birthdate: 1945 OPERATIVE REPORTDATE OF SURGERY: 11/09/2017SURGEON: Crystal Varela M.D.ATTENDING SURGEON: Crystal Varela M.D.BANKING SERVICES CLERK: Tiara Anderson M.D.ANESTHESIA: General with endotracheal intubation.ESTIMATED [...] ligament was taken down with the Harmonicdevice. Adam drain was inserted and the esophagus was [...] 11/09/2017/04:17 Gabriel/Tiara Anderson M.D.Date Trans: 11/10/2017 01:10 A/SamuelN_JN:[id number]: Hi Holliday M.D. [address] [place] [id number] Normal [facility] POC GLUCOSE LABon 11-10-2017 Glucose mass conc 130 mg/dL High 70-100 [facility] Comment on above: Performed By: #### 0 0121 ####[facility] [facility] [address], [facility] Glucose mass conc 124 mg/dL High 70-100 [facility] Comment on above: Performed By: #### 0 0121 ####[facility] [place] [address], [facility] Glucose mass conc 134 mg/dL High 70-100 [facility] Comment on above: Performed By: #### 0 0121 ####[facility] [place] [address], [facility] Glucose mass conc 224 mg/dL High 70-100 [facility] Comment on above: Performed By: #### 0 0121 ####[facility] [place] [address], [facility] Glucose mass conc 156 mg/dL High 70-100 [facility] Comment on above: Performed By: #### 0 0121 ####[facility] [place] [address], [facility] Glucose mass conc 142 mg/dL High 70-100 [facility] Comment on above: Performed By: #### 0 0121 ####[facility] [place] [address], [facility] POC GLUCOSE LABon 11-09-2017 Glucose mass conc 170 mg/dL High 70-100 [facility] Comment on above: Performed By: #### 8 5499 ####[facility] [place] [address], [facility] Glucose mass conc 170 mg/dL High 70-100 [facility] Comment on above: Performed By: #### 8 5499 ####[facility] [place] [address], [facility] Glucose mass conc 158 mg/dL High 70-100 [facility] Comment on above: Performed By: #### 8 [id number] ####[facility] [place] [address], [facility] Glucose mass conc 118 mg/dL High 70-100 [facility] Comment on above: Performed By: #### 8 [id number] ####[facility] [place] [address], [facility] Operative Reporton 7 Operative Report MR#: [id number] [facility] Pt. Name: Chantelle Dey Room #: Z0 [...] Signed by:Crystal Varela M.D. 11/07/2017 02:47 P Zayanb Varela M.D.Date Dict: 11/06/2017/11:07 Kevin/Crystal Varela M.D.Date Trans: 11/06/2017 10:28 P/desoDN_[id number]: Hi Holliday M.D. [address] [place] [id number] [facility] CBC COMPLETE BLOOD COUNTon 1 01-07-2017 Erythrocyte distribution width Auto Ratio (RBC) 17.9 % High 11.5-16.9 [facility] Comment on above: Performed By: #### 5 0608 ####[facility].[address] Erythrocytes (RBC) 4.98 mill/mm3 Normal 3.50-5.50 [facility] Comment on above: Performed By: #### 5 0608 ####[facility] [address] Hematocrit (HCT) 35.1 % Low 36.0-48.0 [facility] Comment on above: Performed By: #### 5 0608 ####[facility] [address] Hemoglobin mass conc (Bld) 10.7 g/dL Low 12.0-15.0 [facility] Comment on above: Performed By: #### 5 0608 ####[facility] [address] MCH 21.6 pg Low 24.0-32.0 [facility] Comment on above: Performed By: #### 5 0608 ####[facility] [address] MCHC mass conc (RBC) 30.6 g/dL Low 32.0-36.0 [facility] Comment on above: Performed By: #### 5 0608 ####[facility] [address] MCV 70.5 fL Low 80.0-100.0 [facility] Comment on above: Performed By: #### 5 0608 ####[facility] [address], [facility] PLAT CNT 334 Thou/mm3 Normal 100-400 [facility] Comment on above: Performed By: #### 5 0608 ####[facility].[address] WBC (Leukocytes) 13.3 Thou/mm3 High 4.0-10.0 [facility] Comment on above: Performed By: #### 5 0608 ####[facility] COMP METABOLIC PANELon 11-06 Alanine aminotransferase (ALT) 14 U/L Normal 7-52 [facility] Comment on above: Performed By: #### 0 0121 ####[facility].[address] Albumin 4.0 g/dL Normal 3.5-5.7 [facility] Comment on above: Performed By: #### 0 0121 ####[facility].[address] ALKALINE PHOSPH 73 IU/L Normal 34-104 [facility] Comment on above: Performed By: #### 0 0121 ####[facility].[address] Aspartate aminotransferase (AST) 17 U/L Normal 13-39 [facility] Comment on above: Performed By: #### 0 0121 ####[facility].[address] Bilirubin (total) 0.4 mg/dL Normal 0.3-1.0 [facility] Comment on above: Performed By: #### 0 0121 ####[facility].[address] Calcium 9.0 mg/dL Normal 8.6-10.3 [facility] Comment on above: Performed By: #### 0 0121 ####[facility].[address] Chloride 108 mmol/L High 98-107 [facility] Comment on above: Performed By: #### 0 0121 ####[facility] [place] [address], [facility] CO2 25 mmol/L Normal 21-31 [facility] Comment on above: Performed By: #### 0 0121 ####[facility] [place] [address], [facility] Creatinine 0.81 mg/dL Normal 0.60-1.20 [facility] Comment on above: Performed By: #### 0 0121 ####[facility] [place] [address], [facility] eGFR (black) mL/min/{1.73_m2} Normal >60 [facility] Comment on above: Result Comment: Calc ulation may not be valid for patients over 70 years Performed By: #### 0 0121 ####[facility] [place] [address], [facility] eGFR (non-black) mL/min/{1.73_m2} Normal >60 [facility] Comment on above: Result Comment: Calc ulation may not be valid for patients over 70 years Performed By: #### 0 0121 ####[facility] [place] [address], [facility] Glucose mass conc 103 mg/dL High 70-100 [facility] Comment on above: Performed By: #### 0 0121 ####[facility] [place] [address], [facility] Potassium molar conc 4.7 mmol/L Normal 3.5-5.1 [facility] Comment on above: Performed By: #### 0 0121 ####[facility] [place] [address], [facility] Protein 6.7 g/dL Normal 6.0-8.3 [facility] Comment on above: Performed By: #### 0 0121 ####[facility].[address] Sodium 139 mmol/L Normal 136-145 [facility] Comment on above: Performed By: #### 0 0121 ####[facility].[address] Urea nitrogen 26 mg/dL High 7-25 [facility] Comment on above: Performed By: #### 0 0121 ####[facility].[address] HEMOGLOBIN A1Con 11-06-2017 Glucose mass conc 148 mg/dL High 70-126 [facility] Comment on above: Performed By: #### 4 6447 ####[facility] [address] Hemoglobin A1c/Hemoglobin.tota l mass fraction (Bld) 6.8 % High 4.0-6.0 [facility] Comment on above: Performed By: #### 4 6447 ####[facility] [address] PROTHROMBIN TIMEon 7 INR Coag RelTime (PPP) 1.04 {INR} Normal 0.91-1.16 [facility] Comment on above: Result Comment: ACCC P RECOMMENDED INR FOR WARFARIN THERAPY CONDITION INRPROPHYLAXIS OF VENOUS THROMBOSIS 2-3(HIGH-RISK SURGERY)TREATMENT OF VENOUS THROMBOSIS 2-3TREATMENT OF PULMONARY EMBOLISM 2-3PREVENTION OF SYSTEMIC EMBOLISM: 2-3 ACUTE MYOCARDIAL INFARCTION TISSUE HEART VALVES VALVULAR HEART DISEASE ATRIAL FIBRILLATION RECURRENT SYSTEMIC EMBOLISMMECHANICAL HEART VALVE 2.5-3.5 FROM: ORAL ANTICOAGULANTS. MECHANISM OF ACTION, CLINICALEFFECTIVENESS, AND OPTIMAL THERAPEUTIC RANGE. [id number]-246S. Performed By: #### 5 6101 ####[facility] [place] [address], [facility] Prothrombin time (PT) Coag time (PPP) 13.6 s Normal 12.3-14.8 [facility] Comment on above: Result Comment: ALL RESULTS MUST BE INTERPRETED WITH RESPECT TO BLOOD DRAWING ARTIFACTOR DILUTION ERROR OF ANTICOAGULANT AT THE TIME OF SAMPLING. Performed By: #### 5 6101 ####[facility] [id number], [facility] TYPE AND CROSSMATCHon 2016 ABO INTERPRETATION O Normal [facility] Comment on above: Performed By: #### 6 2594 ####[facility] [place] [address], [facility] ANTIBODY SCREEN Negative Normal [facility] Comment on above: Performed By: #### 6 2594 ####[facility] [place] [address], [place] RH INTERPRETATION Positive Normal [facility] Comment on above: Performed By: #### 6 2594 ####[facility] [place] [address], [facility] Vital Signs Date Time Vital Sign Value Performing Clinician Facility 10-26-2024 13:32-0500 Body height 154.9 cm Sergio Bell MD Work Phone: [facility] 10-26-2024 13:32-0500 Body mass index (BMI) [Ratio] 25.51 kg/m2 Sergio Bell MD Work Phone: [facility] 10-26-2024 13:32-0500 Body weight 61.24 kg Sergio Bell MD Work Phone: [facility] 10-26-2024 13:32-0500 Diastolic blood pressure 154 mm[Hg] Sergio Bell MD Work Phone: [facility] 10-26-2024 13:32-0500 Systolic blood pressure 189 mm[Hg] Sergio Bell MD Work Phone: [facility] 09-13-2024 10:17-0400 Body height 154.9 cm Sergio Bell MD Work Phone: [facility] 09-13-2024 10:17-0400 Body mass index (BMI) [Ratio] 24.56 kg/m2 Sergio Bell MD Work Phone: [facility] 09-13-2024 10:17-0400 Body weight 58.97 kg Sergio Bell MD Work Phone: [facility] 09-13-2024 10:17-0400 Diastolic blood pressure 69 mm[Hg] Sergio Bell MD Work Phone: [facility] 09-13-2024 10:17-0400 Systolic blood pressure 122 mm[Hg] Sergio Bell MD Work Phone: [facility] 02-14-2022 11:26-0400 Diastolic blood pressure 53 mm[Hg] MD Hi Holliday Work Phone: [facility] 02-14-2022 11:26-0400 Heart rate 61 /min MD Hi Holliday Work Phone: [facility] 02-14-2022 11:26-0400 Respiratory rate 16 /min MD Hi Holliday Work Phone: [facility] 02-14-2022 11:26-0400 SaO2% (BldA) [Mass fraction] 94 % MD Hi Holliday Work Phone: [facility] 02-14-2022 11:26-0400 Systolic blood pressure 129 mm[Hg] MD Hi Holliday Work Phone: [facility] 02-14-2022 08:18-0400 Body height 154.94 cm MD Hi Holliday Work Phone: [facility] 02-14-2022 08:18-0400 Body mass index (BMI) [Ratio] 24.5 kg/m2 MD Hi Holliday Work Phone: [facility] 02-14-2022 08:18040 Body weight 58.96 kg MD Hi Holliday Work Phone: [facility] Encounters Encounter Date Encounter Type Care Provider Facility Start: 10-31-2024 End: 10-31-2024 Lab Drop off Wilfredo Melgar [facility] Start: 10-31-2024 End: 10-31-2024 ambulatory Wilfredo Melgar Facility:[facility] Start: 10-26-2024 End: 10-26-2024 Bamboo flowsheet Sergio [...] 09-28-2024 ambulatory MD Hi Holliday Work Phone: [facility] Work Phone: Start: 09-28-2024 End: 09-28-2024 Departed Referred MD Hi Holliday Work Phone: [facility] Start: 09-13-2024 End: 09-13-2024 Bamboo flowsheet [...] Start: 08-25-2024 End: 08-25-2024 ambulatory Wilfredo Melgar Facility:[facility] [place] Start: 07-22-2024 End: 08-05-2024 Telephone encounter Sergio Bell MD Work Phone: [facility] Start: 04-12-2024 End: 04-13-2024 ambulatory Wilfredo Melgar Facility:[facility] [place] Start: 04-12-2024 End: 04-12-2024 ambulatory Wilfredo Melgar Facility:[facility] Start: 04-12-2024 End: 04-12-2024 Lab Drop off Wilfredo Melgar [facility] Start: 03-21-2024 ambulatory Wilfredo Melgar Facility : [facility] Start: 02-09-2024 End: 02-09-2024 ambulatory SERGIO BELL Not Available Start: 01-27-2024 End: 01-28-2024 ambulatory FOREIGN AGENT Betsey L Aurea Facility:[facility] Start: 01-27-2024 End: 01-27-2024 Lab Drop off Betsey L Aurea [facility] Start: 12-29-2023 End: 12-30-2023 ambulatory Wilfredo Melgar Facility:[facility] [place] Start: 11-25-2023 End: 11-26-2023 ambulatory Wilfredo Melgar Facility:[facility] Start: 11-24-2023 End: 11-25-2023 ambulatory Wilfredo Melgar Facility:[facility] Start: 11-19-2023 End: 12-22-2023 ambulatory Wilfredo Melgar Facility:[id number] Start: 10-05-2023 End: 10-06-2023 [facility] Start: 09-22-2023 End: 09-23-2023 ambulatory Wilfredo Melgar Facility:[facility] Start: 09-22-2023 End: 09-22-2023 Lab Drop off Wilfredo Melgar [facility] Start: 08-31-2023 End: 09-01-2023 ambulatory Wilfredo Melgar Facility:[facility] [place] Start: 08-24-2023 End: 08-25-2023 ambulatory Wilfredo Melgar Facility:[facility] Start: 08-10-2023 End: 08-11-2023 ambulatory Wilfredo Melgar Facility: [facility] Start: 05-11-2023 End: 05-12-2023 ambulatory Wilfredo eMlgar Facility:[facility] [place] Start: 02-20-2023 End: 02-21-[address] HI HOLLIDAY . Facility:[facility] Start: 12-25-2022 End: 12-26-[address] HI HOLLIDAY . Facility:[facility] Start: 05-08-2022 End: 05-09-[address] HI HOLLIDAY . Facility:[facility] Start: 02-14-2022 End: 02-14-2022 Admission to same day surgery center MD Hi Holliday Work Phone: [facility] [place] Start: 11-09-2017 End: 11-12-2017 Evaluation and management of inpatient CRYSTAL VARELA Facility:[facility] Start: 11-06-2017 End: 11-07-2017 Ambulatory CRYSTAL VARELA Facility:[facility] Procedures Date Procedure Procedure Detail Performing Clinician Start: 02-14-2022 Needle biopsy MD Hi vazquez Work Phone: Start: 02-04-2021 Cystourethroscopy wi th dilation of urethral stricture Wilfredo Melgar Start: 05-07-2020 Cystourethroscopy wi th dilation of urethral stricture Wilfredo Melgar Start: 11-09-2017 REPAIR DIAPHRAGM, PERCUTANEOUS ENDOSCOPIC APPROACH ZAYNABIN AVERY Start: 11-09-2017 Resection of Gallbla dder, Percutaneous Endoscopic Approach ZAYNABIN AVERY Start: 11-09-2017 RESTRICTION OF ESOPHAGOGASTRIC JUNCTION, PERC ENDO APPROACH CRYSTAL VARELA Bilateral cataracts (disorder) Wilfredo Melgar Comment on above: bilateral one week a part Cholecystectomy Wilfredo Melgar Hysterectomy Wilfredorafita Melgar Laparoscopy Wilfredorafita Melgar Placement of stent i n cardiac conduit Wilfredo Melgar Post-surgery back pa in (finding) Wilfredo Harsha Plan of Treatment Date Care Activity Detail Author Start: 12-21-2024 End: 12-21-2024 Patient encounter procedure 12/21/2024 1:30 PM EST Office Visit [facility] [address] [facility] [address] [place] [id number] Sergio Bell MD [address] [facility] [address] [place] [address] [facility] Start: 12-06-2024 ambulatory Ambulatory Facility:[facility] Start: 11-29-2024 End: 11-29-2024 Patient encounter procedure 11/29/2024 3:30 PM EST Office Visit [facility] [address] [place] [address] Sergio Bell MD [address] [place] [address] [facility] Start: 10-26-2024 End: 10-26-2024 Patient encounter procedure [facility] Comment on above: Arrived Start: 08-16-2024 End: 08-16-2024 Patient encounter procedure 08/16/2024 1:30 PM EDT Office Visit [facility] [address] [facility] [address] [place] [address] Sergio Bell MD [address] [facility] [address] [place] [address] [facility] Start: 07-24-2024 Influenza vaccination Influenza Vacc ine (#1) [facility] Start: 2011 Pneumococcal Vaccine : 65+ Years (1 of 1 - PCV) Pneumococcal Vaccine: 65+ Years (1 of 1 - PCV) [facility] Patient Education Kidney Biopsy [facility] Work Phone: Immunizations Immunization Date Immunization Notes Care Provider [facility] 08-25-2024 influenza, high dose seasonal, preservative-free; Translations: [Fluzone High Dose Vaccine] Wilfredo Melgar [facility] 09-22-2023 influenza, high dose seasonal, preservative-free Wilfredo Melgar [facility] 09-22-2023 influenza virus vaccine, unspecified formulation Sergio Bell MD Work Phone: [facility] 02-19-2021 SARS-CoV-2 (COVID-19 ) mRNA BNT-162q6 vax Wilfredo Melgar [facility] 01-28-2021 SARS-CoV-2 (COVID-19 ) mRNA BNT-162b2 vax Wilfredo Melgar [facility] 12-24-2020 SARS-CoV-2 (COVID-19 ) mRNA-1273 vaccine Wilfredo Melgar [facility] NEGATED: Highlighted row has not occurred!08-24-2023 influenza virus vaccine, unspecified formulation Wilfredo Melgar [facility] NEGATED: Highlighted row has not occurred!02-10-2023 influenza virus vaccine, unspecified formulation Wilfredo Melgar [facility] NEGATED: Highlighted row has not occurred!04-09-2021 influenza virus vaccine, unspecified formulation Wilfredo Melgar [facility] NEGATED: Highlighted row has not occurred!01-15-2021 influenza virus vaccine, unspecified formulation Wilfredo Melgar [facility] Payers Date Payer Category Payer Self-pay [id number] 2023 Medicare HU[employer]NA MEDICARE ADVANTAGE HU[employer]NA MEDICARE [id number] 2023-Present [address] [place] [id number] 2023 Medicare (Managed Care) HUMANA M EDICARE ADVANTAGE [id number] 1959 Unknown [id number] 1945 Unknown [id number] 2.16.840.1.930335.3.579. 2.593 1946 Unknown [id number] 2.16.840.1.473655.3.579. 2.593 1946 Unknown [id number] 2.16.840.1.532256.3.579. 2.59 1946 Unknown [id number] 2.16.840.1.080243.3.579. 2.72 1946 Unknown [id number] 2.16.840.1.720906.3.579. 272 1946 Unknown [id number] 2.16.840.1.954627.3.579. 272 1946 Unknown [id number] 2.16.840.1.156212.3.579. 272 1946 Unknown [id number] 2.16.840.1.807712.3.579. 2.72 1946 Unknown [id number] 2.16.840.1.491249.3.579. 272 1946 Unknown [id number] 2.16.840.1.641370.3.579. 2.72 1946 Unknown [id number] 2.16.840.1.637197.3.579. 2.72 1946 Unknown [id number] 2.16.840.1.401659.3.579. 2.72 1946 Unknown [id number] 2.16.840.1.810297.3.579. 272 1946 Unknown [id number] 2.16.840.1.755034.3.579. 2.72 1946 Unknown [id number] 2.16.840.1.767260.3.579. 2727 1946 Unknown [id number] 2.16.840.1.690107.3.579. 2.727 1946 Unknown [id number] 2.16.840.1.454194.3.579. 2.727 1946 Unknown [id number] 2.16.840.1.442873.3.579. 2.72 1946 Unknown [id number] 2.16.840.1.058175.3.579. 2.727 1946 Unknown [id number] 2.16.840.1.975376.3.579. 2.1259 1946 Unknown [id number] 2.16.840.1.761034.3.579. 2.1259 1946 Unknown [id number] 2.16.840.1.761669.3.579. 2.72 1946 Unknown [id number] 2.16.840.1.317766.3.579. 2.727 1946 Unknown [id number] 2.16.840.1.896457.3.579. 2.727 1946 Unknown [id number] 2.16.840.1.001276.3.579. 2.727 Unknown [id number] 2.16.840.1.137571.3.579. 2.531 Social History Date Type Detail Facility [facility] Work Phone: Start: 1945 Sex Assigned At Female [facility] Start: 09-22-2023 Tobacco smoking status Light t obacco smoker (finding) [facility] Start: 02-09-2024 End: 10-26-2024 Sex Assigned At Female [facility] Start: 01-27-2024 End: 08-25-2024 Tobacco smoking status Ex-smoker (finding) [facility] History of tobacco use Current smoker [facility] History of tobacco use Cigarette Smoker [facility] Start: 01-26-2024 End: 09-13-2024 Tobacco use and exposure Smokeless tobacco non-user [facility] Start: 02-09-2024 End: 10-26-2024 Alcoholic beverage intake Current drinker of alcohol (finding) [facility] Start: 02-09-2024 End: 10-26-2024 History of Social function [facility] Start: 1945 Sex assigned at Not on file N [facility] Start: 09-13-2024 Tobacco smoking stat [facility] Smokes tobacco daily [facility] Clinical Notes 11-24-2023 to 10-27-2024 Telephone Encounter - Lolly Barrios - 10/27/2024 8:04 AM ESTTelephone Encounter - Lolly Barrios - 10/27/2024 8:04 AM ESTTelephone Encounter - Sergio Bell MD - 10/26/2024 4:04 PM ESTLaboratory Note Date & Type Note Facility 10-27-2024 Telephone encounter Note Cld and spoke to pt letting her know that allergy testing shows allergies to cedar and cockroach [facility] 10-27-2024 Miscellaneous Notes Cld and spoke to pt letting her know that allergy testing shows allergies to cedar and cockroach Tell pt her allergy testing shows allergies to cedar and cockroach documented in this encounter [facility] 10-26-2024 Telephone encounter Note Tell pt her allergy testing shows allergies to cedar and cockroach [facility] 10-26-2024 History of Presen t illness Narrative Subjective Patient ID: Chantelle Dey is a 79 y.o. female who presents for Thyroid Nodule (Follow up FNA ) FNA path showed a Emerson 3 nodule. Genetic testing could not be [...] 08/23/2014 Acute confusion 02/07/2019 Benign essential hypertension ([facility]) 08/21/2014 Carotid artery occlusion 04/27/2014 Coronary atherosclerosis ([facility]) 01/26/2024 Dizziness and giddiness 08/21/2014 Gastroesophageal reflux disease 08/21/2014 Hyperlipidemia ([facility]) 08/21/2014 Hypertensive disorder ([facility]) 08/23/2014 Peripheral vascular disease ([facility]) 08/23/2014 Stricture of artery ([facility]) 08/21/2014 Type 2 diabetes mellitus without complication ([facility]) 08/21/2014 COPD (chronic obstructive pulmonary disease) ([facility]) 01/26/2024 Thyroid nodule ([facility]) 01/26/2024 Polycythemia 01/26/2024 Immunodeficiency due to drugs ([facility]) 01/26/2024 Chronic respiratory failure with hypoxia ([facility]) 01/26/2024 Fibromyalgia 01/26/2024 Rheumatoid arteritis ([facility]) 01/26/2024 Left ear impacted cerumen 02/09/2024 Right thyroid nodule ([facility]) 02/09/2024 Vasomotor rhinitis 02/09/2024 Resolved Ambulatory Problems Diagnosis Date Noted Tobacco dependence syndrome 01/26/2024 Past Medical History: Diagnosis Date Depression ([facility]) Herpes zoster Hiatal hernia Impingement syndrome of [...] Take 20 mg by mouth Daily HYDROcodone-acetaminophen (Ariel) 5-325 MG tablet Take 1 tablet by [...] headache and pressure documented in this encounter [facility] 10-03-2024 Telephone encounter Note Verified with Herminia Lorenzo [facility] 10-03-2024 Miscellaneous Notes Verified with Herminia Lorenzo Make sure pt getting affirma documented in this encounter [facility] 10-03-2024 Telephone encounter Note Make sure pt getting affirma [facility] 10-03-2024 Telephone encounter Note TC from Herminia Lorenzo verifying it was sent to [facility]. [facility] 10-03-2024 Miscellaneous Notes TC from Herminia Lorenzo verifying it was sent to [employer]. TC from pt. Follow up appt for 10/26. LM asking Herminia if path sent for Affirma. LM asking pt to call us to schedule follow up. Make sure affirma testing being hanna and schedule F/U for 3 weeks documented in this encounter [facility] 10-03-2024 Telephone encounter Note TC from pt. Follow up appt for 10/26. [facility] 10-03-2024 Telephone encounter Note LM asking Herminia if path sent for [employer]ir[employer]. LM asking pt to call us to schedule follow up. [facility] 09-30-2024 Telephone encounter Note Make sure affirma testing being hanna and schedule F/U for 3 weeks [facility] 09-13-2024 History of Presen t illness Narrative Subjective Patient ID: Chantelle Dey is a 79 y.o. female who presents for Thyroid Nodule (Follow up Ultrasound [facility] 08/09/24.) Thyroid US shows a [id number] RT TR4 nodule, compared to 14mm TR3 in Dec. Pt also c/o chronic sinus issues Family History Problem Relation Name Age of Onset Heart failure Father Diabetes Father Active Ambulatory Problems Diagnosis Date Noted Abnormal results of cardiovascular function studies 08/23/2014 Acute confusion 02/07/2019 Benign essential hypertension (CMS/HCC) 08/21/2014 Carotid artery occlusion 04/27/2014 Coronary atherosclerosis ([facility]) 01/26/2024 Dizziness and giddiness 08/21/2014 Gastroesophageal reflux disease 08/21/2014 Hyperlipidemia (CMS/[facility]) 08/21/2014 Hypertensive disorder ([facility]) 08/23/2014 Peripheral vascular disease ([facility]) 08/23/2014 Stricture of artery (CMS/HCC) 08/21/2014 Type 2 diabetes mellitus without complication (CMS/HCC) 08/21/2014 COPD (chronic obstructive pulmonary disease) (CMS/[facility]) 01/26/2024 Thyroid nodule (CMS/HCC) 01/26/2024 Polycythemia 01/26/2024 Immunodeficiency due to drugs (CMS/[facility]) 01/26/2024 Chronic respiratory failure with hypoxia (CMS/HCC) 01/26/2024 Fibromyalgia 01/26/2024 Rheumatoid arteritis (CMS/HCC) 01/26/2024 Left ear impacted cerumen 02/09/2024 Right thyroid nodule ([facility]/H[facility]) 02/09/2024 Vasomotor rhinitis 02/09/2024 Resolved Ambulatory Problems [...] Take 20 mg by mouth Daily HYDROcodone-acetaminophen (Ariel) 5-325 MG tablet Take 1 tablet by [...] sinus plain films documented in this encounter [facility] 08-05-2024 Telephone encounter Note Pt is scheduled for US 08/09/24 at [facility] and with Dr Bell 08/16/24. [facility] 08-05-2024 Miscellaneous Notes Pt is scheduled for US 08/09/24 at [facility] and with Dr Bell 08/16/24. Left a [...] has any problems. documented in this encounter [facility] 08-05-2024 Telephone encounter Note Left a message for pt to call Dr Bell's office to schedule appt. [facility] 07-22-2024 Telephone encounter Note Tried to call pt back to relay the information from Dr Bell/ unable to leave a message, pt does not have voice mail. [facility] 07-22-2024 Telephone encounter Note Chantelle must have misunderstood our conversation. There is definitely a potential issue with possible thyroid cancer, though the risk is low. She should definitely get a F/U US [facility] 07-22-2024 Telephone encounter Note Pt called in, she is cancelling her 6 mo US appt because she does not feel she needs to have another US done. Pt said the last US she had wasn't an issue with the nodule . She said she will contact the office if she has any problems. [facility] 01-27-2024 Evaluation + Plan note Diagnostic Tests PendingUrine Culture 01/27/24 Future Scheduled TestsCBC w/ Auto Diff 04/09/23Comprehensive Metabolic Panel 04/09/23US Thyroid 12/30/23 [facility] 12-30-2023 Evaluation + Plan note Future Scheduled TestsUS Thyroid 12/30/23 [facility] 11-25-2023 Note [id number]#1.00TIFF [facility] 11-24-2023 Note [id number]#1.00TIFF [facility] Evaluation + Plan note Future Appointments Appointment Date:11/20/2023 09:30:00 AM Scheduled Provider: Location:[facility] Appointment Type: Medicare Wellness Subsequent Future Scheduled TestsCBC w/ Auto Diff 04/09/23Comprehensive Metabolic Panel 04/09/23 [facility] Evaluation + Plan note Future Appointments Appointment Date:11/28/2024 10:45:00 AM Scheduled Provider:Wilfredo Melgar MD Location:[facility] Appointment Type: Open Future Scheduled TestsUS Thyroid 12/30/23 [facility] Evaluation note No assessment inform ation available [facility] Work Phone: Evaluation note Diagnosis Right thyroid nodule (CMS/HCC)- Primary Chronic pansinusitis Other chronic sinusitis [facility] Diagnosis Right thyroid nodule (CMS/HCC)- Primary Chronic intractable headache, unspecified headache type [facility] N[facility]ative No data available for this section [facility] No data available for this section [facility] No data available for this section [facility] Summary Purpose Family History No Family History [...] section and content) DATE CREATED AUTHOR 05/18/2018 [facility] DATE CREATED AUTHOR AUTHOR'S ORGANIZ ATION 03/18/2023 [facility] DATE CREATED AUTHOR AUTHOR'S ORGANIZ ATION 04/15/2024 [facility] DATE CREATED AUTHOR AUTHOR'S ORGANIZ ATION 04/16/2024 Sherman Osorio [facility] DATE CREATED AUTHOR AUTHOR'S ORGANIZ ATION 09/15/2024 [facility] EPIC DATE CREATED AUTHOR AUTHOR'S ORGANIZ ATION 09/30/2024 [facility] DATE CREATED AUTHOR AUTHOR'S ORGANIZ ATION 11/18/2024 [facility] Care Teams (unrecognized sec tion [...] William Antony Jr, MD Attending Provider Active Senior Cobol Developer Relationship Specialty Start Date End Date Wilfredo Melgar MD [address] [place] [address] PCP - General Family Medicine 09/13/24 Senior Cobol Developer Relationship Specialty Start Date End Date Wilfredo Melgar MD [address] [place] [address] PCP - General Family Medicine 09/13/24 Senior Cobol Developer Relationship Specialty Start Date End Date Wilfredo Melgar MD [address] [place] [address] PCP - General Family Medicine 09/13/24 Senior Cobol Developer Relationship Specialty Start Date End Date Wilfredo Melgar MD [address] [place], [place] [id number] PCP - General Family Medicine 09/13/24 Senior Cobol Developer Relationship Specialty Start Date End Date Wilfredo Melgar MD [place] [address] PCP - General Family Medicine 09/13/24 Senior Cobol Developer Relationship Specialty Start Date End Date Wilfredo [...] Reason Comments Thyroid Nodule Follow up Ultrasound [facility] 08/09/24. Reason Comments Thyroid Nodule Follow up [...] BE BASED ON THE PRIMARY CLINICAL RECORDS. [email or web address] provides no warranty or guarantee of the accuracy or completeness of information in this document.
== END 2024-12-07 10:49 | disposition home or self-care (01) ==
LOC: US 10:48
PROVIDERS: PCP Family Medicine; Visit Provider Otolaryngology
DX: E04.1 Nontoxic single thyroid nodule (principal); E04.2 Nontoxic multinodular goiter
CPT/HCPCS: 76536

== ENCOUNTER 2025-03-29 12:22 | Outpatient (OUT) | payer MEDICARE, SELFPAY ==
[2025-03-29 13:04] LABS: Basophils Percent Auto 0.2 % (0.2-2.0); Eosinophils Percent Auto 0.3 % (0.9-7.0); Hematocrit 50.4 % (36.0-48.0); Hemoglobin 16.6 g/dL (12.0-16.0); Immature Granulocytes Abs Auto 0.04 10^3/uL (0.00-0.03); Immature Granulocytes Pct Auto 0.3 % (0.0-0.5); Lymphocytes Percent Auto 15.4 % (20.5-60.0); Mean Corpuscular HGB Conc 32.9 g/dL (29.9-35.2); Mean Corpuscular Hemoglobin 30.6 pg (26.7-34.0); Mean Corpuscular Volume 92.8 fL (81.0-99.0); Mean Platelet Volume 10.5 fL (9.5-13.5); Monocytes Absolute Auto 1.2 10^3/uL (0.3-0.8); Monocytes Percent Auto 9.5 % (1.7-12.0); Neutrophils Absolute Auto 9.6 10^3/uL (1.4-6.5); Neutrophils Percent Auto 74.3 % (43.0-75.0); Platelet Count 206 10^3/uL (150-450); Red Blood Count 5.43 10^6/uL (4.20-5.40); Red Cell Distribution Width 14.2 % (11.0-15.0); White Blood Count 12.9 10^3/uL (4.0-11.0)
[2025-03-29 13:38] LABS: Estimated Average Glucose 126 mg/dL
[2025-03-29 15:00] LABS: Alanine Aminotransferase 16 U/L (14-59); Albumin Globulin Ratio 0.8; Albumin Level 3.3 g/dL (3.4-5.0); Alkaline Phosphatase 79 U/L (46-116); Anion Gap 11.1; Aspartate Amino Transferase 20 U/L (15-37); BUN Creatinine Ratio 28.7; Bilirubin Total 0.7 mg/dL (0.2-1.0); Calcium 9.3 mg/dL (8.5-10.1); Carbon Dioxide 29.3 mmol/L (21.0-32.0); Chloride 99 mmol/L (98-107); Chol HDL Ratio 2.5; Cholesterol 114 mg/dL (<=200); Estimated GFR (African America >60 (>=60 mL/min/1.73m^2); Estimated GFR (Non-African Ame 57 (>=60 mL/min/1.73m^2); Glucose 101 mg/dL (74-106); HDL Cholesterol 46 mg/dL (40-60); LDL Cholesterol Calculated 48.4 mg/dL; Potassium 4.4 mmol/L (3.5-5.1); Sodium 135 mmol/L (136-145); Total Protein 7.3 g/dL (6.4-8.2); Triglycerides 98 mg/dL (<=150); VLDL CHOLESTEROL 19.6 mg/dL
== END 2025-03-29 12:23 | disposition home or self-care (01) ==
LOC: LAB 12:25
PROVIDERS: PCP Family Medicine; Visit Provider Family Medicine
DX: M54.9 Dorsalgia, unspecified (principal); R73.9 Hyperglycemia, unspecified; I10 Essential (primary) hypertension; D75.1 Secondary polycythemia; F17.200 Nicotine dependence, unspecified, uncomplicated; E78.00 Pure hypercholesterolemia, unspecified; D41.01 Neoplasm of uncertain behavior of right kidney; R51.9 Headache, unspecified
CPT/HCPCS: 36415; 80053; 80061; 83036; 85025

== ENCOUNTER 2025-07-27 12:17 | Outpatient (OUT) | payer MEDICARE, SELFPAY ==
--- NOTE | 2025-07-27 12:41 | MR_ITS ---
[address] [address] Patient Name: DIEGO DEY MRN: [id number] date: 1945 Sex: F Assigned Patient Location: LAB Current Patient Location: LAB Accession/Order Number: [id number] Exam Date: 07/27/2025 12:50 Report Date: 07/27/2025 15:43 At the request of: MACIEL PERAZA DO Procedure: MR head/brain wo/w con MR head/brain wo/w con 07/27/2025 2:14 PM SIGN AND SYMPTOMS: ^Ataxia PROTOCOL: Multiplanar multisequence MR images of the brain with and without IV contrast CONTRAST: 12 mL of intravenous Dotarem COMPARISON: 11/11/2024 FINDINGS: Extra axial spaces: There is age-related cortical atrophy. Hemorrhage: None. Ventricular system: Within normal limits. Basal cisterns: Within normal limits and not effaced. 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 There is periventricular white matter T2 and FLAIR hyperintense signal consistent with chronic microvascular ischemic change. Midline shift: None.. Cerebellum: Within normal limits. Brainstem: Within normal limits. OTHER: Calvarium: Normal marrow signal. Vascular system: Satisfactory flow voids within the anterior and posterior circulation. Visualized Paranasal sinuses: Within normal limits. There is a small right mastoid effusion. Visualized Orbits: Within normal limits. Visualized upper cervical spine: Within normal limits. Sella and skull base: Within normal limits. MR/MR head/brain wo/w con IMPRESSION: No acute pathology or abnormal post contrast-enhancement. Chronic age-related neurodegenerative changes are noted as above. 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 Impression dictated by: Hunter Ballesteros M.D. 07/27/2025 3:43 PM Dictation Location: [place] [address] Electronically authenticated by: [id number] Y Date: 07/27/2025 15:43
[2025-07-27 12:46] LABS: Estimated GFR (African America >60 (>=60 mL/min/1.73m^2); Estimated GFR (Non-African Ame >60 (>=60 mL/min/1.73m^2)
== END 2025-07-27 12:18 | disposition home or self-care (01) ==
LOC: LAB 12:21
PROVIDERS: Pathology Anatomic Pathology & Clinical Pathology; Visit Provider Psychiatry & Neurology Neurology
DX: R27.0 Ataxia, unspecified (principal)
CPT/HCPCS: 36415; 70553; 82565; A9575

== ENCOUNTER 2025-10-06 11:05 | Outpatient (OUT) | payer MEDICARE, SELFPAY ==
--- OUTSIDE RECORDS SUMMARY | 2025-10-06 11:17 | XMS_ITS | Encounter Summary ---
Author Organization [facility] Address [address] [place] [address] Care Team Providers Care Parachute Inspector Name Role Phone Eric Mcleod MD Primary Care Provider [phone] Encounter Details DateTypeDepartmentCare Team (Latest Contact Info)Xvqliwviudu29/04/2025Telephone [facility] [place] [facility] [address] [facility] [address] [place] [address] Charlee Perez MA Social History Tobacco UseTypesPacks/DayYears UsedDateSmoking Tobacco: Every DayCigarettes Smokeless Tobacco: NeverAlcohol UseStandard Drinks/WeekCommentsYes0 (1 standard drink = 0.6 oz pure alcohol)CommentsUnknownSex and Gender Information ValueDate RecordedSex Assigned at BirthNot on fileLegal KcpLwgtnv87/15/2023 6:54 PM EDTGender IdentityNot on fileSexual OrientationNot on filedocumented as of this encounter Miscellaneous Notes * Telephone Encounter - Charlee Perez MA - 09/26/2025 11:39 AM EST Patient documented in this encounter Plan of Treatment DateTypeDepartmentCare Team (Latest Contact Info)Awxihngybhf20/02/2025 1:30 PM ESTOffice Visit [facility] [address] [facility] [address] [place] [address] Angéilca Sierra MD [address] [facility] [address] [place], [place] [id number] documented as of this encounter Visit Diagnoses Not on filedocumented in this encounter Care Teams Team MemberRelationshipSpecialtyStart DateEnd Date Eric Mcleod MD [address] [place] [address] PCP - GeneralFamily Iqwxcofa39/22/24documented as of this encounter
--- OUTSIDE RECORDS SUMMARY | 2025-10-06 11:17 | XMS_ITS | Clinical Summary ---
Author Organization [facility] Address [address] [place] [address] Care Team Providers Care Second Chef Name Role Phone Eric Mcleod MD Primary Care Provider Allergies No known active allergies Medications MedicationSigDispense QuantityRefillsLast FilledStart DateEnd DateStatus albuterol HFA 90 mcg/act inhaler Inhale 2 puffs every 6 (six) hours if epdgta0310/08/2023ctive alendronate (Fosamax) 35 MG tablet Take 35 mg by mouth every 7 (seven) daysActive aspirin 81 MG EC tablet Take 1 tablet by mouth DailyActive citalopram (CeleXA) 20 MG tablet Take 20 mg by mouth Daily12/10/2023ctive omega-3 (fish oil) 1000 MG capsule Take 1 g by mouthActive methotrexate 2.5 MG tablet Take 2.5 mg by mouth 1 (one) time per week.12/28/2023ctive metoprolol tartrate (Lopressor) 25 MG tablet Take 0.5 tablets by mouth in the morning and 0.5 tablets before bedtime.Active HYDROcodone-acetaminophen (Breckenridge) 5-325 MG tablet Take 1 tablet by mouth Daily as fhyuqe9111/24/2023ctive rosuvastatin (Crestor) 5 MG tablet Take 5 mg by mouth DailyActive pantoprazole (ProtoNix) 40 MG EC tablet Take 40 mg by mouth in the morning. Take before meals. Do not crush, chew, or split..Active cholecalciferol 125 MCG (5000 UT) capsule Take 1 capsule by mouth DailyActive ipratropium (Atrovent) 0.06 % nasal spray Indications:Chronic rhinitisAdminister 2 sprays into each nostril in the morning and 2 sprays in the evening and 2 sprays before bedtime. 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 depressive disorder with single episode, in full remission 12/21/2024Multiple falls12/21/2024Neoplasm of uncertain behavior of kidney 12/21/2024Postinfective urethral stricture in vzzick1612/21/2024Recurrent UTI 12/21/2024Renal cyst12/21/2024Stress bjogmfftjzci94/29/2025Vitamin D deficiency 12/21/2024 Overview (12/21/2024): chronic Left ear impacted evxvmyf04/19/2024Right thyroid txwuzx6902/09/2024Vasomotor fzpfdyea39/19/2024Coronary irwwekkvuekhtbl62/05/2024OPD (chronic obstructive pulmonary disease)01/26/2024Thyroid ouueqi9001/26/20247930Nyqpdikmyqfw15/05/2024 Immunodeficiency due to drugs01/26/2024hronic respiratory failure with hypoxia 01/26/20248604Mnngbsfugfbk67/05/2024heumatoid ijfrqehgo26/05/2024cute confusion 02/07/2019Abnormal results of cardiovascular function slfcqzb9608/23/2014 Hypertensive ufbcskup19/01/2014Peripheral vascular wxnvard1308/23/2014enign essential lwaqlqankmol82/29/2014Dizziness and jfbombdjy87/29/2014 Gastroesophageal reflux kltglqw4708/21/20141507Nwhwnjssrehzyj20/29/2014Stricture of zoedki5508/21/2014Type 2 diabetes mellitus without dycautpcphkrs87/29/2014Carotid artery sguqngzqk69/05/2014 Resolved Problems ProblemNoted DateDiagnosed DateResolved DateTobacco dependence syndrome /03/2024 Encounters DateTypeDepartmentCare HjoyGtzmvtwtnjc74/04/2025Telephone [facility] [place] [facility] [address] [facility] [address] [place] [address] Charlee Preez MA from Last 3 Months Family History Medical HistoryRelationNameCommentsDiabetesFatherHeart failureFatherRelationName StatusCommentsFather Social History Tobacco UseTypesPacks/DayYears UsedDateSmoking Tobacco: Every DayCigarettes Smokeless Tobacco: Never Tobacco Cessation:Ready to Q uit: Not Asked; Counseling Given: Not Answered Alcohol UseStandard Drinks/WeekCommentsYes0 (1 standard drink = 0.6 oz pure alcohol)CommentsUnknownSex and Gender InformationValueDate RecordedSex Assigned at BirthNot on fileLegal WpeMjjhou70/15/2023 6:54 PM EDTGender Identity Not on fileSexual OrientationNot on file Last Filed Vital Signs Vital SignReadingTime TakenCommentsBlood Binwcolo762/63012/21/2024 1:29 PM EST Isjnl3699/29/2025 1:29 PM ESTTemperature--Respiratory Rate--Oxygen Saturation-- Inhaled Oxygen Concentration--Jpeokb61.2 kg (135 lb)12/21/2024 1:29 PM ESTHeight 154.9 cm (5' 1 )12/21/2024 1:29 PM ESTBody Mass Index25.51012/21/2024 1:29 PM EST Plan of Treatment DateTypeDepartmentCare Team (Latest Contact Info)Cjsvcfoqaxv46/02/2025 1:30 PM ESTOffice Visit [facility] [address] [facility] [address] [place] [phone] Angélica Sierra MD [address] [facility] [address] [place] [address] Health MaintenanceDue DateLast DoneCommentsPneumococcal Vaccine: 65+ Years (1 of 1 - PCV)1996COVID-19 Vaccine ( - 2024-26 season), 01/28/2021Influenza Vaccine (#1)2024, 09/22/2023 Medical Devices ImplantedTypeAreaManufacturerDevice IdentifierShelf Expiration DateModel / Serial / LotStentStentCoronary Insurance Care Teams Team MemberRelationshipSpecialtyStart DateEnd Date Eric Mcleod MD [address] [place] [address] PCP - GeneralFamily Ddbyidfo85/22/24
--- OUTSIDE RECORDS SUMMARY | 2025-10-06 11:17 | XMS_ITS | Clinical Summary ---
Author Organization [employer] [facility] tem Address [id number] [address] [place] [address] Care Team Providers Care Installation Supervisor Name Role Phone Ynes Holliday MD Primary Care Provider [phone] Allergies No known active allergies Medications MedicationSigDispense QuantityRefillsLast FilledStart DateEnd DateStatus aspirin 81 mg Take 81 mg by mouth daily.Active rosuvastatin (CRESTOR) 5 mg tablet Take 5 mg by mouth nightly.Active metoprolol tartrate (LOPRESSOR) 25 mg tablet Take 12.5 mg by mouth 2 (two) times a day.Active oxyCODONE-acetaminophen (PERCOCET) 5-325 mg per tablet Take 1 tablet by mouth daily as needed for pain.Active omega-3 fatty acids-fish oil (FISH OIL) 300-1,000 mg capsule Take 1 g by mouth Medrol Dose Pack scheduling ONLY.Active PARoxetine (PAXIL) 20 mg tablet Take 20 mg by mouth every morning.Active Active Problems ProblemNoted DateDiagnosed DateAcute twnbeeruq90/18/2019 Social History Tobacco UseTypesPacks/DayYears UsedDateSmoking Tobacco: Never AssessedChildcare AnswerDate PvttjheaTejaeggiiBmxizxi70/06/2019EmploymentAnswerDate Recorded WiqjoqzombGelppeq20/06/2019Purpose - LifeAnswerDate RecordedPurpose and direction in phhbXmzxisd82/11/2021CommentsUnknownSex and Gender InformationValueDate RecordedSex Assigned at BirthNot on fileLegal SexFemale 02/07/2019 8:56 AM EDTGender IdentityNot on fileSexual OrientationNot on file Last Filed Vital Signs Vital SignReadingTime TakenCommentsBlood Rxaxhbjv711/6403 12:21 PM EDT Vbkti475302/08/2019 12:21 PM LDNTcmblkcgbhl80.8 ??C (98.2 ??F)02/08/2019 11:52 AM EDTRespiratory Picz907702/08/2019 11:52 AM EDTOxygen Hiwanqjlwa14%02/08/2019 11:52 AM EDTInhaled Oxygen Concentration--Ckqvtx57.1 kg (143 lb 8.3 oz)02/08/2019 4:00 AM VJDShomtg186.9 cm (5' 1 )02/07/2019 12:01 PM EDTBody Mass Index27.12 02/07/2019 12:01 PM EDT Plan of Treatment Health MaintenanceDue DateLast DoneCommentsDepression Wufbkaeoe56/30/1958Tobacco Kltkpbmcm51/30/1958DTaP,Tdap and Td Vaccines (1 - Tdap)1965Zoster (Shingles) Vaccine (1 of 2)1996Fall Risk Gqkplkrdc03/30/2011RSV ( or age 60+ yrs) (1 - 1-dose 75+ series)2021Influenza Owbxxdu8507/24/2025 Medical Devices Not on file Insurance Advance Directives * Full Code (Latest Code Status on File) Date ActivatedDate InactivatedComments02/07/2019 3:16 PM02/08/2019 8:14 PM Care Teams Team MemberRelationshipSpecialtyStart DateEnd Date Ynes Holliday MD [facility] - [facility]02/14/19
[2025-10-06 11:37] LABS: Hematocrit 51.6 % (36.0-48.0); Hemoglobin 16.7 g/dL (12.0-16.0); Immature Granulocytes Abs Auto 0.03 10^3/uL (0.00-0.03); Immature Granulocytes Pct Auto 0.4 % (0.0-0.5); Lymphocytes Absolute Auto 2.3 10^3/uL (1.2-3.8); Mean Corpuscular HGB Conc 32.4 g/dL (29.9-35.2); Mean Corpuscular Hemoglobin 30.5 pg (26.7-34.0); Mean Corpuscular Volume 94.2 fL (81.0-99.0); Platelet Count 186 10^3/uL (150-450); Red Blood Count 5.48 10^6/uL (4.20-5.40); White Blood Count 8.1 10^3/uL (4.0-11.0)
[2025-10-06 12:25] LABS: Alanine Aminotransferase 24 U/L (14-59); Albumin Globulin Ratio 1.1; Albumin Level 3.5 g/dL (3.4-5.0); Alkaline Phosphatase 104 U/L (46-116); Anion Gap 14.3; Aspartate Amino Transferase 22 U/L (15-37); Blood Urea Nitrogen 20.0 mg/dL (7.0-18.0); Calcium 8.7 mg/dL (8.5-10.1); Carbon Dioxide 28.3 mmol/L (21.0-32.0); Chloride 106 mmol/L (98-107); Estimated GFR (African America >60 (>=60 mL/min/1.73m^2); Estimated GFR (Non-African Ame 60 (>=60 mL/min/1.73m^2); Globulin 3.3 g/dL; Glucose 113 mg/dL (74-106); Potassium 4.6 mmol/L (3.5-5.1); Sodium 144 mmol/L (136-145); Total Protein 6.8 g/dL (6.4-8.2)
[2025-10-09 17:09] LABS: Erythropoietin (EPO), Serum 15.6 mIU/mL (2.6-18.5)
== END 2025-10-06 11:06 | disposition home or self-care (01) ==
DX: R73.01 Impaired fasting glucose (principal); D75.1 Secondary polycythemia
CPT/HCPCS: 36415; 80053; 82668; 83036; 85025

== ENCOUNTER 2025-10-16 09:59 | Outpatient (OUT) | payer MEDICARE, SELFPAY ==
--- OUTSIDE RECORDS SUMMARY | 2025-10-16 10:02 | XMS_ITS | Clinical Summary ---
Author Organization [employer] [facility] tem Address [id number] [address] [place] [address] Care Team Providers Care Upholstery Restorer Name Role Phone Ynes Holliday MD Primary Care Provider [phone] Allergies No known active allergies Medications MedicationSigDispense [...] every morning.Active Active Problems ProblemNoted DateDiagnosed DateAcute ecicqycyd49/18/2019 Social History Tobacco UseTypesPacks/DayYears UsedDateSmoking Tobacco: Never AssessedChildcare AnswerDate PmgukldcUamoskzioUivntrp26/06/2019EmploymentAnswerDate Recorded RtwohbotnuJrkgrkw03/06/2019Purpose - LifeAnswerDate RecordedPurpose and direction in aifuAhxnuuw85/11/2021CommentsUnknownSex and Gender InformationValueDate RecordedSex Assigned at BirthNot on fileLegal SexFemale 02/07/2019 8:56 AM EDTGender IdentityNot on fileSexual OrientationNot on file Last Filed Vital Signs Vital SignReadingTime TakenCommentsBlood Cykchdnc627/6403 12:21 PM EDT Yyhji299902/08/2019 12:21 PM EIZEfohcygiazc53.8 ??C (98.2 ??F)02/08/2019 11:52 AM EDTRespiratory Uxfs264002/08/2019 11:52 AM EDTOxygen Qmyuecpxyc94%02/08/2019 11:52 AM EDTInhaled Oxygen Concentration--Shoryo84.1 kg (143 lb 8.3 oz)02/08/2019 4:00 AM THZZrkskz152.9 cm (5' 1 )02/07/2019 12:01 PM EDTBody Mass Index27.12 02/07/2019 12:01 PM EDT Plan of Treatment Health MaintenanceDue DateLast DoneCommentsDepression Pdxbziqnh17/30/1958Tobacco Ejupfufum89/30/1958DTaP,Tdap and Td Vaccines (1 - Tdap)1965Zoster (Shingles) Vaccine (1 of 2)1996Fall Risk Zzyuoftrt61/30/2011RSV ( or age 60+ yrs) (1 - 1-dose 75+ series)2021Influenza Himjiwq0107/24/2025 Medical Devices Not on file Insurance Advance Directives * Full Code (Latest Code Status on File) Date ActivatedDate InactivatedComments02/07/2019 3:16 PM02/08/2019 8:14 PM Care Teams Team MemberRelationshipSpecialtyStart DateEnd Date Ynes Holliday MD [facility] - [facility] [place] [facility]02/14/19
--- NOTE | 2025-10-16 10:04 | US_ITS ---
The [address] [address] Patient Name: DIEGO DEY MRN: [id number] date: 1945 Sex: F Assigned Patient Location: US Current Patient Location: US Accession/Order Number: [id number] Exam Date: 10/16/2025 10:05 Report Date: 10/16/2025 10:56 At the request of: SERGIO BELL MD Procedure: US thyroid THYROID ULTRASOUND COMPARISON: 12/07/2024 CLINICAL DATA: Follow-up right thyroid nodularity The right thyroid lobe measures 4.7 x 1.0 x 1.2 cm. The left lobe measures 3.8 x 1.3 x 0.9 cm. The isthmus measures 1 - 2 mm. Thyroid echotexture is mildly heterogeneous. No thyroid nodularity is identified on the left. On the right, there is still a cystic lesion with large hypoechoic mural nodule at the inferior pole measuring 13 x 9 x 8 mm. This has not significantly changed. There is also a hypoechoic nodular area posteriorly at the inferior pole measuring 12 x 5 x 6 mm (TI-RADS 4), also similar. No new nodularity is identified. US/US thyroid IMPRESSION: STABLE RIGHT THYROID NODULARITY. CONTINUED ANNUAL FOLLOW-UP IS SUGGESTED. Impression dictated by: Lolly Mccann M.D. 10/16/2025 10:56 AM Dictation Location: [place] [address] Electronically authenticated by: [id number] Y Date: 10/16/2025 10:56
--- OUTSIDE RECORDS SUMMARY | 2025-10-16 10:15 | XMS_ITS | CCD ---
Author Organization [facility] Care Team Providers Care Child Caregiver Private Home Name Role Phone VAERLA, JIANLIN Unavailable Unavailable VARELA, JIANLIN Unavailable Unavailable HOLLIDAY, HI Unavailable Unavailable HOLLIDAY, HI Unavailable Unavailable ID Unavailable Unavailable VARELA, JIANLIN Unavailable Unavailable VARELA, JIANLIN Unavailable Unavailable VARELA, JIANLIN Unavailable Unavailable HOLLIDAY, HI Unavailable Unavailable HOLLIDAY, HI Unavailable Unavailable Holliday, MD Hi Peralta Primary Care Provider MD William Antony Jr Attending Provider [phone] HO[address] DR HI Peralta Admitting Unavailable [...] Consulting Unavailable Wilfredo Melgar. Primary Care Physician [phone] Wilfredo Melgar. Attending Unavailable Wilfredo Melgar E. Attending Unavailable Wlifredo Melgar. Attending Unavailable Wilfredo Melgar. Attending Unavailable Wilfredo Melgar. Attending Unavailable Wilfredo Melgar. Admitting Unavailable Aurea, WATER SPONGER Betsey L Attending Unavailable Aurea, WATER SPONGER Betsey L Admitting Unavailable Harsha Wilfredo E. Attending Unavailable Harsha Wilfredo E. Admitting Unavailable Harsha Wilfredo E. Admitting Unavailable Wilfredo Melgar E. Attending Unavailable Wilfredo Melgar E. Attending Unavailable Wilfredo Melgar E. Attending Unavailable Wilfredo Melgar E. Attending Unavailable Wilfredo Melgar E. Attending Unavailable Wilfredo Melgar E. Attending Unavailable Aurea, WATER SPONGER Betsey L Attending Unavailable Ross, Wilfredo E. Attending Unavailable Wilfredo Melgar Attending Unavailable Wilfredo Melgar MD Primary Care Provider MD Hi Holliday Primary Care Provider MD Sergio Bell Jr Attending Provider Sergio Thompson Jr Attending Unavailable Sergio Bell Jr Admitting Unavailable Hi Holliday Primary Care Unavailable Wilfredo Melgar MD Primary Care Provider SERGIO BELL Attending Unavailable SERGIO BELL Attending Unavailable WILFREDO MELGAR Referring Unavailable SERGIO BELL Attending Unavailable SERGIO BELL Attending Unavailable Hi Holliday MD Primary Care Provider [phone] Lizandro Hanson DO Attending Provider [phone] JARRETT CHONG Attending UnavailWilfredo Joy Attending Unavailable Wilfredo Melgar Attending Unavailable Wilfredo Melgar Attending Unavailable Pushpa Powell Attending Unavailable Wilfredo Melgar Attending Unavailable Wilfredo Melgar Attending Unavailable Aurea Betsey L Attending Unavailable Wilfredo Melgar Admitting Unavailable Wilfredo Melgar Attending Unavailable Wilfredo Melgar Admitting Unavailable Wilfredo Melgar Attending Unavailable Aurea, Betsey L Admitting Unavailable Aurea, Betsey L Attending Unavailable Hi Holliday MD Primary Care Provider Lizandro Hanson DO Attending Provider [phone] Pushpa Powell Attending Unavailable Pushpa Powell Attending Unavailable Allergies Allergy ClassificationReported Allergen(s)Allergy TypeDate of OnsetReaction(s) Facility (3 sources)No Known Medication Allergies; Translations: [No Known Medication Allergies]Propensity to adverse reactions (disorder)[facility] Repository Medications Current Medications MedicationDrug Class(es)DatesSig (Normalized)Sig (Original)acetaminophen 325 mg / HYDROcodone bitartrate 5 mg oral tablet (19 sources)Opioid AgonistStart: 84-43-4480wpsx 1 tablet by mouth every twenty- four hours as neededHYDROcodone-acetaminophen ([place]) 5-325 MG tablet Take 1 tablet by mouth Daily as needed 11/24/2023ctiveStart: 51-82-0849tblu 1 tablet by mouth once daily as needed for painNorco 325 mg-5 mg oral tablet 1 tab(s), Oral, Daily as needed for pain, 30 tab(s), Refill(s) 0, Do not fill until , [facility], 154.9, cm, 09/22/23 13:40:00 EDT, Height/Length Dosing, 6 0, kg, 09/22/23 13:40:00 EDT, Weight Dosing Start Date: 09/22/23 Status: Ordered acetaminophen 325 mg / oxyCODONE hydrochloride 5 mg oral tablet (5 sources)Opioid AgonistStart: 04-78-9680takn 1 tablet by mouth once daily as needed for painacetaminophen-oxycodone 325 mg-5 mg Tab 1 tab(s), Oral, Daily as needed for pain, 30 tab(s), Refill(s) 0, 30 DAYS, M06.9, [facility], 154.9, cm, 08/25/24 10:39:00 EDT, Height/Length Dosing,60.4, kg, 08/25/24 10:39:00 EDT, Weight Dosing Start Date: 10/25/24 Status: OrderedStart: 04-12-2024 take 1 tablet by mouth once daily as needed for painacetaminophen-oxycodone 325 mg-5 mg Tab 1 tab(s), Oral, Daily as needed for pain, 30 tab(s), Refill(s) 0, 30 DAYS, M06.9, [facility], 154.9, cm, 04/12/24 9:56:00 EDT, Height/Length Dosing, 59, kg, 04/12/24 9:56:00 EDT, Weight Dosing Start Date: 04/12/24 Status: OrderedStart: 76-16-9503jnkw 1 tablet by mouth once daily as needed for painacetaminophen-oxycodone 325 mg-5 mg Tab 1 tab(s), Oral, Daily as needed for pain, 30 tab(s), Refill(s) 0, 30 DAYS, M06.9, [facility], 154.9, cm, 12/29/23 13:30:00 EST, Height/Length Dosing,60.7, kg, 12/29/23 13:30:00 EST, Weight Dosing Start Date: 12/29/23 Status: OrderedStart: 09-22-2023 take 1 tablet by mouth once daily as needed for painacetaminophen-oxycodone 325 mg-5 mg Tab 1 tab(s), Oral, Daily as needed for pain, 30 tab(s), Refill(s) 0, 30 DAYS, M06.9, [facility], 154.9, cm, 09/22/23 13:40:00 EDT, Height/Length Dosing,60, kg, 09/22/23 13:40:00 EDT, Weight Dosing Start Date: 09/22/23 Status: Njbrwilsoz032138 200 actuat albuterol 0.09 mg/actuat metered dose inhaler (18 sources)beta2-Adrenergic AgonistStart: 87-12-7569plik 2 puff(s) by inhalation every six hoursalbuterol HFA 90 mcg/act inhaler Inhale 2 puffs every 6 (six) hours if needed 10/08/2023 ActiveAlbuterol (Eqv-Proventil HFA) 90 mcg/inh inhalation aerosol (4 sources)Start: 86-20-1498mvfm 2 puff(s) by inhalation every six hours Albuterol (Eqv-Proventil HFA) 90 mcg/inh inhalation aerosol = 2 puff(s), Inhalation, q6hr, Please give cheapest generic, # 3 EA, Refills(s) 4, Pharmacy: [facility], 154.9, cm, 08/25/24 10:39:00 EDT, Height/Length Dosing, 60.4, kg, 08/25/24 10:39:00 EDT, Weight Dosing Start Date: 08/25/24 Status: OrderedStart: 33-06-4097ldet 2 puff(s) by inhalation every six hoursAlbuterol (Eqv-Proventil HFA) 90 mcg/inh inhalation aerosol = 2 puff(s), Inhalation, q6hr, Please give cheapest generic, # 18 gm, Refills(s) 1, Pharmacy: [facility], 154.9, cm, 04/12/24 9:56:00 EDT, Height/Length Dosing, 59, kg, 04/12/24 9:56:00 EDT, Weight Dosing Start Date: 04/12/24 Status: OrderedStart: 10-08-2023 take 2 puff(s) by inhalation every six hoursAlbuterol (Eqv-Proventil HFA) 90 mcg/inh inhalation aerosol = 2 puff(s), Inhalation, q6hr, Please give cheapest generic, # 18 gm, Refills(s) 1, Pharmacy: [facility], 154.9, cm, 09/22/23 13:40:00 EDT, Height/Length Dosing, 60, kg, 09/22/23 13:40:00 EDT, Weight Dosing Start Date: 10/08/23 Status: OrderedStart: 69-08-0841nlsq 2 puff(s) by inhalation every six hoursAlbuterol (Eqv-Proventil HFA) 90 mcg/inh inhalation aerosol = 2 puff(s), Inhalation, q6hr, Please give cheapest generic, # 18 gm, Refills(s) 0, Pharmacy: [facility], 154.9, cm, 04/09/23 13:3 3:00 EDT, Height/Length Dosing, 59.7, kg, 04/09/23 13:33:00 EDT, Weight Dosing Start Date: 04/09/23 Status: Orderedalendronic acid 5 mg oral tablet (20 sources)BisphosphonateStart: 47-13-4021Jqwvdgesrmz 5 mg tablet Active 35 MG PO .q7 days June 15, 2025 10:55am Complies with drug therapyStart: 11-30-2023 alendronate 35 mg Tab 35 mg = 1 tab(s), Oral, q7day, # 12 tab(s), Refills(s) 4, Pharmacy: [facility], 154.9, cm, 11/24/23 15:39:00 EST, Height/Length Dosing, 60, kg, 11/24/23 15:39:00 EST, Weight Dosing Start Date: 11/30/23 Status: OrderedStart: 02-14-2022 End: 20-99-1578Zxhblwwhzek 5 mg Tablet Discontinued MG PO February 13, 2022 11:00pm June 15, 2025 10:57amStart: 70-40-3286Vvmsvmbthre Active MG PO February 14, 2022 8:15amStart: 45-32-3383vngs 1 tablet by mouth once dailyalendronate 35 mg oral tablet 35 mg = 1 tab(s), Oral, Daily, Refills(s) 0 Start Date: 09/08/19 Status: OrderedAspirin (20 sources)Platelet Aggregation Inhibitor, Nonsteroidal Anti-inflammatory Drug Start: 33-91-5604Gpzcqyv Active MG February 14, 2022 8:15amStart: 02-14-2022 Aspirin 81 mg Capsule Active MG February 13, 2022 11:00pm Complies with drug therapyStart: 07-43-7027Ybrbsvi 81 mg Capsule Active MG February 14, 2022 12:00am Complies with drug therapyStart: 75-65-9507Tqunwul Active MG February 13, 2022 11:00pmStart: 73-57-5676dopy 1 tablet by mouth once dailyaspirin 81 mg oral tablet 81 mg = 1 tab(s), Oral, Daily, Refills(s) 0 Start Date: 09/08/19 Status: Orderedtake 1 tablet by mouth once dailyaspirin 81 MG EC tablet Take 1 tablet by mouth Daily Activecetirizine hydrochloride 10 mg oral tablet (3 sources)Histamine-1 Receptor AntagonistStart: 97-75-2842rllx 1 tablet by mouth once dailycetirizine 10 mg Tab 10 mg = 1 tab(s), Oral, Daily, # 90 tab(s), Refills(s) 0, Pharmacy: [facility], 154.9, cm, 08/25/24 10:39:00 EDT, Height/Length Dosing, 60.4, kg, 08/25/24 10:39:00 EDT,Weight Dosing Start Date: 08/25/24 Status: OrderedStart: 28-70-4230Bsnazj Dissolve 10 mg oral tablet, dispersible 10 mg = 1 tab(s), Oral, Daily, PRN for allergy symptoms, # 90 tab(s), Refills(s) 0, Pharmacy: [facility], 154.9, cm, 12/29/23 13:30:00 EST, Height/Length Dosing, 60.7, kg, 12/29/23 13:30:00 EST, Weight Dosing Start Date: 01/04/24 Status: Orderedcholecalciferol 0.125 mg oral capsule (18 sources)Vitamin Dtake 1 capsule by mouth once dailycholecalciferol 125 MCG (5000 UT) capsule Take 1 capsule by mouth Daily Activecitalopram 20 mg oral tablet (20 sources)Serotonin Reuptake InhibitorStart: 12-08-2941Fmefwxyujs 20 mg Tablet Active MG February 13, 2022 11:00pm Complies with drug therapyStart: 02-14-2022 Citalopram Active MG TABLET February 14, 2022 8:15amdocosahexaenoic acid 120 mg / eicosapentaenoic acid 180 mg oral capsule (18 sources)omega-3 (fish oil) 1000 MG capsule Take 1 g by mouth ActiveFish Oils (4 sources)Start: 97-17-3425vwsr 1000 mg by mouth once dailyFish Oil 1,000 mg, Oral, Daily, Refill(s) 0 Start Date: 09/08/19 Status: Orderedfolic acid 1 mg oral tablet (7 sources)Start: 71-54-4179Shcdd Acid 1 mg Tablet Active February 13, 2022 11:00pm Complies with drug therapyStart: 49-78-0525lxvu 1 tablet by mouth once dailyfolic acid 1 mg Tab 1 mg = 1 tab(s), Oral, Daily, # 90 tab(s), Refills(s) 3 Start Date: 02/06/23 Status: OrderedHandicap Placard, 5 years. (3 sources)Start: 10-63-6896Ycoqkmez Placard, 5 years. Handicap Placard, 5 years., See Instructions, 1 EA, 0, Handicap Placard,5 years., Supply Start Date: 11/24/23 Status: Orderedipratropium bromide 0.042 mg/actuat metered dose nasal spray (15 sources)AnticholinergicStart: 02-09-2024 End: 26-01-7477cetl 2 spray(s) nasal route in the morning, then take 2 spray(s) nasal route in the evening, then take 2 spray(s) nasal route at bedtime ipratropium (Atrovent) 0.06 % nasal spray Indications: Chronic rhinitis Administer 2 sprays into each nostril in the morning and 2 sprays in the evening and 2 sprays before bedtime. 45 mL 3 12/21/2024 12/21/2025 Activemethotrexate 2.5 mg oral tablet (20 sources)Folate Analog Metabolic InhibitorStart: 15-70-6157Cxpgducayttq Sodium 2.5 mg tablet Active 15 MG PO every week June 14, 2025 11:00pm Complies with drug therapyStart: 20-21-8508hqnb 1 tablet by mouth every weekmethotrexate 2.5 MG tablet Take 2.5 mg by mouth 1 (one) time per week. 12/28/2023 Active Start: 62-01-4203xnztxwrwhgno 2.5 mg Tab See Instructions, TAKE 6 TABLETS ONE TIME WEEKLY ON MONDAYS, # 72 tab(s), Refills(s) 3, Pharmacy: [facility], 154.9, cm, 11/24/23 15:39:00 EST, Height/Length Dosing, 60, kg, 11/24/23 15:39:00 EST, Weight Dosing Start Date: 12/02/23 Status: OrderedStart: 63-77-2439tjaw 6 tablets by mouth every weekmethotrexate 2.5 mg Tab 15 mg = 6 tab(s), Oral, q, Take 6 tabs weekly on Mondays, # 72 tab(s), Refills(s) 1, Pharmacy: [facility], 154.9, cm, 05/11/23 15:58:00 EDT, Height/Length Dosing, 60.3, kg, 05/11/23 15:58:00 EDT, Weight Dosing Start Date: 06/08/23 Status: OrderedStart: 02-14-2022 End: 19-30-6959Puectphutqrv 2.5 mg/mL Solution Discontinued MG February 13, 2022 11:00pm September 25, 2025 11:58amStart: 85-17-0126Qunuyrzyfiso Active MG SOLUTION February 14, 2022 8:15ammethylPREDNISolone (1 source)CorticosteroidStart: 36-22-4850rtkawoMUKPNKZgtcfy 4 mg Tab See Instructions, TAKE DIRECTED ON PACKAGE LABELING, # 21 tab(s), Refills(s) 10, Pharmacy: [facility], 154.9, cm, 08/24/23 16:06:00 EDT, Height/Length Dosing, 61, kg, 08/24/23 16:06:00 EDT, Weight Dosing Start Date: 09/04/23 Status: Fnqmovo95 hr metoprolol succinate 25 mg extended release oral tablet (20 sources)beta-Adrenergic BlockerStart: 66-48-2601wrca 1 tablet by mouth once dailymetoprolol succinate 25 mg ER Tab 25 mg = 1 tab(s), Oral, Daily, # 90 tab(s), Refills(s) 1, Pharmacy: [facility], 154.9, cm, 04/12/24 9:56:00 EDT, Height/Length Dosing, 59, kg,04/12/24 9:56:00 EDT, Weight Dosing Start Date: 05/23/24 Status: OrderedStart: 33-46-7286ylxhcrleal 25 mg ER Tab 12.5 mg = 0.5 tab(s), Oral, BID, # 90 tab(s), Refills(s) 1, Pharmacy: [facility], 154.9, cm, 11/24/23 15:39:00 EST, Height/Length Dosing, 60, kg, 11/24/23 15:39:00 EST, Weight Dosing Start Date: 12/02/23 Status: OrderedStart: 15-91-8841jutu 1 tablet by mouth once dailyMetoprolol Tartrate 25 mg Tablet Active 25 MG PO Daily February 13, 2022 11:00pm Complies with drug t herapyStart: 96-01-3330thbhykfirb 25 mg ER Tab 12.5 mg = 0.5 tab(s), Oral, BID, Refills(s) 0 Start Date: 09/01/19 Status: Orderedtake 0.5 tablet by mouth in the morningmetoprolol tartrate (Lopressor) 25 MG tablet Take 0.5 tablets by mouth in the morning and 0.5 tablets before bedtime. Activenitrofurantoin, macrocrystals 25 mg / nitrofurantoin, monohydrate 75 mg oral capsule (1 source)Nitrofuran AntibacterialStart: 01-27-2024 End: 38-95-0664nags 1 capsule by mouth twice dailyMacrobid 100 mg Cap 100 mg = 1 cap(s), Oral, BID, X 10 day(s), # 20 cap(s), Refills(s) 0, Pharmacy:[facility], 154.9, cm, 01/27/24 13:56:00 EST, Height/Length Dosing, 60, kg, 01/27/24 13:56:00 EST, Weight Dosing Start Date: 01/27/24 Stop Date: 02/06/24 Status: OrderedOmega-3 Fatty Acids (Fish Oil) Capsule (4 sources)Start: 42-22-3118Lkamd-3 Fatty Acids (Fish Oil) Capsule Active PO February 14, 2022 8:15amStart: 83-64-4080Thkfn-3 Fatty Acids (Fish Oil) Capsule Active PO February 13, 2022 11:00pm Complies with drug therapyStart: 02-14-2022 [place]-3 Fatty Acids (Fish Oil) Capsule Active PO February 14, 2022 12:00am Complies with drug therapyStart: 35-20-7939Joxfk-3 Fatty Acids (Fish Oil) Capsule Active PO February 13, 2022 11:00pmpantoprazole 40 mg delayed release oral tablet (20 sources)Proton Pump InhibitorStart: 23-83-6448Eposjywvudcq [address] Tab Refills(s) 0 Start Date: 02/06/23 Status: Orderedpolyethylene glycol 3350 84660 mg powder for oral solution (2 sources)Osmotic LaxativeStart: 39-04-4712akmmwqecjpcb glycol 3350 Oral Pwdr for Recon Refills(s) 0 Start Date: 02/06/23 Status: OrderedPortable Oxygen Concentrator. Wear at 2L via N/C. (3 sources)Start: 12-14-0707Pkzrozpw Oxygen Concentrator. Wear at 2L via N/C. Portable Oxygen Concentrator. Wear at 2L via N/C., See Instructions, 1 EA, 0, Ok to D/C, Supply Start Date: 12/29/23 Status: Orderedrosuvastatin calcium 5 mg oral tablet (20 sources)HMG-CoA Reductase InhibitorStart: 25-81-1910Gbfdvpeepfut Active MG TABLET February 14, 2022 8:15amStart: 80-63-1652Calejlxtpgwj 5 mg Tablet Active MG February 13, 2022 11:00pm Complies with drug therapytretinoin 0.5 mg/ml topical cream (2 sources)RetinoidStart: 18-32-7712ppxet 1 dose topically once dailyRetin-A 0.05% topical cream See Instructions, 1 EA, Refill(s) 11, Apply topically daily. wash and dry affected area and wait 20 to 30 minutes before application Start Date: 02/06/23 Status: OrderedVitamin D3 5000 intl units (125 mcg) oral tab (5 sources)Start: 57-50-8192Shfeual D3 5000 intl units (125 mcg) oral tab Refills(s) 0 Start Date: 02/06/23 Status: OrderedStart: 51-00-8996amgn 1 tablet by mouth once dailyVitamin D3 5000 intl units (125 mcg) oral tab 125 mcg = 1 tab(s), Oral, Daily, # 90 EA, Refills(s) 0 Start Date: 02/06/23 Status: Ordered Completed/Discontinued Medications MedicationDrug Class(es)DatesSig (Normalized)Sig (Original)##### (1 source)Start: 08-24-2023##### 6 mL, 0 Refill(s), Instill 1 drop into affected eye twice a day Immediately following surgeryfor 1 week. Then instill one drop into affected eye ONCE daily for 3 weeks. 0726 Start Date: 08/24/23 Status: Ordered Problems Active Problems Problem ClassificationProblemDateDocumented DateEpisodic/ChronicAbdominal hernia (9 sources)Diaphragmatic hernia without obstruction or gangrene; Translations: [Hiatal hernia]Onset: 382482-78-7050XthowlsfLvmvczjkj pain (5 sources)Left upper quadrant uzca50-11-7206TmymamciIuijiwo disorders (12 sources)Anxiety; Translations: [Anxiety disorder, unspecified]Onset: 648954-37-8331PjmvluwOosrttm tract disease (3 sources)Calculus of gallbladder without cholecystitis without obstruction; Translations: [Cholelithiasis without obstruction]Onset: EpisodicChronic obstructive pulmonary disease and bronchiectasis (20 sources)Chronic obstructive lung disease; Translations: [Chronic obstructive pulmonary disease, unspecified]Onset: 738111-29-3493FsjdtovNqxukvyc atherosclerosis and other heart disease (20 sources)Atherosclerotic heart disease of [place] coronary artery without angina pectoris; Translations: [Coronary atherosclerosis]Onset: 11-06-2017 02-44-2580TjhnenvOntzxhzi mellitus without complication (20 sources)Type 2 diabetes mellitus without complications; Translations: [Type 2 diabetes mellitus without complication]Onset: hronic Disorders of lipid metabolism (20 sources)Hyperlipidemia, unspecified; Translations: [Pure hypercholesterolemia, unspecified]Onset: 949200-98-3991PmucktwDqfitgb on above:unspecified, chronicEsophageal disorders (20 sources)Gastroesophageal reflux disease; Translations: [Gastro-esophageal reflux disease without esophagitis]Onset: 924406-69-6171OxtcoacDexkebgbj hypertension (20 sources)Essential (primary) hypertension; Translations: [Hypertensive disorder]Onset: 580779-04-5655BqbqkqdGthtrprpd and duodenitis (1 source)Unspecified chronic gastritis without bleeding; Translations: [UNSPECIFIED CHRONIC GASTRITIS WITHOUT BLEEDING]Onset: 67-63-9863Daijkzg Genitourinary symptoms and ill-defined conditions (12 sources)Genuine stress incontinence; Translations: [Stress incontinence (female) (male)]Onset: 993063-20-7283SkbxiqbZslxlvyo; including migraine (2 sources)Migraine, unspecified, not intractable, without status migrainosus; Translations: [Episodic migraine]02-30-9109HuwmntzXzuttnqa; including migraine (5 sources)Headache; Translations: [Chronic intractable headache, unspecified headache type]23-90-6016JdjhtwnjShhjwybs disorders (20 sources)Drug-induced immunodeficiency ; Translations: [Immunodeficiency due to drugs]Onset: 268077-60-9357BfkboeyHdvmhyv on above:Added per Dr. Melgar query response, per outpatient CDI policy.Mood disorders (12 sources)Single episode of major depression in full remission; Translations: [Major depressive disorder, single episode, in full remission]Onset: 12-21-2024 71-19-9628UzupakyLzlvatilmxh deficiencies (17 sources)Vitamin D deficiency, unspecified; Translations: [Vitamin D deficiency]Onset: 34-82-0002RyzrxdaShedgno on above:chronicOcclusion or stenosis of precerebral arteries (20 sources)Occlusion and stenosis of unspecified carotid artery; Translations: [Occlusion and stenosis of other precerebral arteries]Onset: 04-27-2014 23-23-2739NmbaevpHvphmga on above:and occlusion of unspecifiedOsteoarthritis (12 sources)Arthritis; Translations: [Unspecified osteoarthritis, unspecified site]Onset: 902826-28-0469JnqelyfDohtv aftercare (1 source)Post-discharge mltgos-vk93-44cl85-58-4978XolxyotsZtrck and ill-defined heart disease (5 sources)Heart oxygxod76-27-3393EizikueSlaknch on above:Atherosclerotic, of [place] coronary artery without angina pectoris, chronicOther circulatory disease (18 sources)Stricture of artery; Translations: [Stricture of artery]Onset: 489025-97-8942FkyawegYxtki circulatory disease (2 sources)History of cerebrovascular accident; Translations: [Personal history of transient ischemic attack (TIA), and cerebral infarction without residual deficits]77-85-3510XdmdpdcvCuljz connective tissue disease (5 sources)Impingement syndrome of shoulder mgbrak03-33-1990NauklbldVrltfdz on above:chronicOther fractures (1 source)Fracture of bjm05-45-5134BposkfriNugcc nervous system disorders (1 source)Ataxia; Translations: [Ataxia, unspecified]27-32-6552ZrpvlcfaKxcia nutritional; endocrine; and metabolic disorders (1 source)Body mass index 25-29 - jvzvqifzrh48-27-3681PjwndzitCfkxb upper respiratory disease (1 source)Miccekfc17-77-1697BddnaueOhnge upper respiratory disease (18 sources)Vasomotor rhinitis; Translations: [Vasomotor rhinitis]Onset: 249563-90-4758BxmvtmcYrdvr upper respiratory disease (2 sources)Chronic rhinitis; Translations: [Chronic rhinitis]51-69-6531Dkagdjo Other upper respiratory infections (2 sources)Chronic pansinusitis; Translations: [Chronic pansinusitis]09-13-2024 ChronicPeripheral and visceral atherosclerosis (18 sources)Peripheral vascular disease; Translations: [Peripheral vascular disease, unspecified]Onset: 141966-89-8222AysechwDugjqcshghk failure; insufficiency; arrest (adult) (20 sources)Chronic hypoxemic respiratory failure; Translations: [Chronic respiratory failure with hypoxia]Onset: 050891-75-6401LgtyjxxZpjbmke on above:Noted in 11/17/2023 H&P, added per outpatient CDI policy.Rheumatoid arthritis and related disease (20 sources)Rheumatoid arthritis with rheumatoid factor of multiple sites without organ or systems involvement;Translations: [Rheumatoid arthritis, unspecified]Onset: 13-95-5659FjnyhikGcldeuq on above:chronicSubstance-related disorders (20 sources)Nicotine dependence, unspecified, uncomplicated; Translations: [Smoker]Onset: 11-09-2017 Resolved: 232370-30-1968KtmposoMrlukuo disorders (20 sources)Thyroid nodule; Translations: [Nontoxic single thyroid nodule]Onset: 295216-11-0302JnjvlzcEtgvlyamrwfi (5 sources)Asymptomatic microscopic yakqhulvi21-05-1037Orffqfbvrnra (4 sources)Body mass index 20-24 - -28-7835Lottniivzexs (5 sources)Drug therapy ytvsswp97-01-2328Qdtdwovhtwbd (5 sources)Patient encounter lgcxke64-24-2880Ywlrmpvlljtr (4 sources)Long-term current use of drug rytglpx82-34-5776Xtlok infection (2 sources)Herpes fpbryc52-09-1995Uvfhjhuh Past or Other Problems Problem ClassificationProblemDateDocumented DateEpisodic/ChronicConditions associated with dizziness or vertigo (18 sources)Dizziness and giddiness; Translations: [Dizziness and giddiness] Onset: 681161-76-4292JheqzvhoXggrwxqp mellitus without complication (12 sources)Hyperglycemia; Translations: [Hyperglycemia, unspecified]Onset: 573698-92-4838TjlbbqseHcnzdmwxs and duodenitis (1 source)Gastritis, unspecified, without bleeding; Translations: [GASTRITIS, UNSPECIFIED, WITHOUT BLEEDING]Onset: 49-71-9013IdqebcycMdwbgpgnlessq symptoms and ill-defined conditions (12 sources)Nocturia; Translations: [Asymptomatic microscopic hematuria]Onset: 45-88-990399482309-33-9440UdfdftmsPjlhieqpd of unspecified nature or uncertain behavior (12 sources)Neoplasm of uncertain behavior of kidney; Translations: [Neoplasm of uncertain behavior of unspecified kidney]Onset: 342115-84-7493Nmcepluw Other aftercare (2 sources)terminal make up operator (current) use of opiate analgesic; Translations: [terminal make up operator (current) use of aspirin]Onset: 39-54-2486BcrmiuqjQbxcu aftercare (7 sources)Drug therapy finding; Translations: [terminal make up operator (current) use of anticoagulants]Onset: 705389-67-0270UjgqhjghKypve connective tissue disease (12 sources)Bursitis of hip; Translations: [Other bursitis of hip, unspecified hip]Onset: [id number] on above:chronicOther connective tissue disease (20 sources)Fibromyalgia; Translations: [Fibromyalgia]Onset: 01-26-2024 45-54-7717GjwjcqfsHlfjn connective tissue disease (10 sources)Recurrent falls ; Translations: [Repeated falls]Onset: 12-21-2024 95-79-5357LbeicyfuDssde diseases of kidney and ureters (12 sources)Cyst of kidney; Translations: [Cyst of kidney, acquired]Onset: 254100-44-8095RmumwuamKkxsw ear and sense organ disorders (18 sources)Impacted cerumen in left ear; Translations: [Impacted cerumen, left ear]Onset: 845814-72-2463VxublphiSfftz hematologic conditions (20 sources)Erythrocytosis; Translations: [Secondary polycythemia]Onset: 144562-56-6838BqkagsnuToxvt nervous system disorders (12 sources)Post-surgery back pain; Translations: [Dorsalgia, unspecified]Onset: [id number] screening for suspected conditions (not mental disorders or infectious disease) (20 sources)Encounter for screening mammogram for malignant neoplasm of breast; Translations: [Abnormal resultsof cardiovascular function studies]Onset: 83-51-4627KhkhixmrUtmygrnv codes; unclassified (18 sources)Acute confusion; Translations: [Disorientation, unspecified]Onset: 336682-65-9627AuuimsnrWnowpwqe codes; unclassified (7 sources)Body mass index 20-24 - normal; Translations: [Body mass index (BMI) 24.0-24.9, adult]Onset: 889839-88-1387NjrgwrinQjhyfuym codes; unclassified (7 sources)Patient encounter status; Translations: [Immunotherapy]Onset: 564834-10-2620NambwhhqYlqcxlnhbosz (2 sources)Unknown / UNK(Unknown)Onset: 94-96-7261Ivgahot tract infections (20 sources)Acute urinary tract infection; Translations: [Postinfective urethral stricture of female]Onset: 580286-00-6087Gqolvrhb Results Test NameValueInterpretationReference RangeFacilityFami Medicine Office/Clinic Noteon [id number] Medicine Office/Clinic NoteFamily Medicine Office/Clinic Note HPI Staff Please speak with patient about scheduling an AWV. Patient in office to establish care Establish Care: History: Any previous diagnosis: tumor on thyroid, sees Dr. Bell, has appt coming up History of seeing any specialist(s): neurology When was your last doctor visit: 06/08/25 Last provider: Gia Any recent labs: went to [facility] recently? Health Maintenance UTD: Colonoscopy: none, home tests with normal results Mammogram: not for a while Pelvic/Pap: hx of hysterectomy Acute: Current issues/complaints: c/o of eye issues, had cataract surgery a few months ago, did not work, they did laser surgery, is now taking eye drops for dry eyes, does not have clear vision. Refills: Percocet History of Present Illness Patient is a 80-year-old female with a past medical history of CAD s/p stent, hypertension, hyperlipidemia, two right-sided thyroid nodules, headaches, and a prior hospitalization AMS/hallucinations (2018) who presented today to establish care. Patient is most concerned about her recent worsening vision. Patient follows with Dr. Connor and has a history of laser procedures. She is currently using 3 different types of eyedrops however feelslike they are not working and believes she needs a new glasses prescription. Patient avoids drivingat night. As for patient's thyroid nodules, she follows with ENT Dr. Bell. Her most recent ultrasound was reviewed. Patient has also been discussing chronic rhinorrhea with Dr. Bell. Recent imaging of her nasal passages was unremarkable. Dr. Bell CT head w/o contrast (10/2024) performed for intractable headaches showed age- related changes but no acute intracranial abnormality. Patient reports she only gets occasional headaches that are mild. Patient reported that she patient reported that she has a history of COPD however never completed pulmonary function testing. She reported that her previous physician heard wheezing on her lung exam and prescribed her an albuterol inhaler. Patient reported intermittent shortness of breath and mild productive cough with phlegm. Patient denied hemoptysis. She uses her albuterol once daily for hersymptoms. Patient has been smoking half pack of cigarettes for the past 50 years. She denied havingany low-dose CT chest scans for lung cancer screening. Review of Systems PHQ Score Initial Depression Screen Score: 1 SCORE Pertinent review of systems is addressed in the HPI. Physical Exam Vitals & Measurements T: 35.7 ???C(Temporal Artery) HR: 62(Peripheral) RR: 18 BP: 124/78 SpO2: 97% HT: 154.9 cm HT: 61 in WT: 59.0 kg WT: 130.073 lb BMI: 24.59 General: Alert and oriented, in no acute distress HEENT: - Normocephalic, atraumatic - EOMI, conjunctiva WNL Cardiovascular: Regular rate and rhythm, no murmur/rubs/gallops, no lower extremity edema Respiratory: Decreased breath sounds BL without wheezing/rales/rhonchi, normal respiratory effort Abdomen: Soft, nontender, nondistended Neurologic: Grossly intact, normal gait Skin: Warm, dry, intact; no rashes Psych: Normal mood, normal affect Assessment/Plan 1. 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 Prior labs were reviewed showing that patient consistently has elevated hemoglobin/hematocrit (Hgb 16.5/Hct 49.3 in March 2024) with normal RBC, WBC, and platelet counts. Likely due to smoking history, patient is not on SGLT2i or diuretic therapy. Will check CBC with diff, CMP, and EPO level for further investigation. Ordered: CBC w/ Auto Diff Comprehensive Metabolic Panel Erythropoietin Level 2. CAD in [place] artery (I25.10: Atherosclerotic heart disease of [place] coronary artery without angina pectoris) Patient continues on ASA, statin, and metoprolol 3. Back pain with history of spinal surgery (M54.9: Dorsalgia, unspecified) Patient has been taking Percocet for many years since her spinal surgery. Discussed that the continued use of opiate medication increases the patient's risk of respiratory depression, dependence, overdose, and . Patient is willing to discontinue Percocet and start methocarbamol as needed for back pain. We discussed the use of Tylenol for breakthrough pain. 4. Hypertension (I10: Essential (primary) hypertension) Chronic Controlled Recommend patient continue metoprolol succinate 25 mg ER daily. 5. Hypercholesterolemia (E78.00: Pure hypercholesterolemia, unspecified) Recommend patient continue rosuvastatin 5 mg daily. 6. COPD without exacerbation (J44.9: Chronic obstructive pulmonary disease, unspecified) Patient has a reported history of COPD however has never completed formal PFTs. Patient reports using albuterol once daily. Patient has decreased breath sounds but otherwise normal lung exam, can consider ordering PFTs at next visit. 7. Multiple thyroid nodules (E04.2: Nontoxic multinodular goiter) Ultrasound from 11/2024 reviewed and showed 2 stable right thyro (more content not included)...[facility] HospitalComment on above:Result Comment: Electronically Signed By: Pushpa Powell DO\.br\Date and Time Signed: 10/01/25 14:05 ESTAmbulatory Visit Summaryon [id number] Visit Summary Ambulatory Visit Summary CHANTELLE DEY :1945 Visit Date:09/29/2025 Ambulatory Visit Instructions Your Diagnosis Hypertension Hypercholesterolemia COPD without exacerbation Back pain with history of spinal surgery Multiple thyroid nodules BMI 24.0-24.9, adult Your Care Team Attending Physician - Pushpa Powell DO Primary Care Physician - Pushpa Powell DO This Is Your Medications List [facility] Prescription (Handicap Alethea, 5 years.) acetaminophen-oxycodone (acetaminophen-oxycodone 325 mg-5 mg Tab) albuterol (Albuterol (Eqv-Proventil HFA) 90 mcg/inh inhalation aerosol) alendronate (alendronate 35 mg Tab) aspirin (aspirin 81 mg oral tablet) cholecalciferol (Vitamin D3 5000 intl units (125 mcg) oral tab) citalopram (citalopram 20 mg Tab) methocarbamol (methocarbamol 500 mg Tab) methotrexate (methotrexate 2.5 mg Tab) metoprolol (metoprolol succinate 25 mg ER Tab) omega-3 polyunsaturated fatty acids (Fish Oil) rosuvastatin (rosuvastatin 5 mg Tab) Procedures Performed Cystourethroscopy with dilation of urethral stricture (02/04/2021), Cystourethroscopy with dilationof urethral stricture (05/07/2020), Cataracts, Cholecystectomy, Hysterectomy, Laparoscopy, Placement of stent in cardiac conduit, Post-surgery back pain. Discharge Vitals Temperature (Temporal Artery) 35.7 ???C Heart Rate (Peripheral) 62 Respiratory Rate 18 Blood Pressure 124/78 Height 154.9 cm Height 61 in Weight 59.0 kg Weight 130.073 lb BMI 24.59 What to do next You Need to Schedule the Following Appointments Follow Up with Pushpa Powell DO, FAM, PED When: In 2 weeks Where: Medications What How Much When Why Instructions New methocarbamol (methocarbamol 500 mg Tab) 2 Tablets By Mouth 4 times a day Back pain with history of spinal surgery Duration: 14 Days Pickup at [facility]/pharmacy #[id number] Unchanged acetaminophen-oxycodone (acetaminophen-oxycodone 325 mg-5 mg Tab) 1 Tablets By Mouth Every day as needed for as needed for pain 30 DAYS, M06.9 Unchanged albuterol (Albuterol (Eqv-Proventil HFA) 90 mcg/ inh inhalation aerosol) See instructionsINHALE 2 PUFFS EVERY 6 HOURS Unchanged alendronate (alendronate 35 mg Tab) 1 Tablets By Mouth Every 7 days Unchanged aspirin (aspirin 81 mg oral tablet) 1 Tablets By Mouth Every day Unchanged cholecalciferol (Vitamin D3 5000 intl units (125 mcg) oral tab) Unchanged citalopram (citalopram 20 mg Tab) See instructions TAKE 1 TABLET EVERY DAY Unchanged methotrexate (methotrexate 2.5 mg Tab) See instructions TAKE 6 TABLETS ONE TIME WEEKLY ONMONDAYS Unchanged metoprolol (metoprolol succinate 25 mg ER Tab) 1 Tablets By Mouth Every day Unchanged Misc Prescription (Handicap Placard, 5 years.) See instructions COPD without exacerbationImmunodeficiency due to drugs Chronic respiratory failure with hypoxia Major depressive disorder with single episode, in full remission Back pain with history of spinal surgery Multiple falls BMI 25.0-25.9,adult Over weight Smoker Marshall Claire, 5 years. Unchanged omega-3 polyunsaturated fatty acids (Fish Oil) 1,000 Milligram By Mouth Every day Unchanged rosuvastatin (rosuvastatin 5 mg Tab) See instructions TAKE 1 TABLET EVERY DAY Pharmacy Information [facility]/pharmacy #[id number]: [address], [place] [id number] [phone] Allergies No Known Medication Allergies Problems Ongoing - Any problem that you are currently receiving treatment for. 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 Acute UTI Impingement syndrome of shoulder region LUQ pain Nocturia Rheumatoid arteritis Patient Survey You may receive a survey via text or e-mail asking about your office visit. Please share your experience with us by completing your survey. We appreciate your feedback and thank you for choosing us for your care. Patient Portal You may access all of your results and other medical record information on our secure patient portal. If you are not signed up for this yet, please contact [employer] at [phone] to get signed up today. Language Information Language assistance services are available as n (more content not included)... [facility] Urineon [id number] identified Cx Nom (U)Microbiology PROCEDURE: Urine Culture [R1] SOURCE: U Random BODY SITE: COLLECTED DATE/TIME: 08/08/2025 14:26 EDT RECEIVED DATE/TIME: 08/08/2025 17:43 EDT START DATE/TIME: 08/08/2025 17:43 EDT FREE TEXT SOURCE: Betsey Toledo, Betsey Finley FINAL REPORTS Final Report [] Verified Date/Time: 08/10/2025 10:33 EDT 30,000 cfu/ml Escherichia coli SUSCEPTIBILITY RESULTS LEGEND: S=Susceptible, N/R=Not Reported, Blank=Data not available, or drug not advisable or tested, I=Intermediate, ESBL=Extended spectrum beta-lactamase, R=Resistant, TFG=Thymidine-dependent strain, TWILA=Beta-lactamase positive, BRIGITTE=mcg/m;(mg/L), S*=Predicted susceptible interp, R*=Predicted resistant interp EC Antibiotic BRIGITTE Dilutn BIRGITTE Interp Ampicillin <=8 S Ampicillin/ <=8/4 S Sulbactam Cefazolin <=2 S Cefepime <=2 S Ceftazidime/ <=8 S Avibactam Ceftriaxone <=1 S Cefuroxime 8 S Ciprofloxacin <=0.25 S Ertapenem <=0.5 S Gentamicin <=2 S Levofloxacin <=0.5 S Meropenem <=1 S Nitrofurantoin <=32 S Piperacillin/ <=8 S Tazobactam Tetracycline <=4 S Tobramycin <=2 S Trimethoprim/ <=2/38 S Sulfa Performing Locations R1: This test was performed at: [facility], [address] [place] [address], [id number]- , [place], GbfomdVyzpwzPremier HealthComment on above:Performed By: #### [id number] #### [facility] [address] [place] [id number] From: Betsey Toledo To: [facility] - Clinical; Sent: 08/10/2025 11:33:01 EDT Show up: 08/10/2025 11:33:00 EDT Subject: Ambulatory Reminder Due Date/Time: 08/11/2025 11:32:00 EDT urine culture was positive for e coli. she is on the right antibiotic. encourage her to complete the entire 7 days of treatment. Results: Date Result Type Ind Result Name 08/08/2025 14:26 EDT MBO POS Urine Culture Pt has been notified. Will call our office if she continues to have confusion after finishing abx.[facility] HospitalRemindersReminders From: Betsey Toledo To: [facility] - Clinical; Sent: 08/10/2025 11:33:01 EDT Show up: 08/10/2025 11:33:00 EDT Subject: Ambulatory Reminder Due Date/Time: 08/11/2025 11:32:00 EDT urine culture was positive for e coli. she is on the right antibiotic. encourage her to complete the entire 7 days of treatment. Results: Date Result Type Ind Result Name 08/08/2025 14:26 EDT MBO POS [facility] CultureNoalLouis [facility] Ambulatory Visit Summaryon [id number] Visit SummaryAmbulatory Visit Summary CHANTELLE DEY Tushar :1945 Visit Date:06/08/2025 Ambulatory Visit Instructions Your Diagnosis BMI 24.0-24.9, adult Smoker Hypertension Your Care Team Attending Physician - JOHN CHONG CNP Primary Care Physician - Wilfredo Melgar MD This Is Your Medications List [facility] Prescription (Marshall Claire, 5 years.) Misc Prescription (Portable Oxygen Concentrator. Wear at 2L via N/C.) acetaminophen-oxycodone (acetaminophen-oxycodone 325 mg-5 mg Tab) albuterol (Albuterol (Eqv-Proventil [...] dilation of urethral stricture (02/04/2021), Cystourethroscopy with dilationof urethral stricture (05/07/2020), Cataracts, Cholecystectomy, Hysterectomy, Laparoscopy, Placement of stent in cardiac conduit, Post-surgery back pain. Discharge Vitals Temperature (Oral) 36.8 ???C Heart Rate (Peripheral) 76 Respiratory Rate 18 Blood Pressure 124/78 Height 154.9 cm Height 61 in Weight 59.3 kg Weight 130.734 lb BMI 24.71 Medications What How Much When Why Instructions Unchanged acetaminophen-oxycodone (acetaminophen-oxycodone 325 mg-5 mg Tab) 1 Tablets By [...] tab) Unchanged citalopram (citalopram 20 mg Tab) See instructions TAKE 1 TABLET EVERY DAY Unchanged methotrexate (methotrexate 2.5 mg Tab) See instructions TAKE 6 TABLETS ONE TIME WEEKLY ONMONDAYS Unchanged metoprolol (metoprolol succinate 25 mg ER Tab) 1 Tablets By Mouth Every day Unchanged Misc Prescription (Danaad Claire, 5 years.) See instructions COPD without exacerbationImmunodeficiency due to drugs Chronic respiratory failure with [...] 1,000 Milligram By Mouth Every day Unchanged rosuvastatin (rosuvastatin 5 mg Tab) See instructions TAKE 1 TABLET EVERY DAY Allergies No Known Medication Allergies Problems Ongoing - Any problem that you are currently receiving treatment for. 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 Acute UTI Impingement syndrome of shoulder region LUQ pain Nocturia Rheumatoid arteritis Patient Survey You may receive a survey via text or e-mail asking about your office visit. Please share your experience with us by completing your survey. We appreciate your feedback and thank you for choosing us for your care. Patient Portal You may access all of your results and other medical record information on our secure patient portal. If you are not signed up for this yet, please contact [employer] at [phone] to get signed up today. Language Information Language assistance services are available as needed. [facility] Medicine Office/Clinic Noteon [id number] Medicine Office/Clinic NoteFacharron maternity hospital Medicine Office/Clinic Note Chief Complaint Follow up HPI Staff Please speak with patient about scheduling an AWV. Pt presents today for 3m follow up to HTN & back pain. Patient is here for follow up on hypertension. How often are you checking your blood pressure? _no What are your average readings? _ Yearly BMP: _ 04/12/24 Pain characteristics: Pain location: Back Intensity:_5/10 Onset: yrs Medication used: Percocet Opioids prescribed: Percocet Medication agreement NEEDS UPDATED w/John on it. Urine drug screen performed:_ 03/09/25 Referred to Neurology @ [facility]. Wellness labs completed 03/29/25 History of Present Illness 80-year-old patient presents today in follow-up for chronic back pain. She reports she has had backpain for quite a few years. She reports she sees a chiropractor regularly and she has an appointment after she leaves here. She states she is here because she was told she needs to be seen in order to get a refill of her percocet. She states she gets 30 pills and they generally last her 2 1/2 months. Explained to patient she needed to come to have an updated medication agreement with a provider in order to have the medication filled. Review of Systems PHQ Score Initial Depression Screen Score: 0 SCORE Physical Exam Vitals & Measurements T: 36.8 ???C(Oral) HR: 76(Peripheral) RR: 18 BP: 124/78 SpO2: 98% HT: 61 in HT: 154.9 cm WT: 130.734 lb WT: 59.3 kg BMI: 24.71 General: alert, no acute distress Cardiovascular: regular rate and rhythm, normal peripheral perfusion Respiratory: Lungs CTA, respirations non labored Extremities: no deformity, no trauma Neurological: oriented x 4, LOC appropriate for age speech normal Assessment/Plan 1. Chronic back pain (M54.9: Dorsalgia, unspecified) Monitor and manage pain levels; adjust current treatments. Medication Agreement completed at today's visit with the provider NALLELY reviewed and found to be appropriate Encouraged to f/u with sol PULIDO in August 2025 2. BMI 24.0-24.9, adult (Z68.24: Body mass index [BMI] 24.0-24.9, adult) BMI 25.38 3. Smoker (F17.200: Nicotine dependence, unspecified, uncomplicated) We strongly recommend to quit tobacco use. Cigarette smoking harms nearly every organ of the body, causes many diseases, and reduces the health of smokers in general. Quitting smoking lowers your risk for smoking-related diseases and can add years to your life. We encourage you to visit www.smokefree.gov access to helpful resources including free telephone support. If you decide on prescription treatment to help you quit, we would be happy to provide these. Ordered: Body Mass Index (BMI) documented 3008F Functional status assessed 1170F Medication list documented in medical record 1159F Review of all meds by a prescribing practitioner or clinical pharmacist documented in EHR 1160F Orders: acetaminophen-oxycodone, 1 tab(s), Oral, Daily as needed for pain, 7 tab(s), Refill(s) 0, 30 DAYS, M06.9, [facility], 154.9, cm, 06/08/25 14:24:00 EDT, Height/Length Dosing, 59.3, kg, 06/08/25 14:24:00 EDT, Weight Dosing Total time spent preparing the chart, conducting of the encounter with the patient and family and time spent documenting, reviewing visits was 20 minutes. 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 Other terminal make up operator (current) drug therapy Polycythemia Postinfective urethral stricture in female Recurrent UTI Renal cyst Smoker Stress incontinence Thyroid nodule Trochanteric bursitis Vitamin D deficiency Historical Acute UTI Impingement syndrome of shoulder region LUQ pain Nocturia Rheumatoid arteritis Procedure/Surgical History Cystourethroscopy with dilation of urethral stricture (02/04/2021), Cystourethroscopy with dilationof urethral stricture (05/07/2020), Cataracts, Cholecystectomy, Hysterectomy, Laparoscopy, Placement of stent in cardiac conduit, Post-surgery back pain. Medications acetaminophen-oxycodone 325 mg-5 mg Tab, 1 tab(s), Oral, Daily, PRN Albuterol (Eqv-Proventil HFA) 90 mcg/inh inhalation aerosol, 2 puff(s), Inhalation, q6hr alendronate 35 mg Tab, 35 mg= 1 tab(s), Oral, q7day, 4 refills aspirin 81 mg oral tablet, 81 mg= 1 tab(s), Oral, Daily citalopram 20 mg Tab, See Instructions Fish Oil, 1000 mg, Oral, Daily Handicap Placard, 5 years., See Instructions methot (more content not included)...[facility] HospitalComment on above:Result Comment: Electronically Signed By: JOHN CHONG CNP\Date and Time Signed: 06/08/25 15:[facility] [id number] Medicine Office/Clinic NoteFacharron maternity hospital Medicine Office/Clinic Note Chief Complaint 3m follow up The patient complains of back pain with a severity rating of 5/10. HPI Staff Please speak with patient about scheduling an AWV, has previously declined. 3m follow up Pain characteristics: Pain location: Back Intensity:5/10 Onset: ongoing for yrs. Medication used: Percocet Opioids prescribed: Percocet Medication agreement UTD: due in Nika's drawer Urine drug screen performed:_ due Pt states Dr Bell tried reaching out to our office around November asking if Dr Melgar could refer pt to neurologist. Would like annual bloodwork & mammogram ordered. (wants to go to hospital for bloodwork) History of Present Illness - The patient is a 79-year-old female presenting with back pain management. - Back pain has increased post-spinal surgery. - Current pain level is 5/10, requiring increased analgesic use. - Occasional exacerbations of pain noted. - Blood work has been scheduled as part of yearly routine monitoring. - Discussed cessation strategies for smoking, noting a current usage of less than half a pack per day. - Mammogram screening cessation at age 76 discussed; no current need for further testing identified. Review of Systems PHQ Score Initial Depression Screen Score: 0 SCORE Physical Exam Vitals & Measurements T: 36.8 ???C(Tympanic) HR: 66(Peripheral) RR: 18 BP: 130/82 SpO2: 95% HT: 154.9 cm HT: 61 in WT: 60.9 kg WT: 134.261 lb BMI: 25.38 General: alert, no acute distress ENMT: oral mucosa moist Cardiovascular: Regular rate and rhythm, normal peripheral perfusion Respiratory: Lungs clear to auscultation, respirations non labored Extremities: no deformity, no trauma Neurological: oriented x 4, level of consciousness appropriate for age, CN II- XII intact, motor strength equal & normal bilaterally, speech normal Abdomen: Soft, Non-tender, Non-distended, + Bowel sounds Assessment/Plan 1. Back pain with history of spinal surgery (M54.9: Dorsalgia, unspecified) - Monitor and manage pain levels; adjust current treatments. Ordered: Drug Screen [place] [id number] [facility] [place] 2. Elevated blood sugar level (R73.9: Hyperglycemia, unspecified) - Manage hyperglycemia through lifestyle changes pending lab results. Ordered: [facility] [place] 3. Hypertension (I10: Essential (primary) hypertension) - Continue antihypertensive therapy monitoring. Ordered: [facility] [place] 4. Polycythemia (D75.1: Secondary polycythemia) - Monitor hematological parameters; lifestyle advice. Ordered: [facility] [place] 5. Smoker (F17.200: Nicotine dependence, unspecified, uncomplicated) - Promote smoking cessation; discuss cessation aids. Ordered: [facility] [place] 6. Hypercholesterolemia (E78.00: Pure hypercholesterolemia, unspecified) - Assess lipid levels; manage via dietary or medicinal means. 7. 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 8. Head ache (R51.9: Headache, unspecified) - Neuro per ENT recommendation. - Blood work scheduled for routine monitoring. - 79-year-old female with history of back pain with history of spinal surgery presenting with back pain. - Recent exacerbation post-surgery; pain management and monitoring needed. - Smoking increases risk for multiple conditions; cessation strategies encouraged. - Anxiety managed with stable citalopram dosage. - Right kidney neoplasm and nasal pressure warrants ongoing monitoring. During today's visit, I reviewed the patient's back pain management strategies, including the current level of analgesic use. I advised on potential lifestyle changes that can assist with managing hyperglycemia, hypercholesterolemia, and hypertension, providing a gentle reminder on the impact of smoking on her overall health. While discussing the neoplasm of uncertain behavior of the right kidney, I reiterated the importance of staying vigilant for any changes in symptoms and keeping consistentwith scheduled monitoring appointments. Additionally, we explored neurology referral options for persistent nasal and head pressure, given prior evaluations for sinus infections were ruled out. For each concern, I ensured that the patient was informed of the potential benefits, risks, and alternatives to the treatment options we discussed, ensuring clarity and agreement. Follow-ups are scheduled to further tackle the health maintenance issues identified. Follow-up No qualifying data available Problem List/Past Medical History Ongoing Anticoagulated Anxiety Arthritis Asymptomatic microscopic hematuria Back pain with history of spinal surgery Carotid artery stenosis COPD without exacerbation Elevated blood sugar level Fibromyalgia GERD (gastroesophageal reflux disease) Heart dise (more content not included)...[facility] Comment on above:Result Comment: Electronically Signed By: Wilfredo Melgar MD\.br\Date and Time Signed: 03/09/25 11:40 EDTAmbulatory Visit Summaryon [id number] Visit SummaryAmbulatory Visit Summary CHANTELLE DYE :1945 Visit Date:12/08/2024 Ambulatory Visit Instructions Your Diagnosis COPD without exacerbation Chronic respiratory failure with hypoxia 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 Wear at 2L via N/C.) acetaminophen-oxycodone (acetaminophen-oxycodone 325 mg-5 mg Tab) albuterol (Albuterol (Eqv-Proventil HFA) 90 mcg/inh inhalation aerosol) alendronate (alendronate 35 mg Tab) aspirin (aspirin 81 mg oral tablet) cetirizine (cetirizine 10 mg Tab) cholecalciferol (Vitamin D3 5000 intl units (125 mcg) oral tab) citalopram (citalopram 20 mg Tab) methotrexate (methotrexate 2.5 mg Tab) metoprolol (metoprolol succinate 25 mg ER Tab) omega-3 polyunsaturated fatty acids (Fish Oil) rosuvastatin (rosuvastatin 5 mg Tab) Procedures Performed Cystourethroscopy with dilation of urethral stricture (02/04/2021), Cystourethroscopy with dilationof urethral stricture (05/07/2020), Cataracts, Cholecystectomy, Hysterectomy, Laparoscopy, Placement of stent in cardiac conduit, Post-surgery back pain. Discharge Vitals Heart Rate (Peripheral) 80 Respiratory Rate 18 Blood Pressure 128/80 Height 154.9 cm Height 61 in Weight 60.7 kg Weight 133.82 lb BMI 25.3 What to do next Scheduled Follow-Up Appointments 2024 10:45 AM EDT With: Harsha PULIDO, Wilfredo Montgomery Where: [place] [id number]- Medications What How Much When Why Instructions Unchanged acetaminophen-oxycodone (acetaminophen-oxycodone 325 mg-5 mg Tab) 1 Tablets By [...] Tablets By Mouth Every day Unchanged cetirizine (cetirizine 10 mg Tab) 1 Tablets By Mouth Every day Unchanged cholecalciferol (Vitamin D3 5000 intl units (125 mcg) oral tab) Unchanged citalopram (citalopram 20 mg Tab) See instructions TAKE 1 TABLET EVERY DAY Unchanged methotrexate (methotrexate 2.5 mg Tab) See instructions TAKE 6 TABLETS ONE TIME WEEKLY ONMONDAYS Unchanged metoprolol (metoprolol succinate 25 mg ER Tab) 1 Tablets By Mouth Every day Unchanged Misc Prescription (Handicap Alethea, 5 years.) See instructions COPD without exacerbationImmunodeficiency due to drugs Chronic respiratory failure with [...] 1,000 Milligram By Mouth Every day Unchanged rosuvastatin (rosuvastatin 5 mg Tab) See instructions TAKE 1 TABLET EVERY DAY Allergies No Known Medication Allergies Problems Ongoing [...] of uncertain behavior of right kidney Other terminal make up operator (current) drug therapy Polycythemia Postinfective urethral stricture in female Recurrent UTI Renal cyst Smoking Stress incontinence Thyroid nodule Trochanteric bursitis Vitamin D deficiency Historical - Any problem that you are no longer receiving treatment for. Acute UTI Impingement syndrome of shoulder region LUQ pain Nocturia Rheumatoid arteritis Patient Survey You may receive a survey via text or e-mail asking about your office visit. Please share your experience with us by completing your survey (more content not included)...[facility]/Clinic Note on [id number] Office[facility] Medicine Office/Clinic Note Chief Complaint Pain Follow Up HPI Staff Pt presents today for med review/eval Taking Percocet for back pain. Pain characteristics: Pain location: Back Medication used: Percocet Opioids prescribed: Medication agreement UTD: no Updated today Urine drug screen performed:_04/13/24 History of Present Illness Pt states she is only in a 1/10 pain today. Did not take her meds. She takes the meds when she feels pain coming after doing something physical. States she takes maybe a half a pill at time. Pt does not want to de-escalate. Not on O2. No issues. Review of Systems PHQ Score Initial Depression Screen Score: 0 SCORE Physical Exam Vitals & Measurements HR: 80(Peripheral) RR: 18 BP: 128/80 SpO2: 96% HT: 61 in HT: 154.9 cm WT: 60.7 kg WT: 133.82 lb BMI: 25.3 General: alert, no acute distress ENMT: oral mucosa moist, Cardiovascular: regular rate and rhythm, normal peripheral perfusion Respiratory: Lungs CTA, respirations non labored, Diminished Extremities: no deformity, no trauma Neurological: oriented x 4, LOC appropriate for age, CN II-XII intact, motor strength equal & normal bilaterally, speech normal Abdomen: Soft, Nontender, Non-distended, + BS Assessment/Plan 1. COPD without exacerbation (J44.9: Chronic obstructive pulmonary disease, unspecified) Stable. Continue breathing treatments. 2. Chronic respiratory failure with hypoxia (J96.11: Chronic respiratory failure with hypoxia) Resolved 3. 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 4. Major depressive disorder with single episode, in full remission (F32.5: Major depressive disorder, single episode, in full remission) Stable. 5. Multiple falls (R29.6: Repeated falls) Resolved. Pt does not remember the last time she fell. 6. Hypertension (I10: Essential (primary) hypertension) At goal. No issues. Other intermediate (current) drug therapy (Z79.899: Other terminal make up operator (current) drug therapy) Orders: acetaminophen-oxycodone, 1 tab(s), Oral, Daily as needed for pain, 30 tab(s), Refill(s) 0, 30 DAYS,M06.9, [facility], 154.9, cm, 12/08/24 11:26:00 EST, Height/Length Dosing, 60.7, kg, 12/08/24 11:26:00 EST, Weight Dosing acetaminophen-oxycodone, 1 tab(s), Oral, Daily as needed for pain, 30 tab(s), Refill(s) 0, 30 DAYS,M06.9, [facility], 154.9, cm, 08/25/24 10:39:00 EDT, Height/Length Dosing, 60.4, kg, 08/25/24 10:39:00 EDT, Weight Dosing Follow-up No qualifying data available Patient Education Hypertension, Adult Problem List/Past Medical History Ongoing Anticoagulated Anxiety Arthritis Asymptomatic microscopic hematuria Back pain with history of spinal surgery BMI 24.0-24.9, adult Carotid artery stenosis COPD without exacerbation Elevated blood sugar level Fibromyalgia GERD (gastroesophageal reflux disease) Heart disease Hiatal hernia Hypercholesterolemia Hypertension Immunodeficiency due to drugs Immunotherapy Major depressive disorder with single episode, 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 Other terminal make up operator (current) drug therapy Polycythemia Postinfective urethral stricture in female Recurrent UTI Renal cyst Smoking Stress incontinence Thyroid nodule Trochanteric bursitis Vitamin D deficiency Historical Acute UTI Impingement syndrome of shoulder region LUQ pain Nocturia Rheumatoid arteritis Procedure/Surgical History Cystourethroscopy with dilation of urethral stricture (02/04/2021), Cystourethroscopy with dilationof urethral stricture (05/07/2020), Cataracts, Cholecystectomy, Hysterectomy, Laparoscopy, Placement of stent in cardiac conduit, Post-surgery back pain. Medications acetaminophen-oxycodone 325 mg-5 mg Tab, 1 tab(s), Oral, Daily, PRN Albuterol (Eqv-Proventil HFA) 90 mcg/inh inhalation aerosol, 2 puff(s), Inhalation, q6hr, 4 refills alendronate 35 mg Tab, 35 mg= 1 tab(s), Oral, q7day, 4 refills aspirin 81 mg oral tablet, 81 mg= 1 tab(s), Oral, Daily cetirizine 10 mg Tab, 10 mg= 1 tab(s), Oral, Daily citalopram 20 mg Tab, See Instructions Fish Oil, 1000 mg, Oral, Daily Handicap Placard, 5 years., See Instructions methotrexate 2.5 mg Tab, See Instructions, 3 refills metoprolol succinate 25 mg ER Tab, 25 mg= 1 tab(s), Oral, Daily, 4 refills Portable Oxygen Concentrator. Wear at 2L via N/C., See Instructions rosuvastatin 5 mg Tab, See Instructions, 4 refills Vitamin D3 5000 intl units (125 mcg) oral tab Allergies No Known Medication Allergies Social History Alcohol - Denies Alcohol Use, 05/07/2020 Current, 1-2 times per month, 09/01/2019 Substance Abuse - Denies Substance Abuse, 01/17/2020 Tobacco - Medium Risk, 01/17/2020 Former smoker, quit more than 30 days ago, stopped over 30 days ago Tobacco Use:. Never Smokeless Tobacco Use:. Cigarettes, Ready to change: No. Household tobacco concerns: No. Yes, 12/08 (more content not included)...[facility]:Result Comment: Electronically Signed By: Harsha PULIDO, Wilfredo Turner.br\Date and Time Signed: 12/08/24 11:44 ESTUS Thyroid gland on [id number] [address] Ultrasound Report Signed Patient: CHANTELLE DEY MR#: [id number] : 1945 Acct:[id number] Age/Sex: 79 / F ADM Date: 12/07/24 Loc: US Attending Dr: Sergio Bell M.D. Ordering Physician: Sergio Bell M.D. Date of Service: 12/07/24 Procedure(s): US thyroid Accession Number(s): [id number] cc: WILFREDO MELGAR ; Sergio Bell M.D. [address] [address] Patient Name: CHANTELLE DEY MRN: [id number] date: 1945 Sex: F Assigned Patient Location: US Current Patient Location: US Accession/Order Number: [id number] Exam Date: 12/07/2024 10:51 Report Date: 12/07/2024 12:23 At the request of: SERGIO BELL Procedure: US thyroid EXAMINATION: US thyroid HISTORY: Right Thyroid Nodule COMPARISON: 08/09/2024 TECHNIQUE: Sonographic images of the thyroid gland were obtained. FINDINGS: The right thyroid lobe measures 4.7 x 1.5 x 1.9 cm. 2 focal nodules. Nodule 1.1.2 x 0.8 x 1.1 cm. Mixed solid and cystic, hypoechoic, wide, smooth margins, desiccation is. TR 3. Nodule 2. 1.3 x 0.6 x 0.6 cm. Solid, hypoechoic, wide, smooth margins, no calcifications. TR 4 The thyroid isthmus measures 1 mm. The left thyroid lobe measures 3.9 x 1.1 x 1.5 cm. Normal in size, contour and echotexture The most suspicious nodule. Right thyroid lobe. US/US thyroid IMPRESSION: 2 stable right thyroid nodules TI-RADS: The [employer] TI-RADS committee's white paper recommendations for thyroid lesions classified as TR4 (moderately suspicious) are listed below: > 1.0 cm. Follow-up ultrasound in 1, 2, 3, and 5 years. > 1.5 cm. FNA. J. Am Gabriel Radiol 2017;14:587-595. Electronically authenticated by: ANTONIA REYES Date: 12/07/2024 12:23 Dictated By: Antonia Reyes M.D. Signed By: 12/07/24 1226 DD/ 1223 TD/TT: [employer] Crm Developer:HOLLYadiologgrace, Radiologist, - 12/07/2024 [place] [address] Ultrasound Report Signed Patient: CHANTELLE DEY MR#: [id number] : 1945 Acct:[id number] Age/Sex: 79 / F ADM Date: 12/07/24 Loc: US Attending Dr: Sergio Bell M.D. Ordering Physician: Sergio Bell M.D. Date of Service: 12/07/24 Procedure(s): US thyroid Accession Number(s): [id number] cc: WILFREDO MELGAR ; Sergio Bell M.D. The [place] [id number] Patient Name: CHANTELLE DEY MRN: [id number] date: 1945 Sex: F Assigned Patient Location: US Current Patient Location: US Accession/Order Number: [id number] Exam Date: 12/07/2024 10:51 Report Date: 12/07/2024 12:23 At the request of: SERGIO BELL Procedure: US thyroid EXAMINATION: US thyroid HISTORY: Right Thyroid Nodule COMPARISON: 08/09/2024 TECHNIQUE: Sonographic images of the thyroid gland were obtained. FINDINGS: The right thyroid lobe measures 4.7 x 1.5 x 1.9 cm. 2 focal nodules. Nodule 1.1.2 x 0.8 x 1.1 cm. Mixed solid and cystic, hypoechoic, wide, smooth margins, desiccation is. TR 3. Nodule 2. 1.3 x 0.6 x 0.6 cm. Solid, hypoechoic, wide, smooth margins, no calcifications. TR 4 The thyroid isthmus measures 1 mm. The left thyroid lobe measures 3.9 x 1.1 x 1.5 cm. Normal in size, contour and echotexture The most suspicious nodule. Right thyroid lobe. US/US thyroid IMPRESSION: 2 stable right thyroid nodules TI-RADS: The [employer] TI-RADS committee's white paper recommendations for thyroid lesions classified as TR4 (moderately suspicious) are listed below: > 1.0 cm. Follow-up ultrasound in 1, 2, 3, and 5 years. > 1.5 cm. FNA. J. Am Gabriel Radiol 2017;14:587-595. Electronically authenticated by: ANTONIA REYES Date: 12/07/2024 12:23 Dictated By: Antonia Reyes M.D. Signed By: 12/07/24 1226 DD/ 1223 TD/TT: [employer] Crm Developer: [facility] HealthcareRadiology Study observation (narrative)[facility] MedicineUS Thyroid glandOrdered By: Radiologist Radiology on [id number] Healthcare Work Phone: aLLERGENS W/COMP RFLX AREA 5on [id number] DESCRIPTIONComment.[facility] HealthcareComment on above:Levels of Specific IgE Class Description of Class ----- < 0.10 0 Negative 0.10 - 0.31 0/I Equivocal/Low 0.32 - 0.55 I Low 0.56 - 1.40 II Moderate 1.41 - 3.90 III High 3.91 - 19.00 IV Very High 19.01 - 100.00 V Very High >100.00 Very High W269-MZB D PTERONYSSINUS<0.10Class 0 kU/LNOMS YckhgiyvhpN378-NDN D FARINAE<0.10 Class 0 kU/LNOMS YegnuzecerJ412-AIO CAT DANDER<0.10Class 0 kU/LNOMS Healthcare R126-FRO DOG DANDER<0.10Class 0 kU/LNOMS JqamhdwyvbX206-NWL MOUSE URINE<0.10 Class 0 kU/LNOMS HealthcareComment on above:Performed at: [address] [id number] Disc Pad Knockout Worker: Glenda Coto MD, Phone: [phone] K290-XND BERMUDA GRASS<0.10Class 0 kU/LNOMS BchorwjboaC218-JWF KARIE GRASS <0.10Class 0 kU/LNOMS IiiguvnopxM309-ZQY COCKROACH, GERMAN0.12 kU/LAbnormalClass 0/INOMS HealthcareIMMUNOGLOBULIN E, [id number] HealthcareInterpretation and review of laboratory resultsAbnormalNOMS KmuvnqdausR979-VJZ PENICILLIUM CHRYSOGEN<0.10Class 0 kU/LNOMS BiuxeinjtjK683-PAO CLADOSPORIUM HERBARUM<0.10 Class 0 kU/LNOMS YbtrspqlksD616-CPG ASPERGILLUS FUMIGATUS<0.10Class 0 kU/LNOMS ExxthznqccJ055-RXI ALTERNARIA ALTERNATA<0.10Class 0 kU/LNOMS YwpanvhiunL865-AIS MAPLE/BOX ELDER<0.10Class 0 kU/LNOMS OraajftjfrP707-MVN COMMON SILVER BIRCH<0.10 Class 0 kU/LNOMS VlxhhyccsnQ382-GAI CEDAR, MOUNTAIN0.11 kU/LAbnormalClass 0/I NOMS AskxiqlgpdX960-UQX OAK, WHITE<0.10Class 0 kU/LNOMS VziojvuksiO140-DKU ELM, SIERRA LEONEAN<0.10Class 0 kU/LNOMS NnnwslczogJ432-WRJ [place]<0.10Class 0 kU/LNOMS RomhaefyiqY499-KOE MAPLE LEAF [place]<0.10Class 0 kU/LNOMS GjcnscpunuT674-YNP [place]<0.10Class 0 kU/LNOMS MztltgeufkE078-NHJ MATTHEW, WHITE<0.10Class 0 kU/L NOMS WualruhwhtF146-GQN PECAN, HICKORY<0.10Class 0 kU/LNOMS HtzfrijcrdE729-ZOP WHITE MULBERRY<0.10Class 0 kU/LNOMS HruwvmcntrR587-OGA RAGWEED, SHORT<0.10Class 0 kU/LNOMS QrmjkosgpxV269-RHS THISTLE, NAURUAN<0.10Class 0 kU/LNOMS Healthcare O367-OPV PIGWEED, COMMON<0.10Class 0 kU/LNOMS OngelpxkqbX975-VCT SHEEP SORREL <0.10Class 0 kU/LNOMS HealthcareCLINISYNCNOMS HealthcareCT HEAD/BRAIN WOon 82-19-[place] [address] [place] Scan Report Signed Patient: CHANTELLE DEY MR#: [id number] : 1945 Acct:[id number] Age/Sex: 79 / F ADM Date: 11/11/24 Loc: CT Attending Dr: Sergio Bell M.D. Ordering Physician: Sergio Bell M.D. Date of Service: 11/11/24 Procedure(s): CT head/brain wo con Accession Number(s): [id number] cc: WILFREDO MELGAR [place] [id number] Patient Name: CHANTELLE DEY MRN: [id number] date: 1945 Sex: F Assigned Patient Location: CT Current Patient Location: CT Accession/Order Number: [id number] Exam Date: 11/11/2024 10:28 Report Date: 11/11/2024 11:37 At the request of: SERGIO BELL Procedure: CT head/brain wo con EXAM: CT head/brain wo con HISTORY: Chronic Intractable Headache COMPARISON: CT head 11/16/2023. TECHNIQUE: Axial soft tissue and bone windows through the calvarium with coronal and sagittal reformats. CT dose reduction technique was used including Automated Exposure Control. Findings: The paranasal sinuses and mastoid air cells are well aerated. No air-fluid levels. No extra-axial fluid collection. No intra-axial or extra-axial bleed. No mass effect or midline shift. The miramontes-white matter differentiation is preserved. There are white matter low attenuation lesions which are nonspecific but commonly attributed to chronic small vessel ischemic disease. The brain parenchymal volume is reduced yet likely age-appropriate. The ventricles are nondilated. The basal cisterns are patent. The craniovertebral junction is unremarkable. CT/CT head/brain wo con IMPRESSION: 1. No acute intracranial abnormality. 2. Senescent changes. Electronically authenticated by: EMELIA MONET Date: 11/11/2024 11:37 Dictated By: Emelia Monet M.D. Signed By: 11/11/24 1444 DD/ 9481 TD/TT: [employer] Crm Developer:TBHRadiology, Radiologist, - 11/11/2024 [place] [address] CT Scan Report Signed Patient: CHANTELLE DEY MR#: [id number] : 1945 Acct:[id number] Age/Sex: 79 / F ADM Date: 11/11/24 Loc: CT Attending Dr: Sergio Bell M.D. Ordering Physician: Sergio Bell M.D. Date of Service: 11/11/24 Procedure(s): CT head/brain wo con Accession Number(s): [id number] cc: WILFREDO MELGAR [place] [address] Patient Name: CHANTELLE DEY MRN: [id number] date: 1945 Sex: F Assigned Patient Location: CT Current Patient Location: CT Accession/Order Number: [id number] Exam Date: 11/11/2024 10:28 Report Date: 11/11/2024 11:37 At the request of: SERGIO BELL Procedure: CT head/brain wo con EXAM: CT head/brain wo con HISTORY: Chronic Intractable Headache COMPARISON: CT head 11/16/2023. TECHNIQUE: Axial soft tissue and bone windows through the calvarium with coronal and sagittal reformats. CT dose reduction technique was used including Automated Exposure Control. Findings: The paranasal sinuses and mastoid air cells are well aerated. No air-fluid levels. No extra-axial fluid collection. No intra-axial or extra-axial bleed. No mass effect or midline shift. The miramontes-white matter differentiation is preserved. There are white matter low attenuation lesions which are nonspecific but commonly attributed to chronic small vessel ischemic disease. The brain parenchymal volume is reduced yet likely age-appropriate. The ventricles are nondilated. The basal cisterns are patent. The craniovertebral junction is unremarkable. CT/CT head/brain wo con IMPRESSION: 1. No acute intracranial abnormality. 2. Senescent changes. Electronically authenticated by: EMELIA MONET Date: 11/11/2024 11:37 Dictated By: Emelia Monet M.D. Signed By: 11/11/24 1449 DD/ 9249 TD/TT: [employer] Crm Developer: LOAN HealthcareRadiology Study observation (narrative)[facility] HealthcareCT HEAD/BRAIN WOOrdered By: Radiologist Radiology on [id number] Healthcare Work Phone: XR Sinuses 3 [address] [phone] [address] XRay Report Signed Patient: CHANTELLE DEY MR#: [id number] : 1945 Acct:[id number] Age/Sex: 79 / F ADM Date: 09/28/24 Loc: US Attending Dr: Sergio Bell M.D. Ordering Physician: Sergio Bell M.D. Date of Service: 09/28/24 Procedure(s): XR sinus min 3V Accession Number(s): [id number] cc: WILFREDO MELGAR ; Sergio Bell M.D. The [address] [address] Patient Name: CHANTELLE DEY MRN: [id number] date: 1945 Sex: F Assigned Patient Location: Current Patient Location: Accession/Order Number: [id number] Exam Date: 09/28/2024 09:07 Report Date: 10/03/2024 07:35 At the request of: SERGIO BELL Procedure: XR sinus min 3V EXAMINATION: XR sinus min 3V HISTORY: Chronic Pansinusitis COMPARISON: No relevant comparison available. FINDINGS: MAXILLARY: No mucosal thickening or fluid level. ETHMOID: No mucosal thickening or fluid level. FRONTAL: No mucosal thickening or fluid level. SPHENOID: No mucosal thickening or fluid level. OTHER: Negative. XR/XR sinus min 3V IMPRESSION: Clear paranasal sinuses Electronically authenticated by: ANTONIA REYES Date: 10/03/2024 07:35 Dictated By: Antonia Reyes M.D. Signed By: 10/03/2437 DD/ TD/TT: [employer] Crm Developer:Regla Perry, - 10/03/2024 The [place] [id number] XRay Report Signed Patient: CHANTELLE DEY MR#: [id number] : 1945 Acct:[id number] Age/Sex: 79 / F ADM Date: 09/28/24 Loc: US Attending Dr: Sergio Bell M.D. Ordering Physician: Sergio Bell M.D. Date of Service: 09/28/24 Procedure(s): XR sinus min 3V Accession Number(s): [id number] cc: WILFREDO MELGAR ; Sergio Bell M.D. [facility] [address] [place], [place] [address] Patient Name: CHANTELLE DEY MRN: [id number] date: 1945 Sex: F Assigned Patient Location: Current Patient Location: Accession/Order Number: [id number] Exam Date: 09/28/2024 09:07 Report Date: 10/03/2024 07:35 At the request of: SERGIO BELL Procedure: XR sinus min 3V EXAMINATION: XR sinus min 3V HISTORY: Chronic Pansinusitis COMPARISON: No relevant comparison available. FINDINGS: MAXILLARY: No mucosal thickening or fluid level. ETHMOID: No mucosal thickening or fluid level. FRONTAL: No mucosal thickening or fluid level. SPHENOID: No mucosal thickening or fluid level. OTHER: Negative. XR/XR sinus min 3V IMPRESSION: Clear paranasal sinuses Electronically authenticated by: ANTONIA REYES Date: 10/03/2024 07:35 Dictated By: Antonia Reyes M.D. Signed By: 10/03/2437 DD/ TD/TT: [employer] Crm Developer: LOAN HealthcareRadiology Study observation (narrative)[facility] MedicineXR Sinuses 3 ViewsOrdered By: Radiologist Radiology on 33-05-1438BXCF [employer] Work Phone: Lon 09-28-2024L Specimen: [id number] Received: 09/29/24 Status: ROMEL Wyatt Num: [id number] Spec Type: Cytology Subm Dr: SERGIO BELL MD Tissues: A FNA SLIDES NOPATH (RT THY) Procedures: Cyto Int and Re, PAPSTN/5 Age/ Patient Sex Location Account Attending Physician Chantelle Dey 79/F LABELL [id number] SERGIO BELL MD SPEC NUM: [id number] RECD: 09/29/24 STATUS: ROMEL WYATT NUM: [id number] GABRIEL: 09/28/24- SUBM DR: SERGIO BELL MD ENTERED: 09/29/[address] [facility] [address]: Dustin,Lab Antonia Reyes MD SPEC TYPE: Cytology DEPT: JYOTI VILLAGRAN ENTERED BY: [id number] RECV BY: [id number] ORDERED: Cyto Int and Re, PAPSTN/5 ORDERED: Cyto Int and Re, PAPSTN/5 Pathological Diagnosis Right thyroid nodule, FNA: Atypical follicular cells noted. Background of Colloid with occasional macrophages. [place] Category III Clinical Information Right thyroid nodule Gross Description Received fixed in Cytolyt is <1 ml pink pale clear fixed fluid for cytology said to have been obtained as Right thyroid nodule mid lobe. ThinPrep preparations are prepared for microscopic examination. Also received are 4 spray fixed smeared slides for pap and a Veracyte vial stored at -20 for microscopic examination. (WI/mt) CPT Codes 47637 Specimen: [id number] Received: 09/29/24 Status: ROMEL Wyatt Num: [id number] Spec Type: Cytology Subm Dr: SERGIO BELL MD Tissues: A FNA SLIDES NOPATH (RT THY) Procedures: Cyto Int and Re, PAPSTN/5 Patient: Chantelle Dey [id number] (Continued) Signed (signature on file) Tiara Solano MD 09/29/[address] [place] [address] Physician GroupUS BIOPSY THYROIDon 09-28-2024 [place] [address] Ultrasound Report Signed Patient: CHANTELLE DEY MR#: [id number] : 1945 Acct:[id number] Age/Sex: 79 / F ADM Date: 09/28/24 Loc: US Attending Dr: Sergio Bell M.D. Ordering Physician: Sergio Bell M.D. Date of Service: 09/28/24 Procedure(s): US biopsy thyroid Accession Number(s): [id number] cc: WILFREDO MELGAR ; Sergio Bell M.D. [place] [id number] Patient Name: CHANTELLE DEY MRN: [id number] date: 1945 Sex: F Assigned Patient Location: US Current Patient Location: US Accession/Order Number: [id number] Exam Date: 09/28/2024 09:40 Report Date: 09/28/2024 10:21 At the request of: SERGIO BELL Procedure: US biopsy thyroid EXAMINATION: US biopsy thyroid HISTORY: Thyroid Nodule COMPARISON: No relevant comparison available. TECHNIQUE: After obtaining informed consent, an ultrasound-guided biopsy was performed in the usual sterile manner. FINDINGS: IMAGING: Ultrasound BIOPSY NEEDLE: 25-gauge 2 inch SPECIMEN TYPE, #, LOCATION: 4 fine-needle aspirates, right thyroid 1.3 cm hypoechoic nodule MEDICATION: 4 cc 1% buffered lidocaine COMPLICATIONS: None. LABORATORY: Molecular studies and pathology OTHER: Negative. US/US biopsy thyroid IMPRESSION: Uneventful ultrasound guided biopsy. The patient was instructed to obtain follow up care and biopsy results from the referring physician. Electronically authenticated by: ANTONIA REYES Date: 09/28/2024 10:21 Dictated By: Antonia Reyes M.D. Signed By: 09/28/24 1024 DD/ 1021 TD/TT: [employer] Crm Developer:HOLLYadiologgrace, Radiologist, - 09/28/2024 [place] [address] Ultrasound Report Signed Patient: CHANTELLE DEY MR#: [id number] : 1945 Acct:[id number] Age/Sex: 79 / F ADM Date: 09/28/24 Loc: US Attending Dr: Sergio Bell M.D. Ordering Physician: Sergio Bell M.D. Date of Service: 09/28/24 Procedure(s): US biopsy thyroid Accession Number(s): [id number] cc: WILFREDO MELGAR ; Sergio Bell M.D. [facility] [place] [id number] Patient Name: CHANTELLE DEY MRN: [id number] date: 1945 Sex: F Assigned Patient Location: US Current Patient Location: Accession/Order Number: [id number] Exam Date: 09/28/2024 09:40 Report Date: 09/28/2024 10:21 At the request of: SERGIO BELL Procedure: US biopsy thyroid EXAMINATION: US biopsy thyroid HISTORY: Thyroid Nodule COMPARISON: No relevant comparison available. TECHNIQUE: After obtaining informed consent, an ultrasound-guided biopsy was performed in the usual sterile manner. FINDINGS: IMAGING: Ultrasound BIOPSY NEEDLE: 25-gauge 2 inch SPECIMEN TYPE, #, LOCATION: 4 fine-needle aspirates, right thyroid 1.3 cm hypoechoic nodule MEDICATION: 4 cc 1% buffered lidocaine COMPLICATIONS: None. LABORATORY: Molecular studies and pathology OTHER: Negative. US/US biopsy thyroid IMPRESSION: Uneventful ultrasound guided biopsy. The patient was instructed to obtain follow up care and biopsy results from the referring physician. Electronically authenticated by: ANTONIA REYES Date: 09/28/2024 10:21 Dictated By: Antonia Reyes M.D. Signed By: 09/28/24 1024 DD/ 1021 TD/TT: [employer] Crm Developer: LOAN HealthcareRadiology Study observation (narrative)LOAN HealthcareUS BIOPSY THYROIDOrdered By: Radiologist Radiology on 13-63-3789[facility] Work Phone: ambulatory Visit Summaryon 86-27-9685Bynufvgkek Visit SummaryAmbulatory Visit Summary CHANTELLE DEY :1945 Visit Date:08/25/2024 Ambulatory Visit Instructions Your Diagnosis Back pain with history of spinal surgery COPD without exacerbation Primary hypertension Other specified postprocedural states Your Care Team Attending Physician - Wilfredo Melgar MD Primary Care Physician - Wilfredo Melgar MD This Is Your Medications List acetaminophen-oxycodone (acetaminophen-oxycodone 325 mg-5 mg Tab) albuterol (Albuterol (Eqv-Proventil [...] dilation of urethral stricture (02/04/2021), Cystourethroscopy with dilationof urethral stricture (05/07/2020), Cataracts, Cholecystectomy, Hysterectomy, Laparoscopy, [...] Tablets By Mouth Every day Pickup at [facility] 1155 Unchanged acetaminophen-oxycodone (acetaminophen-oxycodone 325 mg-5 mg Tab) 1 Tablets By Mouth Every day as needed for as needed for pain 30 DAYS, M06.9 Pickup at [facility] 115[facility] Unchanged albuterol (Albuterol (Eqv-Proventil HFA) 90 mcg/ inh inhalation aerosol) 2 Puffs Inhalation Every 6 hours Please give cheapest generic Pickup at [facility] Unchanged alendronate (alendronate 35 mg Tab) [...] instructions TAKE 6 TABLETS ONE TIME WEEKLY ONMONDAYS Contact prescribing physician if questions or concerns Unchanged metoprolol (metoprolol succinate 25 mg ER Tab) 1 Tablets By Mouth Every day Contact prescribing physician if questions or concerns Unchanged Misc Prescription (Handicap Alethea, 5 years.) See instructions COPD without exacerbationImmunodeficiency due to drugs Chronic respiratory failure with hypoxia Major depressive disorder with single episode, in full remission Back pain with history of spinal surgery Multiple falls BMI 25.0-25.9,adult Over weight Smoker Handicap Alethea, 5 years. Contact prescribing physician if questions [...] to D/ C Contact prescribing physician if q uestions or concerns Unchanged omega-3 polyunsaturated fatty acids (Fish Oil) 1,000 Milligram By Mouth Every day Contactprescribing physician if questions or concerns Unchanged rosuvastatin (rosuvastatin 5 mg Tab) See instructions TAKE 1 TABLET EVERY DAY Contact prescribing physician if questions or concerns Pharmacy Information [facility]: [address], [place] [id number] [phone] Allergies No Known Medication Allergies Problems Ongoing [...] of uncertain behavior of right kidney Other intermediate (curr (more content not included)...[facility] Medicine Office/Clinic Noteon 57-32-4438Cphiqj Medicine Office/Clinic NoteFacharron [facility] Office/Clinic Note Chief Complaint The patient is here for a prescription refill for her back pain medication. [facility] Staff Chantelle is a 79 year old female presenting for med review/eval Needs her percocet refilled Pain characteristics: Pain location: back, generalized arthritis Intensity:04/01 Onset: several years Medication used: percocet but uses very sparingly Opioids prescribed: acetaminophen/oxycodone 325mg-5mg Medication agreement UTD: yes 04/12/24 Urine [...] the medication is not taken daily; instead, sheuses it as needed based on pain intensity. [...] the prescription, which generally consists of 30 pills,lasting approximately two months, depending on her pain levels. She understands the constraints andis agreeable to compliance with visits for medication [...] concerns. Additionally, she has a condition classified underother specified postprocedural states, likely related to her [...] level of consciousness appropriate for age, CN II- XII intact, motor strength equal & normal bilaterally, [...] dispensed to 30 pills at a time, withnecessary follow-up every three months to evaluate pain [...] states (Z98.890: Other specified postprocedural states) Orders: acetaminophen-oxycodone, 1 tab(s), Oral, Daily as needed for pain, 30 tab(s), Refill(s) 0, 30 DAYS,M06.9, [facility], 154.9, cm, 08/25/24 10:39:00 [...] Medical History Ongoing Anticoagulated (more content not included)...[facility] Comment on above:Result Comment: Electronically Signed By: Wilfredo Melgar MD\.br\Date and Time Signed: 08/25/24 11:00 EDTUS Thyroid glandon 90-19[place] [address] Ultrasound Report Signed Patient: CHANTELLE DEY MR#: [id number] : 1945 Acct:[id number] Age/Sex: 79 / F ADM Date: 08/09/24 Loc: US Attending Dr: Sergio Bell M.D. Ordering Physician: Sergio Bell M.D. Date of Service: 08/09/24 Procedure(s): US thyroid Accession Number(s): [id number] cc: WILFREDO MELGAR ; Sergio Bell M.D. [address] [address] Patient Name: CHANTELLE DEY MRN: [id number] date: 1945 Sex: F Assigned Patient Location: US Current Patient Location: Accession/Order Number: [id number] Exam Date: 08/09/2024 13:35 Report Date: 08/10/2024 14:29 At the request of: SERGIO BELL Procedure: US thyroid EXAMINATION: US thyroid HISTORY: RIGHT THYROID NODULE COMPARISON: 01/18/2024 TECHNIQUE: Sonographic images of the thyroid gland were obtained. FINDINGS: The right thyroid lobe is normal in size, contour and echotexture measuring 4.9 x 1.6 x 1.3 cm. 2 focal nodules. The thyroid isthmus measures 2 mm, no focal nodules. The left thyroid lobe measures 3.6 x 1.3 x 1.5 cm. No focal nodules. The most suspicious nodule: Right thyroid lobe. 1.5x 0.7 x 0.5 cm. Solid, hypoechoic, wide, smooth margins, macrocalcifications. TR 4 US/US thyroid IMPRESSION: 1.5 cm right thyroid TR 4 nodule, stable from the prior exam TI-RADS: The [employer] TI-RADS committee's white paper recommendations for thyroid lesions classified as TR4 (moderately suspicious) are listed below: > 1.0 cm. Follow-up ultrasound in 1, 2, 3, and 5 years. > 1.5 cm. FNA. J. Am Gabriel Radiol 2017;14:587-595. Electronically authenticated by: ANTONIA REYES Date: 08/10/2024 14:29 Dictated By: Antonia Reyes M.D. Signed By: 08/10/24 1432 DD/ 1429 TD/TT: [employer] Crm Developer:TBHRadiology, Radiologist, - 08/10/2024 [place] [address] Ultrasound Report Signed Patient: CHANTELLE DEY MR#: [id number] : 1945 Acct:[id number] Age/Sex: 79 / F ADM Date: 08/09/24 Loc: US Attending Dr: Sergio Bell M.D. Ordering Physician: Sergio Bell M.D. Date of Service: 08/09/24 Procedure(s): US thyroid Accession Number(s): [id number] cc: WILFREDO MELGAR ; Sergio Bell M.D. [address] [address] Patient Name: CHANTELLE DEY MRN: [facility]:[id number] date: 1945 Sex: F Assigned Patient Location: US Current Patient Location: Accession/Order Number: [id number] Exam Date: 08/09/2024 13:35 Report Date: 08/10/2024 14:29 At the request of: SERGIO BELL Procedure: US thyroid EXAMINATION: US thyroid HISTORY: RIGHT THYROID NODULE COMPARISON: 01/18/2024 TECHNIQUE: Sonographic images of the thyroid gland were obtained. FINDINGS: The right thyroid lobe is normal in size, contour and echotexture measuring 4.9 x 1.6 x 1.3 cm. 2 focal nodules. The thyroid isthmus measures 2 mm, no focal nodules. The left thyroid lobe measures 3.6 x 1.3 x 1.5 cm. No focal nodules. The most suspicious nodule: Right thyroid lobe. 1.5x 0.7 x 0.5 cm. Solid, hypoechoic, wide, smooth margins, macrocalcifications. TR 4 US/US thyroid IMPRESSION: 1.5 cm right thyroid TR 4 nodule, stable from the prior exam TI-RADS: The [employer] TI-RADS committee's white paper recommendations for thyroid lesions classified as TR4 (moderately suspicious) are listed below: > 1.0 cm. Follow-up ultrasound in 1, 2, 3, and 5 years. > 1.5 cm. FNA. J. Am Gabriel Radiol 2017;14:587-595. Electronically authenticated by: ANTONIA REYES Date: 08/10/2024 14:29 Dictated By: Antonia Reyes M.D. Signed By: 08/10/24 1432 DD/ 1429 TD/TT: [employer] Crm Developer: LOAN HealthcareRadiology Study observation (narrative)NOMVanesa HealthcareUS Thyroid glandOrdered By: Radiologist Radiology on 63-52-4431JILQ[address] [place] [address] Work Phone: auth for Release of Medical Recordson 17-00-6448Cqqe for Release of Medical [id number]#1.00TIFF [facility] HospitalCBC w/ Auto Diffon 42-28-5669Timzbecuj/100 WBC (Bld)0.6 %Normal0.0-2.0[facility] CenterComment on above:Performed By: #### [id number] #### [facility] [address] [place], [place] [address]Lvsfjswky/Leukocytes Auto (Bld) [Pure # fraction]0.1 E9/LNormal 0.0-0.2FTogus VA Medical CenterComment on above:Performed By: #### [id number] #### [facility] [address] [place], [place] [address]Ujauhcxujjx (Bld) [#/Vol]0.1 E9/LNormal0.0-0.5FTogus VA Medical CenterComment on above:Performed By: #### [id number] #### [facility] [address] [place], [place] [address]Rbsumqcgrvs/100 WBC (Bld)1.1 %Normal0.0-8.0[facility] CenterComment on above:Performed By: #### [id number] #### [facility] [address] [place], [place] [address]Cnisahuphek distribution width (RBC) [Ratio]15.3 %High10.9-14.2 [facility] Medical CenterComment on above:Performed By: #### [id number] #### [facility] [address] [place], [place] [address]Iawcgrhrrt (Bld) [Volume fraction]49.3 %High34.0-46.0[facility] CenterComment on above:Performed By: #### [id number] #### [facility] [address], [place] [address]Xdvfvpvnhf (Bld) [Mass/Vol]16.5 g/hOZdlt16.0-16.0[facility] CenterComment on above:Performed By: #### [id number] #### [facility] [address] [place] [address]Clhpffusddm (Bld) [#/Vol]1.3 E9/LNormal1.0-4.0[facility] CenterComment on above:Performed By: #### [id number] #### [facility] [address] [place] [address]Joxwivgkcdq/100 WBC (Bld)16.1 %Rnpyxf67.0-50.0[facility] CenterComment on above:Performed By: #### [id number] #### [facility] [address] [place] [address]AET (RBC) [Entitic mass]31.3 mxMgunvy63.0-34.0[facility] CenterComment on above:Performed By: #### [id number] #### [facility] [address] [place] [address]SYOO (RBC) [Mass/Vol]33.4 g/vYPckhxg50.4-36.0[facility] CenterComment on above:Performed By: #### [id number] #### [facility] [address] [place] [address]VLZ (RBC) [Entitic vol]93.5 lDQgufxt41.0-100.0[facility] Medical CenterComment on above:Performed By: #### [id number] #### [facility] [address] [place] [address]Rwmcogrpy (Bld) [#/Vol]0.6 E9/LNormal0.2-1.0[facility] CenterComment on above:Performed By: #### [id number] #### [facility] [address] [place] [address]Wmethtftfti (Bld) [#/Vol]6.2 E9/LNormal2.0-7.5FTogus VA Medical CenterComment on above:Performed By: #### [id number] #### [facility] [address] [place], [place] [address]Muqwoamzzjl/100 WBC (Bld)74.8 %Eyqprn62.0-75.0[facility] CenterComment on above:Performed By: #### [id number] #### [facility] [address], [place] [address]Pjbwmohq766.0 E9/PMhqqvf087.0-500.0[facility] Comment on above:Performed By: #### [id number] #### [facility] [address], [place] [address]Zklccpsq mean volume (Bld) [Entitic vol]9.8 fLNormal6.4-10.8 [facility] CenterComment on above:Performed By: #### [id number] #### [facility] [address], [place] [address]AOP (Bld) [#/Vol]5.3 E12/LNormal4.3-5.9[facility] CenterComment on above:Performed By: #### [id number] #### [facility] [address] [place] [address]LDZ corrected for nucl RBC Auto (Bld) [#/Vol]8.3 E9/LNormal 4.0-11.0[facility] CenterComment on above:Result Comment: Slide review performedPerformed By: #### [id number] #### [facility] [address], [place] [address]RBKSSKXVYUxiclqb By: SYSTEM SYSTEM on 00-43-9006Epxmtwx [Mass/Vol]4.1 g/dLNormal3.3 - 5.0 gm/dLRemisol ChemAlbumin/Globulin [Mass ratio] 1.7 {ratio}Normal1.1 - 2.2Remisol ChemALP [Catalytic activity/Vol]67 [iU]/d Qahfje66 - 98 Int._Unit/LRemisol ChemALT No additional P-5'-P [Catalytic activity/Vol]12 [iU]/dNormal6 - 46 Int._Unit/LRemisol ChemAnion gap [Moles/Vol] 14 mmol/LNormal6 - 16 mEq/LRemisol ChemAST [Catalytic activity/Vol]23 [iU]/d Normal5 - 43 Int._Unit/LRemisol ChemBilirubin [Mass/Vol]0.7 mg/dLNormal0.0 - 1.1 mg/dLRemisol ChemCalcium [Mass/Vol]9.0 mg/dLNormal8.9 - 11.1 mg/dLRemisol Chem Chloride [Moles/Vol]108 mmol/XLpftgf770 - 111 mmol/LRemisol ChemCholesterol [Mass/Vol]120 mg/qPNallmg448 - 200 mg/dLRemisol ChemCholesterol in HDL [Mass/Vol]48 mg/dLInvalid Interpretation CodeRemisol ChemComment on above:Result Comment: '>= 60 LOW RISK' '<= 40 HIGH RISK'Cholesterol in LDL [Mass/Vol]60 mg/dLNormal<=129mg/dLRemisol ChemCholesterol in VLDL [Mass/Vol]21 mg/dLNormal7 - 40 mg/dLRemisol ChemCO2 [Moles/Vol]22 mmol/VOltdtk08 - 31 mmol/LRemisol ChemCreatinine [Mass/Vol]0.6 mg/dLNormal0.5 - 1.3 mg/dLRemisol ViddmOBE59 mL/min/1.73 v2Eqsxzp>=59mL/min/1.73 z3Qyqbgik ChemGlobulin (S) [Mass/Vol]2.4 g/dLNormal1.4 - 4.0 gm/dLRemisol Chem Glucose [Mass/Vol]108 mg/yHJztloj33 - 199 mg/dLRemisol ChemPotassium [Moles/Vol] 4.7 mmol/LNormal3.5 - 5.3 mmol/LRemisol ChemProtein [Mass/Vol]6.5 g/dLNormal6.0 - 7.8 gm/dLRemisol ChemSodium [Moles/Vol]139 mmol/XYtcpeo124 - 145 mmol/LRemisol ChemTriglyceride [Mass/Vol]104 mg/dLNormal<=149mg/dLRemisol ChemTSH Qn0.81 m[IU]/LNormal0.34 - 5.60 mcIU/mLRemisol ChemUrea nitrogen [Mass/Vol]21 mg/dL Normal5 - 21 mg/dLRemisol ChemUrea nitrogen/Creatinine [Mass ratio]35 mg/mgHigh 10 - 20Remisol ChemCHEMISTRYOrdered By: Sita Crystal on 72-69-3332AuQ5z (Bld) [Mass fraction]5.9 %Normal<=5.9%[facility] ChemAutoSSCMPon 51-61-8251Pzjsqmp [Mass/Vol]4.1 g/dLNormal3.3-5.0[facility] Medical CenterComment on above: Performed By: #### [id number] #### [facility] [address], [place] [address]Zvoikyx/Globulin (S) [Mass conc ratio]1.4Zwhume8.1-2.2FTogus VA Medical CenterComment on above:Performed By: #### [id number] #### [facility] [address], [place] [address]ZUG [Catalytic activity/Vol]67 Int._Unit/PUuzbbw11-27GfvrahLouis Stokes Cleveland Va Medical CenterComment on above:Performed By: #### [id number] #### [facility] [address], [place] [address]LES No additional P-5'-P [Catalytic activity/Vol]12 Int._Unit/L Normal6-46[facility] Medical CenterComment on above:Performed By: #### [id number] #### [facility] [address] [place], [place] [address]Tiwjt gap [Moles/Vol]14 mmol/LNormal6-16[facility] CenterComment on above:Performed By: #### [id number] #### [facility] [address], [place] [address]WTU [Catalytic activity/Vol]23 Int._Unit/LNormal5-43[facility] CenterComment on above:Performed By: #### [id number] #### [facility] [address] [place], [place] [address]Iygtjveuv [Mass/Vol]0.7 mg/dLNormal0.0-1.1FTogus VA Medical CenterComment on above:Performed By: #### [id number] #### [facility] [address], [place] [address]Oaqbuxv [Mass/Vol]9.0 mg/dLNormal8.9-11.1FTogus VA Medical CenterComment on above:Performed By: #### [id number] #### [facility] [address], [place] [address]Myudojnj [Moles/Vol]108 mmol/LWsyfiy832-925GutzkgLouis Stokes Cleveland Va Medical CenterComment on above:Performed By: #### [id number] #### [facility] [address] [place] [address]FH8 [Moles/Vol]22 mmol/NRmejlt47-51ZasdewLouis Stokes Cleveland Va Medical Center Comment on above:Performed By: #### [id number] #### [facility] [address], [place] [address]Xovilgluef [Mass/Vol]0.6 mg/dLNormal0.5-1.3FTogus VA Medical CenterComment on above:Performed By: #### [id number] #### [facility] [address], [place] [address]Poxlfxbu (S) [Mass/Vol]2.4 g/dLNormal1.4-4.0[facility] Medical CenterComment on above:Performed By: #### [id number] #### [facility] [address], [place] [address]Qclojfp [Mass/Vol]108 mg/lTBsgmbw86-251TrkcvqLouis Stokes Cleveland Va Medical CenterComment on above:Performed By: #### [id number] #### [facility] [address], [place] [address]Sjxtghzze [Moles/Vol]4.7 mmol/LNormal3.5-5.3FTogus VA Medical CenterComment on above:Performed By: #### [id number] #### [facility] [address], [place] [address]Zwqqmpa [Mass/Vol]6.5 g/dLNormal6.0-7.8[facility] Medical CenterComment on above:Performed By: #### [id number] #### [facility] [address], [place] [address]Ydguai [Moles/Vol]139 mmol/PCkqhub797-348SmdxlkLouis Stokes Cleveland Va Medical CenterComment on above:Performed By: #### [id number] #### [facility] [address], [place] [address]Mref nitrogen [Mass/Vol]21 mg/dLNormal5-21[facility] Medical CenterComment on above:Performed By: #### [id number] #### [facility] [address], [place] [address]Gmhg nitrogen/Creatinine [Mass ratio]35 No QplhwDcmo09-92DgbygkLouis Stokes Cleveland Va Medical CenterComment on above:Performed By: #### [id number] #### [facility] [address], [place] [address]Pjmsmu Medicine Office/Clinic Noteon 33-09-9640Ceehmc Medicine Office/Clinic NoteHPI Staff Chantelle is a 79 year old [...] Diff Comprehensive Metabolic Panel Drug Screen [place] 89653 HgbA1c Lipid Panel TSH With T4fr Reflex 2. Hypercholesterolemia (E78.00: Pure hypercholesterolemia, unspecified) - Will check labs today. - No concerns at this time. Ordered: CBC w/ Auto Diff Comprehensive Metabolic Panel Drug Screen POC 56731 HgbA1c Lipid Panel TSH With T4fr Reflex 3. Fibromyalgia (M79.7: Fibromyalgia) - Will do a UDS again today as it was positive last time. - Unsure if it was a fals positive or real. - Will do CSC today Ordered: CBC w/ Auto Diff Comprehensive Metabolic Panel Drug Screen POC 21823 HgbA1c Lipid Panel TSH With T4fr Reflex 4. Chronic respiratory failure with hypoxia (J96.11: Chronic respiratory failure with hypoxia) - NO concerns. - Not on O2 at this time. - Has not seen Pulm - States she wont until she stops smoking Ordered: CBC w/ Auto Diff Comprehensive Metabolic Panel Drug Screen POC 46154 HgbA1c Lipid Panel TSH With T4fr Reflex 5. Arthritis (M19.90: Unspecified osteoarthritis, unspecified site) - Will do labs as the patient is on methotrexate. 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 Recurrent UTI Renal cyst Smoking Stress incontinence Thyroid nodule Trochanteric bursitis Vitamin D deficiency Historical Acute UTI Impingement syndrome of shoulder region LUQ pain Nocturia Rheumatoid arteritis Procedure/Surgical History Cystourethroscopy with dilation of urethral stricture (0 (more content not included)...[facility] HospitalComment on above:Result Comment: Electronically Signed By: Harsha PULIDO, Wilfredo Turner.br\Date and Time Signed: 04/12/24 10:19 EDTHEMATOLOGYOrdered By: SYSTEM SYSTEM on 24-15-3195Yboofiltk/100 WBC (Bld)0.6 %Normal0.0 - 2.0 %Remisol HemeBasophils/Leukocytes Auto (Bld) [Pure # fraction]0.1 E9/LNormal0.0 - 0.2 E9/LRemisol HemeEosinophils (Bld) [#/Vol]0.1 E9/LNormal0.0 - 0.5 E9/LRemisol HemeEosinophils/100 WBC (Bld)1.1 %Normal0.0 - 8.0 %Remisol HemeErythrocyte distribution width (RBC) [Ratio]15.3 %High10.9 - 14.2 %Remisol HemeHematocrit (Bld) [Volume fraction]49.3 %High34.0 - 46.0 % Remisol HemeHemoglobin (Bld) [Mass/Vol]16.5 g/xHNkba09.0 - 16.0 gm/dLRemisol HemeLymphocytes (Bld) [#/Vol]1.3 E9/LNormal1.0 - 4.0 E9/LRemisol Heme Lymphocytes/100 WBC (Bld)16.1 %Ryvbzb68.0 - 50.0 %Remisol HemeMCH (RBC) [Entitic mass]31.3 nfGbemwm95.0 - 34.0 pgRemisol HemeMCHC (RBC) [Mass/Vol]33.4 g/dL Sholuy15.4 - 36.0 gm/dLRemisol HemeMCV (RBC) [Entitic vol]93.5 kGGhzova95.0 - 100.0 fLRemisol HemeMonocytes (Bld) [#/Vol]0.6 E9/LNormal0.2 - 1.0 E9/LRemisol HemeMonocytes/100 WBC (Bld)7.4 %Normal4.0 - 14.0 %Remisol HemeNeutrophils (Bld) [#/Vol]6.2 E9/LNormal2.0 - 7.5 E9/LRemisol HemeNeutrophils/100 WBC (Bld)74.8 % Arahkc48.0 - 75.0 %Remisol QxklHywqmypd345.0 E9/WAdlpbd048.0 - 500.0 E9/LRemisol HemePlatelet mean volume (Bld) [Entitic vol]9.8 fLNormal6.4 - 10.8 fLRemisol HemeRBC (Bld) [#/Vol]5.3 E12/LNormal4.3 - 5.9 E12/LRemisol HemeWBC corrected for nucl RBC Auto (Bld) [#/Vol]8.3 E9/LNormal4.0 - 11.0 E9/LRemisol HemeComment on above:Result Comment: Slide review performedLipid Panelon 00-99-4619Ugeukgukpof [Mass/Vol]120 mg/gPQwdxax683-597RvztiwLouis Stokes Cleveland Va Medical CenterComment on above: Performed By: #### [id number] #### [facility] [address], [place] [address]Ehfrmcjznmy in HDL [Mass/Vol]48 mg/dLInvalid Interpretation CodeLouis Stokes Cleveland Va Medical CenterComment on above:Result Comment: '>= 60 LOW RISK' '<= 40 HIGH RISK'Performed By: #### [id number] #### [facility] [address], [place] [address]Vkvefuwsvao in LDL [Mass/Vol]60 mg/dLNormal<=129Louis [facility] Medical CenterComment on above:Performed By: #### [id number] #### [facility] [address], [place] [address]Tvlkwlyrirw in VLDL [Mass/Vol]21 mg/dLNormal7-40[facility] CenterComment on above:Performed By: #### [id number] #### [facility] [address], [place] [address]Dydloavontrc [Mass/Vol]104 mg/dLNormal<=149Louis [facility] Medical CenterComment on above:Performed By: #### [id number] #### [facility] [address], [place] [address]Rzepiwiukd Consenton 00-43-8052Kgkntiglwv Consent [id number]#1.00TIFFNormalLouis Stokes Cleveland Va Medical CenterTS With T4fr Reflexon 38-84-2295GME Qn0.81 m[IU]/LNormal0.34-5.60[facility] CenterComment on above:Performed By: #### [id number] #### [facility] [address], [place] [address]lFEEly 33-61-8548eLLT26 mL/min/1.73 a7Enauxy>=59Louis [facility] Va Medical CenterComment on above:Order Comment: Order added by Discern Expert. Performed By: #### [id number] #### [facility] [address], [place] [address]Ktggoimgfgdj Noteon 56-89-6378Gboqzxjczwor Note [id number]#1.00TIFFNormalLouis Stokes Cleveland Va Medical CenterReminderson 36-90-6758Vxzmfdhiy From: Betsey Toledo To: [facility] - Clinical; Sent: 01/29/2024 12:10:05 EST Show up: 01/29/2024 12:10:00 EST Subject: Ambulatory Reminder Due Date/Time: 01/30/2024 12:09:00 EST Urine culture shows that she is on correct antibiotic for her UTI. How is she feeling? Hallucinations gone? Results: Date Result Type Ind Result Name 01/27/2024 14:05 EST MBO POS Urine Culture From: Mary Lowry ([facility] - Clinical) To: Betsey Toledo; Sent: 02/01/2024 11:41:20 EDT Show up: 02/01/2024 11:40:00 EDT Subject: RE: Ambulatory Reminder Patient informed of results and voices understanding. Patient reports feeling better and hallucinations are gone.NormalLouis Stokes Cleveland Va Medical CenterC Urineon 97-84-3379Wfucfhji identified Cx Nom (U)Microbiology PROCEDURE: Urine Culture [R1] SOURCE: U CleanCatch BODY SITE: COLLECTED DATE/TIME: 01/27/2024 14:05 EST RECEIVED DATE/TIME: 01/27/2024 19:30 EST START DATE/TIME: 01/27/2024 19:30 EST FREE TEXT SOURCE: Aurea SMITH, Betsey SMITH, Betsey Finley FINAL REPORTS Final Report [] Verified Date/Time: 01/29/2024 11:43 EST >100,000 cfu/ml Escherichia coli SUSCEPTIBILITY RESULTS LEGEND: S=Susceptible, N/R=Not Reported, Blank=Data not available, or drug not advisable or tested, I=Intermediate, ESBL=Extended spectrum beta-lactamase, R=Resistant, TFG=Thymidine-dependent strain, TWILA=Beta-lactamase positive, BRIGITTE=mcg/m;(mg/L), S*=Predicted susceptible interp, [...] Locations R1: This test was performed at: [facility], [address] [place] [address], [address]- , [place], TdgwvvVkwscuProMedica Bay Park HospitalComment on above:Performed By: #### [id number] ####[facility] [address] [place], [place] [address]Dowlosbhzi Visit Summaryon 96-87-8067Pzitdvicay Visit Summary CHANTELLE DEY :1945 Visit Date:01/27/2024 Ambulatory Visit Instructions Your Diagnosis Urinary tract infection BMI 24.0-24.9, adult Your Care Team Attending Physician - Betsey Toledo Primary Care Physician - Wilfredo Melgar MD This Is Your Medications List Misc Prescription ([place], 5 years.) Misc Prescription (Portable Oxygen Concentrator. Wear at 2L via N/C.) acetaminophen-oxycodone (acetaminophen-oxycodone 325 mg-5 mg Tab) albuterol (Albuterol (Eqv-Proventil [...] dilation of urethral stricture (02/04/2021), Cystourethroscopy with dilationof urethral stricture (05/07/2020), Cataracts, Cholecystectomy, Hysterectomy, Laparoscopy, [...] 24.0-24.9, adult Duration: 10 Days Pickup at [facility] Unchanged acetaminophen-oxycodone (acetaminophen-oxycodone 325 mg-5 mg Tab) 1 Tablets By [...] instructions TAKE 6 TABLETS ONE TIME WEEKLY ONMONDAYS Unchanged metoprolol (metoprolol 25 mg ER Tab) 0.5 Tablets By Mouth 2 times a day Unchanged Misc Prescription (Handicap Alethea, 5 years.) See instructions COPD 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 pt encouraged to call office if she completes antibiotic and still has symptoms. RTC as needed Ordered: nitrofurantoin, 100 mg = 1 cap(s), Oral, BID, X 10 day(s), # 20 cap(s), Refills(s) 0, Pharmacy: [facility], 154.9, cm, 01/27/24 13:56:00 EST, Height/Length Dosing, 60, kg, 01/27/24 13:56:00EST, Weight Dosing Urine Culture Urnls Dip Stick Auto w/o Microscopy POC 18896 2. BMI 24.0-24.9, adult (Z68.24: Body mass index [BMI] 24.0-24.9, adult) BMI education complete Ordered: nitrofurantoin, 100 mg = 1 cap(s), Oral, BID, X 10 day(s), # 20 cap(s), Refills(s) 0, Pharmacy: [facility], 154.9, cm, 01/27/24 13:56:00 EST, Height/Length Dosing, 60, kg, 01/27/24 13:56:00EST, Weight Dosing Urine Culture Urnls Dip Stick Auto w/o Microscopy POC 80841 Follow-up No qualifying data available Problem List/Past [...] of uncertain behavior of right kidney Other intermediate (current) drug therapy Polycythemia Postinfective urethral stricture in female Recurrent UTI Renal cyst Rhinitis Rib fracture Smoker Stress incontinence Thyroid nodule Trochanteric bursitis Urinary tract infection Vitamin D deficiency Historical Acute UTI Impingement syndrome of shoulder region LUQ pain Nocturia Rheumatoid arteritis Procedure/Surgical History Cystourethroscopy with dilation of urethral stricture (02/04/2021), Cystourethroscopy with dilationof urethral stricture (05/07/2020), Cataracts, Cholecystectomy, Hysterectomy, Laparoscopy, Placement of stent in cardiac conduit, Post-surgery back pain. Medications acetaminophen-oxycodone 325 mg-5 mg Tab, 1 tab(s), Oral, [...] Substance Abuse - Denies (more content not included)...[facility] HospitalComment on above:Result Comment: Electronically Signed By: Betsey Toledo\.br\Date and Time Signed: 01/27/24 14:07 ESTRetail - Clinical Noteon 28-84-1845Rgdtkv - Clinical Note [id number]#1.00TIFCincinnati Shriners HospitalRetail - Clinical Noteon 11-51-4672[place] - Clinical Note [id number]#1.00TIFOur Lady of Mercy Hospital Medicine Office/Clinic Noteon 37-32-5419Dxlpuj Medicine Office/Clinic NoteHPI Staff Patient presents for 1 month follow [...] the rib pain more recent Medication used: [place] Opioids prescribed: percocet Medication agreement UTD: _ [...] this condition. She notes that these symptoms havebeen present for months and began prior to [...] (M19.90: Unspecified osteoarthritis, unspecified site) Patient uses [place] as needed. The patient gets 30 pills per month. We do 2 months, and this should last her 3 months. If it does not, then the patient has to come in and discuss why she is using morethan this. 3. BMI 25.0-25.9,adult (Z68.25: Body mass [...] with voice recognition artificial intelligence software, specifically [employer], [employer] and or [employer]. Substitutions may have occurred due to the inherent limitations of voice recognition and artificial intelligence software. Documentation services were performed after patient or guardian consented to allow Miyowa to record this visit. KEVIN capital equipment specialist and provider reviewed before signing. KEVIN: Teresita Leblanc/Kiya Singh Follow-up No qualifying data available Patient Education BMI for Adults Problem List/Past Medical History Ongoing Anticoagulated Anxi (more content not included)...[facility] HospitalComment on above:Result Comment: Electronically Signed By: Wilfredo Melgar MD\.br\Date and Time Signed: 01/04/24 12:53 EST\.br\Electronically Co-Signed By: Kiya Singh\.br\Date and Time Co-Signed: 12/29/23 16:36ESTPhysician Referralon 01-04-2024 Physician [id number]#1.00TIFCincinnati Shriners HospitalPhysician Referralon 81-48-0250Wxvyridta Referral [id number]#1.00TIFCincinnati Shriners HospitalMedication Consenton 84-00-5385Fgnjbndrbl Consent [id number]#1.00TIFCincinnati Shriners HospitalAmbulatory Visit Summaryon [id number] Visit Summary CHANTELLE DEY :1945 Visit Date:12/29/2023 Ambulatory Visit Instructions Your Diagnosis Major depressive disorder with single episode, in full remission Arthritis BMI 25.0-25.9,adult Over weight Smoker Your Care Team Attending Physician - Wilfredo Melgar MD. Primary Care Physician - Harsha PULIDO, Wilfredo Montgomery This Is Your Medications List Misc Prescription (#####) Misc Prescription (Handicap Placard, 5 years.) Misc Prescription (Portable Oxygen Concentrator. Wear at 2L via N/C.) acetaminophen-hydrocodone ([place] 325 mg-5 mg oral tablet) acetaminophen-oxycodone (acetaminophen-oxycodone 325 mg-5 mg Tab) albuterol (Albuterol (Eqv-Proventil [...] dilation of urethral stricture (02/04/2021), Cystourethroscopy with dilationof urethral stricture (05/07/2020), Cataracts, Cholecystectomy, Hysterectomy, Laparoscopy, Placement of stent in cardiac conduit, Post-surgery back pain. Discharge Vitals Temperature (Oral) 36.5 ?C Heart Rate (Peripheral) 76 Respiratory Rate 16 Blood Pressure 120/76 Height 154.9 cm Height 61 in Weight 60.7 kg Weight 133.54 lb BMI 25.3 Medications What How Much When Why Instructions Unchanged acetaminophen-hydrocodone ([place] 325 mg-5 mg oral tablet) 1 Tablets By Mouth Every day asneeded for as needed for pain Unchanged acetaminophen-oxycodone (acetaminophen-oxycodone 325 mg-5 mg Tab) 1 Tablets By [...] instructions TAKE 6 TABLETS ONE TIME WEEKLY ONMONDAYS Unchanged methylPREDNISolone (methylPREDNISolone 4 mg Tab) See [...] eye ONCE daily for 3 weeks. 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 Body mass index (BMI) is a number that is calculated from a person's weight and height. BMI can help estimate how much of a person's weight is composed of fat. BMI does not measure body fat directly.Rather, it is an alternative to procedures that [...] your height. Both height and weight are measured,and the BMI is calculated from those numbers. This can be done either in [place] or metric measurements. Note that charts and online BMI calculators are available to help you find your BMI quickly and easily without having to do these calculations yourself. To calculate your BMI in [place] measurements: 1. Measure your weight in [...] meters squared number. In this example: 70 ?3.1 = 22.6. This is your BMI. What [...] for Disease Control and Prevention: www.cdc.gov ? [place] Heart Association: www.heart.org ? National Heart, Lung, and Blood [place]: www.nhlbi.nih.gov Summary ? Body mass index (BMI) is a number that is calculated from a person's weight and height. ? BMI may help estimate how much of a person's weight is composed of fat. BMI can help identify those who may be at higher risk for certain medical problems. ? BMI can be measured using [place] measurements or metric measurements. ? BMI charts are used to identify whether you are underweight, normal weight, overweight, or obese. This information is not intended to replace advice given to you by your health care provider. Make sure you discuss any questions you have with your health care provider. Document Revised: 08/01/2020 Document Reviewed: 06/08/2020 [employer] Patient Education ? 2022 MyRefers.[facility] Population Healthon [id number] HealthCase Information Case Priority: None Programs: -- Referral Source: Single Ending Machine Operator Referral Reason: Care coordination Case Type: Transition [...] of uncertain behavior of right kidney Other terminal make up operator (current) drug therapy Polycythemia Postinfective urethral stricture in female Recurrent UTI Renal cyst Rib fracture Smoker Stress incontinence Thyroid nodule Trochanteric bursitis Vitamin D deficiency Historical Acute UTI Impingement syndrome of shoulder region LUQ pain Nocturia Rheumatoid arteritis Procedure/Surgical History Cystourethroscopy with dilation of urethral stricture (02/04/2021), Cystourethroscopy with dilationof urethral stricture (05/07/2020), Cataracts, Cholecystectomy, Hysterectomy, Laparoscopy, Placement of stent in cardiac conduit, Post-surgery back pain. Home Medications #####, 0 acetaminophen-oxycodone 325 mg-5 mg Tab, 1 tab(s), Oral, [...] Tab, 12.5 mg= 0.5 tab(s), Oral, BID [place] 325 mg-5 mg oral tablet, 1 tab(s), [...] bowels have been unchanged, she usually has abm every few days, notes her baseline. Denies any urinary system issues. Patient denies any change in sleep pattern. Patient denies any further questions or concerns. Communication Events Date: December 08, 2023 Method: Phone call Type: Outbound Duration (min): 9 Outcome: Case discussion Contact Type: buildings and grounds coordinator Contact Name: Atilio Emerson Notes: TCM#3- Spoke with patient for tcm program call, see ft summary note. Created By: Atilio Emerson Date: November 30, 2023 Method: Phone call Type: Outbound Duration (min): 15 Outcome: Case discussion Contact Type: buildings and grounds coordinator Contact Name: Atilio Emerson Not (more content not included)...[facility] [id number] HealthCase Information Case Priority: None Programs: -- Referral Source: Single Ending Machine Operator Referral Reason: Care coordination Case Type: Transition [...] of uncertain behavior of right kidney Other terminal make up operator (current) drug therapy Polycythemia Postinfective urethral stricture in female Recurrent UTI Renal cyst Rib fracture Smoker Stress incontinence Thyroid nodule Trochanteric bursitis Vitamin D deficiency Historical Acute UTI Impingement syndrome of shoulder region LUQ pain Nocturia Rheumatoid arteritis Procedure/Surgical History Cystourethroscopy with dilation of urethral stricture (02/04/2021), Cystourethroscopy with dilationof urethral stricture (05/07/2020), Cataracts, Cholecystectomy, Hysterectomy, Laparoscopy, Placement of stent in cardiac conduit, Post-surgery back pain. Home Medications #####, 0 acetaminophen-oxycodone 325 mg-5 mg Tab, 1 tab(s), Oral, [...] Instructions methylPREDNISolone 4 mg Tab, See Instructions [place] 325 mg-5 mg oral tablet, 1 tab(s), [...] (min): 15 Outcome: Case discussion Contact Type: buildings and grounds coordinator Contact Name: Atilio Emerson Notes: TCM#2- Spoke with patient for tcm follow up call, see ft summary note. Created By: Atilio Emerson Date: November 19, 2023 Method: Phone call Type: Outbound Duration (min): 16 Outcome: Case discussion Contact Type: buildings and grounds coordinator Contact Name: Massiel Delaney RN Notes: TCM #1, see FT summary note Created By: Massiel Delaney RN (more content not included)...[facility] Medicine Office/Clinic Noteon [id number] Medicine Office/Clinic NoteHPI Staff Chantelle is a 78 year old female presenting for hospital follow up Hospital: [facility] Admission date: 11/17 Discharge date: 11/18 Symptoms [...] a rib fracture. She has been taking [place] for her back pain and it is the same medication given to her when she was at the hospital. She does not currently have a supervisor wet room. The patient was scheduled for a 6-minute walk test at [facility] in [place], with the aim of qualifying for a [...] (Z09: Encounter for follow-up examination after completed treatmentfor conditions other than malignant neoplasm) Discharge summary [...] Dorsalgia, unspecified) We will give the patient [place] because of the rib fracture, but concerns that this may be causing the pain and the falls. Discussed this in detail with the patient. If the patient has another fall, we will remove the [place]. This was discussed with the patient in [...] with voice recognition artificial intelligence software, specifically [employer], [employer] and or [employer]. Substitutions may have occurred voice recognition and artificial intelligence software. Documentation services were performed after patient or guardian consented to allow Miyowa to record this visit. KEVIN capital equipment specialist and provider reviewed before signing. KEVIN: Faiza (more content not included)...[facility] HospitalComment on above:Result Comment: Electronically Signed By: Wilfredo Melgar MD\.br\Date and Time Signed: 11/26/23 09:24 EST\.br\Electronically Co-Signed By: Obinna Hogan\.br\Date and Time Co- Signed: 11/25/23 14:33 EST\.br\Electronically Co-Signed By: Obinna Hogan\.br\Date and Time Co-Signed: 11/25/23 15:23 ESTInterdisciplinary Note - Social Workeron [id number] Note - Social WorkerNorman ESPARZA made a tc to patient today to discuss her positive depression screen. Patient states that she does have depression, that is mostly due to things that have happened previously. She is not interested in resources at this time but is aware she can reach out to should needs arise. Patient did request a refill of Metoprolol be sent to [facility] - ISAIAS sent a message to Dr. Melgar withnorman request. She also inquired about the need to continue utilizing O2. She states she has been going without the O2 and keeping a log of her O2 levels, which have mostly been in the 90s. SW instructed her to contact the office and speak with Dr. Melgar' MA to let them know of what the readings havebeen and obtain Dr. Melgar' recommendations on the continued need of this. She voiced understanding. ISAIAS will remain available.[facility] Medicine Office/Clinic Noteon [id number] Medicine Office/Clinic NoteHPI Staff Chantelle is a 78 year old female presenting for hospital follow up Hospital: [facility] Admission date: 11/17 Discharge date: 11/18 Symptoms [...] a rib fracture. She has been taking [place] for her back pain. The patient's sister has indicated that the patient does not currently have a supervisor wet room. The patient was scheduled for a 6-minute walk test at [facility] in [place], with the aim of qualifyingfor a portable oxygen concentrator. A thyroid nodule [...] The patient's sister plans to visit the [facility] on 11/30/2023, for a medical appointment. Review [...] (Z09: Encounter for follow-up examination after completed treatmentfor conditions other than malignant neoplasm) Discharge summary [...] Dorsalgia, unspecified) We will give the patient's [place] because of the rib fracture, but concerns that this may be causingthe pain and the falls. Discussed this in detail with the patient and if the patient has another fall, we will remove the [place]. This was discussed with the patient in [...] with voice recognition artificial intelligence software, specifically [employer], [employer] and or [employer]. Substitutions may have occurred voice recognition and artificial intelligence software. Docum (more content not included)...[facility] HospitalComment on above:Result Comment: Electronically Signed By: Lacie Hopper\.br\Date and Time Signed: 11/24/23 18:59 EST\.br\Electronically Co-Signed By: Wilfredo Melgar MDPhysician Referralon [id number] Referral [id number]#1.00TIFFNormDayton Osteopathic HospitalPhysician [id number]#1.00TIFFNofauziaal iKng [facility] Orthopa[facility] InstituteAmbulatory Visit Summaryon [id number] Visit Summary CHANTELLE DEY :1945 Visit Date:11/24/2023 Ambulatory Visit Instructions Your [...] Melgar MD This Is Your Medications List [facility] Prescription (#####) [facility] Prescription (Handicap Alethea, 5 years.) acetaminophen-hydrocodone ([place] 325 mg-5 mg oral tablet) acetaminophen-oxycodone (acetaminophen-oxycodone 325 mg-5 mg Tab) albuterol (Albuterol (Eqv-Proventil [...] dilation of urethral stricture (02/04/2021), Cystourethroscopy with dilationof urethral stricture (05/07/2020), Cataracts, Cholecystectomy, Hysterectomy, Laparoscopy, Placement of stent in cardiac conduit, Post-surgery back pain. Discharge Vitals Temperature (Temporal Artery) 37.2 ?C Heart Rate (Peripheral) 66 Respiratory Rate 16 Blood Pressure 126/80 Height 154.9 cm Height 61 in Weight 60 kg Weight 132 lb BMI 25.01 What to do next Scheduled Follow-Up Appointments Thursday 1:15 PM EST With: Wilfredo Melgar MD Where: [facility] Note-Physicianon [id number] Note-Physician [id number]#1.00[facility] Correspondenceon 65-46-7179ExvcwmdJefferson [facility] [id number]#1.00[facility] Reporton [id number] - [place] Report [id number]#1.00[facility] [id number]#1.00TIFFNormCleveland Clinic Mentor HospitalRAD - [place] Report [id number]#1.00[facility] [place] [id number]#1.00TIFFNormKindred Hospital Lima Healthon 54-35-5218Zowrpzklkq HealthCase Information Case Priority: None Programs: -- Referral Source: Single Ending Machine Operator Referral Reason: Care coordination Case Type: Transition [...] dilation of urethral stricture (02/04/2021), Cystourethroscopy with dilationof urethral stricture (05/07/2020), Cataracts, Cholecystectomy, Hysterectomy, Laparoscopy, Placement of stent in cardiac conduit, Post-surgery back pain. Home Medications #####, 0 acetaminophen-oxycodone 325 mg-5 mg Tab, 1 tab(s), Oral, [...] Tab, 12.5 mg= 0.5 tab(s), Oral, BID [place] 325 mg-5 mg oral tablet, 1 tab(s), [...] Care Plan Progress Note Admit Date: 11/17/23 [facility] Date of Discharge: 11/18/23 Follow-up appointment scheduled? 11/26/[address] Melgar with extra time Did you understand your discharge instructions? yes Are you able to follow them? yes Did you receive new medications? Prednisone 40 mg daily x 3 days, Colace 100 mg BID prn, [place] 1 e36rhut prn, Lidoderm patch, Nicotine patch Have you [...] for Transitional Care Management following hospitalization at [facility] for AECOPD, acute on chronic respiratory failure. Right rib fracture and fall. Reviewed discharge instructions and attempted to reconcile medications when patient had long coughing spell and was unable tocontinue call, patient gave permission for [facility] to talk with sister and handed phone [...] well. Patient did n (more content not included)...[facility] HospitalNurse Consultation Noteon [id number] Consultation NoteReason for Visit Here for covid and influenza testing, symptoms of sinus drainage and wants to be sure not covid Both tests negative, patient plans to do a sinus rinse and try some mucinex if no better will make appt to be seen Assessment/Plan Sinus drainage (J34.89: Other specified disorders of nose and nasal sinuses) Medications #####, 0 acetaminophen-oxycodone 325 mg-5 mg Tab, 1 tab(s), Oral, [...] Tab, 12.5 mg= 0.5 tab(s), Oral, BID [place] 325 mg-5 mg oral tablet, 1 tab(s), [...] (10/05/23 16:09:00) Rapid Covid POC: Negative (10/05/23 16:09:00)NormalLouis Stokes [facility] Auto Diffon 27-80-5962Xbrysjvhr/100 WBC (Bld)0.5 %Normal0.0-2.0[facility] Medical CenterComment on above:Order Comment: Order Added by Discern Expert. Performed By: #### [id number], 1740906, 5729043, [id number], 8627219 ####[address] [address] Basophils/Leukocytes Auto (Bld) [Pure # fraction]0.0 E9/LNormal0.0-0.2FTogus VA Medical CenterComment on above:Order Comment: Order Added by Discern Expert.Performed By: #### [id number], 9579303, 7322166, 882550644, 8715372 ####[address] [address] Eosinophils/100 WBC (Bld)1.1 %Normal0.0-8.0[facility] Medical CenterComment on above:Order Comment: Order Added by Discern Expert.Performed By: #### [id number], 8493081, 8925293, 616722359, 7829474 ####[address] [address]Upsqnubmvtz/Leukocytes Auto (Bld) [Pure # fraction]0.1 E9/LNormal0.0-0.5FTogus VA Medical CenterComment on above: Order Comment: Order Added by Discern Expert.Performed By: #### 17527925, 7151397, 8765617, 507530043, 1209821 ####[address] [address]Fomhrfwzsyb/100 WBC (Bld)29.5 %Normal 14.0-50.0[facility] Medical CenterComment on above:Order Comment: Order Added by Discern Expert.Performed By: #### 06781824, 3433072, 1275448, 804125972, 6640846 ####[facility] [address] [place] [address]Qjhmerpttoy/Leukocytes Auto (Bld) [Pure # fraction]2.2 E9/LNormal1.0-4.0 [facility] Medical CenterComment on above:Order Comment: Order Added by Discern Expert.Performed By: #### 37905297, 4179146, 8176689, 556823670, 7808599 ####[address] [address] Monocytes/100 WBC (Bld)8.3 %Normal4.0-14.0[facility] Medical CenterComment on above:Order Comment: Order Added by Discern Expert.Performed By: #### 76414861, 7967702, 2589535, 372711439, 6084614 ####[facility] [address] [place], [place] [address]Ercomrhmp/Leukocytes Auto (Bld) [Pure # fraction]0.6 E9/LNormal0.2-1.0[facility] Medical CenterComment on above:Order Comment: Order Added by Discern Expert.Performed By: #### 84873002, 2318351, 4239459, 658774125, 0352674 ####[address] [address]Hnichhiyark/100 WBC (Bld)60.6 %Prhirv76.0-75.0 [facility] Medical CenterComment on above:Order Comment: Order Added by Discern Expert.Performed By: #### 03339773, 5340874, 4169055, 645650664, 1509350 ####[facility] [address] [place] [address] Neutrophils/Leukocytes Auto (Bld) [Pure # fraction]4.6 E9/LNormal2.0-7.5FTogus VA Medical CenterComment on above:Order Comment: Order Added by Discern Expert.Performed By: #### 94363899, 6671241, 2814082, 660774016, 0516822 ####[address] [address]RZP w/ Auto Diffon 10-69-7651Heoysijswjy distribution width (RBC) [Ratio]17.0 %High 10.9-14.2FTogus VA Medical CenterComment on above:Performed By: #### 88541570, 1407256, 2683815, 476457227, 0283291 ####[address] [address]Jpjlbjbyca (Bld) [Volume fraction] 49.5 %High34.0-46.0[facility] Medical CenterComment on above:Performed By: #### 64333376, 5968784, 2455242, 775207414, 4730689 ####[address] [address]Yfhkiubvff (Bld) [Mass/Vol] 16.5 g/uQNkjk97.0-16.0[facility] Medical CenterComment on above:Performed By: #### 93912509, 8108765, 9790952, 361149179, 8082165 ####[address] [address]LBV (RBC) [Entitic mass]31.1 neYmzmaf45.0-34.0[facility] Medical CenterComment on above:Performed By: #### 50453969, 7231747, 1082078, 089011966, 0362545 ####[address] [address]CCUL (RBC) [Mass/Vol]33.2 g/dLNormal 31.4-36.0[facility] Medical CenterComment on above:Performed By: #### 30612055, 0112160, 2902792, 647307910, 9864547 ####[address], [place] [address]OKG (RBC) [Entitic vol]93.6 fLNormal 80.0-100.0[facility] Medical CenterComment on above:Performed By: #### 08058902, 4703327, 6143997, 944397930, 5600163 ####[address] [address]Vjeojuyp mean volume (Bld) [Entitic vol]10.0 fLNormal6.4-10.8[facility] Medical CenterComment on above:Performed By: #### 65311132, 5262204, 4176360, 501651334, 5315137 ####[address] [address]Rugtvxuaj (Bld) [#/Vol]217.0 E9/MNxmtft279.0-500.0[facility] Medical CenterComment on above:Performed By: #### 10643914, 5448574, 5145974, 025248566, 6951253 ####[address] [address]GXM (Bld) [#/Vol]5.3 E12/L Normal4.3-5.9[facility] Medical CenterComment on above:Performed By: #### 11911073, 8232863, 5509012, 966834738, 4916116 ####[address] [address]ZXK corrected for nucl RBC Auto (Bld) [#/Vol]7.6 E9/LNormal4.0-11.0[facility] Medical CenterComment on above: Performed By: #### 97821079, 3714161, 0449112, 064914619, 7042166 ####[address] [address]WNGHFDFYGKkqdrsw By: SYSTEM SYSTEM on 77-65-5111Fshqgqv [Mass/Vol]3.9 g/dLNormal3.3 - 5.0 gm/dL [facility] RemisolAlbumin/Globulin [Mass ratio]1.3 {ratio}Normal1.1 - 2.2[facility] Remisol ALP [Catalytic activity/Vol]73 [iU]/dLvqtri78 - 98 Int._Unit/LFT[facility] RemisolALT No additional P-5'-P [Catalytic activity/Vol]27 [iU]/dNormal6 - 46 Int._Unit/LFT[facility] RemisolAnion gap [Moles/Vol]9 mmol/LNormal6 - 16 mEq/LFT[facility] RemisolAST [Catalytic activity/Vol]30 [iU]/dNormal5 - 43 Int._Unit/LFT[facility] RemisolBilirubin [Mass/Vol]0.5 mg/dLNormal0.0 - 1.1 mg/dLFT RemisolCalcium [Mass/Vol]9.1 mg/dL Normal8.9 - 11.1 mg/dLFT RemisolChloride [Moles/Vol]106 mmol/SCtrvof985 - 111 mmol/LFT[facility] RemisolCO2 [Moles/Vol]28 mmol/GRmlmjr04 - 31 mmol/LFT[facility] Remisol Creatinine [Mass/Vol]0.8 mg/dLNormal0.5 - 1.3 mg/dLFT RemisolGFR/1.73 sq M.predicted among non-blacks MDRD (S/P/Bld) [Vol rate/Area]76 mL/min/1.73 m2 Normal>=59mL/min/1.73 m2[facility] Chem SComment on above:Interpretive Data: Chronic kidney disease could be indicated at eGFR's of less than 60 mL/min/1.73m2. Kidney failure is indicated at less than 15 mL/min/1.73m2.Globulin (S) [Mass/Vol]3.0 g/dLNormal1.4 - 4.0 gm/dLFT RemisolGlucose [Mass/Vol]98 mg/dL Celqen93 - 199 mg/dLALL[facility] RemisolComment on above:Interpretive Data: If this glucose result represents a fasting glucose, interpretation should referto the following reference range: 55-99 mg/dLPotassium [Moles/Vol]4.5 mmol/LNormal3.5 - 5.3 mmol/LFTMC RemisolProtein [Mass/Vol]6.9 g/dLNormal6.0 - 7.8 gm/dLALL[facility] RemisolSodium [Moles/Vol]138 mmol/RZtgmaf921 - 145 mmol/LFNORTHWEST CENTER FOR [facility] RemisolUrea nitrogen [Mass/Vol]25 mg/dLHigh5 - 21 mg/dLALL[facility] RemisolUrea nitrogen/Creatinine [Mass ratio]31 mg/ogKnqj68 - 20[facility] RemisolCHEMISTRYOrdered By: Daniela Morales on 64-93-8322FtQ8m (Bld) [Mass fraction]6.4 %High<=5.9%[facility] ChemAutoSSCMPon 37-78-0358Htxoraz [Mass/Vol]3.9 g/dLNormal3.3-5.0[facility] Comment on above:Performed By: #### 42805165, 7172439, 6420082, 744844931, 5840246 ####[facility] [address] [place], [place] [address]Iovcjom/Globulin (S) [Mass conc ratio]1.4Zpimhv7.1-2.2FTogus VA Medical CenterComment on above:Performed By: #### 07955430, 8024614, 3684821, 756898350, 6316527 ####[facility] [address] [place], [place] [address]OGU [Catalytic activity/Vol]73 Int._Unit/ROgllwu89-61KsdtaeLouis Stokes Cleveland Va Medical CenterComment on above:Performed By: #### 42681714, 6453560, 8909199, 467992697, 8841218 ####[facility] [address] [place], [place] [address]VUU No additional P-5'-P [Catalytic activity/Vol]27 Int._Unit/LNormal6-46 [facility] CenterComment on above:Performed By: #### 25358545, 8707696, 2414511, 555361521, 7065356 ####[facility] [address] [place], [place] [address]Dtcux gap [Moles/Vol]9 mmol/LNormal6-16 [facility] CenterComment on above:Performed By: #### 52066569, 7948355, 6693663, 247318467, 5843579 ####[facility] [address], [place] [address]YMU [Catalytic activity/Vol]30 Int._Unit/LNormal5-43[facility] CenterComment on above:Performed By: #### 09806473, 2151649, 4137544, 797817497, 6505206 ####[facility] [address] AveNHiawas[place], [place] [address]Yfrzgrcgy [Mass/Vol]0.5 mg/dL Normal0.0-1.1FTogus VA Medical CenterComment on above:Performed By: #### 70568950, 5455034, 1735507, 847870925, 8313831 ####[facility] [address]NHiawassee, [place] [address]Llhctav [Mass/Vol]9.1 mg/dLNormal 8.9-11.1FTogus VA Medical CenterComment on above:Performed By: #### 31210861, 1967601, 9767790, 061031166, 7770518 ####[facility] [address] AveNorst. lawrence health [place]k, [place] [address]Qpbkzwor [Moles/Vol]106 mmol/LNormal 101-111[facility] Medical CenterComment on above:Performed By: #### 64294567, 4381445, 2872641, 989446528, 9507517 ####[facility] [address]Norst[address] lawrence health systemk, [place] [address]UP5 [Moles/Vol]28 mmol/GGebnti76-88 [facility] Medical CenterComment on above:Performed By: #### 86292453, 9679565, 1058682, 514438186, 3195279 ####[facility] [address]Nor[place], [place] [address]Wudmbvgzvy [Mass/Vol]0.8 mg/dLNormal 0.5-1.3FTogus VA Medical CenterComment on above:Performed By: #### 36956466, 0106094, 9205885, 416279574, 3246677 ####[facility] [address] [place], [place] [address]Cmavpgec (S) [Mass/Vol]3.0 g/dLNormal 1.4-4.0[facility] CenterComment on above:Performed By: #### 44702821, 8291885, 6150109, 848155798, 4164922 ####[facility] [address] [place], [place] [address]Fscpvij [Mass/Vol]98 mg/lSDqdaxv26-284 [facility] CenterComment on above:Result Comment: If this glucose result represents a fasting glucose, interpretation should refer tothe following reference range: 55-99 mg/dLPerformed By: #### 29713396, 2129818, 7939603, 877213374, 5866992 ####[facility] [address] [place] [address]Cczuzvlhy [Moles/Vol]4.5 mmol/LNormal3.5-5.3FTogus VA Medical CenterComment on above:Performed By: #### 07883912, 4520401, 4608607, 765646761, 6480245 ####[place] [address] [place], [place] [address]Lntpvbs [Mass/Vol]6.9 g/dLNormal6.0-7.8[facility] Medical CenterComment on above:Performed By: #### 03321464, 5889648, 1408271, 864360433, 6149933 ####[place] [place], [place] [address]Vjonus [Moles/Vol]138 mmol/JIguoad678-008QietjgLouis Stokes Cleveland Va Medical CenterComment on above:Performed By: #### 74211547, 3108725, 5988698, 874643672, 4630887 ####[facility] [address] [place], [place] [address]Eyez nitrogen [Mass/Vol]25 mg/dLJ.W. Ruby Memorial Hospital5-21[facility] Medical CenterComment on above: Performed By: #### 30485667, 5122883, 2174497, 917471839, 6638992 ####[facility] [address] [place], [place] [address]Iszq nitrogen/Creatinine [Mass ratio]31 No QfjnpIlom78-15ZztudbLouis Stokes [facility] Center Comment on above:Performed By: #### 68301723, 1319409, 7720700, 006149534, 8840543 ####[facility] [address] [place], [place] [address]Abfjgmq for Flu Vaccineon 94-79-5216Exzozua for Flu Vaccine [id number]#1.00TIFFNoPremier HealthFami Medicine Office/Clinic Noteon 31-39-3763Acwtqv Medicine Office/Clinic NoteHPI Staff Chantelle is a 78 year old female presenting for med check for her Percocet Pain characteristics: Pain location: generalized Intensity:_ Onset: many years ago Medication used: oxycodone/acetaminophen 5-325mg Opioids prescribed: percocet Medication agreement UTD: [...] Unspecified osteoarthritis, unspecified site) - Will refill [place] today Ordered: CBC w/ Auto Diff Comprehensive [...] Auto Diff Comprehensive Metabolic Panel HgbA1c Orders: acetaminophen-hydrocodone, 1 tab(s), Oral, Daily as needed for pain, 30 tab(s), Refill(s) 0, Do notfill until , [facility], 154.9, cm, 09/22/23 13:40:00 EDT, Height/Length Dosing, 60,kg, 09/22/23 13:40:00 EDT, Weight Dosing acetaminophen-oxycodone, 1 tab(s), Oral, Daily as needed for pain, 30 tab(s), Refill(s) 0, 30 DAYS,M06.9, [facility], 154.9, cm, 09/22/23 13:40:00 [...] dilation of urethral stricture (02/04/2021), Cystourethroscopy with dilationof urethral stricture (05/07/2020), Cataracts, Cholecystectomy, Hysterectomy, Laparoscopy, Placement of stent in cardiac conduit, Post-surgery back pain. Medications #####, 0 acetaminophen-oxycodone 325 mg-5 mg Tab, 1 tab(s), Oral, [...] metoprolol 25 mg E (more content not included)...[facility] HospitalComment on above:Result Comment: Electronically Signed By: Harsha PULIDO, Wilfredo Turner.br\Date and Time Signed: 09/22/23 14:07 EDTHEMATOLOGYOrdered By: SYSTEM SYSTEM on 22-54-7533Wqtdiwjnt/100 WBC (Bld)0.5 %Normal0.0 - 2.0 %[facility] HemeAutoSS Basophils/Leukocytes Auto (Bld) [Pure # fraction]0.0 E9/LNormal0.0 - 0.2 E9/L [facility] HemeAutoSSEosinophils/100 WBC (Bld)1.1 %Normal0.0 - 8.0 %[facility] HemeAutoSS Eosinophils/Leukocytes Auto (Bld) [Pure # fraction]0.1 E9/LNormal0.0 - 0.5 E9/L [facility] HemeAutoSSLymphocytes/100 WBC (Bld)29.5 %Zutpyx39.0 - 50.0 %[facility] HemeAutoSS Lymphocytes/Leukocytes Auto (Bld) [Pure # fraction]2.2 E9/LNormal1.0 - 4.0 E9/L [facility] HemeAutoSSMonocytes/100 WBC (Bld)8.3 %Normal4.0 - 14.0 %[facility] HemeAutoSS Monocytes/Leukocytes Auto (Bld) [Pure # fraction]0.6 E9/LNormal0.2 - 1.0 E9/L [facility] HemeAutoSSNeutrophils/100 WBC (Bld)60.6 %Qgifld28.0 - 75.0 %[facility] HemeAutoSS Neutrophils/Leukocytes Auto (Bld) [Pure # fraction]4.6 E9/LNormal2.0 - 7.5 E9/L [facility] HemeAutoSSHEMATOLOGYOrdered By: Louise Mix on 20-60-8758Nekfzsdxuxj distribution width (RBC) [Ratio]17.0 %High10.9 - 14.2 %[facility] HemeAutoSSHematocrit (Bld) [Volume fraction]49.5 %High34.0 - 46.0 %[facility] HemeAutoSSHemoglobin (Bld) [Mass/Vol]16.5 g/yLOtbx28.0 - 16.0 gm/dLFTMC HemeAutoSSMCH (RBC) [Entitic mass] 31.1 dmWwqqhl57.0 - 34.0 pgFTMC HemeAutoSSMCHC (RBC) [Mass/Vol]33.2 g/dLNormal 31.4 - 36.0 gm/dLFTMC HemeAutoSSMCV (RBC) [Entitic vol]93.6 sRHoepgi33.0 - 100.0 fLFTMC HemeAutoSSPlatelet mean volume (Bld) [Entitic vol]10.0 fLNormal6.4 - 10.8 [facility] HemeAutoSSPlatelets (Bld) [#/Vol]217.0 E9/OBmmtyy845.0 - 500.0 E9/[facility] HemeAutoSSRBC (Bld) [#/Vol]5.3 E12/LNormal4.3 - 5.9 E12/[facility] HemeAutoSSWBC corrected for nucl RBC Auto (Bld) [#/Vol]7.6 E9/LNormal4.0 - 11.0 E9/[facility] QjgnElncRVChrP4shg 61-41-2945XiO1w (Bld) [Mass fraction]6.4 %High<=5.9[facility] CenterComment on above:Performed By: #### 38965204, 7357052, 6922778, 421971704, 2835696 ####[facility] [address] [place], [place] [address]uKMTlm 12-19-1651POO/1.73 sq M.predicted among non- blacks MDRD (S/P/Bld) [Vol rate/Area]76 mL/min/1.73 h5Usbgmb>=59[facility] Medical CenterComment on above:Order Comment: Order added by Discern Expert. Result Comment: Chronic kidney disease could be indicated at eGFR's of less than 60 mL/min/1.73m2. Kidney failure is indicated at less than 15 mL/min/1.73m2. Performed By: #### 75560403, 8292460, 0932839, 362919567, 2413381 ####[facility] [address] [place], [place] [address]Nvw-Oingq Planningon 42-45-5039Zau-Visit Planning From: Yesi KLEIN, Edwige To: Wilfredo Melgar MD; Sent: 08/28/2023 14:11:35 EDT Subject: Pre-Visit Planning Due Date/Time: 08/28/2023 14:11:00 EDT Caller Name: CHANTELLE DEY; Caller Number: H , M Co Dr. Melgar, *Based on your response below, [...] feel free to contact me at extension [phone]. Thank you! 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..] dilation of urethral stricture (02/04/2021), Cystourethroscopy with dilationof urethral stricture (05/07/2020), Cataracts, Cholecystectomy, Hysterectomy, Laparoscopy, Placement of stent in cardiac conduit, Post-surgery back pain. Discharge Vitals Temperature (Temporal Artery) 37.4 ?C Heart Rate (Peripheral) 70 Respiratory Rate 18 Blood Pressure 116/72 Height 154.9 cm Height 61 in Weight 61.0 kg Weight 134.2 lb BMI 25.42 What to do next Scheduled Follow-Up Appointments Thursday 1:00 PM EDT With: Harsha PULIDO, Wilfredo [place] Where: [place] [id number]- \.br\ Medications\.br\ What How Much When Why Instructions\.br\ New methylPREDNISolone (Medrol Dosepack 4 mg Tab) 1 Packets By Mouth As Directed Herpes zoster BMI 25.0-25.9,adult Overweight Duration: 6 Days as directed on package labeling Pickup at [facility]\.br\ Unchanged acetaminophen-oxycodone (acetaminophen-oxycodone 325 mg-5 mg Tab) 1 Tablets By Mouth Every day as needed for as needed for pain 30 DAYS, M06.9 Con tact prescribing physician if questions or concerns \.br\ [...] citalopram (citalopram 20 mg Tab) 1 Tablets ByMouth Every day Contact prescribing physician if questions or concerns \.br\ Unchanged folic acid (folic acid 1 mg Tab) 1 Tablets By Mouth Every day Contact prescribing physician if questions or concerns \.br\ Unchanged methotrexate (methotrexate 2.5 mg Tab) 6 Tablets By Mouth Every 7 days Take 6 tabs weekly on Mondays Contact prescribing physician if questions or concerns \.br\ Unchanged metoprol ol (metoprolol 25 mg ER Tab) 0.5 Tablets [...] if questions or concerns \.br\ Pharmacy Information\.br\ [facility]: [address] [place], [place] [id number] [phone]\.br\ Medications and Immunizations Administered\.br\ Not Given\.br\ influenza virus vaccine, inactivated, Postpone due to refusal\.br\ Allergies\.br\ No Known Medication Allergies\.br\ Problems\.br\ Ongoing - Any problem that you are currently receiving treatment for.\.br\ Anticoagulated\.br\ Anxiety\.br\ Arthritis\.br\ Asymptomatic microscopic hematuria\.br\ Back pain with history of spinal surgery\.br\ BMI 24.0-24.9, adult\.br\ Carotid artery stenosis\.br\ Cholelithiasis without obstruction\.br\Cigarette smoker\.br\ COPD without exacerbation\.br\ Fall\.br\ Fatigue\.br\ Fibromyalgia\.br\ GERD ( gastroesophageal reflux disease)\.br\ Heart disease\.br\ Herpes zoster\.br\ Hiatal hernia\.br\ Hypercholesterolemia\.br\ Hypertension\.br\ Major depressive disorder with single episode, in full remission\.br\ Neoplasm of uncertain behavior of right kidney\.br\ Polycythemia\.br\ Postinfective urethral stricture in female\.br\ Recurrent UTI\.br\ Renal cyst\.br\ Renal mass, right\.br\ Sinusitis, acute maxillary\.br\ Smoker\.br\ Stress incontinence\.br\ Trochanteric bursitis\.br\ Vitamin D deficiency\.br\ Historical - Any problem that you are no longer receiving treatment for.\.br\ Acute UTI\.br\Impingement syndrome of shoulder region\.br\ LUQ pain\.br\ Nocturia\.br\ Rheumatoid arteritis\.br\ \.br\[facility] InstituteFacharron [facility] Medicine Office/Clinic Noteon [id number] Medicine Office/Clinic NoteHPI Staff Chantelle is a 78 year old female presenting for acute visit Acute: swollen around eye, red and itchy Onset last thursday, was all puffy and goop if pushed on it. saw eye , thought maybe she was bit by something [...] day(s), # 21 tab(s), Refills(s) 0, [facility] [facility], 154.9, cm, 08/24/23 16:06:00EDT, Height/Length Dosing, 61, kg, 08/24/23 16:06:00 EDT, [...] day(s), # 21 tab(s), Refills(s) 0, [facility], 154.9, cm, 08/24/23 16:06:00EDT, Height/Length Dosing, 61, kg, 08/24/23 16:06:00 EDT, [...] day(s), # 21 tab(s), Refills(s) 0, [facility], 154.9, cm, 08/24/23 16:06:00EDT, Height/Length Dosing, 61, kg, 08/24/23 16:06:00 EDT, [...] dilation of urethral stricture (02/04/2021), Cystourethroscopy with dilationof urethral stricture (05/07/2020), Cataracts, Cholecystectomy, Hysterectomy, [place] (more content not included)...[facility] HospitalComment on above:Result Comment: Electronically Signed By: Harsha PULIDO, Wilfredo Turner.eris\Date and Time Signed: 08/24/23 16:36 EDTFamily Medicine Office/Clinic Noteon [id number] Medicine Office/Clinic NoteChief Complaint meds check for percocet and needs [...] done 8 to 9 years ago in [place]. Review of Systems PHQ Score Initial Depression [...] been within 3 months of her visit today.If she does not have it within 3 months of this visit, patient will have to come in for a follow-up. Patient was made aware of this and the controlled substance agreement. Orders were reviewed. Urinedrug screen was not able to be obtained [...] with voice recognition artificial intelligence software, specifically [employer], [employer] and or [employer]. Substitutions may have occurred due to the inherent limitations of voice recognition and artificial intelligence software. ATTESTATION: Documentation services were performed after patient or guardian consented to allow [employer] to record this visit. KEVIN capital equipment specialist and provider reviewed before signing. KEVIN: [...] dilation of urethral stricture (02/04/2021), Cystourethroscopy with dilationof urethral stricture (05/07/2020), Cholecystectomy, Hysterectomy, Laparoscopy, Placement of stent in cardiac conduit, Post-surgery back pain. Medications acetaminophen-oxycodone 325 mg-5 mg Tab, 1 tab(s), Oral, [...] D3 5000 intl units (more content not included)...[facility] HospitalComment on above:Result Comment: Electronically Signed By: Wilfredo Melgar MD\.br\Date and Time Signed: 05/12/23 11:50 EDT\.br\Electronically Co-Signed By: Jessenia Torres\.br\Date and Time Co-Signed: 05/11/23 17:29 EDT Medication Consenton [id number] Consent [id number]#[id number]:127NoPremier HealthLIPID PROFILEon [id number]-HDL RATIO NORMSEE [facility] WestComment on above:Result Comment: 3.3 - 4.4 LOW RISK 4.4 - 7.1 AVERAGE RISK 7.1 - 11.0 MODERATE RISK >11.0 HIGH RISKPerformed By: #### LIPID #### [facility] [address] [place], [place] [id number] Dr. Mercy VieraCholesterol [Mass/Vol]110 mg/dLNormal<=200The [facility] Comment on above:Performed By: #### LIPID #### [facility] [address] [address] [address] Mercy VieraCholesterol in HDL [Mass/Vol]48 mg/eWWryvld35-36Ntv [facility] HospitalComment on above:Performed By: #### LIPID #### [facility] [address] [address] [address] Mercy VieraCholesterol in LDL [Mass/Vol]47.0 mg/dLKettering Health SpringfieldComment on above:Performed By: #### LIPID #### [facility] [address] [address] [address] Mercy Vergaraestermiles.total/Cholesterol in HDL [Mass ratio]2.3 {ratio} NormalMemorial Health SystemComment on above:Performed By: #### LIPID #### [facility] [address] [address] [address] Mercy Baeza NORMAL> or = 60 mg/dl - LOW CARDIOVASCULAR RISK <40 mg/dl - HIGH CARDIOVASCULAR RISKKettering Health SpringfieldComment on above:Performed By: #### LIPID #### [facility] [address] [address] [address] Mercy Guevara CALC NORMALSEE BELOWKettering Health SpringfieldComment on above:Result Comment: <100 mg/dl OPTIMAL 100 - 129 mg/dl NEAR OR ABOVE OPTIMAL 130 - 159 mg/dl BORDERLINE HIGH 160 - 189 mg/dl HIGH >190 mg/dl VERY HIGH Performed By: #### LIPID #### [facility] [address] [address] [address] Mercy VieraTriglyceride [Mass/Vol]75 mg/dLNormal<=150The [facility] Comment on above:Performed By: #### LIPID #### [facility] [address] [address] [address] Mercy VieraVLDL CALC15.0 mg/dLNoOhio State Harding HospitalComment on above: Performed By: #### LIPID #### [facility] [address] [address] [address] Mercy VieraMG MAMM SCREEN 3D DULCE CADon [id number] MAMM SCREEN 3D DULCE CAD Patient: CHANTELLE DEY Exam Date: 02/20/2023 : 1945 Gender:F Ordering : DR HI HOLLIDAY . Admission #: [id number] Family : Order #: [id number] CLICK HERE TO VIEW EXAM RADIOLOGY REPORT [...] No Treatments None Family Cancers None LOCATION: [facility] BREAST COMPOSITION: Scattered areas fibroglandular density. [...] LUMP SHOULD BE BIOPSIED. Dictated by: Antonia Reyes MD on 02/20/2023 at 09:51 Approved by: Antonia Reyes MD on 02/20/2023 at 09:53NoOhio State Harding HospitalUS CAROTID ART BILon [id number] CAROTID ART BILEXAMINATION: US CAROTID ART DULCE HISTORY: Carotid artery [...] >70 >225 >4.0 Electronically authenticated by: ANTONIA REYES Date: 2023-02-20 15:19[facility] Health SpringfieldVITAMIN D 25 OHon [id number] D 25-OH36.1 ng/mLNormalThe [facility] HospitalComment on above:Performed By: #### VITAD ####[facility] [address] [address]Dr. Mercy Miller D RANGES SEE BELOWKettering Health SpringfieldComment on above:Result Comment: <20 ng/mL Vit D deficient 20 - <30 ng/mL Vit D insufficient 30 - 100 ng/mL Vit D sufficient >100 ng/mL Potential ToxicityPerformed By: #### VITAD ####[facility] [address] [place], [place] [address]Dr. Mercy Gillespie AUTO DIFFon [id number] #0.1 103/ulNormal0.0-0.1Memorial Health SystemComment on above:Performed By: #### CBC #### [facility] [address] [place] [address] Dr. Mercy Manningsophils/100 WBC (Bld)0.7 %Normal0.2-2.0[facility] Comment on above:Performed By: #### CBC #### [facility] [address] [place] [address] Dr. Mercy Walker #0.2 103/ulNormal0.0-0.7The [facility] HospitalComment on above: Performed By: #### CBC #### [facility] [address] [place] [address] Dr. Mercy Kellerosinophils/100 WBC (Bld)2.2 %Normal0.9-7.0The [facility] Comment on above:Performed By: #### CBC #### [facility] [address] [place] [address] Dr. Mercy Kellerrythrocyte distribution width (RBC) [Ratio]13.6 %Bkoahl64.0-15.0 The [facility] HospitalComment on above:Performed By: #### CBC #### [facility] [address] [place] [address] Dr. Mercy VieraHematocrit (Bld) [Volume fraction]43.9 %Amvurr74.0-48.0The [facility] HospitalComment on above:Performed By: #### CBC #### [facility] [address] [place] [address] Dr. Mercy VieraHemoglobin (Bld) [Mass/Vol]16.4 g/dLCritically high12.0-16.0The [facility] HospitalComment on above:Performed By: #### CBC #### [facility] [address] [place] [address] Dr. Mercy Linton #0.02 10e3/ulNormal0.00-0.03The [facility] HospitalComment on above:Performed By: #### CBC #### [facility] [address] [place] [address] Dr. Mercy Linton %0.3 %Normal0.0-0.5The [facility] HospitalComment on above: Performed By: #### CBC #### [facility] [address] [place] [address] Dr. Mercy Gtz #2.4 103/ulNormal1.2-3.8The [facility] HospitalComment on above:Performed By: #### CBC #### [facility] [address] [place] [address] Dr. Mercy Burroughshocytes/100 WBC (Bld)33.6 %Tqymjd72.5-60.0The [facility] HospitalComment on above:Performed By: #### CBC #### [facility] [address] [place] [address] Dr. Mercy Sadler DIFF REQNONormalThe [facility] HospitalComment on above: Performed By: #### CBC #### [facility] [address] [place] [address] Dr. Mercy Gilliam (RBC) [Entitic mass]30.9 kcEsyrnl17.7-34.0The [facility] HospitalComment on above:Performed By: #### CBC #### [facility] [address] [place] [address] Dr. Mercy Gilliam (RBC) [Mass/Vol]37.4 g/dLCritically high29.9-35.2The [facility] HospitalComment on above:Performed By: #### CBC #### [facility] [address] [place] [address] Dr. Mercy Jasso (RBC) [Entitic vol]82.7 fSCumdqf21.0-99.0The [facility] HospitalComment on above:Performed By: #### CBC #### [facility] [address] [place] [address] Dr. Mercy Mann #0.7 103/ulNormal0.3-0.8The [facility] HospitalComment on above:Performed By: #### CBC #### [facility] [address] [place] [address] Dr. Mercy Alfaroocytes/100 WBC (Bld)9.3 %Normal1.7-12.0The [facility] Comment on above:Performed By: #### CBC #### [facility] [address] [place] [address] Dr. Mercy Rosas #3.9 103/ulNormal1.4-6.5The [facility] HospitalComment on above:Performed By: #### CBC #### [facility] [address] [place] [address] Dr. Mercy Arvizuutrophils/100 WBC (Bld)53.9 %Hhwaxx30.0-75.0The [facility] HospitalComment on above:Performed By: #### CBC #### [facility] [address] [place] [address] Dr. Mercy Collado mean volume (Bld) [Entitic vol]9.7 fLNormal9.5-13.5The [facility] HospitalComment on above:Performed By: #### CBC #### [facility] [address] [place] [address] Dr. Mercy VieraPLT203 103/abOjqntx769-421Hht [facility] HospitalComcaro center on above: Performed By: #### CBC #### [facility] [address] [place] [address] Dr. Mercy VieraRBC5.31 106/ulNormal4.20-5.40The [facility] HospitalComcaro center on above:Performed By: #### CBC #### [facility] [address] [place] [address] Dr. Mercy VieraWBC7.2 103/ulNormal4.0-11.0The [facility] HospitalComcaro center on above: Performed By: #### CBC #### [facility] [address] [place] [address] Dr. Mercy Corrigan PROFILEon 43-88-1512Hwvlwfd [Mass/Vol]3.4 g/dLNormal3.4-5.0 The [facility] HospitalComment on above:Performed By: #### LIVER #### [facility] [address] [place] [address] Dr. Mercy VieraAlbumin/Globulin [Mass ratio]1.1 {ratio}NormalThe [facility] HospitalComcaro center on above:Performed By: #### LIVER #### [facility] [address] [place] [address] Dr. Mercy Howard [Catalytic activity/Vol]91 U/FSumfep92-460Cku [facility] on above:Performed By: #### LIVER #### [facility] [address] [place] [address] Dr. Mercy Shah [Catalytic activity/Vol]28 U/FDjgdmf51-08Zzy [facility] HospitalComment on above:Performed By: #### LIVER #### [facility] [address] [place] [address] Dr. Mercy Worley [Catalytic activity/Vol]27 U/PUymuut73-67DwdMemorial Health SystemComment on above:Performed By: #### LIVER #### [facility] [address] [place] [address] Dr. Mercy Veliz, CONJUGATED0.1 mg/dLNormal0.0-0.2[facility] Comment on above:Performed By: #### LIVER #### [facility] [address] [place] [address] Dr. Mercy Palmirubin [Mass/Vol]0.3 mg/dLNormal0.2-1.0[facility] Comment on above:Performed By: #### LIVER #### [facility] [address] [place] [address] Dr. Mercy VieraGlobulin (S) [Mass/Vol]3.1 g/dLNormalThe [facility] HospitalComment on above:Performed By: #### LIVER #### [facility] [address] [place] [address] Dr. Mercy VieraProtein [Mass/Vol]6.5 g/dLNormal6.4-8.2[facility] Comment on above:Performed By: #### LIVER #### [facility] [address] [place] [address] Dr. Mercy Gillespie AUTO DIFFon [id number] #0.1 103/ulNormal0.0-0.1[facility]orial Health SystemComment on above:Performed By: #### CBC #### [facility] [address] [place] [address] Dr. Mercy VieraBasophils/100 WBC (Bld)0.5 %Normal0.2-2.0[facility] Comment on above:Performed By: #### CBC #### [facility] [address] [place] [address] Dr. Mercy Walker #0.2 103/ulNormal0.0-0.7The [facility] HospitalComment on above: Performed By: #### CBC #### [facility] [address] [address] [address] Mercy Kellerosinophils/100 WBC (Bld)1.6 %Normal0.9-7.0The [facility] Comment on above:Performed By: #### CBC #### [facility] [address] [place] [address] Dr. Mercy Kellerrythrocyte distribution width (RBC) [Ratio]14.2 %Juqvku76.0-15.0 The [facility] HospitalComment on above:Performed By: #### CBC #### [facility] [address] [place] [address] Dr. Mercy VieraHematocrit (Bld) [Volume fraction]52.7 %Critically high36.0-48.0 The [facility] HospitalComment on above:Performed By: #### CBC #### [facility] [address] [place] [address] Dr. Mercy VieraHemoglobin (Bld) [Mass/Vol]16.9 g/dLCritically high12.0-16.0The [facility] HospitalComment on above:Performed By: #### CBC #### [facility] [address] [place] [address] Dr. Mercy Linton #0.03 10e3/ulNormal0.00-0.03The [facility] HospitalComment on above:Performed By: #### CBC #### [facility] [address] [place] [address] Dr. Mercy VieraIG %0.3 %Normal0.0-0.5The [facility] Medical Centerment on above: Performed By: #### CBC #### [facility] [address] [place] [address] Dr. Mercy TamMPH #3.8 103/ulNormal1.2-3.8The [facility] HospitalComment on above:Performed By: #### CBC #### [facility] [address] [place] [address] Dr. Mercy Tammphocytes/100 WBC (Bld)34.3 %Rritjw61.5-60.0The [facility] HospitalComment on above:Performed By: #### CBC #### [facility] [address] [place] [address] Dr. Mercy Sadler DIFF REQNONormalThe [facility] HospitalComment on above: Performed By: #### CBC #### [facility] [address] [place] [address] Dr. Mercy Gilliam (RBC) [Entitic mass]30.0 mjItkvdf61.7-34.0The [facility] HospitalComment on above:Performed By: #### CBC #### [facility] [address] [place] [address] Dr. Mercy Gilliam (RBC) [Mass/Vol]32.1 g/vOJomuic76.9-35.2The [facility] HospitalComment on above:Performed By: #### CBC #### [facility] [address] [place] [address] Dr. Mercy Gilliam (RBC) [Entitic vol]93.4 gGKkbycb36.0-99.0[facility] Health SystemComment on above:Performed By: #### CBC #### [facility] [address] [place] [address] Dr. Mercy Mann #0.9 103/ulCritically high0.3-0.8ThShelby Memorial Hospital Comment on above:Performed By: #### CBC #### [facility] [address] [place] [address] Dr. Mercy Alfaroocytes/100 WBC (Bld)8.5 %Normal1.7-12.0[facility] Comment on above:Performed By: #### CBC #### [facility] [address] [place] [address] Dr. Mercy Rosas #6.0 103/ulNormal1.4-6.5The [facility] Medical Centerment on above:Performed By: #### CBC #### [facility] [address] [place] [address] Dr. Mercy Arvizuutrophils/100 WBC (Bld)54.8 %Trohjg70.0-75.0The [facility] HospitalComment on above:Performed By: #### CBC #### [facility] [address] [address] [address] Mercy VieraPlatelet mean volume (Bld) [Entitic vol]10.7 fLNormal9.5-13.5The [facility] on above:Performed By: #### CBC #### [facility] [address] [address] [address] Mercy VieraPLT193 103/klZrrjfo196-208Zxh [facility] on above: Performed By: #### CBC #### [facility] [address] [address] [address] Mercy VieraRBC5.64 106/ulCritically high4.20-5.40The [facility] Comment on above:Performed By: #### CBC #### [facility] [address] [place] [address] Dr. Mercy VieraWBC11.0 103/ulNormal4.0-11.0The [facility] HospitalComment on above:Performed By: #### CBC #### [facility] [address] [address] [address] Mercy VieraGLYCOHEMOGLOBIN A1Con 68-56-6846HML RECOMMENDATIONSEE BELOWNormal The [facility] HospitalComcaro center on above:Result Comment: ADA RECOMMENDED LIMIT 4.0 - 6.0 ADA THERAPEUTIC TARGET < 7.0 ACTION SUGGESTED > 7.0Performed By: #### A1C #### [facility] [address] [address] [address] Mercy VieraGlucose [Mass/Vol]120 mg/dLNormalThe [facility] HospitalComcaro center on above:Performed By: #### A1C #### [facility] [address] [address] [address] Mercy VieraHbA1c (Bld) [Mass fraction]5.8 %Normal4.5-6.2The [facility] on above:Performed By: #### A1C #### [facility] [address] [address] [address] Mercy VieraLIPID PROFILEon [id number]-HDL RATIO NORMSMercy Health Springfield Regional Medical CenterComment on above:Result Comment: 3.3 - 4.4 LOW RISK 4.4 - 7.1 AVERAGE RISK 7.1 - 11.0 MODERATE RISK >11.0 HIGH RISKPerformed By: #### LIPID, CMP #### [facility] [address] [address] [address] Mercy VieraCholesterol [Mass/Vol]125 mg/dLNormal<=200[facility] Comment on above:Performed By: #### LIPID, CMP #### [facility] [address] [address] [address] Mercy VieraCholesterol in HDL [Mass/Vol]49 mg/yCIflqni29-15GmaMemorial Health SystemComment on above:Performed By: #### LIPID, CMP #### [facility] [address] [address] [address] Mercy VieraCholesterol in LDL [Mass/Vol]53.0 mg/dLKettering Health SpringfieldComment on above:Performed By: #### LIPID, CMP #### [facility] [address] [place] [address] Dr. Mercy Vergaraestermiles.total/Cholesterol in HDL [Mass ratio]2.6 {ratio} NormalMemorial Health SystemComment on above:Performed By: #### LIPID, CMP #### [facility] [address] [place] [address] Dr. Mercy Baeza NORMAL> or = 60 mg/dl - LOW CARDIOVASCULAR RISK <40 mg/dl - HIGH CARDIOVASCULAR RISKKettering Health SpringfieldComcaro center on above:Performed By: #### LIPID, CMP #### [facility] [address] [address] [address] Mercy VieraLDL CALC NORMALSEE [facility] WestComcaro center on above:Result Comment: <100 mg/dl OPTIMAL 100 - 129 mg/dl NEAR OR ABOVE OPTIMAL 130 - 159 mg/dl BORDERLINE HIGH 160 - 189 mg/dl HIGH >190 mg/dl VERY HIGH Performed By: #### LIPID, CMP #### [facility] [address] [address] [address] Mercy VieraTriglyceride [Mass/Vol]115 mg/dLNormal<=150The [facility] Comment on above:Performed By: #### LIPID, CMP #### [facility] [address] [address] [address] Mercy VieraVLDL CALC23.0 mg/dLNormalThe [facility] HospitalComment on above: Performed By: #### LIPID, CMP #### [facility] [address] [address] [address] Mercy VieraPROF 14(COMP METB)on 98-42-1443Ipkmitg [Mass/Vol]3.8 g/dLNormal 3.4-5.0The [facility] HospitalComment on above:Performed By: #### LIPID, CMP #### [facility] [address] [place] [address] Dr. Mercy VieraAlbumin/Globulin [Mass ratio]1.1 {ratio}NormalThe [facility] HospitalComment on above:Performed By: #### LIPID, CMP #### [facility] [address] [address] [address] Mercy Howard [Catalytic activity/Vol]76 U/QLcumrh52-831Ocx [facility] HospitalComment on above:Performed By: #### LIPID, CMP #### [facility] [address] [address] [address] Mercy Shah [Catalytic activity/Vol]27 U/WMcuhjc87-99Ncg [facility] HospitalComment on above:Performed By: #### LIPID, CMP #### [facility] [address] [address] [address] Mercy Cary gap [Moles/Vol]11.5 mmol/LNormalThe [facility] Comment on above:Performed By: #### LIPID, CMP #### [facility] [address] [address] [address] Mercy VieraAST [Catalytic activity/Vol]18 U/JAbtrjn79-29Lpq [facility] HospitalComment on above:Performed By: #### LIPID, CMP #### [facility] [address] [address] [address] Mercy VieraBilirubin [Mass/Vol]0.8 mg/dLNormal0.2-1.0The [facility] Comment on above:Performed By: #### LIPID, CMP #### [facility] [address] [address] [address] Mercy VieraCalcium [Mass/Vol]9.0 mg/dLNormal8.5-10.1The [facility] Comment on above:Performed By: #### LIPID, CMP #### [facility] [address] [address] [address] Mercy VieraChloride [Moles/Vol]105 mmol/WNtgdlp23-043Cay [facility] Comment on above:Performed By: #### LIPID, CMP #### [facility] [address] [place] [address] Dr. Mercy VieraCO2 [Moles/Vol]29.2 mmol/EHwhdej60.0-32.0The [facility] Comment on above:Performed By: #### LIPID, CMP #### [facility] [address] [address] [address] Mercy VieraCreatinine [Mass/Vol]0.79 mg/dLNormal0.55-1.02The [facility] HospitalComment on above:Performed By: #### LIPID, CMP #### [facility] [address] [place] [address] Dr. Mercy KellerGFR-AF SIERRA LEONEAN>60Normal>=60The [facility] HospitalComment on above:Performed By: #### LIPID, CMP #### [facility] [address] [address] [address] Mercy KellerGFR-NON AF SIERRA LEONEAN>60Normal>=60The [facility] HospitalComment on above:Performed By: #### LIPID, CMP #### [facility] [address] [place] [address] Dr. Mercy VieraGlobulin (S) [Mass/Vol]3.4 g/dLNormalThe [facility] HospitalComment on above:Performed By: #### LIPID, CMP #### [facility] [address] [address] [address] Mercy VieraGlucose [Mass/Vol]110 mg/dLCritically sxne39-484Lio [facility] HospitalComment on above:Performed By: #### LIPID, CMP #### [facility] [address] [address] [address] Mercy VieraPotassium [Moles/Vol]4.7 mmol/LNormal3.5-5.1The [facility] Comment on above:Performed By: #### LIPID, CMP #### [facility] [address] [address] [address] Mercy VieraProtein [Mass/Vol]7.2 g/dLNormal6.4-8.2The [facility] Comment on above:Performed By: #### LIPID, CMP #### [facility] [address] [place] [address] Dr. Mercy VieraSodium [Moles/Vol]141 mmol/ETfhhsg037-756Udi [facility] Comment on above:Performed By: #### LIPID, CMP #### [facility] [address] [address] [address] Mercy VieraUrea nitrogen [Mass/Vol]19.0 mg/dLCritically high7.0-18.0The [facility] HospitalComment on above:Performed By: #### LIPID, CMP #### [facility] [address] [address] [address] Mercy VieraUrea nitrogen/Creatinine [Mass ratio]24.1 mg/mgNoOhio State Harding HospitalComment on above:Performed By: #### LIPID, CMP #### [facility] [address] [place] [address] Dr. Mercy VieraVITAMIN D 25 OHon [id number] D 25-OH51.1 ng/mLNormalMemorial Health SystemComment on above:Performed By: #### VITAD #### [facility] [address] [place] [address] Dr. Mercy ChavezT D RANGESSEE BELOWKettering Health SpringfieldComment on above: Result Comment: <20 ng/mL Vit D deficient 20 - <30 ng/mL Vit D insufficient 30 - 100 ng/mL Vit D sufficient >100 ng/mL Potential ToxicityPerformed By: #### VITAD #### [facility] [address] [place] [address] Dr. Mercy VieraActivated partial thromboplastin time (aPTT) in platelet poor plasma by coagulation aOrdered By: William Antony on [id number] Coag (PPP) [Time]32.3 s25.1-36.5FMemorial Health System Selby [facility] HospitalLaboratory - Coagulation Ordered By: William Antony on [id number] Coag (PPP) [Time]11.1 s9.0-12.9 [facility] HospitalPlatelet poor plasma international normalized ratio (INR) by coagulation assay (relatOrdered By: William Antony on [id number] Coag (PPP) [Relative time]1.0 {INR}[facility] HospitalComment on above:INR Therapeutic Range A) Pre- and Peroperative OAT started two weeks before surgery. NOT HIP SURGERY: 1.5 - 2.5 HIP SURGERY: 2 - 3B) Primary and secondary prevention of venous THROMBOSIS: 2 - 3C) Active venous thrombosis, pulmonary embolismand prevention of recurrent venous thrombosis: 2 - 3D) Preve ntion of arterial thromboembolismincluding patients with mechanical heart valves: 3 - 4.5Discharge Summaryon [id number] SummaryMR#: [id number] [facility] Chantelle Dey Admitted: 11/09/2017 Discharged: 11/12/2017 Date of : 1945 Physician: Ema Varela M.D. DISCHARGE SUMMARYDISCHARGE ATTENDING: Ema Varela M.D.PRIMARY DIAGNOSIS: Symptomatic cholelithiasis and paraesophageal hernia.SECONDARY DIAGNOSES:1. Hypertension.2. Hyperlipidemia.3. Paraesophageal hernia.4. Carotid stenosis.5. Left subclavian artery stenosis.HOSPITAL COURSE: This is a 72-year-old female patient with symptomaticgallbladder stones and she has symptomatic paraesophageal hernia. On the day of admission, patient was taken back to the operation room, whereshe underwent laparoscopy with paraesopha geal hernia repair with Dorfundoplication and laparoscopy cholecystectomy. [...] bowel movementand passing gas. The patient was ableto ambulate without any difficulty.DISCHARGE DISPOSITION AND CONDITION: Patient was discharged to home ingood and stable condition.DISCHARGE INSTRUCTION:1. Continue on full liquid diet for 2 weeks.2.Follow up with Dr. Varela in his clinic in 1 to 2 weeks.3. Percocet as needed for pain.DISCHARGE MEDICATIONS: Alendronate, aspirin, atorvastatin, lisinopril,methotrexate, metoprolol.Electronically Signed by:Ema Varela M.D. 11/17/2017 05:57 P Ema Varela M.D. I personally saw this patient on the day of the encounter, performed thekey portion(s) of the service and participated in the management andconfirm the resident's documentation. Please note there may beanadditional personal documentation from me. Date Dict: 11/15/2017/09:46 P/WILNER Guamanate Trans: 11/16/2017 05:21 A/Bessie_JN:[id number]: Hi Holliday M.D. [address] [place] [id number] Children's Medical CenterBASIC METABOLIC PANELon 18-55-4922Jduvspg6.0 mg/dLNormal8.6-10.3The [facility] HospitalComment on above:Order Comment: No: Do not add to previous drawPerformed By: #### [id number] ####[facility] [place] [address], IZZXrpjfcge180 mmol/IOossnv97-924Bcw [facility] HospitalComment on above:Order Comment: No: Do not add to previous drawPerformed By: #### [id number] ####[facility] [place] [address], AENSI350 mmol/TLjnetj80-08Jxz [facility] Comment on above:Order Comment: No: Do not add to previous drawPerformed By: #### [id number] ####[facility] [place] [address], USACreatinine0.58 mg/dLLow0.60-1.20The [facility] HospitalComment on above:Order Comment: No: Do not add to previous drawPerformed By: #### [id number] ####[facility] [place] [address], USAeGFR (black)mL/min/{1.73_m2}Normal>60The [facility] HospitalComment on above:Order Comment: No: Do not add to previous draw Result Comment: Calculation may not be valid for patients over 70 yearsPerformed By: #### [id number] ####[facility] [facility] [place] [address], USAeGFR (non-black)mL/min/{1.73_m2}Normal>60The [facility] HospitalComment on above:Order Comment: No: Do not add to previous draw Result Comment: Calculation may not be valid for patients over 70 yearsPerformed By: #### [id number] ####[facility] [place] [address], USAGlucose mass sfkb983 mg/cDPzhd93-453Xvr [facility] HospitalComment on above:Order Comment: No: Do not add to previous draw Performed By: #### [id number] ####[facility] [place] [address], USAPotassium molar conc4.3 mmol/LNormal3.5-5.1The [facility] HospitalComment on above:Order Comment: No: Do not add to previous drawPerformed By: #### [id number] ####[facility] [place] [address], QEAIebpzo477 mmol/RJhlmcm684-957Vca [facility] HospitalComment on above:Order Comment: No: Do not add to previous drawPerformed By: #### [id number] ####[facility] [place] [address], USAUrea nitrogen5 mg/dLLow7-25The [facility] HospitalComment on above:Order Comment: No: Do not add to previous drawPerformed By: #### 39611 ####[facility] [place] [address], USACBC W/DIFFon 82-61-6786BJDUV [facility] Hospital - DublinComment on above:Order Comment: No: Do not add to previous drawPerformed By: #### [id number] ####[facility] [place] [address], [facility] MED[facility] CENTERBasophils Auto #/vol (Bld)0.5 %Normal0.0-2.0The [facility] HospitalComment on above:Order Comment: No: Do not add to previous drawPerformed By: #### [id number] ####[facility]300[facility]ENTERJHOANA [facility] [place] [address], [facility] Eosinophils/100 leukocytes2.8 %Normal0.0-5.0The [facility] HospitalComment on above:Order Comment: No: Do not add to previous drawPerformed By: #### [id number] ####[facility]300[facility] CENTERJHOANA [facility] [place] [address], [facility] MEDICAL CENTERErythrocyte distribution width Auto Ratio (RBC)18.8 %High11.5-16.9 The [facility] HospitalComment on above:Order Comment: No: Do not add to previous drawPerformed By: #### [id number] ####[facility] [place] [address], [facility] MEDICAL CENTERErythrocytes (RBC)4.54 mill/vm4Fgwtfa9.50-5.50The [facility] HospitalComment on above: Order Comment: No: Do not add to previous drawPerformed By: #### 19539 ####[facility] [place] [address], [facility] Hematocrit (HCT)31.9 %Low36.0-48.0The [facility] HospitalComment on above:Order Comment: No: Do not add to previous drawPerformed By: #### [id number] ####[facility] [place] [address].[place] [address], [facility] Hemoglobin mass conc (Bld)9.5 g/dLLow12.0-15.0The [facility] HospitalComment on above:Order Comment: No: Do not add to previous drawPerformed By: #### [id number] ####[place] [address], [facility] MEDICAL CENTERLymphocytes/100 xraopuuzoy37.7 %Fxbbza30.0-40.0The [facility] HospitalComment on above:Order Comment: No: Do not add to previous drawPerformed By: #### [id number] ####[facility] [place] [address].[place] [address], BOMSRW87.0 pgLow24.0-32.0The [facility] HospitalComment on above:Order Comment: No: Do not add to previous drawPerformed By: #### [id number] ####[facility] [place] [address].[place] [address], [facility] MEDICAL CENTERMCHC mass conc (RBC)29.9 g/dLLow32.0-36.0The [facility] HospitalComment on above:Order Comment: No: Do not add to previous drawPerformed By: #### 74753 ####[facility] [place] [address], GFDPBG85.2 fLLow80.0-100.0The [facility] HospitalComment on above:Order Comment: No: Do not add to previous drawPerformed By: #### [id number] ####[facility] [place] [address], [facility]ENTERMETHODManual blood smear examination [facility] CenterComment on above:Order Comment: No: Do not add to previous drawPerformed By: #### 53658 ####[facility] [place] [address], [facility] MICROSNorwalk Memorial HospitalComment on above:Order Comment: No: Do not add to previous drawPerformed By: #### [id number] ####[facility] [place] [address], USAMONOS9.4 %High 2-8The [facility] HospitalComment on above:Order Comment: No: Do not add to previous drawPerformed By: #### [id number] ####[facility] [place] [address], USANeutrophils/100 leukocytes 64.6 %Lwdszu32-20Pkj [facility] HospitalComment on above:Order Comment: No: Do not add to previous drawPerformed By: #### [id number] ####[facility] [place] [address], USAPLAT OAP458 Thou/zt9Efudvk941-405Rez [facility] HospitalComment on above: Order Comment: No: Do not add to previous drawPerformed By: #### [id number] ####[facility] [place] [address], [facility] POIKSLIGHT-[facility] - DublinComment on above:Order Comment: No: Do not add to previous drawPerformed By: #### [id number] ####[facility] [place] [address], [facility] Medical CenterComment on above:Order Comment: No: Do not add to previous drawPerformed By: #### [id number] ####[facility] [place] [address].[place] [address], [facility] MEDICAL CENTERWBC (Leukocytes) 13.1 Thou/th7Fqwr1.0-10.0The [facility] HospitalComment on above:Order Comment: No: Do not add to previous drawPerformed By: #### [id number] ####[facility] [place] [address], [place] POC GLUCOSE LABon 70-91-4520Rmgsvmq mass jfcs053 mg/nUGjzl48-119Omm [facility] HospitalComment on above:Performed By: #### 95050 ####[facility] [place] [address].[place] [address], [facility] MED[facility] CENTERGlucose mass qqzu166 mg/hNOcut34-783Tyo [facility] HospitalComment on above: Performed By: #### [id number] ####[facility] [place] [address].[place] [address], [facility] MED[facility] CENTERGlucose mass hcci953 mg/hCNazz26-923Biq [facility] HospitalComment on above:Performed By: #### [id number] ####[facility] [place] [address], [facility] CENTERGlucose mass conc 105 mg/lYIzab61-655Qfu [facility] HospitalComment on above: Performed By: #### [id number] ####[facility] [place], [place] [address] [address], [facility] MEDICAL CENTERBASIC METABOLIC PANELon 70-85-1497Gyalvak9.6 mg/dL Normal8.6-10.3The [facility] HospitalComment on above:Order Comment: No: Do not add to previous drawPerformed By: #### [id number] ####[facility] [place] [address], LXOZfjswdrp696 mmol/JMtaghm13-066Loy [facility] HospitalComment on above:Order Comment: No: Do not add to previous drawPerformed By: #### 36470 ####[facility] [place] [address], PVBNU845 mmol/L Ryzwsd04-39Ede [facility] HospitalComment on above:Order Comment: No: Do not add to previous drawPerformed By: #### 24361 ####[facility] [place] [address], USACreatinine0.56 mg/dLLow0.60-1.20The [facility] HospitalComment on above:Order Comment: No: Do not add to previous drawPerformed By: #### 86234 ####[facility] [place] [address], USAeGFR (black) mL/min/{1.73_m2}Normal>60The [facility] HospitalComment on above:Order Comment: No: Do not add to previous drawResult Comment: Calculation may not be valid for patients over 70 yearsPerformed By: #### 87067 ####[facility] [place] [address], [place] eGFR (non-black)mL/min/{1.73_m2}Normal>60The [facility] Comment on above:Order Comment: No: Do not add to previous drawResult Comment: Calculation may not be valid for patients over 70 yearsPerformed By: #### 31251 ####[facility] [place] [address], [place] Glucose mass xzed644 mg/yAAuaw22-308Edp [facility] Comment on above:Order Comment: No: Do not add to previous drawPerformed By: #### 66758 ####[facility] [place] [address], USAPotassium molar conc4.1 mmol/LNormal3.5-5.1The [facility] HospitalComment on above:Order Comment: No: Do not add to previous draw Performed By: #### 96246 ####[facility] [place] [address], MJQBszlyq334 mmol/KUub876-667Jrw [facility] HospitalComment on above:Order Comment: No: Do not add to previous draw Performed By: #### [id number] ####[facility] [place] [address], USAUrea nitrogen6 mg/dLLow7-25The [facility] HospitalComment on above:Order Comment: No: Do not add to previous draw Performed By: #### 26723 ####[facility] [facility] [place] [address], [facility] CENTERCBC W/DIFFon 73-93-7877FNCHBPBIQHDMMYxuikuAji [facility] HospitalComment on above:Order Comment: No: Do not add to previous drawPerformed By: #### [id number] ####[place] [address] [facility] [place] [address], [facility] MEDICAL CENTERBasophils Auto #/vol (Bld)0.0 % Normal0.0-2.0The [facility] HospitalComment on above:Order Comment: No: Do not add to previous drawPerformed By: #### [id number] ####[facility] [place] [address], USAEosinophils/100 leukocytes0.0 %Normal0.0-5.0The [facility] HospitalComment on above:Order Comment: No: Do not add to previous drawPerformed By: #### 25661 ####[facility] [place] [address], [place] Erythrocyte distribution width Auto Ratio (RBC)18.7 %High11.5-16.9The [facility] HospitalComment on above:Order Comment: No: Do not add to previous drawPerformed By: #### [id number] ####[facility] [place] [address], [facility] MEDICAL CENTERErythrocytes (RBC)4.24 mill/mm3 Normal3.50-5.50The [facility] HospitalComment on above:Order Comment: No: Do not add to previous drawPerformed By: #### 30355 ####[facility] [facility] [place] [address], [facility] MEDICAL CENTERHematocrit (HCT) 29.8 %Low36.0-48.0The [facility] HospitalComment on above:Order Comment: No: Do not add to previous drawPerformed By: #### 85785 ####[facility] [place] [address], [facility] MED[facility] CENTERHemoglobin mass conc (Bld)9.0 g/dLLow12.0-15.0The [facility] HospitalComment on above:Order Comment: No: Do not add to previous drawPerformed By: #### 17770 ####[facility] [place] [place] [address], [facility] Lymphocytes/100 tcorbwwoxc75.0 %Low20.0-40.0The [facility] HospitalComment on above:Order Comment: No: Do not add to previous drawPerformed By: #### 71762 ####[facility] [place] [address], MMUIGX37.1 pgLow24.0-32.0The [facility] Comment on above:Order Comment: No: Do not add to previous drawPerformed By: #### 38707 ####[facility] [place] [address], [facility] MED[facility] CENTERMCHC mass conc (RBC)30.1 g/dLLow32.0-36.0The [facility] HospitalComment on above:Order Comment: No: Do not add to previous draw Performed By: #### 04847 ####[facility] [place] [address], KIZZFS11.2 fLLow80.0-100.0The [facility] HospitalComment on above:Order Comment: No: Do not add to previous drawPerformed By: #### 43032 ####[facility] [place] [address], USAMETHODManual blood smear examination [facility] Medical CenterComment on above:Order Comment: No: Do not add to previous drawPerformed By: #### 08915 ####[facility] [place] [address], USAMICROSNorwalk Memorial HospitalComment on above:Order Comment: No: Do not add to previous drawPerformed By: #### 03238 ####[facility] [place] [address], NGCWHLYT99.0 %High2-8The [facility] HospitalComment on above:Order Comment: No: Do not add to previous draw Performed By: #### 02693 ####[facility] [place] [address], USAPLAT ZNX627 Thou/gq4Exjcvx934-243Cmv [facility] HospitalComment on above:Order Comment: No: Do not add to previous drawPerformed By: #### 39653 ####[facility] [place] [address], USAPOIKSNorwalk Memorial HospitalComment on above:Order Comment: No: Do not add to previous draw Performed By: #### 32835 ####[facility] [place] [address], USAPOLYSLIGHTNoChildren's Hospital of Columbus Comment on above:Order Comment: No: Do not add to previous drawPerformed By: #### 07954 ####[facility] [facility] [place] [address], ODOXYCN03.0 %Ozwb82-09Och [facility] HospitalComment on above:Order Comment: No: Do not add to previous drawPerformed By: #### 99950 ####[facility] [place] [address], [facility] WBC (Leukocytes)14.0 Thou/cl5Olcg4.0-10.0The [facility] Comment on above:Order Comment: No: Do not add to previous drawPerformed By: #### 15623 ####[facility] [place] [address], [facility] MED[facility] CENTERMAGNESIUM BLOODon 38-63-6876Vsmwbfuem5.6 mg/dLLow1.9-2.7The [facility] HospitalComment on above:Order Comment: No: Do not add to previous drawPerformed By: #### 35254 ####[facility] [place] [address], [facility] MEDICAL CENTERPHOSPHORUS BLOODon 11-11-2017 Phosphate3.0 mg/dLNormal2.5-5.0The [facility] HospitalComment on above:Order Comment: No: Do not add to previous drawPerformed By: #### [id number] ####[facility] [place] [address], [facility] POC GLUCOSE LABon 20-70-4672Yfixyem mass yemu504 mg/qMFrmk14-173Opo [facility] HospitalComment on above:Performed By: #### 24126 ####[facility] [place] [address], [facility] MED[facility] CENTERGlucose mass amjb196 mg/eZBtyy65-996Nln [facility] HospitalComment on above: Performed By: #### 11298 ####[facility] [place] [address], USAGlucose mass snvq848 mg/qXTqyh34-123Sry [facility] HospitalComment on above:Performed By: #### 19798 ####[facility] [place] [address], USAGlucose mass conc 180 mg/bWOjkj18-260Acs [facility] HospitalComment on above: Performed By: #### 27851 ####[facility] [place] [address], USAGlucose mass fihw776 mg/gXYwli57-697Kdp [facility] HospitalComment on above:Performed By: #### 96945 ####[facility] [place] [address], USAGlucose mass conc 121 mg/jLUdhb96-022Ejb [facility] HospitalComment on above: Performed By: #### 70000 ####[facility] [place] [address], USABASIC METABOLIC PANELon 54-98-5000Agaowfi4.2 mg/dLLow 8.6-10.3The [facility] HospitalComment on above:Order Comment: No: Do not add to previous drawPerformed By: #### [id number] ####[facility] [place] [address], RBRSdcajirg873 mmol/LHigh 98-107The [facility] HospitalComment on above:Order Comment: No: Do not add to previous drawPerformed By: #### 01848 ####[facility] [place] [address], ZVXWF777 mmol/AXobuwj89-16Hpi [facility] HospitalComment on above:Order Comment: No: Do not add to previous drawPerformed By: #### 43132 ####[facility] [place] [address], USACreatinine0.58 mg/dLLow0.60-1.20 The [facility] HospitalComment on above:Order Comment: No: Do not add to previous drawPerformed By: #### 75884 ####[facility] [place] [address], USAeGFR (black) mL/min/{1.73_m2}Normal>60The [facility] HospitalComment on above:Order Comment: No: Do not add to previous drawResult Comment: Calculation may not be valid for patients over 70 yearsPerformed By: #### 48027 ####[facility] [place] [address], [place] eGFR (non-black)mL/min/{1.73_m2}Normal>60The [facility] Comment on above:Order Comment: No: Do not add to previous drawResult Comment: Calculation may not be valid for patients over 70 yearsPerformed By: #### 87473 ####[facility] [place] [address], [place] Glucose mass jqtj103 mg/lOMsyw82-197Gim [facility] Comment on above:Order Comment: No: Do not add to previous drawPerformed By: #### 26092 ####[facility] [place] [address], USAPotassium molar conc4.1 mmol/LNormal3.5-5.1The [facility] HospitalComment on above:Order Comment: No: Do not add to previous draw Performed By: #### 47437 ####[facility] [place] [address], YMHElfsfz268 mmol/KKghlns426-583Lfa [facility] HospitalComment on above:Order Comment: No: Do not add to previous draw Performed By: #### 11953 ####[facility] [place] [address], USAUrea nitrogen9 mg/dLNormal7-25The [facility] HospitalComment on above:Order Comment: No: Do not add to previous draw Performed By: #### [id number] ####[facility] [facility] [place] [address], [facility] CENTERCBC COMPLETE BLOOD COUNTon 14-91-8006Higznrhkfof distribution width Auto Ratio (RBC)17.9 %High11.5-16.9The [facility] HospitalComment on above:Order Comment: No: Do not add to previous draw Performed By: #### [id number] ####[facility] [place] [address], [facility]ICAL CENTERErythrocytes (RBC)4.29 mill/uy3Oqhjiw9.50-5.50The [facility] HospitalComment on above:Order Comment: No: Do not add to previous drawPerformed By: #### [id number] ####[facility] [facility] [place] [address], [facility] MEDICAL CENTERHematocrit (HCT)29.9 %Low36.0-48.0 The [facility] HospitalComment on above:Order Comment: No: Do not add to previous drawPerformed By: #### [id number] ####[facility] [facility] [place] [address], [facility] MED[facility] CENTERHemoglobin mass conc (Bld) 9.0 g/dLLow12.0-15.0The [facility] HospitalComment on above: Order Comment: No: Do not add to previous drawPerformed By: #### [id number] ####[facility] [place] [address], [facility] MCH20.9 pgLow24.0-32.0The [facility] HospitalComment on above: Order Comment: No: Do not add to previous drawPerformed By: #### 04472 ####[facility] [facility] [place] [address], [place] MCHC mass conc (RBC)30.0 g/dLLow32.0-36.0The [facility] Comment on above:Order Comment: No: Do not add to previous drawPerformed By: #### 50262 ####[facility] [place] [address], PGVLXT90.7 fLLow80.0-100.0The [facility] HospitalComment on above:Order Comment: No: Do not add to previous drawPerformed By: #### 05543 ####[facility] [facility].[address] PLAT [id number] Thou/df6Hgquth712-391Pwz [facility] HospitalComment on above:Order Comment: No: Do not add to previous drawPerformed By: #### 71204 ####[facility] WBC (Leukocytes)14.3 Thou/qi7Kaxg3.0-10.0The [facility] Comment on above:Order Comment: No: Do not add to previous drawPerformed By: #### 07074 ####[address]Operative Reporton [id number] ReportMR#: [id number] [facility] Pt. Name: Chantelle Dey Room #: 5AB [id number] Date: Birthdate: 1945 OPERATIVE REPORTDATE OF SURGERY: 11/09/2017SURGEON: Ema Varela M.D.ATTENDING SURGEON: Ema Varela M.D.REAL ESTATE LOAN OFFICER: Tiara Anderson M.D.ANESTHESIA: General with endotracheal intubation.ESTIMATED BLOOD LOSS: Minimal.COMPLICATIONS: No immediate complications.PREOPERATIVE DIAGNOSIS: Symptomatic cholelithiasis and paraesophagealherniaPROCEDURE: Laparoscopic paraesophageal hernia repair with Dorfundoplication and laparoscopic cholecystectomy.POSTOPERATIVE DIAGNOSIS: Symptomatic cholelithiasis and paraesophagealherniaINDICATION: The patient is a 11-vuzl-bfwlsbtuh patient with symptomaticgallbladder stones and she also has symptomatic paraesophageal hernia.Benefits, risks, and alternatives of the procedure were explained to thepatient and questions wereanswered, and informed consent was obtained.PROCEDURE IN DETAIL: [...] creating 12 mm incision at the leftupper quadrantbelow the costal margin using 11 blade scalpel, [...] was upgraded to 12 mm. All trocars wereinserted under directvision. Liver retractor was inserted to [...] up to the angle of His. The leftcrura of the diaphragm wasidentified. The phrenoesophageal ligament was taken down with the Harmonic device. Dublin drain was inserted and the esophagus was surrounded withPenrose and retracted to optimize the surgical exposure. Dissectioncontinued in the mediastinum with the Harmonic device. The paraesophagealhernia was completely reduced into the peritoneal cavity. Both vagus wereidentified andprotected. We had at least 4 cm of the distal esophagus inthe peritoneal cavity. At that point, thecrura was approximated using 3interrupted simple suturing using 1-0 Surgidac Endostitch. We made surethat the crura is not tight around the esophagus and we used Endo Stitchwith extracorporeal tying of the knots. Once the crura was reapproximated,we decided to proceed with Dominic fundoplication. Threebites were taken oneach side of the crura. The bite would go through the seromuscular layerof the stomach fundus through the left crura and through the esophagus.This was repeated 3 times on the leftside, and on the right side, the samewas [...] tolerated the procedure well with no immediate complication. Electronically Signed by:Ema Varela M.D. 11/10/2017 06:22 P Ema Varela M.D. I was present for the entire procedure. Date Dict: 11/09/2017/04:17 P/Tiara Anderson M.D.Date Trans: 11/10/2017 01:10 A/Bessie_[id number]:[id number]: Hi Holliday M.D. [address] [facility] [id number]. Mary's [facility] GLUCOSE LABon 07-63-9497Jtpegst mass jlek708 mg/nUQpuw37-539 The [facility] HospitalComment on above:Performed By: #### 95042 ####[facility] [place] [address], [place] Glucose mass ykcw425 mg/sNAvhw83-661Wkk [facility] Comment on above:Performed By: #### 76593 ####[facility] [place] [address], USAGlucose mass hkxx287 mg/dLHigh 70-100The [facility] HospitalComment on above:Performed By: #### 39900 ####[facility] [place] [address], USAGlucose mass ugqk283 mg/vWAktn47-411Ivz [facility] HospitalComment on above:Performed By: #### 33577 ####[facility] [place] [address], USAGlucose mass zcpc702 mg/dLHigh 70-100The [facility] HospitalComment on above:Performed By: #### 63727 ####[facility] [place] [address], USAGlucose mass jaxj511 mg/dEOhpe84-943Rmo [facility] HospitalComment on above:Performed By: #### 23036 ####[facility] [place] [address], [facility] CENTERPOC GLUCOSE LABon 11-09-2017 Glucose mass mzrh951 mg/eDUaat20-177Qje [facility] Comment on above:Performed By: #### 38024 ####[facility] [place] [address], USAGlucose mass lkyq277 mg/dLHigh 70-100The [facility] HospitalComment on above:Performed By: #### 80873 ####[facility] [place] [address], [facility] MED[facility] CENTERGlucose mass drii800 mg/bDBqnr73-696Tyf [facility] HospitalComment on above:Performed By: #### 47512 ####[facility] [place] [address], [facility] CENTERGlucose mass qhpp653 mg/dLHigh 70-100The [facility] HospitalComment on above:Performed By: #### 71453 ####[facility] [place] [address], [facility] CENTEROperative Reporton [id number] ReportMR#: [id number] [facility] Pt. Name: Chantelle Dey Room #: Z0 Discharge Date: Birthdate: 1945 OPERATIVE REPORTDATE OF SURGERY: 11/06/2017SURGEON: Ema Varela M.D.SURGEON: Dr. Ema Varela.PREOPERATIVE DIAGNOSIS: Large paraesophageal hernia.POSTOPERATIVE DIAGNOSIS: Large paraesophageal hernia and gastritis.OPERATION PERFORMED: Esophagogastroduodenoscopy and cold biopsy of theprepyloric mucosa.ANESTHESIA: Conscious sedation with 3 mg Versed and a 75 mcg of fentanyl.INDICATION: The patient is 72 years old white female with largeparaesophageal hernia. An upper endoscopy was offered to the patient.Informed consent was obtained.DESCRIPTION OF PROCEDURE: The patient was brought to the endoscopy suit,laid on bed in the left decubitus position. After conscioussedation, theflexible endoscopy was introduced through the mouth under direct vision,advanced through the esophagus, reached the GE junction, which is 33 cm.Then the scope further advanced into the stomach, reached to the diaphragmhiatus, which is 40 cm from the incisor. Further advanced into thepylorus, passed the pylorus into the duodenum without duodenal ulcer orinflammation. The scope back tostomach, gastric mucosa with erythema onthe prepyloric and body of the stomach mucosa, sign of gastritis, have jamie small area of coffee-ground mucus, sign of small GI bleeding.Multiple prepyloric biopsy was obtained to rule out H pylori. Then, thescope was removed. The procedure was completed without complication. Iwas present during the procedure.CONCLUSION:1. Large 7 cm paraesophageal hernia.2. Gastritis.I was present and performed procedure.Electronically Signed by:Ema Varela M.D. 11/07/2017 02:47 P Ema Varela M.D.Date Dict: 11/06/2017/11:07 A/Ema Varela M.D.Date Trans: 11/06/2017 10:28 P/desoDN_JN:[id number]: Hi Holliday M.D. [address] [place], [place] [address]CB COMPLETE BLOOD COUNTon 99-35-3803Dqgpqizxqwy distribution width Auto Ratio (RBC)17.9 % High11.5-16.9The [facility] HospitalComment on above:Performed By: #### [id number] ####[address] [place] [address], [facility] MED[facility] CENTERErythrocytes (RBC)4.98 mill/gk3Qxgoil6.50-5.50The [facility] HospitalComment on above:Performed By: #### 64985 ####[address] [place] [address], [facility] MED[facility] CENTERHematocrit (HCT) 35.1 %Low36.0-48.0The [facility] HospitalComment on above: Performed By: #### 28780 ####[address] [place] [address], [facility] MED[facility] CENTERHemoglobin mass conc (Bld)10.7 g/dLLow12.0-15.0The [facility] HospitalComment on above:Performed By: #### 34577 ####[address] [facility] [address], [facility] MCH21.6 pgLow24.0-32.0The [facility] HospitalComment on above: Performed By: #### 36314 ####[facility] [place], [place] [address] [address], [facility] MEDICAL CENTERMCHC mass conc (RBC)30.6 g/dLLow32.0-36.0The [facility] HospitalComment on above:Performed By: #### 06769 ####[address] [place] [address], NNOUJA30.5 fLLow 80.0-100.0The [facility] HospitalComment on above:Performed By: #### 54125 ####[address] [place] [address], [facility] MEDICAL CENTERPLAT SSS225 Thou/tn5Lphbqj202-811Pvh [facility] HospitalComment on above:Performed By: #### 46178 ####[address] [place] [address], [facility] MED[facility] CENTERWBC (Leukocytes)13.3 Thou/aq7Ywrm 4.0-10.0The [facility] HospitalComment on above:Performed By: #### 29022 ####[address] [place] [address], [facility] CENTERCOMP METABOLIC PANELon 34-91-1204Apyjdli aminotransferase (ALT)14 U/L Normal7-52The [facility] HospitalComment on above:Performed By: #### 15471 ####[address] [place] [address], [facility] CENTERAlbumin4.0 g/dLNormal3.5-5.7The [facility] Comment on above:Performed By: #### 93980 ####[address] [place] [address], [facility] CENTERALKALINE JDTZCZ79 IU/FWxekyn18-617 The [facility] HospitalComment on above:Performed By: #### 77492 ####[facility] [place] [address], [facility] Aspartate aminotransferase (AST)17 U/YYfcnaf74-01Auj [facility] HospitalComment on above:Performed By: #### 22896 ####[facility] [facility] [place] [address], USABilirubin (total)0.4 mg/dL Normal0.3-1.0The [facility] HospitalComment on above:Performed By: #### 14125 ####[facility] [facility] [place] [address], USACalcium9.0 mg/dLNormal8.6-10.3The [facility] HospitalComment on above:Performed By: #### 02933 ####[facility] [facility] [place] [address], ZHQLgugravg084 mmol/PFlqf66-923Xsl [facility] HospitalComment on above:Performed By: #### 64446 ####[facility] [facility] [place] [address], [place] CO225 mmol/PGyhymg15-29Csc [facility] HospitalComment on above: Performed By: #### 41833 ####[facility] [facility] [place] [address], USACreatinine0.81 mg/dLNormal0.60-1.20The [facility] HospitalComment on above:Performed By: #### 67683 ####[facility] [facility] [place] [address], USAeGFR (black) mL/min/{1.73_m2}Normal>60The [facility] HospitalComment on above:Result Comment: Calculation may not be valid for patients over 70 years Performed By: #### 24320 ####[facility] [place] [address], [facility] MED[facility] CENTEReGFR (non-black)mL/min/{1.73_m2}Normal>60The [facility] HospitalComment on above:Result Comment: Calculation may not be valid for patients over 70 yearsPerformed By: #### 78096 ####[facility] [place] [address], [facility] CENTERGlucose mass conc 103 mg/vLYlqz22-343Pvg [facility] HospitalComment on above: Performed By: #### 57071 ####[facility] [place] [address], [facility]ENTERPotassium molar conc4.7 mmol/LNormal3.5-5.1The [facility] HospitalComment on above:Performed By: #### 83260 ####[facility] [place] [address], [place] Protein6.7 g/dLNormal6.0-8.3The [facility] HospitalComment on above:Performed By: #### 55262 ####[facility] [facility] [place] [address], URTVdpqgp917 mmol/UDiwxkb090-222Hsz [facility] HospitalComment on above:Performed By: #### 00601 ####[facility] [place] [address], USAUrea mg/dLHigh7-25The [facility] HospitalComment on above:Performed By: #### 66365 ####[facility] [place] [address], [facility] CENTERHEMOGLOBIN A1Con 01-78-1729Mivguym mass llwi432 mg/oXSwre28-907Zqp [facility] HospitalComment on above:Performed By: #### 96555 ####[address] [place] [address], [facility] Hemoglobin A1c/Hemoglobin.total mass fraction (Bld)6.8 %High4.0-6.0The [facility] HospitalComment on above:Performed By: #### 03094 ####[facility] [place] [address], [facility] PROTHROMBIN TIMEon 50-83-7835VAL Coag RelTime (PPP)1.04 {INR}Normal0.91-1.16The [facility] HospitalComment on above:Result Comment: ACCCP RECOMMENDED INR FOR WARFARIN THERAPY CONDITION INRPROPHYLAXIS OF VENOUS THROMBOSIS 2-3(HIGH-RISK SURGERY)TREATMENT OF VENOUS THROMBOSIS 2-3TREATMENT OF PULMONARY EMBOLISM 2-3PREVENTION OF SYSTEMIC EMBOLISM: 2-3 ACUTE MYOCARDIAL INFARCTION TISSUE HEART VALVES VALVULAR HEART DISEASE ATRIAL FIBRILLATION RECURRENT SYSTEMIC EMBOLISMMECHANICAL HEART VALVE 2.5-3.5 FROM: ORAL ANTICOAGULANTS. MECHANISM OF ACTION, CLINICALEFFECTIVENESS, AND OPTIMAL THERAPEU TIC RANGE. [id number];108:231S-246S.Performed By: #### 13286 ####[facility] [place] [address], [facility] MED[facility] CENTERProthrombin time (PT) Coag time (PPP)13.6 qGtzssv90.3-14.8The [facility] Comment on above:Result Comment: ALL RESULTS MUST BE INTERPRETED WITH RESPECT TO BLOOD DRAWING ARTIFACTOR DILUTION ERROR OF ANTICOAGULANT AT THE TIME OF SAMPLING.Performed By: #### 93094 ####[facility] [place] [address], [facility]ENTERTYPE AND CROSSMATCHon 19-25-0184PAP INTERPRETATIONONoChildren's Hospital of ColumbusComment on above: Performed By: #### 17757 ####[facility] [place] [address], [facility] CENTERANTIBODY SCREENNegativeNoChildren's Hospital of ColumbusComment on above:Performed By: #### 40885 ####[facility] [place] [address], USARH INTERPRETATIONPositive NormalThe [facility] HospitalComment on above:Performed By: #### 81157 ####[facility] [place] [address], [facility] Vital Signs Date TimeVital SignValuePerforming XxdvwmzonAmyihzok46-66-0498 11:55-0500Body .02 kgHi Holliday MD Work Phone: 1(268)[address] [place], [place] 1175811-03-2025 11:55-0500 Diastolic blood ddvjhixo12 mm[Hg]Hi Holliday MD Work Phone: 1(353)[address] [place], [place] 1175811-03-2025 11:55-0500 Heart rate73 /Tae Holliday MD Work Phone: 1(184)[address] [place], [place] 1175811-03-2025 11:55-0500 SaO2% (BldA) [Mass fraction]96 %Hi Holliday MD Work Phone: 1(193)[address] [place], [place] 1175811-03-2025 11:55-0500 Systolic blood mm[Hg]Hi Holliday MD Work Phone: 1(838)[address] [place], [place] 1175807-24-2025 11:46-0400 Diastolic blood mm[Hg]Hi Holliday MD Work Phone: 1(040)[address] [place], [place] 1175807-24-2025 11:46-0400 Heart rate77 /Tae Holliday MD Work Phone: 1(508)[address] [place], [place] 1175807-24-2025 11:46-0400 SaO2% (BldA) [Mass fraction]92 %Hi Holliday MD Work Phone: 1(710)[address]07-24-2025 11:46-0400 Systolic blood ajmuvsku683 mm[Hg]Hi Holliday MD Work Phone: 1(300)[address] [place], [place] 1175801-29-2025 13:29-0500 Body drdgju413.9 cmSergio Bell MD Work Phone: 1(384)[address] [place], [place] 1169401-29-2025 13:29-0500Body mass index (BMI) [Ratio]25.51 kg/z5QvxzlaSregio Bell MD Work Phone: 1(551)[address] [place], [place] 1169401-29-2025 13:29-0500Body qpnovi65.24 kgSergio Bell MD Work Phone: 1(341)[address] [place], [place] 1169401-29-2025 13:29-0500Diastolic blood aguczclb06 mm[Hg]Sergio Bell MD Work Phone: 1(387)[address] [place], [place] 1169401-29-2025 13:29-0500Heart rate72 /min Sergio Bell MD Work Phone: 1(128)[address] [place], [place] 1169401-29-2025 13:29-0500Systolic blood nhoahhhv747 mm[Hg]Sergio Bell MD Work Phone: 1(787)[address] [place], [place] 1169412-04-2024 13:32-0500Body .9 cmSergio Bell MD Work Phone: 1(860)[address] [place], [place] 1169412-04-2024 13:32-0500Body mass index (BMI) [Ratio]25.51 kg/f5BupztdSergio Bell MD Work Phone: 1(837)[address] [place], [place] 1169412-04-2024 13:32-0500Body bemqnk55.24 kgSergio Bell MD Work Phone: 1(634)[address] [place], [place] 1169412-04-2024 13:32-0500Diastolic blood eytbhdns947 mm[Hg]Sergio Bell MD Work Phone: 1(510)[address] [place], [place] 1169412-04-2024 13:32-0500Systolic blood mm[Hg]Sergio Bell MD Work Phone: 1(886)[address] [place], [place] 1169410-22-2024 10:170400Body okofcl920.9 cmSergio Bell MD Work Phone: 1(042)[address] [place], [place] 1169410-22-2024 10:17-0400Body mass index (BMI) [Ratio]24.56 kg/f0RpqvwxSergio Bell MD Work Phone: 1(632)[address] [place], [place] 1169410-22-2024 10:17-0400Body .97 kgSergio Bell MD Work Phone: 1(605)[address] [place], [place] 1169410-22-2024 10:170400Diastolic blood agvzgmbn10 mm[Hg]Sergio Bell MD Work Phone: 1(133)[address] [place], [place] 1169410-22-2024 10:170400Systolic blood ddjyimxx821 mm[Hg]Sergio Bell MD Work Phone: 1(514)[address] [place], [place] 1169403-25-2022 11:26-0400Diastolic blood erdolqae85 mm[Hg]MD Hi Holliday Work Phone: 1(482)[address] [place], [place] 3262803-25-2022 11:26-0400 Heart rate61 /minMD Hi Holliday Work Phone: 1(135)[address]03-25-2022 11:26-0400 Respiratory rate16 /minMD Hi Holliday Work Phone: 1(963)420-[address] [place], [place] 6356703-25-2022 11:26-0400 SaO2% (BldA) [Mass fraction]94 %MD Hi Holliday Work Phone: 1(779)[address] [place], [place] 3262803-25-2022 11:26-0400 Systolic blood frxongtf001 mm[Hg]MD Hi Holliday Work Phone: 1(273)[address] [place], [place] 3262803-25-2022 08:18-0400 Body drhkpo250.94 cmMD Hi Holliday Work Phone: 1(656)[address] [place], [place] 3262803-25-2022 08:18-0400 Body mass index (BMI) [Ratio]24.5 kg/m2MD Hi Holliday Work Phone: [facility]03-25-2022 08:18-0400 Body pqtmiq13.96 kgMD Hi Holliday Work Phone: [facility] Encounters Encounter DateEncounter TypeCare ProviderFacilityStart: 14-59-5375lqziyqqjjophoebe GilmanbsFacility:FT [facility] BellevueStart: 09-29-2025 End: 40-05-0403owxpuosmvsMncylb L. BobbsFacility:FT BellevueStart: 09-25-2025 End: 98-76-9406dcidrwaybnZjvAna Holliday MD Work Phone: -[facility] BellevueStart: 09-25-2025 End: 06-27-6390Xdovekp encounter procedureChristopher Margie Frank DO-[facility] [employer] Work Phone: Start: 08-08-2025 End: 89-28-0647gmhksxinonTceb L SchwabFacility:FTMCStart: 06-15-2025 End: 43-94-7208yozadiawmdCzgAna Holliday MD Work Phone: [facility] Work Phone: Start: 06-15-2025 End: 47-47-7084Cpgndww encounter procedureChristopher Margie Frank DO-[facility] [place] Work Phone: Start: 06-08-2025 End: 15-85-1827qdktpbchbaUIJ JOHN CHONGFacility:FT FM BellevueStart: 03-09-2025 End: 07-87-9197Wdc Junior Melgar [facility] Start: 03-09-2025 End: 56-31-0669hwbijkkvohAhpcti E. RossFacility:FTMCStart: 12-21-2024 End: 48-32-3286Mctxyw flowsheetSergio Bell MD Work Phone: noms CI ENTStart: 12-21-2024 End: 25-42-7702Yupevz flowsheetSergio Bell MD Work Phone: noms CI ENTStart: 12-21-2024 End: 81-84-3988Mfzfyk outpatient visit 25 minutesSergio Bell MD Work Phone: noms CI ENTComment on above:Right thyroid nodule (CMS/HCC) (Primary Dx); Chronic rhinitis; Chronic intractable headache, unspecified headache typeStart: 12-21-2024 End: 47-42-2982kitlwpyvqhOLAVMY H TIMMISNot AvailableStart: 12-08-2024 End: 42-91-6808nawrriedymMxedsl E. RossFacility:FT BellevueStart: 12-07-2024 End: 89-66-0058Nmrstgafy Result EncounterSergio Bell MD Work Phone: noms External Department UnsolicitedStart: 12-07-2024 End: 50-72-1082Bkdzfflml Result EncounterHiradha Bell MD Work Phone: noms External Department UnsolicitedStart: 12-06-2024 End: 48-20-1695hlzrqffsfqYecybd E. RossFacility:FT BellevueStart: 11-11-2024 End: 98-01-6153Vmerwurdb Result EncounterHiradha Bell MD Work Phone: noms External Department UnsolicitedStart: 11-11-2024 End: 12-36-8171Mvxilsyjy Result EncounterHimaricruzry Selene Bell MD Work Phone: noms External Department UnsolicitedStart: 10-31-2024 End: 17-20-5701Osh Drop Miguel Angel Melgar [facility] Start: 10-31-2024 End: 48-37-0913qvnkkctafsKazhub E. RossFacility:FTMCStart: 10-26-2024 End: 83-78-0910Usefeo flowsheetSergio Bell MD Work Phone: NOMS CI ENTStart: 10-26-2024 End: 59-43-4889Thppxd flowsAudelia Bell MD Work Phone: NOMS CI ENTStart: 10-26-2024 End: 33-17-6742Sntcmfwtg encounterSergio Bell MD Work Phone: [facility]K E[facility] NORWALKStart: 10-26-2024 End: 53-36-6704Fuqdoj outpatient visit 15 minutesSergio Bell MD Work Phone: NOVZ CI ENTComment on above:Right thyroid nodule (CMS/HCC) (Primary Dx); Chronic intractable headache, unspecified headache typeStart: 10-26-2024 End: 85-71-7238wtaflwcbplXHITRT Selene BELLNot AvailableStart: 10-03-2024 End: 39-36-6442Amqwxxrvn Result EncounterHiradha Bell MD Work Phone: [facility] External Department UnsolicitedStart: 10-03-2024 End: 89-69-4984Hpomtfarw Result EncounterSergio Bell MD Work Phone: n[facility] External Department UnsolicitedStart: 10-03-2024 End: 17-82-2083Aawwnnksb encounterHiradha Bell MD Work Phone: [facility] NORWALKStart: 09-30-2024 End: 71-75-6970Dxnhexfmz encounterHimaricruzry Selene Bell MD Work Phone: NO[facility] ENT NORWALKStart: 09-28-2024 End: 40-66-2636Xpgholzqp Result EncounterHiradha Bell MD Work Phone: NORN External Department UnsolicitedStart: 09-28-2024 End: 62-14-8583Njtaxzagz Result EncounterSergio Bell MD Work Phone: noms External Department UnsolicitedStart: 09-28-2024 End: 05-66-3614jmvkxnsaboDS Hi Holliday Work Phone: [facility] Work Phone: Start: 09-28-2024 End: 13-73-9274Kodskpex ReferredMD Hi Holliday Work Phone: [facility]-LAB Path Spec Coventry HospStart: 09-13-2024 End: 51-89-2910Vqxrlh flowsheetSergio Bell MD Work Phone: noms CI ENTStart: 09-13-2024 End: 36-16-0997Mofdqo Robert Bell MD Work Phone: noms CI ENTStart: 09-13-2024 End: 28-48-0247nyhkixpirbQKTRKB H TIMMISNot AvailableStart: 09-13-2024 End: 11-64-0503Leudar outpatient visit 25 minutesSergio Bell MD Work Phone: noms CI ENTComment on above:Right thyroid nodule (CMS/HCC) (Primary Dx); Chronic pansinusitisStart: 08-25-2024 End: 14-94-4548bgsmsxrtkdZogmwf E. RossFacility:FT FM BellevueStart: 08-10-2024 End: 33-41-3412Xgdydmice Result EncounterHiradha Bell MD Work Phone: noms External Department UnsolicitedStart: 08-10-2024 End: 37-50-9926Hlibtngur Result EncounterSergio Bell MD Work Phone: noms External Department UnsolicitedStart: 07-22-2024 End: 88-63-9656Vghnqujwz encounterSergio Bell MD Work Phone: noms CI ENTStart: 04-12-2024 End: 18-28-8292wqtdkdrszsWilcek Fabian. RossFacility:[facility] FM BellevueStart: 04-12-2024 End: 33-77-5542Zim Drop offSbony Melgar [facility] Start: 77-55-3360kpsggwanfoGtrbvg E. RossFacility:[facility] FM BellevueStart: 02-09-2024 End: 23-51-0339ebfclvumcrVSKVXG H TIMMISNot AvailableStart: 01-27-2024 End: 21-34-2856zbhdkcqkcmFKG Betsey L SchwabFacility:FTMCStart: 01-27-2024 End: 25-44-2533Rpb Drop offJodi L Aurea [facility] Start: 12-29-2023 End: 20-26-9537vcpsyapkalApwocv E. RossFacility:FT FM BellevueStart: 11-25-2023 End: 38-51-9178dzzwjjoudnIfjqrs E. RossFacility:FT FM BellevueStart: 11-24-2023 End: 10-72-4054lurygholwlRpgzvi E. RossFacility:FT FM BellevueStart: 11-19-2023 End: 86-94-9312gsrfasjebaBuanfi E. RossFacility:CD:[id number]: 10-05-2023 End: 28-09-3169tkravhqdzcAcczac E. RossFacility:FT FM BellevueStart: 09-22-2023 End: 80-89-1974exntpffzkbGzznmv E. RossFacility:FTMCStart: 09-22-2023 End: 64-28-9088Kue Drop offSbony Melgar [facility] Start: 08-31-2023 End: 64-61-3341clmnnshspvSiwcyh E. RossFacility:FT BellevueStart: 08-24-2023 End: 88-35-7834bildxcmztfUxoixk E. RossFacility:FT BellevueStart: 08-10-2023 End: 72-41-6100dxllrsgtxuZsance E. RossFacility:FT BellevueStart: 05-11-2023 End: 88-08-0448pepexpzgceQvzkgk E. RossFacility:FT BellevueStart: 02-20-2023 End: 06-66-4830hvknrfwxlfUW HI HOLLIDAY .Facility:G1Ugnen: 12-25-2022 End: 43-71-9374tpwnystoddDJ KIM E KNIGHT .Facility:L6Nryax: 05-08-2022 End: 22-42-1587yyhvkqhgrsMN KIM E KNIGHT .Facility:J4Wqeyg: 02-14-2022 End: 20-08-5794Nimmiwsof to same day surgery centerIA Hi Holliday Work Phone: [facility]-Ultrasound Main [place] Start: 11-09-2017 End: 69-90-5304Qlbheppzyp and management of inpatientJIANLIN TANGFacility:[facility] Start: 11-06-2017 End: 96-84-5489PjljnwuppvXYDNYSB TANGFacility:[facility] Procedures DateProcedureProcedure DetailPerforming ClinicianStart: 32-59-0356Vb soft tissue head & neck real time imge docmHkuldip Bell MD Work Phone: Start: 08-33-6114MW HEAD/BRAIN WOHiradha Bell MD Work Phone: Start: 86-85-2191Ccahe sinuses paranasal compl minimum 3 viewsHimaricruzry Selene Bell MD Work Phone: Start: 80-27-8767PT BIOPSY THYROIDHiradha Bell MD Work Phone: Start: 39-79-4752NNHIIHWML W/COMP RFLX AREA 5Hilargrace Bell MD Work Phone: Start: 75-10-9215Uz soft tissue head & neck real time imge Kendrick Bell MD Work Phone: Start: 89-60-1970Xfeseg biopsyMD Hi Holliday Work Phone: Start: 08-70-5811Mwvwsttzmmhudcgdn with dilation of urethral strictureSamuel Harsha Start: 95-75-6698Qpopfpscsolnbiwav with dilation of urethral stricturemuel Harsha Start: 94-72-4974RRLVQL DIAPHRAGM, PERCUTANEOUS ENDOSCOPIC APPROACHJIANLIN TANGStart: 87-65-3065Qfzkqpjke of Gallbladder, Percutaneous Endoscopic ApproachJIANLIN TANGStart: 45-37-5206QNRAACTXHBL OF ESOPHAGOGASTRIC JUNCTION, PERC ENDO APPROACHANRIVERVIEW PSYCHIATRIC CENTER TANGBilateral cataracts (disorder)Wilfredo Melgar Comment on above:bilateral one week apart CholecystectomySamuel Harsha HysterectomySael Harsha LaparoscopySarebecca Harsha Placement of stent in cardiac conduitSael Harsha [phone]-jorcahh back pain (finding)Wilfredo Melgar Plan of Treatment DateCare ActivityDetailAuthorStart: 18-32-1477iclulnaokfJeoutlgllvWdxucofp:FT BellevueStart: 12-21-2024 End: 90-83-4110Ujvmlhf encounter procedureNOMS CI ENTComment on above:Arrived Start: 11-29-2024 End: 57-04-0122Unqgajf encounter tymefsokg43/07/2025 3:30 PM EST Office Visit [facility] [address] [facility] [address] [place] [address] Sergio Bell MD [address] [facility] [address] [place] [address] NOMS CI ENTStart: 10-26-2024 End: 23-38-4520Fkuetde encounter procedureNOMS CI ENTComment on above:Arrived Start: 08-16-2024 End: 76-36-4474Pxnvwcw encounter piokxfhwu88/24/2024 1:30 PM EDT Office Visit [facility] [address] [facility] [address] [place] [id number] Sergio Bell MD [address] [facility] [address] [place] [address] NOMS CI ENTStart: 99-70-1112Nyfslmoqs vaccination Influenza Vaccine (#1)NOMS HealthcareStart: 74-43-7903Ktukcfhiafns Vaccine: 65+ Years (1 of 1 - PCV)Pneumococcal Vaccine: 65+ Years (1 of 1 - PCV)NOMS HealthcarePatient EducationAvita Health System Ontario Hospital Work Phone: Immunizations Immunization DateImmunizationNotesCare VtplnwzhMkqcqslk37-13-3603ysdhtdxbt, high dose seasonal, preservative-free; Translations: [Fluzone High Dose Vaccine] Wilfredo Melgar [phone]-TxzibMagruder Memorial Hospital 82-16-4727apjpyuydj, high dose seasonal, preservative-freeWilfredo Melgar [phone]-LhakxPremier Health [facility]rium [facility] Center10-31-2023 influenza virus vaccine, unspecified formulationHimaricruzry Mariela PULIDO Work Phone: [facility] MedicineNngdmtiuqt31-55-9878TPMI-NwZ-9 (COVID-19) mRNA BNT-162b2 Sudheer Melgar [phone]-IbxrdPremier Health Atrium Medical Center03-08-2021 SARS-CoV-2 (COVID-19) mRNA BNT-162b2 Sudheer Melgar [phone]-JobpbPremier Health Atrium Medical Center02-01-2021 SARS-CoV-2 (COVID-19) mRNA-1273 vaccineSbony Melgar [facility] AndersonNEGATED: Highlighted row has not occurred!99-30-1157aafksirmy virus vaccine, unspecified formulationSamrafita Melgar [phone]-VtnrxUniversity Hospitals Ahuja Medical CenterueNEGATED: Highlighted row has not occurred!82-71-6992lnofyhvgt virus vaccine, unspecified formulationSbony Melgar [phone]-GzuhfDiley Ridge Medical Center BellevueNEGATED: Highlighted row has not occurred!75-01-3917nkshxhakp virus vaccine, unspecified formulationSamrafita Melgar [facility] HospitalNEGATED: Highlighted row has not occurred!36-87-5827eshimtkkb virus vaccine, unspecified formulationSamrafita Melgar [facility] Payers DatePayer CategoryPayerPolicy [id number] Health Insurance [id number] 2024MedicareHUMANA MEDICARE ADVANTAGE [facility] [id number] 2023-Present [id number] [place] [address] [id number] 2024Medicare (Managed Care)[facility] [employer] [id number] [id number] 2.16840.1.383340.3.57[id number] 2.16840.1.025584.3.57[id number] 2.16840.1.478444.3.57[id number] 2.16840.1.196731.3.57[id number] 2.0.1.828009.3.579.[id number] 2..1.525771.3.57[id number] 2..1.160035.3.57[id number] 2.0.1.746689.3.57[id number] 2..1.392578.3.57[id number] 2..1.946553.3.57[id number] 2.840.1.874861.3.57[id number] 2.0.1.703198.3.57[id number] 2.840.1.388028.3.57[id number] 2.840.1.801170.3.57[id number] 2.16.840.1.514843.3.57[id number] 2.16.840.1.856403.3.57[id number] 2.16840.1.806162.3.579.2.[id number] 2.16840.1.459316.3.57[id number] 2.16840.1.839912.3.579.2.74263-62-5901Gdplviv8363532 2.16840.1.572794.3.579.2.096532-37-9510Xzmzlxq1301190 2.840.1.364301.3.579.2.012983-92-3447Kwfqbeu1411711 2.16840.1.218223.3.579.2.443493-32-2151Pmpdknh1672646 2.840.1.085293.3.57[id number] 2.840.1.102208.3.57[id number] 2.16840.1.541006.3.579.2.[id number] 2.16840.1.125262.3.579.[id number] 2.16840.1.442497.3.57[id number] 2.16840.1.234834.3.57[id number] 2.16.840.1.980125.3.57[id number] 2.16.840.1.145645.3.57[id number] 2.16.840.1.904956.3.579.2.[id number] 2.16.840.1.479788.3.57[id number] 2.16.840.1.846454.3.57[id number] 2.16.840.1.062112.3.579.2.[id number] 2.16.840.1.324007.3.57[id number] 2.16.840.1.185293.3.579.2.406Vwcnfqm95779648 2.16.840.1.658799.3.579.2.531 Social History DateTypeDetailFacilityTobacco smoking status NHISUnknown if ever smokedAshtabula County Medical Center Work Phone: Start: 65-34-4199Vfj Assigned At [facility] Northtart: 38-08-6459Ggdnbhy smoking statusLight tobacco smoker (finding)[facility]huja Medical CenterueStart: 02-09-2024 End: 96-93-5100Lkb Assigned At [facility] Hospitaltart: 01-26-2024 End: 27-48-4223Imxodeb smoking statusEx-smoker (finding)[facility] BellueHistory of tobacco useCurrent smokerNOMS HealthcareHistory of tobacco useCigarette SmokerNOMS HealthcareStart: 01-26-2024 End: 03-68-0593Ticvfhx use and exposureSmokeless tobacco non-userNOMS Healthcare Start: 02-09-2024 End: 52-19-2599Ssbvdnaga beverage intakeCurrent drinker of alcohol (finding)NOMS HealthcareStart: 02-09-2024 End: 82-41-3861Yyndcau of Social functionNOMS HealthcareStart: 37-77-5031Yhe assigned at birthNot on fileNOMS HealthcareStart: 06-50-0813Snmyjgq smoking status NHISSmokes tobacco dailyNOMS HealthcareStart: 97-53-8372Drjqltw smoking statusHeavy tobacco smoker (finding)[facility] Hospitaltart: 56-31-6696Xpyqsbm smoking statusNeSumma Health Akron Campusexual OrientationWvumedicine [facility] Hospital Start: 25-98-3216GxkQunqob (finding)[facility] HospitalTobacancer treatment centers [facility] smoking status NHISUnknown if ever smokedMiami Valley Hospital Work Phone: Clinical Notes 11-24-2023 to 08-09-2025 Note Date & ZefcUmorXsuohjtl68-07-0346 NoteNurse Consultation Note Assessment/Plan 1. UTI symptoms (R39.9: Unspecified symptoms and signs involving the genitourinary system) Medications acetaminophen-oxycodone 325 mg-5 mg Tab, 1 tab(s), Oral, Daily, PRN Albuterol (Eqv-Proventil HFA) 90 mcg/inh inhalation aerosol, See Instructions alendronate 35 mg Tab, 35 mg= 1 tab(s), Oral, q7day, 4 refills aspirin 81 mg oral tablet, 81 mg= 1 tab(s), Oral, Daily citalopram 20 mg Tab, See Instructions Fish Oil, 1000 mg, Oral, Daily Handicap Placard, 5 years., See Instructions methotrexate 2.5 mg Tab, See Instructions, 3 refills metoprolol succinate 25 mg ER Tab, 25 mg= 1 tab(s), Oral, Daily, 4 refills nitrofurantoin macrocrystals-monohydrate 100 mg Cap, 100 mg= 1 cap(s), Oral, BID Portable Oxygen Concentrator. Wear at 2L via N/C., See Instructions rosuvastatin 5 mg Tab, See Instructions, 4 refills Vitamin D3 5000 intl units (125 mcg) oral tab Allergies No Known Medication Allergies Immunizations Vaccine Date Status Comments influenza virus vaccine, inactivated 08/25/2024 Given influenza virus vaccine, inactivated 09/22/2023 Given influenza [...] Lab Results Ambulatory Point of Care Results Bilirubin Urine Dipstick: 2+ Moderate (08/08/25 14:29:00) Blood Urine Dipstick: Trace-intact (08/08/25 14:29:00) Glucose Urine Dipstick: Negative (08/08/25 14:29:00) Ketones Urine Dipstick: Trace - 5 mg/dl (08/08/25 14:29:00) Leukocytes Urine Dipstick: Negative (08/08/25 14:29:00) Nitrite Urine Dipstick: Negative (08/08/25 14:29:00) Protein Urine Dipstick: Negative (08/08/25 14:29:00) Specific [place] Urine Dipstick: >=1.030 (08/08/25 14:29:00) Urine Appearance Urine Dipstick: Slightly cloudy (08/08/25 14:29:00) Urine Color Urine Dipstick: Chandni (08/08/25 14:29:00) Urobilinogen Urine Dipstick: Normal 0.2-1 EU/dl (08/08/25 14:29:00) pH Urine Dipstick: 5 (08/08/25 14:29:00)[facility]09-16-2025 NoteNurse Consultation Note Reason for Visit Pt came in today to submit urine for possible UTI. Betsey did send Macrobid to pharmacy. Will monitor for C&S results. Assessment/Plan 1. UTI symptoms (R39.9: Unspecified symptoms and signs involving the genitourinary system) Medications acetaminophen-oxycodone 325 mg-5 mg Tab, 1 tab(s), Oral, Daily, PRN Albuterol (Eqv-Proventil HFA) 90 mcg/inh inhalation aerosol, See Instructions alendronate 35 mg Tab, 35 mg= 1 tab(s), Oral, q7day, 4 refills aspirin 81 mg oral tablet, 81 mg= 1 tab(s), Oral, Daily citalopram 20 mg Tab, See Instructions Fish Oil, 1000 mg, Oral, Daily Handicap Placard, 5 years., See Instructions methotrexate 2.5 mg Tab, See Instructions, 3 refills metoprolol succinate 25 mg ER Tab, 25 mg= 1 tab(s), Oral, Daily, 4 refills nitrofurantoin macrocrystals-monohydrate 100 mg Cap, 100 mg= 1 cap(s), Oral, BID Portable Oxygen Concentrator. Wear at 2L via N/C., See Instructions rosuvastatin 5 mg Tab, See Instructions, 4 refills Vitamin D3 5000 intl units (125 mcg) oral tab Allergies No Known Medication Allergies Immunizations Vaccine Date Status Comments influenza virus vaccine, inactivated 08/25/2024 Given influenza virus vaccine, inactivated 09/22/2023 Given influenza [...] Lab Results Ambulatory Point of Care Results Bilirubin Urine Dipstick: 2+ Moderate (08/08/25 14:29:00) Blood Urine Dipstick: Trace-intact (08/08/25:29:00) Glucose Urine Dipstick: Negative (08/08/25:29:) Ketones Urine Dipstick: Trace - 5 mg/dl (08/08/25:29:00) Leukocytes Urine Dipstick: Negative (08/08/25 14:29:00) Nitrite Urine Dipstick: Negative (08/08/25:29:) Protein Urine Dipstick: Negative (08/08/25:29:) Specific [place] Urine Dipstick: >=1.030 (08/08/25:29:00) Urine Appearance Urine Dipstick: Slightly cloudy (08/08/25:29:00) Urine Color Urine Dipstick: Chandni (08/08/25:29:) Urobilinogen Urine Dipstick: Normal 0.2-1 EU/dl (08/08/25:29:) pH Urine Dipstick: 5 (08/08/25:29:00)[facility]07-17-2025 NotePatient Education Mental and Behavioral Health Chronic Pain, Adult Chronic pain is a type of pain that lasts or keeps coming back for at least 3?6 months. You may have headaches, pain in the abdomen, or pain in other areas of the body. Chronic pain may be related milton illness, injury, or a health condition. Sometimes, the cause of chronic pain is not known. Chronic pain can make it hard for you to do daily activities. If it is not treated, chronic pain can lead to anxiety and depression. Treatment depends on the cause of your pain and how severe it is. You may need to work with a pain specialist to come up with a treatment plan. Many people benefit from two or more types of treatment to control their pain. Follow these instructions at home: Treatment plan Follow your treatment plan as told by your health care provider. This may include: ??? Gentle, regular exercise. ??? Eating a healthy diet that includes foods such as vegetables, fruits, fish, and lean meats. ??? Mental health therapy (cognitive or behavioral therapy) that changes the way you think or act in response to the pain. This may help improve how you feel. ??? Doing physical therapy exercises to improve movement and strength. ??? Meditation, yoga, acupuncture, or massage therapy. ??? Using the oils from plants in your environment or on your skin (aromatherapy). Other treatments may include: ??? Axqi-esu-qnniqex or prescription medicines. ??? Color, light, or sound therapy. ??? Local electrical stimulation. The electrical pulses help to relieve pain by temporarily stopping the nerve impulses that cause you to feel pain. ??? Injections. These deliver numbing or pain-relieving medicines into the spine or the area of pain. Medicines ??? Take fftq-drd-useswau and prescription medicines only as told by your health care provider. ??? Ask your health care provider if the medicine prescribed to you: ? Requires you to avoid driving or using machinery. ? Can cause constipation. You may need to take these actions to prevent or treat constipation: ? Drink enough fluid to keep your urine pale yellow. ? Take dsfr-uci-ztskuwk or prescription medicines. ? Eat foods that are high in fiber, such as beans, whole grains, and fresh fruits and vegetables. ? Limit foods that are high in fat and processed sugars, such as fried or sweet foods. Lifestyle ??? Ask your health care provider whether you should keep a pain diary. Your health care provider will tell you what information to write in the diary. This may include: ? When you have pain. ? What the pain feels like. ? How medicines and other behaviors or treatments help to reduce the pain. ??? Consider talking with a mental health care provider about how to help manage chronic pain. ??? Consider joining a chronic pain support group. ??? Try to control or lower your stress levels. Talk with your health care provider about ways to do this. General instructions ??? Learn as much as you can about how to manage your chronic pain. Ask your health care provider if an intensive pain rehabilitation program or a chronic pain specialist would be helpful. ??? Check your pain level as told by your health care provider. Ask your health care provider if you should use a pain scale. Contact a health care provider if: ??? Your pain is not controlled with treatment. ??? You have new pain. ??? You have side effects from pain medicine. ??? You feel weak or you have trouble doing your normal activities. ??? You have trouble sleeping or you develop confusion. ??? You lose feeling or have numbness in your body. ??? You lose control of your bowels or bladder. Get help right away if: ??? Your pain suddenly gets much worse. ??? You develop chest pain. ??? You have trouble breathing or shortness of breath. ??? You faint, or another person sees you faint. These symptoms may be an emergency. Get help right away. Call 911. ??? Do not wait to see if the symptoms will go away. ??? Do not drive yourself to the hospital. Also, get help right away if: ??? You have thoughts about hurting yourself or others. Take one of these steps if you feel like you may hurt yourself or others, or have thoughts about taking your own life: ??? Go to your nearest emergency room. ??? Call 911. ??? Call the National Suicide Prevention Lifeline at or 291. This is open 24 hours aday. ??? Text the Crisis Text Line at 277601. This information is not intended to replace advice given to you by your health care provider. Make sure you discuss any questions you have with your health care provider. Document Revised: 07/01/2023 Document Reviewed: 06/03/2023 [employer] Patient Education ? 2023 [employer].[facility] 12-21-2024 History of Present illness Narrative* Sergio Bell MD - 12/21/2024 1:30 PM EST Subjective Patient ID: Chantelle Dey is a 79 y.o. female who presents for Thyroid Nodule (Follow up ultrasound and [facility]) Thyroid US shows 12 and 13mm RT thyroid nodules compared to 15mm previously. CT head reviewed and there is no sinonasal or otologic path. Pt states atrovent has not helped her rhinorrhea in the past, but not using. Family History Problem Relation Name Age of Onset Heart failure Father Diabetes Father Active Ambulatory Problems Diagnosis Date Noted Abnormal results of cardiovascular function studies 08/23/2014 Acute confusion 02/07/2019 Benign essential hypertension (CMS/HCC) 08/21/2014 Carotid artery occlusion 04/27/2014 Coronary atherosclerosis ([facility]) 01/26/2024 Dizziness and giddiness 08/21/2014 Gastroesophageal reflux disease 08/21/2014 Hyperlipidemia ([facility]) 08/21/2014 Hypertensive disorder ([facility]) 08/23/2014 Peripheral vascular disease ([facility]) 08/23/2014 Stricture of artery ([facility]) 08/21/2014 Type 2 diabetes mellitus without complication ([facility]) 08/21/2014 COPD (chronic obstructive pulmonary disease) ([facility]) 01/26/2024 Thyroid nodule ([facility]) 01/26/2024 Polycythemia 01/26/2024 Immunodeficiency due to drugs ([facility]) 01/26/2024 Chronic respiratory failure with hypoxia ([facility]) 01/26/2024 Fibromyalgia 01/26/2024 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 Left ear impacted cerumen 02/09/2024 Right thyroid nodule ([facility]) 02/09/2024 Vasomotor rhinitis 02/09/2024 Anticoagulated 12/21/2024 Anxiety 12/21/2024 Arthritis 12/21/2024 Asymptomatic microscopic hematuria 12/21/2024 Back pain with history of spinal surgery 12/21/2024 BMI 24.0-24.9, adult 12/21/2024 Bursitis of hip 12/21/2024 Current smoker 12/21/2024 Elevated blood sugar level 12/21/2024 Immunotherapy 12/21/2024 Major depressive disorder with single episode, in full remission ([facility]) 12/21/2024 Multiple falls 12/21/2024 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 Objective Last Recorded Vitals Vitals: 12/21/24 1329 BP: 115/63 Pulse: 72 ENT Physical Exam Constitutional Appearance: patient appears well-developed, well-nourished and well-groomed, Communication/Voice: communication appropriate for developmental age; vocal quality normal; Assessment/Plan Diagnoses and all orders for this visit: Right thyroid nodule (CMS/HCC) Reassuring FNA. Start semiannual US Chronic rhinitis Refill atrovent. Consider referral for a Clarafix procedure if no help. Chronic intractable headache, unspecified headache type Recommend neuro eval for chronic head pain and pressure. No sinonasal or otologic dx on CT documented in this encounterFreeman Orthopaedics & Sports [id number] NotePatient Education Cardiovascular Hypertension, Adult High blood pressure (hypertension) is when the force of blood pumping through the arteries is too strong. The arteries are the blood vessels that carry blood from the heart throughout the body. Hypertension forces the heart to work harder to pump blood and may cause arteries to become narrow or stiff. Untreated or uncontrolled hypertension can lead to a heart attack, heart failure, a stroke, kidney disease, and other problems. A blood pressure reading consists of a higher number over a lower number. Ideally, your blood pressure should be below 120/80. The first ( top ) number is called the systolic pressure. It is a measure of the pressure in your arteries as your heart beats. The second ( bottom ) number is called the diastolic pressure. It is a measure of the pressure in your arteries as the heart relaxes. What are the causes? The exact cause of this condition is not known. There are some conditions that result in high bloodpressure. What increases the risk? Certain factors may make you more likely to develop high blood pressure. Some of these risk factorsare under your control, including: ??? Smoking. ??? Not getting enough exercise or physical activity. ??? Being overweight. ??? Having too much fat, sugar, calories, or salt (sodium) in your diet. ??? Drinking too much alcohol. Other risk factors include: ??? Having a personal history of heart disease, diabetes, high cholesterol, or kidney disease. ??? Stress. ??? Having a family history of high blood pressure and high cholesterol. ??? Having obstructive sleep apnea. ??? Age. The risk increases with age. What are the signs or symptoms? High blood pressure may not cause symptoms. Very high blood pressure (hypertensive crisis) may cause: ??? Headache. ??? Fast or irregular heartbeats (palpitations). ??? Shortness of breath. ??? Nosebleed. ??? Nausea and vomiting. ??? Vision changes. ??? Severe chest pain, dizziness, and seizures. How is this diagnosed? This condition is diagnosed by measuring your blood pressure while you are seated, with your arm resting on a flat surface, your legs uncrossed, and your feet flat on the floor. The cuff of the bloodpressure monitor will be placed directly against the skin of your upper arm at the level of your heart. Blood pressure should be measured at least twice using the same arm. Certain conditions can cause a difference in blood pressure between your right and left arms. If you have a high blood pressure reading during one visit or you have normal blood pressure with other risk factors, you may be asked to: ??? Return on a different day to have your blood pressure checked again. ??? Monitor your blood pressure at home for 1 week or longer. If you are diagnosed with hypertension, you may have other blood or imaging tests to help your health care provider understand your overall risk for other conditions. How is this treated? This condition is treated by making healthy lifestyle changes, such as eating healthy foods, exercising more, and reducing your alcohol intake. You may be referred for counseling on a healthy diet and physical activity. Your health care provider may prescribe medicine if lifestyle changes are not enough to get your blood pressure under control and if: ??? Your systolic blood pressure is above 130. ??? Your diastolic blood pressure is above 80. Your personal target blood pressure may vary depending on your medical conditions, your age, and other factors. Follow these instructions at home: Eating and drinking ??? Eat a diet that is high in fiber and potassium, and low in sodium, added sugar, and fat. An example of this eating plan is called the DASH diet. DASH stands for Dietary Approaches to Stop Hypertension. To eat this way: ? Eat plenty of fresh fruits and vegetables. Try to fill one half of your plate at each meal with fruits and vegetables. ? Eat whole grains, such as whole-wheat pasta, brown rice, or whole-grain bread. Fill about one fourth of your plate with whole grains. ? Eat or drink low-fat dairy products, such as skim milk or low-fat yogurt. ? Avoid fatty cuts of meat, processed or cured meats, and poultry with skin. Fill about one fourth of your plate with lean proteins, such as fish, chicken without skin, beans, eggs, or tofu. ? Avoid pre-made and processed foods. These tend to be higher in sodium, added sugar, and fat. ??? Reduce your daily sodium intake. Many people with hypertension should eat less than 1,500 mg ofsodium a day. ??? Do not drink alcohol if: ? Your health care provider tells you not to drink. ? You are , may be , or are planning to become . ??? If you drink alcohol: ? Limit how much you have to: ? 0?1 drink a day for women. ? 0?2 drinks a day for men. ? Know how much alcohol is in your drink. In the [place] one drink equals one 12 oz bottle (more content not included)...[facility]12-05-2024 Telephone encounter Note* Telephone Encounter - Lolly Barrios - 10/27/2024 8:04 AM EST Cld and spoke to pt letting her know that allergy testing shows allergies to cedar and cockroach [facility] [id number] Miscellaneous Notes* Telephone Encounter - Lolly Barrios - 10/27/2024 8:04 AM EST Cld and spoke to pt letting her know that allergy testing shows allergies to cedar and cockroach * Telephone Encounter - Sergio Bell MD - 10/26/2024 4:04 PM EST Tell pt her allergy testing shows allergies to cedar and cockroach documented in this encounterNOFreeman Heart [id number] Telephone encounter Note* Telephone Encounter - Sergio Bell MD - 10/26/2024 4:04 PM EST Tell pt her allergy testing shows allergies to cedar and cockroach [facility] [id number] History of Present illness Narrative* Sergio Bell MD - 10/26/2024 1:30 PM EST Subjective Patient ID: Chantelle Dey is a 79 y.o. female who presents for Thyroid Nodule (Follow up FNA ) FNA path showed a [place] 3 nodule. Genetic testing could not be [...] 08/23/2014 Acute confusion 02/07/2019 Benign essential hypertension ([facility]/HCC) 08/21/2014 Carotid artery occlusion 04/27/2014 Coronary atherosclerosis ([facility]) 01/26/2024 Dizziness and giddiness 08/21/2014 Gastroesophageal reflux disease 08/21/2014 Hyperlipidemia ([facility]) 08/21/2014 Hypertensive disorder ([facility]) 08/23/2014 Peripheral vascular disease ([facility]) 08/23/2014 Stricture of artery ([facility]) 08/21/2014 Type 2 diabetes mellitus without complication ([facility]) 08/21/2014 COPD (chronic obstructive pulmonary disease) ([facility]) 01/26/2024 Thyroid nodule ([facility]) 01/26/2024 Polycythemia 01/26/2024 Immunodeficiency due to drugs ([facility]) 01/26/2024 Chronic respiratory failure with hypoxia ([facility]) 01/26/2024 Fibromyalgia 01/26/2024 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 Left ear impacted cerumen 02/09/2024 Right thyroid nodule ([facility]) 02/09/2024 Vasomotor rhinitis 02/09/2024 Resolved Ambulatory Problems Diagnosis Date Noted Tobacco dependence syndrome 01/26/2024 Past Medical History: Diagnosis Date Depression ([facility]) Herpes zoster Hiatal hernia Impingement syndrome of [...] Take 20 mg by mouth Daily HYDROcodone-acetaminophen ([place]) 5-325 MG tablet Take 1 tablet by [...] chronic headache and pressure documented in this encounterFreeman Orthopaedics & Sports [id number] Telephone encounter Note* Telephone Encounter - Roxana Taylor RN - 10/03/2024 12:54 PM EST Verified with Herminia Lorenzo [facility] [id number] Miscellaneous Notes* Telephone Encounter - Roxana Taylor RN - 10/03/2024 12:54 PM EST Verified with Herminia Lorenzo * Telephone Encounter - Sergio Bell MD - 10/03/2024 12:29 PM EST Make sure pt getting affirma documented in this encounterNOFreeman Heart [id number] Telephone encounter Note* Telephone Encounter - Sergio Bell MD - 10/03/2024 12:29 PM EST Make sure pt getting affirma [facility] [id number] Telephone encounter Note* Telephone Encounter - Roxana Taylor RN - 10/03/2024 11:40 AM EST TC from Herminia Lorenzo verifying it was sent to [facility]. [facility] [id number] Miscellaneous Notes* Telephone Encounter - Roxana Taylor RN - 10/03/2024 11:40 AM EST TC from Herminia Lorenzo verifying it was sent to [facility]. * Telephone Encounter - Roxana Taylor RN - 10/03/2024 8:43 AM EST TC from pt. Follow up appt for 10/26. * Telephone Encounter - Roxana Taylor RN - 10/03/2024 8:33 AM EST LM asking Herminia if path sent for Affir[facility]. LM asking pt to call us to schedule follow up. * Telephone Encounter - Sergio Bell MD - 09/30/2024 9:59 AM EST Make sure affirma testing being hanna and schedule F/U for 3 weeks documented in this encounterNOFreeman Heart [id number] Telephone encounter Note* Telephone Encounter - Roxana Taylor RN - 10/03/2024 8:43 AM EST TC from pt. Follow up appt for 10/26. [facility] [id number] Telephone encounter Note* Telephone Encounter - Roxana Taylor RN - 10/03/2024 8:33 AM EST LM asking Herminia if path sent for Affir[facility]. LM asking pt to call us to schedule follow up. [facility] [id number] Telephone encounter Note* Telephone Encounter - Sergio Bell MD - 09/30/2024 9:59 AM EST Make sure affirma testing being hanna and schedule F/U for 3 weeks [facility] [id number] History of Present illness Narrative* Sergio Bell MD - 09/13/2024 9:50 AM EDT Subjective Patient ID: Chantelle Dey is a 79 y.o. female who presents for Thyroid Nodule (Follow up Ultrasound [facility] 08/09/24.) Thyroid US shows a [id number] RT TR4 nodule, compared to 14mm TR3 in Fe. Pt also c/o chronic sinus issues Family History Problem Relation Name Age of Onset Heart failure Father Diabetes Father Active Ambulatory Problems Diagnosis Date Noted Abnormal results of cardiovascular function studies 08/23/2014 Acute confusion 02/07/2019 Benign essential hypertension ([facility]) 08/21/2014 Carotid artery occlusion 04/27/2014 Coronary atherosclerosis ([facility]) 01/26/2024 Dizziness and giddiness 08/21/2014 Gastroesophageal reflux disease 08/21/2014 Hyperlipidemia ([facility]) 08/21/2014 Hypertensive disorder ([facility]) 08/23/2014 Peripheral vascular disease ([facility]) 08/23/2014 Stricture of artery ([facility]) 08/21/2014 Type 2 diabetes mellitus without complication ([facility]) 08/21/2014 COPD (chronic obstructive pulmonary disease) ([facility]) 01/26/2024 Thyroid nodule ([facility]) 01/26/2024 Polycythemia 01/26/2024 Immunodeficiency due to drugs ([facility]) 01/26/2024 Chronic respiratory failure with hypoxia ([facility]) 01/26/2024 Fibromyalgia 01/26/2024 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 Left ear impacted cerumen 02/09/2024 Right thyroid nodule ([facility]) 02/09/2024 Vasomotor rhinitis 02/09/2024 Resolved Ambulatory Problems Diagnosis Date Noted Tobacco dependence syndrome 01/26/2024 Past Medical History: Diagnosis Date Depression ([facility]) Herpes zoster Hiatal hernia Impingement syndrome of [...] Take 20 mg by mouth Daily HYDROcodone-acetaminophen ([place]) 5-325 MG tablet Take 1 tablet by [...] and sinus plain films documented in this encounterFreeman Orthopaedics & Sports [id number] Telephone encounter Note* Telephone Encounter - Leola Bell - 08/05/2024 10:59 AM EDT Pt is scheduled for US 08/09/24 at [facility] and with Dr Bell 08/16/24. [facility] [id number] Miscellaneous Notes* Telephone Encounter - Leola Bell - 08/05/2024 10:59 AM EDT Pt is scheduled for US 08/09/24 at [facility] and with Dr Bell 08/16/24. * Telephone Encounter - Leola Bell - 08/05/2024 10:37 AM EDT Left a message for pt to call Dr Bell's office to schedule appt. * Telephone Encounter - Leola Bell - 07/22/2024 10:12 AM EDT Tried to call pt back to relay the information from Dr Bell/ unable to leave a message, pt does not have voice mail. * Telephone Encounter - Sergio Bell MD - 07/22/2024 9:44 AM EDT Chantelle must have misunderstood our conversation. There is definitely a potential issue with possible thyroid cancer, though the risk is low. She should definitely get a F/U US * Telephone Encounter - Leola Bell - 07/22/2024 9:15 AM EDT Pt called in, she is cancelling her 6 mo US appt because she does not feel she needs to have another US done. Pt said the last US she had wasn't an issue with the nodule . She said she will contact the office if she has any problems. documented in this encounterFreeman Orthopaedics & Sports [id number] Telephone encounter Note* Telephone Encounter - Leola Bell - 08/05/2024 10:37 AM EDT Left a message for pt to call Dr Bell's office to schedule appt. [facility] [id number] Telephone encounter Note* Telephone Encounter - Leola Bell - 07/22/2024 10:12 AM EDT Tried to call pt back to relay the information from Dr Bell/ unable to leave a message, pt does not have voice mail. [facility] [id number] Telephone encounter Note* Telephone Encounter - Sergio Bell MD - 07/22/2024 9:44 AM EDT Chantelle must have misunderstood our conversation. There is definitely a potential issue with possible thyroid cancer, though the risk is low. She should definitely get a F/U US [facility] [id number] Telephone encounter Note* Telephone Encounter - Leola Bell - 07/22/2024 9:15 AM EDT Pt called in, she is cancelling her 6 mo US appt because she does not feel she needs to have another US done. Pt said the last US she had wasn't an issue with the nodule . She said she will contact the office if she has any problems. [facility] [id number] Evaluation + Plan note Diagnostic Tests Pending * Urine Culture 01/27/24 Future Scheduled Tests Laboratory* CBC w/ Auto Diff 04/09/23 * Comprehensive Metabolic Panel 04/09/23 Radiology* US Thyroid 12/30/23 [facility]02-07-2024 Evaluation + Plan note Future Scheduled Tests Radiology* US Thyroid 12/30/23 [facility]01-03-2024 Note [id number] [facility] 11-24-2023 [id number]#1.00[facility] + Plan note Future Appointments Appointment Date:11/20/2023 09:30:00 AM Scheduled Provider: Location:[facility] Appointment Type: Medicare Wellness Subsequent Future Scheduled Tests Laboratory* CBC w/ Auto Diff 04/09/23 * Comprehensive Metabolic [facility] Future Appointments Appointment Date:11/28/2024 10:45:00 AM Scheduled Provider:Wilfredo Melgar MD Location:[facility] Appointment Type: Open Future Scheduled Tests Radiology* US Thyroid 12/30/23 [facility] Evaluation + Plan note Future Appointments Appointment Date:06/08/2025 11:20:00 AM Scheduled Provider:Wilfredo Melgar MD Location:[facility] Appointment Type:[facility] Evysmation noteNo assessment information available [facility] Work Phone: Evaluation note* Diagnosis Right thyroid nodule (CMS/HCC)- Primary Chronic pansinusitis Other chronic sinusitis documented in this encounter [facility] HealthcareEvaluation note* Diagnosis Right thyroid nodule (CMS/HCC)- Primary Chronic intractable headache, unspecified headache type documented in this encounter [facility] HealthcareEvaluation note* Diagnosis Right thyroid nodule (CMS/HCC)- Primary Chronic rhinitis Chronic intractable headache, unspecified headache type documented in this encounter [facility] HealthcareEvaluation note* Diagnosis Onset Date Resolution Status Admit Date Episodic migraine acuteNovember 2024 11:53amHistory of strokeacuteNovember 2024 11:53am [facility] Work Phone: Hospital course Narrative No data available for this section [facility] Dis[facility] instructions No data available for this section [facility] HospitalProgress note No data available for this section [facility] HospitalReason for referral (narrative)No reason for referral information availableMiami [facility] Hospital Work Phone: Summary Purpose Family History No Family History [...] this section No Family History Records Found No data available for this section No Family History Records FoundNo Family History Records FoundNo Family History Records Found Advance Directives No Advanced Directives Records Found Advance Directive Response Recorded Date/ Time Advance Directives No February 06 3:01pm Advance Directive Response Recorded Date/ Time Advance Directives No February 06 2:01pm Chief Complaint and Reason for Visit Chief Complaint Rt Kidney Mass Chief Complaint Unknown Chief Complaint Admit Date Follow up September 25, 2025 1 1:53am Reason for Visit Admit Date Episodic migraine September 25, 2025 1 1:53am History of stroke September 25, 2025 1 1:53am Additional Source Comments INFORMATION SOURCE (unrecogn ized section and content) DATE CREATED AUTHOR 05/18/2018 [facility] DATE CREATED AUTHOR AUTHOR'S ORGANIZ ATION 03/18/2023 [facility] DATE CREATED AUTHOR AUTHOR'S ORGANIZ ATION 04/15/2024 [facility] DATE CREATED AUTHOR AUTHOR'S ORGANIZ ATION 04/16/2024 [facility] DATE CREATED AUTHOR AUTHOR'S ORGANIZ ATION 09/30/2024 [facility] DATE CREATED AUTHOR AUTHOR'S ORGANIZ ATION 12/23/2024 [facility] DATE CREATED AUTHOR AUTHOR'S ORGANIZ ATION 08/09/2025 [facility] DATE CREATED AUTHOR AUTHOR'S ORGANIZ ATION 08/11/2025 [facility] DATE CREATED AUTHOR AUTHOR'S ORGANIZ ATION 10/02/2025 [facility] Care Teams (unrecognized sec tion and content) Team Status: Active Member Role Status Dates Hi Holliday MD Primary Care Provider Active Team Status: Inactive Member Role Status Dates Hi Holliday MD Primary Care Provider Active S tart: September 28, 2024 End: September 28, 2024Hiradha Bell Jr, MDAttending ProviderActiveStart: September 28, 2024 End: November 6th, 2024 Team Status: Inactive Member Role Status Dates Hi Holliday MD Primary Care Provider Active William Antony Jr [facility] ProviderActiveTeam MemberRelationshipSpecialtyStart DateEnd Date Wilfredo Melgar MD [address] [place] [address] PCP - Generalmily Xctrmsfj92/22/24Team MemberRelationshipSpecialtyStart Date End Date Wilfredo Melgar MD [address] [facility] [place] [address] PCP - Generalmily Czyfvcbo18/22/24Team MemberRelationshipSpecialtyStart Date End Date Wilfredo Melgar MD [address] [facility] [place] [address] PCP - Generalmily Qvllgneq06/22/24Team MemberRelationshipSpecialtyStart Date End Date Wilfredo Melgar MD [address] [place] [address] PCP - Generalmily Ezvoypap55/22/24Team MemberRelationshipSpecialtyStart Date End Date Wilfredo Melgar MD [address] [place] [address] PCP - Generalmily Afwzprxi01/22/24Team MemberRelationshipSpecialtyStart Date End Date Wilfredo Melgar MD PCP - GeneralFamily Medicine01/06/Team MemberRelationshipSpecialtyStart DateEnd Date Wilfredo Melgar MD [address] [facility] [address] PCP - [facility]09/13/24 Team Status: Inactive Member Role Status Dates Hi Holliday MD Primary Care Provider Active S tart: June 15, 2025 End: June 15Guillermo Viramontes ProviderActiveStart: June 15, 2025 End: June 15, 2025Team MemberRelationshipSpecialtyStart DateEnd Date Wilfredo Melgar MD [address] [id number] PCP - [facility]09/13/24Team MemberRelationshipSpecialtyStart Date End Date Wilfredo Melgar MD [address] [place] [address] PCP - [facility]09/13/24 Team Status: Active Member Role/Relationship Status Dates Hi Holliday MD Primary Care Provider Active Team Status: Inactive Member Role/Relationship Status Dates Hi Holliday MD Primary Care Provider Active S tart: September 25, 2025 End: September 25Guillermo Viramontes ProviderActiveStart: September 25, 2025 End: September 25, 2025 Goals (unrecognized section and content) Goals may be documented in a n alternate section No data available for this section No data available for this section No data available for this sectionGoals may be documented in an alternate section No data available for this section No data available for this sectionGoals may be documented in an alternate sectionGoals may be documented in an alternate section Reason for Visit (unrecogniz ed section and content) ReasonCommentsThyroid NoduleFollow up Ultrasound [facility] 08/09/24.ReasonComments Thyroid NoduleFollow up FNAReasonCommentsThyroid NoduleFollow up ultrasound and CT [facility] FOR RECORDS PERTAINING TO PATIENTS WHO ARE [...] BE BASED ON THE PRIMARY CLINICAL RECORDS. [facility] [employer] [facility] provides no warranty or guarantee of the accuracy or completeness of information in this document.
== END 2025-10-16 10:00 | disposition home or self-care (01) ==
LOC: US 09:59
PROVIDERS: Visit Provider Otolaryngology
DX: E04.1 Nontoxic single thyroid nodule (principal)
CPT/HCPCS: 76536